=== PATIENT | female | born 1950 | race Caucasian/White ===

== ENCOUNTER → 2016-12-21 | Outpatient (CLI) | payer BC ==
--- OUTSIDE RECORDS SUMMARY | 2016-12-21 10:10 | XMS REPORT | Continuity of Care Document ---
Author Author Interface Organization Interface Address Unknown Phone Unavailable Problems Problem Status Onset Date Classification Date Reported Comments Source Medications Medication Details Route Status Patient Instructions Ordering Provider Order Date Source Allergies, Adverse Reactions, Alerts Substance Category Reaction Severity Reaction type Status Date Reported Comments Source Immunizations Immunization Date Given Site Status Last Updated Comments Source Results Order Name Results Value Reference Range Date Interpretation Comments Source Vital Signs Vital Sign Value Date Comments Source Encounters Location Location Details Encounter Type Encounter Number Reason For Visit Attending Provider ADM Date DC Date Status Source Procedures Procedure Code Date Perfomer Comments Source
--- NOTE | 2016-12-21 19:10 | Diagnostic Imaging Report ---
Digital mammogram bilateral screening This study was compared to the prior exam of 11/11/15, 11/05/14, and 09/03/13. At this time, there are no current complaints. The current study was also evaluated with a Computer Aided Detection (CAD) system. There are scattered fibroglandular densities in both breasts which could obscure a lesion. In the medial aspect of the left breast approximately 8 CM from the nipple a few microcalcifications have developed in the interval since the prior exam. I would recommend that a compression/magnification view of these calcifications be obtained in both the CC and ML projections so that they can be better characterized. The overall appearance of the breasts is otherwise no different. The nodular density in the upper-outer aspect of the left breast seen previously is again evident and no different. There is no primary or secondary sign of malignancy noted. IMPRESSION: Additional mammographic views of the left breast would be recommended for further evaluation. ACR BI-RADS Category 0: Incomplete. (Needs additional imaging evaluation). Result letter will be mailed to the patient. Note: At least 10% of breast cancer is not imaged by mammography. Dictated by: Dictated on workstation # [id number]
== END ==
LOC: RAD 10:07
PROVIDERS: ATTEND Obstetrics & Gynecology
DX: Z12.31 Encounter for screening mammogram for malignant neoplasm of breast (principal); N63 Unspecified lump in breast
CPT/HCPCS: 77067

== ENCOUNTER → 2017-01-04 | Outpatient (CLI) | payer BC ==
--- NOTE | 2017-01-04 19:47 | Diagnostic Imaging Report ---
EXAMINATION: Unilateral diagnostic left mammogram. INDICATION: Abnormal mammogram. The current study was also evaluated with a Computer Aided Detection (CAD) system. FINDINGS: The recent screening mammogram performed on 12/21/2016 noted a few new microcalcifications in the medial aspect of the left breast, approximately 8 cm from the nipple. Compression/magnification views of these calcifications show that they have a generally benign appearance. Even so, I would recommend that a six-month followup mammogram be obtained for continued evaluation. IMPRESSION: The newly developed calcifications in the left breast are most likely benign. A six-month followup mammogram would be recommended for continued study. ACR BI-RADS Category 3: Probably benign findings. Result letter will be mailed to the patient. Note: At least 10% of breast cancer is not imaged by mammography. Dictated by: Dictated on workstation # [id number]
== END ==
LOC: RAD 07:57
PROVIDERS: ATTEND Obstetrics & Gynecology
DX: R92.8 Other abnormal and inconclusive findings on diagnostic imaging of breast (principal); R92.1 Mammographic calcification found on diagnostic imaging of breast

== ENCOUNTER → 2017-07-19 | Outpatient (CLI) | payer BC ==
--- NOTE | 2017-07-19 14:15 | Diagnostic Imaging Report ---
EXAMINATION: Left breast diagnostic mammogram with tomography. The current study was also evaluated with a Computer Aided Detection (CAD) system. INDICATION: Calcifications in the medial aspect of the left breast. COMPARISON: 12/21/2016. FINDINGS: Loosely clustered calcifications with minimal heterogeneity are seen in the medial aspect of the left breast with no change. IMPRESSION: Unchanged medial left breast calcifications are favored to be benign. Another followup when the patient is due for her bilateral mammogram in November 2017 is recommended. ACR BI-RADS Category 3: Probably benign findings. Result letter will be mailed to the patient. Note: At least 10% of breast cancer is not imaged by mammography. Dictated by: Dictated on workstation # [id number]
== END ==
LOC: RAD 09:05
PROVIDERS: ATTEND Obstetrics & Gynecology
DX: R92.1 Mammographic calcification found on diagnostic imaging of breast (principal)

== ENCOUNTER → 2018-01-02 | Outpatient (CLI) | payer MEDICARE, BC ==
--- NOTE | 2018-01-02 20:08 | Diagnostic Imaging Report ---
INDICATION: Routine screening. Comparison is made with prior study from 07/19/2017, 12/21/2016 and 11/11/2015. The current study was also evaluated with a Computer Aided Detection (CAD) system. Scattered fibroglandular densities are identified bilaterally. Nodular density in the upper slightly outer aspect of the left breast at middle depth is stable. There are benign calcifications bilaterally. The previously seen medial calcifications of the left breast appear stable. Axillae are unremarkable. No malignant-appearing microcalcifications are seen. IMPRESSION: Stable bilateral mammograms. No mammographic features suspicious for malignancy are identified. ACR BI-RADS Category 2: Benign findings. Result letter will be mailed to the patient. Note: At least 10% of breast cancer is not imaged by mammography. Dictated by: Dictated on workstation # [id number]
== END ==
LOC: RAD 10:13
PROVIDERS: ATTEND Obstetrics & Gynecology
DX: Z12.31 Encounter for screening mammogram for malignant neoplasm of breast (principal)
CPT/HCPCS: 77067

== ENCOUNTER → 2019-01-09 | Outpatient (CLI) | payer MEDICARE, BC ==
--- NOTE | 2019-01-09 19:38 | Diagnostic Imaging Report ---
INDICATION: Routine screening. COMPARISON: Comparison is made with prior mammograms from 01/02/2018 and 12/21/2016. TECHNIQUE: 2D and 3D bilateral screening mammography was performed with computer-aided detection (CAD) system. FINDINGS: Scattered fibroglandular densities are identified bilaterally. There are benign calcifications bilaterally. Nodular density in the outer left breast mid depth appears stable. No dominant mass or malignant appearing microcalcifications are seen. The axillae are unremarkable. IMPRESSION: No mammographic features suspicious for malignancy are identified. ACR BI-RADS Category 2: Benign findings. Result letter will be mailed to the patient. Note: At least 10% of breast cancer is not imaged by mammography. Dictated by: Dictated on workstation # [id number]
== END ==
LOC: RAD 10:54
PROVIDERS: ATTEND Obstetrics & Gynecology
DX: Z12.31 Encounter for screening mammogram for malignant neoplasm of breast (principal)
CPT/HCPCS: 77067

== ENCOUNTER → 2019-05-14 | Outpatient (CLI) | payer MEDICARE, BC ==
--- NOTE | 2019-05-14 19:04 | Diagnostic Imaging Report ---
INDICATION: Indentation of the left nipple. COMPARISON: Correlation is made with diagnostic mammogram from earlier the same day. EXAMINATION: Sonographic interrogation of the retroareolar left breast was performed. FINDINGS: There is no retroareolar mass or fluid collection seen. No sonographic abnormality is identified. IMPRESSION: No sonographic abnormality is identified. ACR BI-RADS Category 1: Negative. Result letter will be mailed to the patient. Note: At least 10% of breast cancer is not imaged by mammography. Dictated by: Dictated on workstation # [id number]
--- NOTE | 2019-05-14 19:24 | Diagnostic Imaging Report ---
INDICATION: Left nipple retraction. COMPARISON: Comparison is made with prior mammogram of 01/09/2019 as well as 01/02/2018 and 07/17/2017. Unilateral left 2-D and 3-D diagnostic mammography was performed. The current study was also evaluated with a Computer Aided Detection (CAD) system. 3-D tomosynthesis was also performed and reviewed. FINDINGS: Nodular density in the upper outer left breast remains stable. There are benign calcifications in the left breast. No new mass or malignant-appearing microcalcifications are seen. Left axilla is unremarkable. IMPRESSION: Stable left mammogram with no mammographic features suspicious for malignancy. Even so, sonographic interrogation of retroareolar left breast is recommended and will be performed today. ACR BI-RADS Category 0: Incomplete. (Needs additional imaging evaluation). Result letter will be mailed to the patient. Note: At least 10% of breast cancer is not imaged by mammography. Dictated by: Dictated on workstation # [id number]
== END ==
LOC: RAD 09:16
PROVIDERS: ATTEND Obstetrics & Gynecology
DX: N64.53 Retraction of nipple (principal)
CPT/HCPCS: 76642

== ENCOUNTER 2020-05-17 12:03 | Emergency (ER) | payer MEDICARE, BC ==
[~2020-05-17] VITALS: Ht 167.7 cm; Wt 104.1 kg
--- NOTE | 2020-05-17 12:28 | ED General ---
General Chief Complaint: General Problems/Pain Stated Complaint: ANXIETY; TREMOR Nursing Triage Note: Patient reports she has not been able to sleep well for 5 nights, feeling jittery and anxious. Patient denies any pain. Nursing Sepsis Screen: No Definite Risk History of Present Illness Date Seen by Provider: May 17, 2020 Time Seen by Provider: 12:25 Initial Comments 69-year-old female presents with feeling of jitteriness and shaky for the past several hours. States for the last 4 days she's had difficulty sleeping the night and can only sleep for about 1-2 hours and she wakes up. Denies any chest pain or shortness of air. Denies abdominal pain or nausea. Denies fever, chills, cough or recent illness. Patient does states she had heart attack in 1998 and a couple years after that had a stent and that she has not had any heart problems. At that time her heart attack was discovered after a profound period of weakness. Allergies and Home Medications Allergies Coded Allergies: Sulfa (Sulfonamide Antibiotics) (Verified Allergy, Unknown, 05/17/20) adhesive tape (Verified Allergy, Unknown, 05/17/20) clopidogrel (Verified Allergy, Unknown, 05/17/20) latex (Verified Allergy, Unknown, 05/17/20) niacin (Verified Allergy, Unknown, 05/17/20) paroxetine (Verified Allergy, Unknown, 05/17/20) Uncoded Allergies: penicillin (Allergy, Unknown, 05/17/20) Patient Home Medication List Home Medication List Reviewed: Yes Review of Systems Review of Systems Constitutional: see HPI; No dizziness, No fever; malaise; No weakness EENTM: no symptoms reported Respiratory: No cough, No short of breath Cardiovascular: No chest pain, No palpitations, No syncope Gastrointestinal: No abdominal pain, No constipation, No diarrhea, No loss of appetite, No nausea, No vomiting Musculoskeletal: No back pain, No joint pain, No neck pain Psychiatric/Neurological: Anxiety; Denies Headache, Denies Numbness, Denies Paresthesia, Denies Tingling; Tremors (baseline w PD, but also feeling additional "jitteriness"); Denies Weakness Past Vxpzlpe-Udbiud-Cyfskf Hx Patient Social History Alcohol Use: Denies Use Recreational Drug Use: No 2nd Hand Smoke Exposure: No Recent Foreign Travel: No Contact w/Someone Who Travel: No Recent Infectious Disease Expo: No Recent Hopitalizations: No Physical Abuse: No Sexual Abuse: No Mistreated: No Fear: No Seasonal Allergies Seasonal Allergies: No Past Medical History Surgeries: Yes (tumor on back) Coronary Stent, Tonsillectomy Respiratory: No Cardiac: Yes Coronary Artery Disease, Heart Attack Neurological: Yes Parkinson's Disease Genitourinary: No Gastrointestinal: No Musculoskeletal: No Endocrine: No HEENT: No Cancer: No Psychosocial: No Integumentary: No Physical Exam Vital Signs Vital Signs - First Documented 05/17/20 12:08 Temp 36.1 Pulse 62 Resp 16 B/P (MAP) 153/93 (113) Pulse Ox 100 Capillary Refill : Less Than 3 Seconds Height, Weight, BMI Height: '" Weight: lbs. oz. kg; 37.00 BMI Method: General Appearance: No Apparent Distress, WD/WN HEENT: PERRL/EOMI, Normal ENT Inspection Neck: Non Tender, Supple Respiratory: Chest Non Tender, Lungs Clear, Normal Breath Sounds Cardiovascular: Regular Rate, Rhythm, No Edema, No JVD Gastrointestinal: Non Tender, Soft Neurologic/Psychiatric: Alert, Oriented x3, No Motor/Sensory Deficits, Normal Mood/Affect Progress/Results/Core Measures Suspected Sepsis Recent Fever Within 48 Hours: No Infection Criteria Present: None New/Unexplained Altered Menta: No Sepsis Screen: No Definite Risk SIRS Temperature: Pulse: 62 Respiratory Rate: 16 Laboratory Tests 05/17/20 12:30: White Blood Count 7.2 Blood Pressure 153 /93 Mean: 113 Laboratory Tests 05/17/20 12:30: Creatinine 0.78, Platelet Count 233, Total Bilirubin 0.8 Results/Orders Lab Results Laboratory Tests Test 05/17/20 12:03 05/17/20 12:30 Range/Units Urine Color YELLOW Urine Clarity CLEAR Urine pH 5.5 5-9 Urine Specific [place] 1.015 L 1.016-1.022 Urine Protein NEGATIVE NEGATIVE Urine Glucose (UA) NEGATIVE NEGATIVE Urine Ketones NEGATIVE NEGATIVE Urine Nitrite NEGATIVE NEGATIVE Urine Bilirubin NEGATIVE NEGATIVE Urine Urobilinogen 0.2 < = 1.0 MG/DL Urine Leukocyte Esterase 1+ H NEGATIVE Urine RBC (Auto) NEGATIVE NEGATIVE Urine RBC NONE /HPF Urine WBC 5-10 H /HPF Urine Squamous Epithelial Cells 5-10 /HPF Urine Crystals NONE /LPF Urine Bacteria TRACE /HPF Urine Casts NONE /LPF Urine Mucus NEGATIVE /LPF Urine Culture Indicated YES White Blood Count 7.2 4.3-11.0 10^3/uL Red Blood Count 4.69 4.35-5.85 10^6/uL Hemoglobin 14.0 11.5-16.0 G/DL Hematocrit 43 35-52 % Mean Corpuscular Volume 91 80-99 FL Mean Corpuscular Hemoglobin 30 25-34 PG Mean Corpuscular Hemoglobin Concent 33 32-36 G/DL Red Cell Distribution Width 12.6 10.0-14.5 % Platelet Count 233 130-400 10^3/uL Mean Platelet Volume 10.4 7.4-10.4 FL Neutrophils (%) (Auto) 56 42-75 % Lymphocytes (%) (Auto) 25 12-44 % Monocytes (%) (Auto) 8 0-12 % Eosinophils (%) (Auto) 10 0-10 % Basophils (%) (Auto) 1 0-10 % Neutrophils # (Auto) 4.0 1.8-7.8 X 10^3 Lymphocytes # (Auto) 1.8 1.0-4.0 X 10^3 Monocytes # (Auto) 0.6 0.0-1.0 X 10^3 Eosinophils # (Auto) 0.7 H 0.0-0.3 10^3/uL Basophils # (Auto) 0.1 0.0-0.1 10^3/uL Sodium Level 138 135-145 MMOL/L Potassium Level 4.1 3.6-5.0 MMOL/L Chloride Level 102 98-107 MMOL/L Carbon Dioxide Level 24 21-32 MMOL/L Anion Gap 12 5-14 MMOL/L Blood Urea Nitrogen 14 7-18 MG/DL Creatinine 0.78 0.60-1.30 MG/DL Estimat Glomerular Filtration Rate > 60 BUN/Creatinine Ratio 18 Glucose Level 128 H 70-105 MG/DL Calcium Level 9.8 8.5-10.1 MG/DL Corrected Calcium 9.6 8.5-10.1 MG/DL Total Bilirubin 0.8 0.1-1.0 MG/DL Aspartate Amino Transf (AST/SGOT) 23 5-34 U/L Alanine Aminotransferase (ALT/SGPT) 5 0-55 U/L Alkaline Phosphatase 97 40-136 U/L Troponin I < 0.30 <0.30 NG/ML Total Protein 7.6 6.4-8.2 GM/DL Albumin 4.3 3.2-4.5 GM/DL My Orders Orders - XENA TEJADA DO Cbc With Automated Diff (05/17/20 12:24) Comprehensive Metabolic Panel (05/17/20 12:24) Urinalysis (05/17/20 12:24) Troponin I Fs (05/17/20 12:24) Urine Culture (05/17/20 12:03) Thyroid Stimulating Hormone (05/17/20 13:25) Vital Signs/I&O 05/17/20 12:08 Temp 36.1 Pulse 62 Resp 16 B/P (MAP) 153/93 (113) Pulse Ox 100 Capillary Refill : Less Than 3 Seconds Blood Pressure Mean: 113 Progress Note : Progress Note Likely anxiety related sensation of feeling jittery or shaky. Also possibly due to her recent insomnia she states is secondary to feeling uncomfortable at night and having difficulty rolling over in bed due to her Parkinson's as well as frequently needing to use the restroom. Advised taking melatonin nightly and also given prescription for Xanax 0.5 mg to take once daily as needed. Also advised notifying her neurologist of the symptoms and to follow up accordingly. Departure Impression Primary Impression: Insomnia Qualified Codes: G47.00 - Insomnia, unspecified Additional Impression: Parkinson's disease (tremor, stiffness, slow motion, unstable posture) Disposition: 01 HOME, SELF-CARE Condition: Stable Departure-Patient Inst. Decision time for Depature: 13:27 Referrals: [facility] (PCP) Primary Care Physician REMINGTON ADAMS APRN (Family) Primary Care Physician Patient Instructions: Insomnia (DC), Parkinson Disease (DC) Add. Discharge Instructions: U advised to take melatonin 10 mg nightly for the next 2 weeks to see if this helps with your insomnia. Call your neurologist regarding her sensation of feeling shaky and for notifying them of the medication that was given to you today as needed for these episodes. All discharge instructions reviewed with patient and/or family. Voiced understanding. Scripts Alprazolam (Xanax) 0.5 Mg Tablet 0.5 MG PO DAILY PRN for Anxiety, #10 TAB Prov: XENA TEJADA DO 05/17/20 XENA TEJADA DO May 17, 2020 12:28
[2020-05-17 12:38] LABS: CLARITY,URINE CLEAR; COLOR,URINE YELLOW
[2020-05-17 12:39] LABS: BACTERIA,URINE TRACE /HPF; BILIRUBIN,URINE NEGATIVE (NEGATIVE); GLUCOSE, URINE (UA) NEGATIVE (NEGATIVE); KETONES,URINE NEGATIVE (NEGATIVE); LEUKOCYTE ESTERASE ,URINE 1+ (NEGATIVE); NITRITE,URINE NEGATIVE (NEGATIVE); PH,URINE 5.5 (5-9); PROTEIN,URINE NEGATIVE (NEGATIVE)
[2020-05-17 12:41] LABS: BASOPHILS % (AUTO) 1 % (0-10); EOSINOPHILS % (AUTO) 10 % (0-10); HEMATOCRIT 43 % (35-52); LYMPHOCYTES % (AUTO) 25 % (12-44); MEAN CORPUSCULAR HEMOGLOBIN 30 PG (25-34); MEAN CORPUSCULAR HGB CONC 33 G/DL (32-36); MEAN CORPUSCULAR VOLUME 91 FL (80-99); MEAN PLATELET VOLUME 10.4 FL (7.4-10.4); MONOCYTES % (AUTO) 8 % (0-12); NEUTROPHILS % (AUTO) 56 % (42-75); PLATELET COUNT 233 10^3/uL (130-400); RED CELL DISTRIBUTION WIDTH 12.6 % (10.0-14.5); WHITE BLOOD COUNT 7.2 10^3/uL (4.3-11.0)
[2020-05-17 12:42] LABS: BASOPHILS # (AUTO) 0.1 10^3/uL (0.0-0.1); EOSINOPHILS # (AUTO) 0.7 10^3/uL (0.0-0.3); LYMPHOCYTES # (AUTO) 1.8 X 10^3 (1.0-4.0); MONOCYTES # (AUTO) 0.6 X 10^3 (0.0-1.0)
[2020-05-17 13:08] LABS: ALANINE AMINOTRANSFERASE 5 U/L (0-55); ALBUMIN 4.3 GM/DL (3.2-4.5); ALKALINE PHOSPHATASE 97 U/L (40-136); BILIRUBIN,TOTAL 0.8 MG/DL (0.1-1.0); BUN/CREATININE RATIO 18; CALCIUM 9.8 MG/DL (8.5-10.1); CARBON DIOXIDE 24 MMOL/L (21-32); CHLORIDE 102 MMOL/L (98-107); CREATININE SERUM 0.78 MG/DL (0.60-1.30); GFR ESTIMATED > 60; GLUCOSE 128 MG/DL (70-105); POTASSIUM 4.1 MMOL/L (3.6-5.0); SODIUM 138 MMOL/L (135-145); TOTAL PROTEIN 7.6 GM/DL (6.4-8.2)
[2020-05-17] MEDS ORDERED: ALPR0.5T PO (13:29)
[2020-05-17 13:45] VITALS: BP 148/80
--- OUTSIDE RECORDS SUMMARY | 2020-05-17 14:07 | XMS REPORT | Encounter Summary ---
Author Author [facility] Organization [facility] Address Unknown Phone Unavailable Care Team Providers Care Field Checker Name Role Phone Claudia Perez PCP Reason for Visit * Reason Comments Other Encounter Details Care Team Description Date Type Department Chace Branham MD [address] [place] [address] [phone] Other 04/26/2018 Refill [facility] [address] [place], [place] [id number] Social History Date Tobacco Use Types Packs/Day Years Used Never Smoker Smokeless Tobacco: Never Used Drinks/Week oz/Week Comments Alcohol Use No Sex Assigned at Date Recorded Not on file Industry Job Start Date Occupation Not on file Not on file Not on file Travel End Travel History Travel Start No recent travel history available. documented as of this encounter Plan of Treatment Not on filedocumented as of this encounter Visit Diagnoses Not on filedocumented in this encounter
--- OUTSIDE RECORDS SUMMARY | 2020-05-17 14:07 | XMS REPORT | Encounter Summary ---
Author Author [facility] Organization [facility] Address Unknown Phone Unavailable Care Team Providers Care Safety Grooving Machine Operator Name Role Phone Claudia Perez PCP Reason for Referral * Diagnostic Imaging (Routine) Referred By Contact Referred To Contact Status Reason Specialty Diagnoses / Procedures Chace Branham MD [address] [place] [address] Closed Diagnoses Obesity (BMI 30-39.9) P rocedures Electrocardiogram (ECG) Reason for Visit * Reason Comments Annual Exam Coronary Artery Disease Encounter Details Care Team Description Date Type Department Chace Branham MD [address] [place] [address] [phone] Atherosclerosis of [place] coronary arter y of [place] heart without angina pectoris (Primary Dx); Mixed hyperlipidemia; Obesity (BMI 30-39.9); S/P coronary artery stent placement 08/20/2019 Office Visit [facility] [address] [place], [place] [id number] Social History Date Tobacco Use Types Packs/Day Years Used Never Smoker Smokeless Tobacco: Never Used Drinks/Week oz/Week Comments Alcohol Use No Sex Assigned at Date Recorded Not on file Industry Job Start Date Occupation Not on file Not on file Not on file Travel End Travel History Travel Start No recent travel history available. documented as of this encounter Last Filed Vital Signs Reading Time Taken Comments Vital Sign 154/94 08/20/2019 10:37 AM CDT Blood Pressure 55 08/20/2019 10:37 AM CDT Pulse - - Temperature - - Respiratory Rate - - Oxygen Saturation - - Inhaled Oxygen Concentration 107.5 kg (237 lb) 08/20/2019 10:37 AM CDT Weight 170.2 cm (5' 7") 08/20/2019 10:37 AM CDT Height 37.12 08/20/2019 10:37 AM CDT Body Mass Index documented in this encounter Patient Instructions * Patient Instructions* Carmelina Bronson RN - 08/20/2019 10:45 AM CDT Medication Instructions: Continue Current Regimen Follow up with MD Dr. Chace Last 1 year Please call the Nurse Line at [phone] ([facility] Team). with any questions or concerns. For medication refill needs, please first contact your pharmacy. For any [facility] scheduling questions, please lisa dayanara . At [facility], high quality patient care is our top priority. To ensure our cardiovascular standards are continuously met, you may receive a survey via [employer] or text message, and we ask that you please take the time to fill it out. We strive to ensure you are very satisfied with every visit. Thank you in advance for taking the time to fill this out. It was a pleasure to see you again. documented in this encounter Progress Notes * Chace Branham MD - 08/20/2019 10:45 AM CDT [facility] [place] Appointment Date: 08/20/2019 Claudia Perez APRN [address] [facility] [address] RE: Oscar Moreno : 1950 Visit provider: Chace Branham MD Dear Claudia Perez APRN, I had the pleasure of seeing Oscar Moreno in the office today. She is a(n) 68 y .o. female and presents with the following chief complaint(s): Annual Exam and C oronary Artery Disease HPI: She was seen today in followup for her annual review. She is doing well. She h as established coronary artery disease with a small myocardial infarction in the year 1999, treated with PCI of the LAD, with subsequent brachytherapy of that l esion. She has remained completely asymptomatic ever since. She describes no a ngina or heart failure type symptoms. She has Parkinson's disease, followed at the movement disorder clinic. Her most recent LDL is 65 mg/dL on 07/15/2019. Overall, she is pleased with the way she feels. Patient Active Problem List Diagnosis SNOMED CT(R) Mixed hyperlipidemia MIXED HYPERLIPIDEMIA Hypothyroidism HYPOTHYROIDISM Atherosclerosis of [place] coronary artery of [place] heart CORONARY ARTERIOSC LEROSIS IN [place] ARTERY Parkinson's disease (HCC) PARKINSON'S DISEASE Bradycardia BRADYCARDIA History of SD (myocardial infarction) HISTORY OF MYOCARDIAL INFARCTION S/P coronary artery stent placement HISTORY OF PLACEMENT OF STENT FOR YEPEZ RY ARTERY DISEASE Obesity (BMI 30-39.9) BODY MASS INDEX 30+ - OBESITY Past Medical History: Diagnosis Date Anxiety Atherosclerosis of [place] coronary artery of [place] heart Bradycardia 01/19/2016 Depression History of SD (myocardial infarction) 06/28/2000 Hypothyroidism 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 Moreno is a female who presented to [facility] on 06/16/2019 at age 68 for evaluati on of left nipple changes. Ms. Moreno reports left breast itching that began on 05/03/19. She noticed her left nipple was indented on 05/06/19. She had a left di agnostic mammogram and left breast ultrasound on 05/14/19 ([facility]ia [facility] P Mixed hyperlipidemia Obesity (BMI 30-39.9) Parkinson's disease (HCC) 01/19/2016 Pulmonary hypertension ([facility]) Syncope Past Surgical History: Procedure Laterality Date CORONARY ANGIOPLASTY PTCA -LAD with entry into beta cath radiation trial. CORONARY STENT PLACEMENT 06/28/2000 PTCA/Stent -proximal LAD-75-80% redilated and stented. HYSTERECTOMY 2003 TONSILLECTOMY AND ADENOIDECTOMY 1954 TUMOR EXCISION 1986 Tumor on back removed Final Medications: Current Outpatient Medications Medication Sig Dispense Refill aspirin 81 MG chewable tablet Chew 1 tablet (81 mg total) daily. atenolol (TENORMIN) 25 MG tablet Take 1 tablet (25 mg total) by mouth daily. 90 tablet 3 atorvastatin (LIPITOR) 10 MG tablet TAKE 1 TABLET BY MOUTH NIGHTLY 90 tablet 3 cholecalciferol, vitamin D3, (D3-2000) 2,000 unit cap capsule Take 1 capsule by mouth daily. levothyroxine (SYNTHROID, LEVOTHROID) 50 MCG tablet Take 50 mcg by mouth moy ly. loratadine (ALLERGY RELIEF, LORATADINE,) 10 mg tablet take 1 tablet (10MG) by ORAL route every day 0 NITROSTAT 0.4 mg SL tablet DISSOLVE ONE TABLET UNDER THE TONGUE EVERY 5 PARMJIT DUTCH NEEDED FOR CHEST PAIN. DO NOT EXCEED A TOTAL OF 3 DOSES IN 15 MINUTES 25 tablet 2 OM 3/E/LINOL/ALA/OLEIC/GLA/LIP (OMEGA 3-6-9 ORAL) Take 2 capsules by mouth 2 (two) times a day. therapeutic multivitamin (THERAGRAN) tablet Take 1 tablet by mouth daily. carbidopa-levodopa (SINEMET) 25-100 mg per tablet Take 1 tablet by mouth 3 ( three) times a day. No current facility-administered medications for this visit. Allergies Allergen Reactions Adhesive Tape-Silicones Clopidogrel Bisulfate Comment: PLAVIX Niacin Comment: NIASPAN Paroxetine Hcl Comment: PAXIL Penicillin G Potassium Comment: PENICILLIN Sulfamethoxazole Comment: Bactrim Trimethoprim Comment: Bactrim Family History Problem Relation Age of Onset Cancer Father Heart attack Father Stroke Mother No Known Problems Sister No Known Problems Brother Parkinson's disease Brother Cancer Sister Social History: Social History Tobacco Use Smoking status: Never Smoker Smokeless tobacco: Never Used Substance Use Topics Alcohol use: No Drug use: No Review of Systems Constitution: Negative for fever, malaise/fatigue and night sweats. HENT: Negative for nosebleeds. Cardiovascular: Negative for chest pain, claudication, cyanosis, dyspnea on exer tion, irregular heartbeat, leg swelling, near-syncope, orthopnea, palpitations, paroxysmal nocturnal dyspnea and syncope. Respiratory: Positive for snoring. Negative for cough, hemoptysis, shortness of breath, sleep disturbances due to breathing and wheezing. Endocrine: Negative for cold intolerance and polydipsia. Hematologic/Lymphatic: Does not bruise/bleed easily. Skin: Positive for rash. Musculoskeletal: Negative for joint pain and myalgias. Gastrointestinal: Negative for dysphagia, hematochezia, nausea and vomiting. Genitourinary: Negative for hematuria. Neurological: Negative for brief paralysis, disturbances in coordination, excess marcus daytime sleepiness, dizziness, focal weakness, light-headedness, loss of bal ance, numbness and paresthesias. All other systems reviewed and are negative. Vital Signs 08/20/19 1037 BP: (!) 154/94 Pulse: (!) 55 Weight: 107.5 kg (237 lb) Height: 1.702 m (5' 7") BMI: Body mass index is 37.12 kg/m. Physical Exam Constitutional: She is oriented to person, place, and time. She appears well-dev eloped and well-nourished. No distress. HENT: Head: Normocephalic and atraumatic. Eyes: Pupils are equal, round, and reactive to light. EOM are normal. No scleral icterus. Neck: Neck supple. No JVD present. Cardiovascular: Normal rate, regular rhythm, normal heart sounds and intact dist al pulses. Exam reveals no gallop and no friction rub. No murmur heard. Pulmonary/Chest: Effort normal and breath sounds normal. No respiratory distress . She has no wheezes. She has no rales. Abdominal: Soft. Bowel sounds are normal. Musculoskeletal: Normal range of motion. She exhibits no edema. Neurological: She is alert and oriented to person, place, and time. She has norm al reflexes. Coarse tremors in left hand. Skin: Skin is warm and dry. No rash noted. She is not diaphoretic. No erythema. No pallor. Psychiatric: She has a normal mood and affect. Her behavior is normal. Nursing note and vitals reviewed. Cholesterol Date Value 07/15/2019 146 mg/dL 03/07/2018 146 12/20/2016 156 HDL Cholesterol (mg/dL) Date Value 07/15/2019 62 03/07/2018 70 12/20/2016 76 (A) Triglycerides (mg/dL) Date Value 07/15/2019 100 03/07/2018 92 12/20/2016 79 LDL Cholesterol Date/Time Value Ref Range Status 07/15/2019 65 100 mg/dL Final 03/07/2018 58 mg/dL Final 12/20/2016 64 mg/dL Final EKG: Normal Sinus Rhythm, slow R wave progression and at 64 bpm Encounter Diagnoses Name Primary? Atherosclerosis of [place] coronary artery of [place] heart without angina pec toris Yes Mixed hyperlipidemia Obesity (BMI 30-39.9) S/P coronary artery stent placement Impression: 1. Coronary artery disease, clinically stable and asymptomatic. 2. Dyslipidemia, on moderately intense statin therapy. 3. History of brachytherapy to the LAD. 4. Parkinson's disease with occasional mild orthostatic symptoms, but nothing r ecently. 5. No significant carotid stenosis as of March 2017. Plan: From a cardiac standpoint, she is doing really well and I see no reason to recom mend any changes. I plan to see her in followup in 1 year's time. Treatment goals, progress and next steps, as above, were discussed and mutually agreed upon with the patient/family. Thank you for allowing me to participate in Oscar Moreno's care. If I can be o f any further assistance, please do not hesitate to contact me. Sincerely, Chace Branham MD /[facility] documented in this encounter Plan of Treatment Not on filedocumented as of this encounter Procedures Comments Procedure Name Priority Date/Time Associated Diag nosis ECG Routine 08/20/2019 Obesity (BMI 30 -39.9) 10:35 AM CDT documented in this encounter Results * Electrocardiogram (ECG) (08/20/2019 10:35 AM CDT) QRSd 108 [facility] QT 408 [facility] QTC 421 [facility] ECGHR 64 [facility] ECGPR 160 [facility]AC[facility]ER Specimen Narrative Performed At [facility] [place] Test Date: 2019-08-20 Pat Name: OSCAR MORENO Department: [facility] Room: Gender: Female Vrt Mechanic: DANILO : 1950 Requested By: CHACE BRANHAM Order Number: [id number] Reading MD: Sacha Mera Measurements Intervals Bow Rate: 64 P: 44 [place]: 160 QRS: -20 QRSD: 108 T: 37 QT: 408 QTc: 421 Interpretive Statements SINUS RHYTHM CONSIDER ANTERIOR INFARCT Electronically Signed On 08-24-2019 13: 40:23 CDT by Sacha Mera Procedure Note Interface, External Ris In - 08/24/2019 1:40 PM CDT [facility] [place] Test Date: 2019-08-20 Pat Name: OSCAR OMRENO Department: MICHELINEJose Room: Gender: Female Vrt Mechanic: DANILO : 1950 Requested By: CHACE BRANHAM Order Number: [id number] Reading MD: Sacha Mera Measurements Intervals Bow Rate: 64 P: 44 [place]: 160 QRS: -20 QRSD: 108 T: 37 QT: 408 QTc: 421 Interpretive Statements SINUS RHYTHM CONSIDER ANTERIOR INFARCT Electronically Signed On 08-24-2019 13:40:23 CDT by Sacha Mera Performing Organization Address City/State/Zipcode Ph one Number [email or web address] documented in this encounter Visit Diagnoses Diagnosis Atherosclerosis of [place] coronary aspen [place] of [place] heart without angina pectoris Mixed hyperlipidemia Obesity (BMI 30-39.9) S/P coronary artery stent placement Postsurgical percutaneous transluminal coronary angioplasty status documented in this encounter
--- OUTSIDE RECORDS SUMMARY | 2020-05-17 14:07 | XMS REPORT | Encounter Summary ---
Author Author [facility] Organization [facility] Address Unknown Phone Unavailable Care Team Providers Care Reimbursement Spec Name Role Phone PCP Unavailable Reason for Referral * Diagnostic Imaging (Routine) Referred By Contact Referred To Contact Status Reason Specialty Diagnoses / Procedures Jonatan Dick MD [address] [place] [address] [facility] C[facility] Ultrasound [address] [place] [address] Closed Cardiology Diagnoses Carotid bruit P rocedures US Carotid Duplex bilat CV US Carotid Duplex bilat Reason for Visit * Diagnostic Imaging (Routine) Referred By Contact Referred To Contact Status Reason Specialty Diagnoses / Procedures Jonatan Dick MD [address] [place] [address] [facility] Ultrasound [address] [place] [address] Closed Cardiology Diagnoses Carotid bruit P rocedures US Carotid Duplex bilat CV US Carotid Duplex bilat Encounter Details Care Team Description Date Type Department Jonatan Dick MD [address] [place] [address] [phone] Carotid bruit 04/10/2017 [place] [address] Social History Date Tobacco Use Types Packs/Day Years Used Never Smoker Smokeless Tobacco: Never Used Drinks/Week oz/Week Comments Alcohol Use No Sex Assigned at Date Recorded Not on file Industry Job Start Date Occupation Not on file Not on file Not on file Travel End Travel History Travel Start No recent travel history available. documented as of this encounter Medications at Time of Discharge Start Date End Date Medication Sig Dispensed Refills 04/10/2017 aspirin 81 MG chewable Chew 1 tablet 0 tablet (81 mg total) daily. carbidopa-levodopa Take 1 tablet 0 (SINEMET) 25-100 mg per by mouth 3 tablet (three) times a day. cholecalciferol, vitamin Take 1 0 D3, (D3-2000) 2,000 unit capsule by cap capsule mouth daily. levothyroxine (SYNTHROID, Take 50 mcg 0 LEVOTHROID) 50 MCG tablet by mouth daily. 07/14/2010 loratadine (ALLERGY take 1 tablet 0 RELIEF, LORATADINE,) 10 (10MG) by mg tablet ORAL route every day OM Take 2 0 3/E/LINOL/ALA/OLEIC/GLA/L capsules by IP (OMEGA 3-6-9 ORAL) mouth 2 (two) times a day. therapeutic multivitamin Take 1 tablet 0 (THERAGRAN) tablet by mouth daily. 02/04/2018 atenolol (TENORMIN) 25 MG Take 25 mg by 0 tablet mouth daily. 04/10/2017: Patient received a 90 day supply and 3 refills on 02/01/2017. 04/10/2017 04/26/2018 atorvastatin (LIPITOR) 10 Take 1 tablet 90 tablet 3 MG tablet (10 mg total) by mouth nightly. 03/27/2017 04/12/2018 NITROSTAT 0.4 mg SL Dissolve 1 25 tablet 2 tabletIndications: tablet (0.4 Coronary artery disease mg total) involving lummi coronary under the artery without angina tongue every pectoris 5 (five) minutes as needed for chest pain. documented as of this encounter Plan of Treatment Not on filedocumented as of this encounter Procedures Comments Procedure Name Priority Date/Time Associated Diag nosis CAROTID DUPLEX BILAT Routine 04/10/2017 Caroti d bruit 10:36 AM CDT documented in this encounter Results * US Carotid Duplex bilat (04/10/2017 10:36 AM CDT) Specimen Impressions Performed At Moderately tortuous bilateral ICA. LANISUNITHA No significant carotid calcified plaque . No duplex evidence of hemodynamically s ignificant stenosis or luminal narrowing. NOTE: Parts of this report were generated wit [employer] voice recognition software. J Digit Imagin2010;24(4):832-6. Narrative Performed At Patient: CARLITA MORENO Sex#: Minna # [id number] Filiberto#: [id number] Location: [facility] Procedure Requested: [id number] US CAROT ID DUPLEX BILAT Reason for Exam: Carotid bruit Exam Ordered: 04/10/2017 09 50 Exam Date/Time: 04/10/2017 103 6 Begin exam date/time: 04/10/2017 100 0 US CAROTID DUPLEX BILAT Indication: Carotid bruit READING SITE: [facility] Longitudinal and transverse 2D scans of the carotid arteries in the neck were obtained with Duplex/Doppler spe ctral analysis and color flow imaging. The common carotid, external c arotid, internal carotid and vertebral arteries were evaluated. RIGHT The right common carotid artery and car otid bulb demonstrates minimal intimal thickening but no significant c alcified plaque. There is moderately tortuous right ICA. The right common carotid artery has pea k systolic velocities of 89 cm/sec and end diastolic velocities of 18 cm/s. The right ICA shows peak systolic velocities of 110cm/s and end diastolic velocities of 36 cm/s. The ICA/CCA peak systolic ratio on the right is 1.2. The right vertebral artery shows peak anterograde flow with peak velocity of 35 cm/s. Subclavian 126 ECA 95 LEFT The left common carotid artery and [place] tid bulb show no significant shadowing calcified plaque. There is moderate tortuosity of left ICA. The left common carotid artery has peak systolic velocities of 96 cm/s and peak end diastolic velocities of 21 cm/s. The left ICA shows peak systolic velocities of 79cm/sec and end diastolic velocities of 26 cm/s. The ICA/CCA peak systolic ratio on th e left is 0.8. The left vertebral artery shows anterog rade flow with peak velocities of 36 cm/s. Subclavian 110 ECA 65 Color Doppler imaging demonstrates no c olor turbulence. Procedure Note Interface, Rad Results In - 04/10/2017 12:06 PM CDT Patient: CARLITA MORENO Sex#: F # [id number] Filiberto#: [id number] Location: [facility] Procedure Requested: [id number] US CAROTID DUPLEX BILAT Reason for Exam: Carotid bruit Exam Ordered: 04/10/2017 0950 Exam Date/Time: 04/10/2017 1036 Begin exam date/time: 04/10/2017 1000 US CAROTID DUPLEX BILAT Indication: Carotid bruit READING SITE: [facility] Longitudinal and transverse 2D scans of the carotid arteries in the neck were obtained with Duplex/Doppler spectral analysis and color flow imaging. The common carotid, external carotid, internal carotid and vertebral arteries were evaluated. RIGHT The right common carotid artery and carotid bulb demonstrates minimal intimal thickening but no significant calcified plaque. There is moderately tortuous right ICA. The right common carotid artery has peak systolic velocities of 89 cm/sec and end diastolic velocities of 18 cm/s. The right ICA shows peak systolic velocities of 110cm/s and end diastolic velocities of 36 cm/s. The ICA/CCA peak systolic ratio on the right is 1.2. The right vertebral artery shows peak anterograde flow with peak velocity of 35 cm/s. Subclavian 126 ECA 95 LEFT The left common carotid artery and carotid bulb show no significant shadowing calcified plaque. There is moderate tortuosity of left ICA. The left common carotid artery has peak systolic velocities of 96 cm/s and peak end diastolic velocities of 21 cm/s. The left ICA shows peak systolic velocities of 79cm/sec and end diastolic velocities of 26 cm/s. The ICA/CCA peak systolic ratio on the left is 0.8. The left vertebral artery shows anterograde flow with peak velocities of 36 cm/s. Subclavian 110 ECA 65 Color Doppler imaging demonstrates no color turbulence. IMPRESSION Moderately tortuous bilateral ICA. No significant carotid calcified plaque. No duplex evidence of hemodynamically significant stenosis or luminal narrowing. NOTE: Parts of this report were generated with voice recognition software. J Digit Imagin2010;24(4):724-8. Performing Organization Address City/State/Zipcode Ph one Karolyn ANDUJAR documented in this encounter Visit Diagnoses Diagnosis Carotid bruit Other symptoms involving cardiovascular system documented in this encounter
--- OUTSIDE RECORDS SUMMARY | 2020-05-17 14:07 | XMS REPORT | Encounter Summary ---
Author Author [facility] Organization [facility] Address Unknown Phone Unavailable Care Team Providers Care Electronics Recycler Name Role Phone PCP Unavailable Reason for Visit * Reason Comments Pre-visit chart prep Encounter Details Care Team Description Date Type Department Chace Branham MD [address] [facility] [address] [place] [address] [phone] Pre-visit chart prep 05/16/2018 Documentation [facility] [address] [facility] [address] [place] [address] Social History Date Tobacco Use Types Packs/Day [...] Procedure Name Priority Date/Time Associated Diag nosis LAB OUTSIDE RECORD Routine 05/26/2018 EKG OUTSIDE RECORD Routine 09/11/2013 10:25 AM INSTRUCTOR DRAMATIC ARTS documented in this encounter Results * Lab Outside Record (05/26/2018) Specimen Blood Narrative Performed At This result has an attachment that is n ot available. documented in this encounter Visit Diagnoses Not on filedocumented in this encounter
--- OUTSIDE RECORDS SUMMARY | 2020-05-17 14:07 | XMS REPORT | Encounter Summary ---
Author Author [facility] Organization [facility] Address Unknown Phone Unavailable Care Team Providers Care Dental Technician Instructor Name Role Phone Claudia Perez PCP Reason for Visit * Reason Comments Other Encounter Details Care Team Description Date Type Department Chace Branham MD [address] [facility] [address] [place] [address] [phone] Other 02/02/2018 Refill [facility] [address] [facility] [address] [place] [address] Social History Date Tobacco Use Types Packs/Day [...]
--- OUTSIDE RECORDS SUMMARY | 2020-05-17 14:07 | XMS REPORT | Encounter Summary ---
Author Author [facility] Organization [facility] Address Unknown Phone Unavailable Care Team Providers Care Parts Lister Name Role Phone PCP Unavailable Encounter Details Care Team Description Date Type Department Dulce Maria Smith RN 04/09/2017 Abstract [facility] [address] [place] [address] Social History Date Tobacco Use Types Packs/Day [...] filedocumented as of this encounter Visit Diagnoses Diagnosis History of coronary artery stent placem ent History of [place] (myocardial infarction) Old myocardial infarction documented in this encounter
--- OUTSIDE RECORDS SUMMARY | 2020-05-17 14:07 | XMS REPORT | Encounter Summary ---
Author Author [facility] Organization [facility] Address Unknown Phone Unavailable Care Team Providers Care Oil Exploration Engineer Name Role Phone PCP Unavailable Encounter Details Care Team Description Date Type Department Dulce Maria Smith RN 06/25/2018 Abstract [facility] [address] [place] [address] Social History Date Tobacco Use Types Packs/Day [...] Procedure Name Priority Date/Time Associated Diag nosis LIPID PANEL Routine 03/07/2018 documented in this encounter Results * Lipid Panel (03/07/2018) Triglycerides 92 40 - 160 mg/dL HDL Cholesterol 70 35 - 70 mg/dL LDL Cholesterol 58 mg/dL Cholesterol/HDL Ratio LDL INTERPRETATION Non-HDL Cholesterol Cholesterol 146 Specimen Blood documented in this encounter Visit Diagnoses Not on filedocumented in this encounter
--- OUTSIDE RECORDS SUMMARY | 2020-05-17 14:07 | XMS REPORT | Encounter Summary ---
Author Author [facility] Organization [facility] Address Unknown Phone Unavailable Care Team Providers Care Relocation Specialist Name Role Phone Claudia Perez PCP Encounter Details Care Team Description Date Type Department Rosario Su RN 08/17/2019 Abstract [facility] [address] [place] [address] Social History Date Tobacco Use Types Packs/Day [...] as of this encounter Visit Diagnoses Diagnosis S/P coronary artery stent placement Postsurgical percutaneous transluminal coronary angioplasty status Obesity (BMI 30-39.9) documented in this encounter
--- OUTSIDE RECORDS SUMMARY | 2020-05-17 14:07 | XMS REPORT | Encounter Summary ---
Author Author [facility] Organization [facility] Address Unknown Phone Unavailable Care Team Providers Care Parachute Mender Name Role Phone Claudia Perez PCP Reason for Visit * Reason Comments Other Encounter Details Care Team Description Date Type Department Chace Branham MD [address] [facility] [address] [place] [address] [phone] Other 04/16/2018 Refill [facility] [address] [facility] [address] [place] [address] Social History Date Tobacco Use Types Packs/Day [...] as of this encounter Visit Diagnoses Diagnosis Coronary artery disease involving nativ e coronary artery without angina pectoris documented in this encounter
--- OUTSIDE RECORDS SUMMARY | 2020-05-17 14:07 | XMS REPORT | Encounter Summary ---
Author Author [facility] Organization [facility] Address Unknown Phone Unavailable Care Team Providers Care Embalmer Assistant Name Role Phone PCP Unavailable Encounter Details Care Team Description Date Type Department Chace Branham MD [address] [facility] [address] [place] [address] [phone] 04/10/2017 Documentation [facility] [address] [facility] [address] [place] [address] Social History Date Tobacco Use Types Packs/Day [...] Date/Time Associated Diag nosis LIPID PANEL Routine 12/20/2016 documented in this encounter Results * Lipid Panel (12/20/2016) Triglycerides 79 40 - 160 mg/dL HDL Cholesterol 76 (A) 35 - 70 mg/dL LDL Cholesterol 64 mg/dL Non-HDL 80 Cholesterol Cholesterol 156 Specimen Blood documented in this encounter Visit Diagnoses Not on filedocumented in this encounter
--- OUTSIDE RECORDS SUMMARY | 2020-05-17 14:07 | XMS REPORT | Encounter Summary ---
Author Author [facility] Organization [facility] Address Unknown Phone Unavailable Care Team Providers Care Bunch Maker Hand Name Role Phone Claudia Perez PCP Reason for Visit * Reason Comments Other Encounter Details Care Team Description Date Type Department Chace Branham MD [address] [facility] [address] [place] [address] [phone] Other 04/12/2018 Refill [facility] [address] [facility] [address] [place] [address] Social History Date Tobacco Use Types Packs/Day [...]
--- OUTSIDE RECORDS SUMMARY | 2020-05-17 14:07 | XMS REPORT | Encounter Summary ---
Author Author [facility] Organization [facility] Address Unknown Phone Unavailable Care Team Providers Care Beauty School Instructor Name Role Phone PCP Unavailable Reason for Referral * Diagnostic Imaging (Routine) Referred By Contact Referred To Contact Status Reason Specialty Diagnoses / Procedures Chace Branham MD [address] [facility] [address] [place] [address] Closed Diagnoses Atherosclerosis of redding coronary artery of redding heart without angina pectoris P rocedures Electrocardiogram (ECG) Reason for Visit * Reason Comments Annual Exam Coronary Artery Disease Encounter Details Care Team Description Date Type Department Chace Branham MD [address] [facility] [address] [place] [address] [phone] Atherosclerosis of redding coronary arter y of redding heart without angina pectoris (Primary Dx); Mixed hyperlipidemia; History of coronary artery stent placement; Bradycardia; History of OR (myocardial infarction) 06/27/2018 Office Visit [facility] [address] [facility] [address] [place], [place] [id number] Social History Date Tobacco Use Types Packs/Day [...] Signs Reading Time Taken Comments Vital Sign 145/94 06/27/2018 10:36 AM CDT Blood Pressure 50 06/27/2018 10:36 AM CDT reg Pulse - - Temperature - - Respiratory Rate - - Oxygen Saturation - - Inhaled Oxygen Concentration 103 kg (227 lb) 06/27/2018 10:36 AM CDT Weight 170.2 cm (5' 7") 06/27/2018 10:36 AM CDT Height 35.55 06/27/2018 10:36 AM CDT Body Mass Index documented in this encounter Progress Notes * Chace Branham MD - 06/27/2018 11:35 AM CDT [facility] Appointment Date: 06/27/2018 Flaco Scmhitt MD [address] [facility] [address] RE: Oscar Moreno : 1950 Visit provider: Chace Branham MD Dear Flaco Schmitt MD, I had the pleasure of seeing Oscar Moreno in the office today. She is a(n) 67 y .o. female and presents with the following chief complaint(s): Annual Exam and C oronary Artery Disease HPI: I enjoyed my visit with Ms. Moreno in routine cardiology followup. She has est ablished coronary artery disease with a small myocardial infarction in the year 1999 treated with PCI to the LAD. She underwent brachytherapy for that lesion a nd has remained asymptomatic ever since. 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 She describes no angina or heart failure type symptoms. She has Parkinson's di sease and follows with one of the neurologists at . Her LDL is 58 mg/dL and s he is very pleased with the way she is feeling. Patient Active Problem List Diagnosis SNOMED CT(R) Mixed hyperlipidemia MIXED HYPERLIPIDEMIA Hypothyroidism HYPOTHYROIDISM Atherosclerosis of redding coronary artery of redding heart CORONARY ARTERIOSC LEROSIS IN COMANCHE ARTERY Parkinson's disease (HCC) PARKINSON'S DISEASE Bradycardia BRADYCARDIA History of coronary artery stent placement HISTORY OF PLACEMENT OF STENT FOR CORONARY ARTERY DISEASE History of OR (myocardial infarction) HISTORY OF MYOCARDIAL INFARCTION Past Medical History: Diagnosis Date Anxiety Atherosclerosis of redding coronary artery of redding heart Depression History of OR (myocardial infarction) 1999 Hypothyroidism Mixed hyperlipidemia Parkinson disease (HCC) Pulmonary hypertension (HCC) Syncope Past Surgical History: Procedure Laterality Date CORONARY ANGIOPLASTY PTCA -LAD with entry into beta cath radiation trial. CORONARY STENT PLACEMENT 06/28/2000 PTCA/Stent -proximal LAD-75-80% redilated and stented. HYSTERECTOMY 2003 TONSILLECTOMY AND ADENOIDECTOMY 1954 TUMOR EXCISION 1986 Tumor on back removed Final Medications: Current Outpatient Prescriptions Medication Sig Dispense Refill aspirin 81 MG chewable tablet Chew 1 tablet (81 mg total) daily. atenolol (TENORMIN) 25 MG tablet TAKE ONE TABLET BY MOUTH ONCE DAILY 90 tabl et 3 atorvastatin (LIPITOR) 10 MG tablet TAKE 1 TABLET BY MOUTH NIGHTLY 90 tablet 3 carbidopa-levodopa (SINEMET) 25-100 mg per tablet Take 1 tablet by mouth 3 ( three) times a day. cholecalciferol, vitamin D3, (D3-2000) 2,000 unit cap capsule Take 1 capsule by mouth daily. levothyroxine (SYNTHROID, LEVOTHROID) 50 MCG tablet Take 50 mcg by mouth moy ly. loratadine (ALLERGY RELIEF, LORATADINE,) 10 mg tablet take 1 tablet (10MG) by ORAL route every day 0 OM 3/E/LINOL/ALA/OLEIC/GLA/LIP (OMEGA 3-6-9 ORAL) Take 2 capsules by mouth 2 (two) times a day. therapeutic multivitamin (THERAGRAN) tablet Take 1 tablet by mouth daily. NITROSTAT 0.4 mg SL tablet DISSOLVE ONE TABLET UNDER THE TONGUE EVERY 5 PARMJIT DUTCH NEEDED FOR CHEST PAIN. DO NOT EXCEED A TOTAL OF 3 DOSES IN 15 MINUTES 25 tablet 2 No current facility-administered medications for this visit. Allergies Allergen Reactions Adhesive Tape-Silicones Clopidogrel Bisulfate Comment: PLAVIX Niacin Comment: NIASPAN Paroxetine Hcl Comment: PAXIL Penicillin G Potassium Comment: PENICILLIN Sulfamethoxazole Comment: Bactrim Trimethoprim Comment: Bactrim Family History Problem Relation Age of Onset Cancer Father Heart attack Father Stroke Mother No Known Problems Sister No Known Problems Brother Parkinson's disease Brother Cancer Sister Social History Substance Use Topics Smoking status: Never Smoker Smokeless tobacco: Never Used Alcohol use No Review of Systems Constitution: Positive for night sweats. Negative for fever and malaise/fatigue. HENT: Negative for nosebleeds. Cardiovascular: Negative for chest pain, claudication, cyanosis, dyspnea on exer tion, irregular heartbeat, leg swelling, near-syncope, orthopnea, palpitations, paroxysmal nocturnal dyspnea and syncope. Respiratory: Positive for snoring. Negative for cough, hemoptysis, shortness of breath, sleep disturbances due to breathing, sputum production and wheezing. Endocrine: Negative for cold intolerance and polydipsia. Hematologic/Lymphatic: Does not bruise/bleed easily. Skin: Negative for rash. Musculoskeletal: Negative for joint pain and myalgias. Gastrointestinal: Negative for dysphagia, hematochezia, nausea and vomiting. Genitourinary: Negative for hematuria. Neurological: Negative for disturbances in coordination, excessive daytime sleep iness, dizziness, focal weakness, headaches, light-headedness, loss of balance, numbness and paresthesias. All other systems reviewed and are negative. Vital Signs 06/27/18 1036 BP: (!) 145/94 Pulse: (!) 50 Weight: 103 kg (227 lb) Height: 1.702 m (5' 7") BMI: Body mass index is 35.55 kg/m. Physical Exam Constitutional: She is oriented [...] normal. Nursing note and vitals reviewed. Cholesterol (no units) Date Value 03/07/2018 146 12/20/2016 156 11/13/2015 136 HDL Cholesterol (mg/dL) Date Value 03/07/2018 70 12/20/2016 76 (A) 11/13/2015 67 Triglycerides (mg/dL) Date Value 03/07/2018 92 12/20/2016 79 11/13/2015 72 LDL Cholesterol Date/Time Value Ref Range Status 03/07/2018 58 mg/dL Final 12/20/2016 64 mg/dL Final 11/13/2015 55 mg/dL Final EKG: Normal Sinus Rhythm, slow R wave progression and at 50 bpm Encounter Diagnoses Name Primary? Atherosclerosis of redding coronary artery of redding heart without angina pec toris Yes Mixed hyperlipidemia History of coronary artery stent placement Bradycardia History of OR (myocardial infarction) Impression: 1. Stable coronary artery disease status post left anterior descending coronary artery infarction. 2. History of brachytherapy to the left anterior descending coronary artery. 3. Dyslipidemia, on moderately intense statin therapy with LDL of 58 mg/dL. 4. Parkinson's disease with occasional mild orthostatic symptoms. 5. No significant carotid stenosis as of March 2017. Plan: From a cardiovascular standpoint, Ms. Moreno is doing very well and I see no re ason to recommend any changes. I plan to see her in followup in 1 year. Treatment goals, progress and next steps, as above, were discussed and mutually agreed upon with the patient/family. Thank you for allowing me to participate in Oscar Moreno's care. If I can be o f any further assistance, please do not hesitate to contact me. Sincerely, Chace Branham MD /lucita documented in this encounter Plan of Treatment Not on filedocumented as of this encounter Procedures Comments Procedure Name Priority Date/Time Associated Diag nosis ECG Routine 06/27/2018 Atherosclerosis of redding 11:32 AM CDT coronary artery of redding heart without angina pectoris documented in this encounter Results * Electrocardiogram (ECG) (06/27/2018 11:32 AM CDT) QRSd 98 [facility] QT 440 [facility] QTC 402 [facility] ECGHR 50 [facility] ECGPR 168 [facility] Specimen Narrative Performed At [facility] Test Date: 2018-06-27 Pat Name: OSCAR MORENO [facility]: Gender: Female Sliver Cutter: [id number] : 1950 Requested By: CHACE BRANHAM Order Number: [id number] Reading : Jourdan Garcia Measurements Intervals [place] Rate: 50 P: 40 NH: 168 QRS: -6 QRSD: 98 T: 41 QT: 440 QTc: 402 Interpretive Statements SINUS RHYTHM CONSIDER ANTERIOR INFARCT Electronically Signed On 07-01-2018 13:52 :11 CDT by Jourdan Garcia Procedure Note Interface, External Ris In - 07/01/2018 1:52 PM CDT [facility] Test Date: 2018-06-27 Pat Name: OSCAR MORENO Department: [facility] Room: Gender: Female Sliver Cutter: [id number] : 1950 Requested By: CHACE BRANHAM Order Number: [id number] Reading : Jourdan Garcia Measurements Intervals [place] Rate: 50 P: 40 NH: 168 QRS: -6 QRSD: 98 T: 41 QT: 440 QTc: 402 Interpretive Statements SINUS RHYTHM CONSIDER ANTERIOR INFARCT Electronically Signed On 07-01-2018 13:52:11 CDT by Jourdan Garcia Performing Organization Address City/State/Zipcode Ph one Number [facility] documented in this encounter Visit Diagnoses Diagnosis Atherosclerosis of redding coronary aspen ry of redding heart without angina pectoris Mixed hyperlipidemia History of coronary artery stent placem ent Bradycardia Other specified cardiac dysrhythmias History of OR (myocardial infarction) Old myocardial infarction documented in this encounter
--- OUTSIDE RECORDS SUMMARY | 2020-05-17 14:07 | XMS REPORT | Encounter Summary ---
Author Author [facility] Address Unknown Phone Unavailable Care Team Providers Care Data Programmer Name Role Phone PCP Unavailable Reason for Referral * Diagnostic Imaging (Routine) Referred By Contact Referred To Contact Status Reason Specialty Diagnoses / Procedures Chace Branham MD [address] [place] [address] Closed Diagnoses Atherosclerosis of [place] coronary artery of [place] heart without angina pectoris P rocedures Electrocardiogram (ECG) Reason for Visit * Reason Comments Coronary Artery Disease Encounter Details Care Team Description Date Type Department Chace Branham MD [address] [facility] [address] [place] [address] [phone] Atherosclerosis of [place] coronary arter y of [place] heart without angina pectoris (Primary Dx); Mixed hyperlipidemia; History of coronary artery stent placement 04/10/2017 Office Visit [facility] [address] [facility] [address] [place] [address] Social History Date Tobacco Use Types Packs/Day [...] Signs Reading Time Taken Comments Vital Sign 138/76 04/10/2017 1:04 PM CDT Blood Pressure 59 04/10/2017 1:04 PM CDT regular Pulse - - Temperature - - Respiratory Rate - - Oxygen Saturation - - Inhaled Oxygen Concentration 107.3 kg (236 lb 9.6 oz) 04/10/2017 1:04 PM CDT Weight 170.2 cm (5' 7") 04/10/2017 1:04 PM CDT Height 37.06 04/10/2017 1:04 PM CDT Body Mass Index documented in this encounter Patient Instructions * Patient Instructions* Gloria Bolaños, RN - 04/10/2017 1:25 PM CDT 1. Compression stockings can help with your dizziness. 2. 1 year annual physical with Dr. Chace Branham. Putting on Compression Stockings Turn the stocking inside-out, then fit it over your toes and heel. Roll the stocking up your leg. Once stockings are on, make sure the top of the stocking is about two fingers width below the crease of the knee (or the groin if you wear thigh-high stockin gs). Use equipment, such as a stocking charles, or wear rubber gloves to make it easie r to put on compression stockings. Elastic compression stockings are prescribed to treat many vein problems. Wearin g them may be the most important thing you do to manage your symptoms. The stock ings fit tightly aroundyour ankle, gradually reducing in pressure as they go u p your legs. This helps keep blood flowing toyour heart. As a result, swelling is reduced. Your healthcare provider will prescribe stockings at a safe pressure for you. He or she will also tell you how often to wear and remove the stockin gs. Follow these instructions closely.Also, do not buy or wear compression sto ckings without first seeing your healthcare provider. Tips for wear and care To wear stockings safely and to get the most benefit: Wear the length prescribed by your healthcare provider. Pull them to the designated height and no farther. Dont let them bunch at the top. This can restrict blood flow and increase swelling. Wear the stockingsfor the amount of time your healthcare provider recommend s. Replace them when they start to feel loose. This will likely be every 3 to 6 months. Remove them as your healthcare provider directs. When removed, wash your legs . Then check your legs and feet for sores. Call your healthcare provider if you find a sore. Dont put the stockings back on unless your healthcare provider d irects. Wash the stockings as instructed. They may need to be hand-washed. Date Last Reviewed: 02/26/201619994027-5445 [employer] [address] [place] [address], [place] [address] 7. All rights reserved. This information is not intended as a substitute for pro fessional medical care. Always follow your healthcare professional's instruction s. documented in this encounter Progress Notes * Chace Branham MD - 04/10/2017 1:20 PM CDT [facility] Appointment Date: 04/10/2017 Flaco Schmitt MD [address] [place] [id number] RE: Oscar Rodriguez : 1950 Visit provider: Chace Branham MD Dear Flaco Schmitt MD, I had the pleasure of seeing Oscar Rodriguez in the office today. She is a 66 y.o. female and presents with the following chief complaints: Coronary Artery Disease HPI: It was my pleasure to see Ms. Rodriguez for her annual review. She has a history of coronary artery disease with a small myocardial infarction in the year 1999, treated with PCI of the LAD. She underwent brachytherapy for that lesion and grijalva s done very well ever since. She continues to describe no angina or heart failu re symptoms. She has been diagnosed with Parkinson's disease and she is on Sine met. She has seen a neurologist affiliated with [facility]. Her LDL is well controlled. Overall, she is pleased with the way she is feeli ng. She underwent a carotid duplex ultrasound here at [facility]'s earlier toda y. It showed some tortuosity, but no stenosis in any of her internal carotid ar teries. Patient Active Problem List Diagnosis SNOMED CT(R) Mixed hyperlipidemia MIXED HYPERLIPIDEMIA Hypothyroidism HYPOTHYROIDISM Atherosclerosis of [place] coronary artery of [place] heart CORONARY ARTERIOSC LEROSIS IN [place] ARTERY Parkinson's disease (HCC) PARKINSON'S DISEASE Bradycardia BRADYCARDIA History of coronary artery stent placement STENTED CORONARY ARTERY History of [place] (myocardial infarction) HISTORY OF MYOCARDIAL INFARCTION Past Medical History: Diagnosis Date Anxiety Atherosclerosis of [place] coronary artery of [place] heart Depression History of [place] (myocardial infarction) 1999 Hypothyroidism Mixed hyperlipidemia Parkinson [...] daily. atenolol (TENORMIN) 25 MG tablet Take 25 mg by mouth daily. 04/10/2017: Danisha ent received a 90 day supply and 3 refills on 02/01/2017. atorvastatin (LIPITOR) 10 MG tablet Take 1 tablet (10 mg total) by mouth nig htly. 90 tablet 3 carbidopa-levodopa (SINEMET) 25-100 mg [...] day 0 NITROSTAT 0.4 mg SL tablet Dissolve 1 tablet (0.4 mg total) under the tongue every 5 (five) minutes as needed for chest pain. 25 tablet 2 OM 3/E/LINOL/ALA/OLEIC/GLA/LIP (OMEGA 3-6-9 ORAL) Take 2 capsules by mouth 2 (two) times a day. therapeutic multivitamin (THERAGRAN) tablet Take 1 tablet by mouth daily. No current facility-administered medications for this visit. [...] Brother Cancer Sister Social History: Social History Substance Use Topics Smoking status: Never Smoker Smokeless tobacco: Never Used Alcohol use No Exercise level: Regular Activity: Cycles, Walks Duration: 45 Frequency: Five times per week Diet: Regular Caffeine: No Review of Systems Constitution: Positive for night sweats. Negative for fever and malaise/fatigue. HENT: Negative for nosebleeds. Cardiovascular: Positive for palpitations. Negative for chest pain, claudication , cyanosis, dyspnea on exertion, irregular heartbeat, leg swelling, near-syncope , orthopnea, paroxysmal nocturnal dyspnea and syncope. Respiratory: Positive for snoring. Negative for cough, hemoptysis, shortness of breath, sleep disturbances due to breathing and wheezing. Endocrine: Negative for cold intolerance and polydipsia. Hematologic/Lymphatic: Does not bruise/bleed easily. Skin: Negative for rash. Musculoskeletal: Negative for joint pain and myalgias. Gastrointestinal: Negative for dysphagia, hematochezia, nausea and vomiting. Genitourinary: Negative for hematuria. Neurological: Negative for excessive daytime sleepiness, dizziness, light-headed ness, loss of balance, numbness and paresthesias. All other systems reviewed and are negative. Vital Signs 04/10/17 1304 BP: 138/76 Pulse: 59 Weight: 107.3 kg (236 lb 9.6 oz) Height: 1.702 m (5' 7") BMI: Body mass index is 37.06 kg/m. Physical Exam Constitutional: She is oriented to person, place, and time. She appears well-dev eloped and well-nourished. No distress. HENT: Head: Normocephalic and atraumatic. Eyes: EOM are normal. Pupils are equal, round, and reactive to light. No scleral icterus. Neck: Neck supple. No [...] and time. She has norm al reflexes. Skin: Skin is warm and dry. No rash noted. She is not diaphoretic. No erythema. No pallor. Psychiatric: She has a normal mood and affect. Her behavior is normal. Nursing note and vitals reviewed. Cholesterol Date Value 12/20/2016 156 11/13/2015 136 02/05/1999 189 MG/DL HDL Cholesterol Date Value 12/20/2016 76 mg/dL (A) 11/13/2015 67 mg/dL 02/05/1999 53 MG/DL Triglycerides Date Value 12/20/2016 79 mg/dL 11/13/2015 72 mg/dL 02/05/1999 95 MG/DL LDL Cholesterol Date/Time Value Ref Range Status 12/20/2016 64 mg/dL Final 11/13/2015 55 mg/dL Final 02/05/1999 01:20 PM 117 0 - 130 MG/DL Final EKG: Normal Sinus Rhythm at 59 bpm Encounter Diagnoses Name Primary? Atherosclerosis [place] coronary artery of [place] heart without angina pec toris Yes Mixed hyperlipidemia History of coronary artery stent placement Impression: 1. Stable coronary artery disease. She is doing very well with no symptoms. 2. Dyslipidemia, on moderately intensive statin therapy. 3. History of brachytherapy for LAD lesion. 4. Parkinson's disease with occasional orthostatic symptoms, likely a side effe ct of her Sinemet. 5. No significant carotid stenosis as of March 2017. Plan: Her cardiovascular status is presently stable. I am recommending to continue wi th current therapy as it is and will plan to see her in followup in 1 year's joanna e. Treatment goals, progress and next steps, as above, were discussed and mutually agreed upon with the patient/family. Thank you for allowing me to participate in Oscar Rodriguez's care. If I can be o f any further assistance, please do not hesitate to contact me. Sincerely, Chace Branham MD /ks/alondra documented in this encounter Plan of Treatment Not on filedocumented as of this encounter Procedures Comments Procedure Name Priority Date/Time Associated Diag nosis ECG Routine 04/10/2017 Atherosclerosis of [place] 12:58 PM CDT coronary artery of [place] heart without angina pectoris documented in this encounter Results * Electrocardiogram (ECG) (04/10/2017 12:58 PM CDT) Specimen Narrative Performed At [facility] Test Date: 2017-04-10 Pat Name: OSCAR OCCOQUAN Department: [facility] Room: Gender: Female Electronic Organ Technician: RAYO : 1950 Requested By: CHACE BRANHAM Order Number: [id number] Reading MD: Chace Branham Measurements Intervals [place] Rate: 59 P: 44 [place]: 156 QRS: -13 QRSD: 100 T: 43 QT: 408 QTc: 405 Interpretive Statements SINUS RHYTHM Compared to ECG 01/19/2016 10:48:10 Sinus bradycardia no longer present Electronically Signed On 04-11-2017 17:4 7:05 CDT by Chace Branham Procedure Note Interface, External Ris In - 04/11/2017 5:47 PM CDT [facility] Test Date: 2017-04-10 Pat Name: OSCAR OCCOQUAN Department: [facility] Room: Gender: Female Electronic Organ Technician: RAYO : 1950 Requested By: CHACE BRANHAM Order Number: [id number] Reading MD: Chace Branham Measurements Intervals [place] Rate: 59 P: 44 [place]: 156 QRS: -13 QRSD: 100 T: 43 QT: 408 QTc: 405 Interpretive Statements SINUS RHYTHM Compared to ECG 01/19/2016 10:48:10 Sinus bradycardia no longer present Electronically Signed On 04-11-2017 17:47:05 CDT by Chace Branham Performing Organization Address City/State/Zipcode Ph one Number [email or web address] documented in this encounter Visit Diagnoses Diagnosis Atherosclerosis of [place] coronary [place]pen [place] of [place] heart without angina pectoris Mixed hyperlipidemia History of coronary artery stent placem ent documented in this encounter
--- OUTSIDE RECORDS SUMMARY | 2020-05-17 14:07 | XMS REPORT | Clinical Summary ---
Author Author [facility] Organization [facility] Address Unknown Phone Unavailable Care Team Providers Care Nanotechnician Name Role Phone Claudia Perez PCP Allergies Comments Active Allergy Reactions Severity Noted Date Adhesive Tape-Silicones 01/19/2016 Comment: PLAVIX Clopidogrel Bisulfate 01/19/2016 Comment: NIASPAN Niacin 01/19/2016 Comment: PAXIL Paroxetine Hcl 01/19/2016 Comment: PENICILLIN Penicillin G Potassium 01/19/2016 Comment: Bactrim Sulfamethoxazole 01/19/2016 Comment: Bactrim Trimethoprim 01/19/2016 Medications End Date Status Medication Sig Dispensed Refills Start Date Active loratadine (ALLERGY take 1 tablet 0 RELIEF, LORATADINE,) 10 (10MG) by 0 mg tablet ORAL route every day Active carbidopa-levodopa Take 1 tablet 0 (SINEMET) 25-100 mg per by mouth 3 tablet (three) times a day. Active levothyroxine (SYNTHROID, Take 50 mcg 0 LEVOTHROID) 50 MCG tablet by mouth daily. Active OM Take 2 0 3/E/LINOL/ALA/OLEIC/GLA/L capsules by IP (OMEGA 3-6-9 ORAL) mouth 2 (two) times a day. Active therapeutic multivitamin Take 1 tablet 0 (THERAGRAN) tablet by mouth daily. Active cholecalciferol, vitamin Take 1 0 D3, (D3-2000) 2,000 unit capsule by cap capsule mouth daily. Active aspirin 81 MG chewable Chew 1 tablet 0 04/10/ 01 tablet (81 mg total) 7 daily. Active NITROSTAT 0.4 mg SL DISSOLVE ONE 25 tablet 2 04/15 tabletIndications: TABLET UNDER 8 Coronary artery disease THE TONGUE involving [place] coronary EVERY 5 artery without angina MINUTES pectoris NEEDED FOR CHEST PAIN. DO NOT EXCEED A TOTAL OF 3 DOSES IN 15 MINUTES Active atenoloL (TENORMIN) 25 MG Take 1 tablet 90 tablet 1 tablet (25 mg total) 0 by mouth daily. Active atorvastatin (LIPITOR) 10 Take 1 tablet 90 tablet 3 MG tablet by mouth 0 nightly Active Problems Problem Noted Date S/P coronary artery stent placement 04/09/2017 Overview: Brachytherapy Parkinson's disease 01/19/2016 Bradycardia 01/19/2016 History of [place] (myocardial infarction) 10/28/1999 Mixed hyperlipidemia Hypothyroidism Atherosclerosis of [place] coronary aspen ry of [place] heart Obesity (BMI 30-39.9) Resolved Problems Problem Noted Date Resolved Date Inversion of nipple 05/25/2019 08/17/2019 Overview: DIAGNOSIS: Left nipple inversion HISTORY: Ms. Rodriguez is a fe male who [facility]2019 at age 68 fo r evaluation of left nipple changes. Ms. Rodriguez reports left breast itching that began on 05/03/19. She noticed her left nipple was indented on 05/06/19 . She had a left diagnostic mammogram and left breast ultrasound on 05/14/19 ([facility]). Imaging revealed no abnorm alities (BI-RADS 1). Ms. Rodriguez denies any other current breast concern s. She denies any other history of breast issues, surgeries or biopsies. BREAST IMAGING: Mammogram: -- Bilateral screening mammogram 9 ([place], [place]) revealed scattered fibroglandular densities. There were be nign calcifications bilaterally. Nodular density in the left outer breas t mid depth appeared stable. No dominant mass or malignant calcificatio ns. The axillae were unremarkable. -- Left diagnostic mammogram 05/14/19 ([place], [place]) revealed nodular density in the upper outer left breast remained stable. There were benign calcifications in the left breast. No n ew mass or malignant appearing calcifications. Left axilla was unremar kable. Ultrasound: -- Left breast ultrasound 05/14/19 ([place], [place]) revealed no retroareolar mass or fluid collection. No sonographi c abnormality. REPRODUCTIVE HEALTH: Age at first Menarche: 17 Age at First Live : 27 Age at Menopause: 54, no HRT : 4 Para: 3 : 6 months each child PERTINENT PMH: Parkinson, HLD, HTN, hyp othyroidism FAMILY HISTORY: Patient denies a famil y history of breast, ovarian or prostate cancer. PHYSICAL EXAM on PRESENTATION: Right - No palpable breast masses. No skin, nipple, or areolar change. Left - No pa lpable masses. Inversion of the central nipple without skin change or u lceration. REFERRED BY: Zahida Thomas DO History of coronary artery stent placement 04/09/2017 08/17/2019 Encounters Care Team Description Date Type Specialty Chace Branham MD 04/25/2020 Documentation Cardiology Chace Branham MD Other 03/20/2020 Refill Cardiology from Last 3 Months Family History Medical History Relation Name Comments No Known Problems Brother Parkinson's disease Brother Cancer Father Heart attack Father Stroke Mother No Known Problems Sister Cancer Sister Relation Name Status Comments Brother Alive Brother Alive Father Cause of was MD, Cancer at age 57. (Age 57) Mother Cause of was Stroke at age 77. (Age 77) Sister Alive Sister Alive Social History Date Tobacco Use Types Packs/Day Years Used Never Smoker Smokeless Tobacco: Never Used Drinks/Week oz/Week Comments Alcohol Use No Sex Assigned at Date Recorded Not on file Industry Job Start Date Occupation Not on file Not on file Not on file Travel End Travel History Travel Start No recent travel history available. Last Filed Vital Signs Reading Time Taken [...] 08/20/2019 10:37 AM CDT Body Mass Index Plan of Treatment Health Maintenance Due Date Last Done Comments Medicare Annual Wellness 1950 Td # 1950 Colorectal Screening via 2002 Colonoscopy Mammogram Screening 2002 Zoster Vaccine# (1 of 2) 2002 Depression Screening 2017 PHQ-9 # Fall Risk Assessment # 2017 Osteoporosis Screening 2017 Influenza Vaccine (#1) 2020 08/07/2018, 08/07/2018, 09/11/2016, Additional history exists Hepatitis C Screen Completed 09/28/2009 Pneumococcal Vaccine: 65+ Completed 08/28/2018, Years 09/11/2016, 06/30/2009 Procedures Comments Procedure Name Priority Date/Time Associated Diag nosis LIPID PANEL Routine 04/06/2020 from Last 3 Months Results * Lipid Panel (04/06/2020) Triglycerides 119 40 - 160 mg/dL HDL Cholesterol 56 35 - 70 mg/dL LDL Cholesterol 63 mg/dL Cholesterol/HDL 2.5 Ratio LDL INTERPRETATION Non-HDL 84 Cholesterol Cholesterol 140 mg/dL Specimen Blood Narrative Performed At This result has an attachment that is n ot available. from Last 3 Months Insurance Type Payer Benefit Subscriber ID Effective Phone Address Plan / Dates Group Medicare MEDICARE MEDICARE xxxxxxxxxxx 2017- [place] PART A B [facility] xxxxxxxxx 6-P FEDERAL resent 1 Carlita Rodriguez Personal/F Self 1950 [address] [place] (Home) [place] [id number] 1 Carlita Rodriguez Personal/F Self 1950 [address] [place] (Home) [place] [id number] 1 Advance Directives For more information, please contact: [phone] Patient Patient Scheduling Manager Explanation Type Date Recorded Advance Directives 04/10/2017 12:00 AM and Living Will Power of Terminologist Health Care Directive
--- OUTSIDE RECORDS SUMMARY | 2020-05-17 14:07 | XMS REPORT | Encounter Summary ---
Author Author [facility] Organization [facility] Address Unknown Phone Unavailable Care Team Providers Care Third Mate Name Role Phone PCP Unavailable Reason for Visit * Reason Comments Other Encounter Details Care Team Description Date Type Department Chace Branham MD [address] [facility] [address] [place] [address] [phone] Other 01/18/2019 Refill [facility] [address] [facility] [address] [place] [address] Social History Date Tobacco Use Types Packs/Day Years Used Never Smoker Smokeless Tobacco: Never Used Drinks/Week oz/Week Comments Alcohol Use No Sex Assigned at Date Recorded Not on file Industry Job Start Date Occupation Not on file Not on file Not on file Travel End Travel History Travel Start No recent travel history available. documented as of this encounter Miscellaneous Notes * Telephone Encounter - Amy Sarabia MA - 01/20/2019 12:39 PM CDT [facility] with Dr. Wyatt. Atenolol 25 mg # 90 R-3 sent to [facility]. [facility] documented in this encounter Plan of Treatment Not on filedocumented as of this encounter Visit Diagnoses Not on filedocumented in this encounter
--- OUTSIDE RECORDS SUMMARY | 2020-05-17 14:07 | XMS REPORT | Encounter Summary ---
Author Author [facility] Organization [facility] Address Unknown Phone Unavailable Care Team Providers Care Coordinate Measuring Equipment Operator Name Role Phone Claudia Perez PCP Reason for Visit * Reason Comments Other Encounter Details Care Team Description Date Type Department Chace Branham MD [address] [facility] [address] [place] [address] [phone] Other 01/24/2020 Refill [facility] [address] [facility] [address] [place] [address] Social History Date Tobacco Use Types Packs/Day [...] encounter Miscellaneous Notes * Telephone Encounter - Jannet Silva RN - 01/25/2020 10:43 AM CDT Refilled per [facility] protocol documented in this encounter Plan of Treatment Not on filedocumented as of this encounter Visit Diagnoses Not on filedocumented in this encounter
--- OUTSIDE RECORDS SUMMARY | 2020-05-17 14:07 | XMS REPORT | Encounter Summary ---
Author Author [facility] Organization [facility] Address Unknown Phone Unavailable Care Team Providers Care New Client Banking Services Clerk Name Role Phone Claudia Perez PCP Reason for Visit * Reason Comments Other Encounter Details Care Team Description Date Type Department Chace Branham MD [address] [facility] [address] [place] [address] [phone] Other 04/19/2019 Refill [facility] [address] [facility] [address] [place], [place] [id number] Social History Date Tobacco Use Types Packs/Day [...]
--- OUTSIDE RECORDS SUMMARY | 2020-05-17 14:07 | XMS REPORT | Encounter Summary ---
Author Author [facility] Organization [facility] Address Unknown Phone Unavailable Care Team Providers Care Supervisor Photocomposition Name Role Phone PCP Unavailable Reason for Visit * Reason Comments Carotid Duplex Results From 04/10/2017 Ordered by Patient's Neurlogist Encounter Details Care Team Description Date Type Department Gloria Bolaños RN Carotid Duplex Results (From 04/10/2017 Ordered by Patient's Neurlogist) 04/10/2017 Telephone [facility] [address] [place] [address] Social History Date Tobacco Use Types Packs/Day [...] encounter Miscellaneous Notes * Telephone Encounter - Gloria Bolaños RN - 04/10/2017 3:38 PM CDT Patient saw [facility] in office today (04/10/2017). Patient had Carotid Duplex complet ed today that was ordered by her neurologist at [facility]. [facility] would like for the [facility] to have a copy of these results. Patient checked out and did not get resul ts in office. Printed Carotid Duplex results. Placed in the mail today to go out tomorrow (04/11/2017). documented in this encounter Plan of Treatment Not on filedocumented as of this encounter Visit Diagnoses Not on filedocumented in this encounter
--- OUTSIDE RECORDS SUMMARY | 2020-05-17 14:07 | XMS REPORT | Encounter Summary ---
Author Author [facility] Organization [facility] Address Unknown Phone Unavailable Care Team Providers Care Unclaimed Property Manager Name Role Phone Claudia Perez PCP Encounter Details Care Team Description Date Type Department Chace Branham MD [address] [facility] [address] [place], [place] [id number] 06/23/2019 Documentation [facility] [address] [facility] [address] [place] [address] Social History Date Tobacco Use Types Packs/Day [...] Date/Time Associated Diag nosis LIPID PANEL Routine 07/15/2019 documented in this encounter Results * Lipid Panel (07/15/2019) Triglycerides 100 40 - 150 mg/dL HDL Cholesterol 62 50 - 70 mg/dL LDL Cholesterol 65 100 mg/dL Cholesterol/HDL 2.4 5.0 Ratio LDL INTERPRETATION Non-HDL Cholesterol Cholesterol 146 200 mg/dL Specimen Blood Narrative Performed At This result has an attachment that is n ot available. documented in this encounter Visit Diagnoses Not on filedocumented in this encounter
--- OUTSIDE RECORDS SUMMARY | 2020-05-17 14:07 | XMS REPORT | Encounter Summary ---
Author Author [facility] Organization [facility] Address Unknown Phone Unavailable Care Team Providers Care Merchandiser Name Role Phone Claudia Perez PCP Encounter Details Care Team Description Date Type Department Chace Branham MD [address] [facility] [address] [place] [address] [phone] 04/25/2020 Documentation [facility] [address] [facility] [address] [facility] [place] [address] Social History Date Tobacco Use Types Packs/Day [...] Associated Diag nosis LIPID PANEL Routine 04/06/2020 documented in this encounter Results * Lipid Panel (04/06/2020) Triglycerides 119 [...]
--- OUTSIDE RECORDS SUMMARY | 2020-05-17 14:07 | XMS REPORT | Encounter Summary ---
Author Author [facility] Organization [facility] Address Unknown Phone Unavailable Care Team Providers Care Hydrometeorologist Name Role Phone Claudia Perez PCP Reason for Visit * Reason Comments Other Encounter Details Care Team Description Date Type Department Chace Branham MD [address] [facility] [address] [place], [place] [id number] Other 03/20/2020 Refill [facility] [address] [facility] [address] [place], [place] [address] Social History Date Tobacco Use Types Packs/Day [...]
--- OUTSIDE RECORDS SUMMARY | 2020-05-17 14:08 | XMS REPORT | Encounter Summary ---
Author Author [facility] Organization [facility] Address Unknown Phone Unavailable Care Team Providers Care Taping Foreman Name Role Phone PCP Unavailable Reason for Visit * Reason Comments Other Encounter Details Care Team Description Date Type Department Chace Branham MD [address] [facility] [address] [place] [address] [phone] Other 03/24/2017 Refill [facility] [address] [facility] [address] [place] [address] Social History Date Tobacco Use Types Packs/Day [...] Telephone Encounter - Amy Sarabia MA - 03/27/2017 9:30 AM CDT Nitro 0.4 # 25 R-2 sent to [facility] per request. HUGO 04/20/16 with [facility]- has LINDA scheduled with [facility] 04/10/17 documented in this encounter Plan of Treatment Not on filedocumented as of this encounter Visit Diagnoses Diagnosis Coronary artery disease involving nativ e coronary artery without angina pectoris documented in this encounter
--- OUTSIDE RECORDS SUMMARY | 2020-05-17 14:08 | XMS REPORT | Encounter Summary ---
Author Author [facility] Organization [facility] Address Unknown Phone Unavailable Care Team Providers Care Quality Improvement Coordinator Name Role Phone PCP Unavailable Encounter Details Care Team Description Date Type Department Chace Branham MD [address] [address] 08/31/2014 [facility] - Hist [facility]ORIC [facility] C Visit Social History Date Tobacco Use Types Packs/Day Years Used Never Assessed Sex Assigned at Date Recorded Not on file Industry Job Start Date Occupation Not on file Not on file Not on file Travel End Travel History Travel Start No recent travel history available. documented as of this encounter Progress Notes * Chace Branham MD - 08/31/2014 2:29 PM MARKING ROOM SUPERVISOR Release of Information URGENT! APPOINTMENT WITH DR. BRANHAM - 09/02/2014 RE: CARLITA MORENO : 1950 [facility] is requesting protected health informat ion from: DR. DENI GALO Purpose: Continuation of care Please release records to the following [facility] Office: [facility] Office [address] [place] [address] Fax to : Attention : KENZIE - Chart Wireless Store Manager Please send the following: Most recent office visit letter, EKG, labs, including cholesterol, any cardiac t esting and/ or procedures, and most recent medication list. Thank you for your prompt attention to our request. This facsimile contains confidential information which may also be legally privi leged and which is intended only for the use of the individual or entity named a delia. If the reader of a facsimile is not the intended recipient or the employe e or agent responsible for delivering it to the intended recipient, you are here by on notice that you are in possession of confidential and privileged informati on. Any dissemination, distribution or copying of this facsimile is strictly pr ohibited. If you have received this facsimile in error, please immediately noti fy the sender by telephone and return the original facsimile to the sender at th e above address via the U.S. Postal Service. ING ROOM SUPERVISOR documented in this encounter Plan of Treatment Not on filedocumented as of this encounter Visit Diagnoses Not on filedocumented in this encounter
--- OUTSIDE RECORDS SUMMARY | 2020-05-17 14:08 | XMS REPORT | Encounter Summary ---
Author Author [facility] Organization [facility] Address Unknown Phone Unavailable Care Team Providers Care Medical Doctor Name Role Phone PCP Unavailable Encounter Details Care Team Description Date Type Department Chace Branham MD [address] [facility] [address] [place] [address] [phone] 04/05/2017 Documentation [facility] [address] [facility] [address] [place] [address] Social History Date Tobacco Use Types Packs/Day [...] Associated Diag nosis LAB OUTSIDE RECORD Routine 03/28/2017 EKG OUTSIDE RECORD Routine 09/11/2013 10:13 AM CABBAGE SALTER documented in this encounter Results * Lab Outside Record (03/28/2017) Specimen Blood Narrative Performed At This result has an attachment that is n ot available. documented in this encounter Visit Diagnoses Not on filedocumented in this encounter
--- OUTSIDE RECORDS SUMMARY | 2020-05-17 14:08 | XMS REPORT | Encounter Summary ---
Author Author [facility] Organization [facility] Address Unknown Phone Unavailable Care Team Providers Care Educational Therapist Name Role Phone PCP Unavailable Reason for Visit * Reason Comments Other Encounter Details Care Team Description Date Type Department Chace Branham MD [address] [facility] [address] [place] [address] [phone] Other 11/13/2015 Refill [facility] [address] [facility] [address] [place] [address] Social History Date Tobacco Use Types Packs/Day Years Used Never Assessed Sex Assigned at Date Recorded Not on file Industry Job Start Date Occupation Not on file Not on file Not on file Travel End Travel History Travel Start No recent travel history available. documented as of this encounter Miscellaneous Notes * Telephone Encounter - Maryann Sanchez - 11/22/2015 10:00 AM SPOOL HAULER Patient had labs completed on 11/03/15 at [facility] in [facility]. She is going to mail us those results. MICHAEL L HAULER documented in this encounter Plan of Treatment Not on filedocumented as of this encounter Visit Diagnoses Not on filedocumented in this encounter
--- OUTSIDE RECORDS SUMMARY | 2020-05-17 14:08 | XMS REPORT | Encounter Summary ---
Author Author [facility] Organization [facility] Address Unknown Phone Unavailable Care Team Providers Care Store Receiving Specialist Name Role Phone PCP Unavailable Encounter Details Care Team Description [place] [address] [place] [address] [phone] 07/24/2013 [facility] - Hist [facility] HISTORIC [facility] Visit Social History Date Tobacco Use Types Packs/Day Years Used Never Assessed Sex Assigned at Date Recorded Not on file Industry Job Start Date Occupation Not on file Not on file Not on file Travel End Travel History Travel Start No recent travel history available. documented as of this encounter Progress Notes * Jocy Sebastian MD - 07/24/2013 4:17 PM CDT Release of Information -STAT-2nd request, need morris, pt has apt 07/31 RE: CARLITA RODRIGUEZ : 1950 [facility] is requesting protected health informat ion from: Elton Schmitt MD Purpose: Continuation of care Please release records to the following [facility] Office: [place] Office [address] [place] [address] Fax to : Attention : Chart Senior Medical Transcriptionist-Vanna Please send the following: Most recent office [...] above address via the U.S. Postal Service. documented in this encounter Plan of Treatment Not on filedocumented as of this encounter Visit Diagnoses Not on filedocumented in this encounter
--- OUTSIDE RECORDS SUMMARY | 2020-05-17 14:08 | XMS REPORT | Encounter Summary ---
Author Author [facility] Organization [facility] Address Unknown Phone Unavailable Care Team Providers Care Chef De Partie Name Role Phone PCP Unavailable Encounter Details Care Team Description Date Type Department Chace Branham MD [address] [facility] [address] [place] [address] [phone] 01/29/2017 Documentation [facility] [address] [place], [place] [address] [place] [address] Social History Date Tobacco Use Types Packs/Day [...]
--- OUTSIDE RECORDS SUMMARY | 2020-05-17 14:08 | XMS REPORT | Encounter Summary ---
Author Author [facility] Organization [facility] Address Unknown Phone Unavailable Care Team Providers Care Bench Molder Apprentice Name Role Phone PCP Unavailable Encounter Details Care Team Description Date Type Department Chace Branham MD [address] [facility] [address] [place] [address] [phone] 01/10/2016 Documentation [facility] [address] [facility] [address] [place] [address] Social History Date Tobacco Use Types Packs/Day [...]
--- OUTSIDE RECORDS SUMMARY | 2020-05-17 14:08 | XMS REPORT | Encounter Summary ---
Author Author [facility] Organization [facility] Address Unknown Phone Unavailable Care Team Providers Care Animal Rescuer Name Role Phone PCP Unavailable Reason for Referral * Diagnostic Imaging (Routine) Referred By Contact Referred To Contact Status Reason Specialty Diagnoses / Procedures Donald Branham MD [address] [facility] [address] [place] [address] Closed Diagnoses Coronary artery disease involving modoc coronary artery without angina pectoris P rocedures Electrocardiogram (ECG) Reason for Visit * Reason Comments Annual F/U Encounter Details Care Team Description Date Type Department Donald Branham MD [address] [facility] [address] [place], [place] [phone] Coronary artery disease involving modoc coronary artery without angina pectoris (Primary Dx); Dyslipidemia; Bradycardia 01/19/2016 Office Visit [facility] [address] [facility] [address] [place], [place] [address] Social History Date Tobacco Use Types Packs/Day [...] Signs Reading Time Taken Comments Vital Sign 130/74 01/19/2016 10:37 AM CDT LA Blood Pressure 49 01/19/2016 10:37 AM CDT Irregular Pulse - - Temperature - - Respiratory Rate - - Oxygen Saturation - - Inhaled Oxygen Concentration 102.2 kg (225 lb 3.2 oz) 01/19/2016 10:37 AM CDT Weight 170.2 cm (5' 7") 01/19/2016 10:37 AM CDT Height 35.27 01/19/2016 10:37 AM CDT Body Mass Index documented in this encounter Progress Notes * Donald Branham MD - 01/19/2016 10:40 AM CDT [facility] Appointment Date: 01/19/2016 Flaco Schmitt MD [address] [place] [address] RE: Carlita Rodriguez : 1950 Visit provider: Donald Branham MD Dear Flaco Schmitt MD, I had the pleasure of seeing Carlita Rodriguez in the office today. She is a 65 y.o. female and presents with the following chief complaints: Annual F/U HPI: She was seen today in followup for annual review. She has a history of coronary artery disease with a small myocardial infarction in the year 1999 followed by PCI of the LAD. She was part of the experimental protocol with brachytherapy at that time. She has done very well ever since, with no angina or heart failure. She has been diagnosed with Parkinson's disease and is currently on Sinemet. She is seeing a neurologist affiliated with [facility]. Her lipids are followed by you, and they are very well controlled. Her sinus felicita cardia is completely asymptomatic. Patient Active Problem List Diagnosis SNOMED CT(R) Dyslipidemia DYSLIPIDEMIA Hypothyroidism HYPOTHYROIDISM CAD (coronary artery disease) CORONARY ARTERIOSCLEROSIS Parkinson's disease PARKINSON'S DISEASE Bradycardia BRADYCARDIA Past Medical History Diagnosis Date Dyslipidemia Hypothyroidism Pulmonary hypertension Anxiety Depression Syncope CAD (coronary artery disease) Past Surgical History Procedure Laterality Date Hysterectomy 2003 Tumor excision 1986 Tumor on back removed Tonsillectomy adenoidectomy 1954 Final Medications: Current Outpatient Prescriptions Medication Sig Dispense Refill aspirin 81 MG chewable tablet take 1 tablet (81MG) by oral route every day 0 atenolol (TENORMIN) 25 MG tablet TAKE ONE TABLET BY MOUTH ONCE DAILY 90 tabl et 0 calcium carbonate-vit D3-min (CALCIUM 600 + MINERALS) 600 mg calcium- 200 un it Tab Take one tablet by mouth daily 0 0 carbidopa-levodopa (SINEMET) 25-100 mg per tablet Take 1 tablet by mouth 3 ( three) times a day. LIPITOR 10 mg tablet TAKE ONE TABLET BY MOUTH ONCE DAILY 90 tablet 0 loratadine (ALLERGY RELIEF, LORATADINE,) 10 mg tablet take 1 tablet (10MG) by ORAL route every day 0 multivitamin (THERAGRAN) per tablet 0 0 NITROSTAT 0.4 mg SL tablet Dissolve 1 tablet (0.4 mg total) under the tongue every 5 (five) minutes as needed for chest pain. 25 tablet 2 OMEGA 3 350 MG-DHA 235 MG-EPA 90 MG-FISH OIL 597 MG CAPSULE,DELAY REL 0 0 No current facility-administered medications for this visit. Allergies Allergen Reactions Adhesive Tape-Silicones Clopidogrel Bisulfate Comment: PLAVIX Niacin Comment: NIASPAN Paroxetine Hcl Comment: PAXIL Penicillin G Potassium Comment: PENICILLIN Sulfamethoxazole Comment: Bactrim Trimethoprim Comment: Bactrim History reviewed. No pertinent family history. Social History: History Substance Use Topics Smoking status: Never Smoker Smokeless tobacco: Never Used Alcohol Use: No Exercise level: Regular Activity: Walks Duration: 30 Frequency: Daily Diet: Low fat/calorie Caffeine: Yes Caffeine frequency: Occasionally Caffeine amount: 12 ounces Caffeine type: Soda, Chocolate Review of Systems Constitution: Negative for fever, malaise/fatigue and night sweats. HENT: Negative for nosebleeds. Eyes: Negative for blurred vision. Cardiovascular: Negative for chest pain, claudication, cyanosis, dyspnea on exer tion, irregular heartbeat, leg swelling, near-syncope, orthopnea, palpitations a nd syncope. Respiratory: Positive for snoring. Negative for cough, hemoptysis, shortness of breath, sleep disturbances due to breathing, sputum production and wheezing. Endocrine: Negative for cold intolerance and polydipsia. Hematologic/Lymphatic: Does not bruise/bleed easily. Skin: Negative for rash. Musculoskeletal: Negative for arthritis, joint pain, muscle cramps and myalgias. Gastrointestinal: Negative for dysphagia, hematochezia, nausea and vomiting. Genitourinary: Negative for dysuria and hematuria. Neurological: Negative for excessive daytime sleepiness, dizziness, light-headed ness, loss of balance, numbness and paresthesias. All other systems reviewed and are negative. Vital Signs 03/24/16 1037 BP: 130/74 Pulse: 49 Height: 1.702 m (5' 7") Weight: 102.15 kg (225 lb 3.2 oz) BMI: Body mass index is 35.26 kg/(m^2). Physical Exam Constitutional: She is oriented to [...] and time. She has norm al reflexes. Marked resting tremors. Skin: Skin is warm and dry. No rash noted. She is not diaphoretic. No erythema. No pallor. Psychiatric: She has a normal mood and affect. Her behavior is normal. Nursing note and vitals reviewed. CHOLESTEROL Date Value 11/13/2015 136 02/05/1999 189 MG/DL 01/31/1999 178 MG/DL HDL CHOLESTEROL Date Value 11/13/2015 67 mg/dL 02/05/1999 53 MG/DL 01/31/1999 52 MG/DL TRIGLYCERIDES Date Value 11/13/2015 72 mg/dL 02/05/1999 95 MG/DL 01/31/1999 139 MG/DL LDL CHOLESTEROL Date/Time Value Ref Range Status 11/13/2015 55 mg/dL Final 02/05/1999 01:20 PM 117 0 - 130 MG/DL Final 01/31/1999 09:00 AM 98 0 - 130 MG/DL Final EKG: Sinus Bradycardia at 49 bpm Encounter Diagnoses Name Primary? Coronary artery disease involving modoc coronary artery without angina pect eli Yes Dyslipidemia Bradycardia Plan: 1. Stable CV status. 2. Consider discontinuing calcium supplementation, which has lately been associa mendel with increased coronary calcifications. Use vitamin D and 3 servings/day of natural sources. Thank you for allowing me to participate in Carlita Rodriguez's care. If I can be o f any further assistance, please do not hesitate to contact me. Sincerely, Donald Branham MD CRKrystal/sj documented in this encounter Plan of Treatment Not on filedocumented as of this encounter Procedures Comments Procedure Name Priority Date/Time Associated Diag nosis ECG Routine 01/19/2016 Coronary artery disease 10:48 AM CDT involving modoc coronary artery without angina pectoris documented in this encounter Results * Electrocardiogram (ECG) (01/19/2016 10:48 AM CDT) Specimen Narrative Performed At [facility] Test Date: 2016-01-19 Pat Name: CARLITA HARRIS Department: [facility] Room: Gender: Female Manager Resort: [place] : 1950 Requested By: DONALD BRANHAM Order Number: [id number] Reading MD: Donald Branham Measurements Intervals [place] Rate: 49 P: 47 GA: 148 QRS: -12 QRSD: 98 T: 30 QT: 424 QTc: 383 Interpretive Statements SINUS BRADYCARDIA PROBABLE LEFT ATRIAL ABNORMALITY BORDERLINE R WAVE PROGRESSION, ANTERIOR LEADS No previous ECG available for compariso n Electronically Signed On 01-19-2016 13:0 0:12 CDT by Donald Branham Performing Organization Address City/State/Zipcode Ph one Number [facility] documented in this encounter Visit Diagnoses Diagnosis Coronary artery disease involving nativ e coronary artery without angina pectoris Dyslipidemia Other and unspecified hyperlipidemia Bradycardia Other specified cardiac dysrhythmias documented in this encounter
--- OUTSIDE RECORDS SUMMARY | 2020-05-17 14:08 | XMS REPORT | Encounter Summary ---
Author Author [facility] Organization [facility] Address Unknown Phone Unavailable Care Team Providers Care Electrical Journeyman Name Role Phone PCP Unavailable Encounter Details Care Team Description Date Type Department Lasha Partida MD [address] [place] [address] [phone] 07/31/2011 [facility] Hist [facility] Visit Social History Date [...]
--- OUTSIDE RECORDS SUMMARY | 2020-05-17 14:08 | XMS REPORT | Encounter Summary ---
Author Author [facility] Organization [facility] Address Unknown Phone Unavailable Care Team Providers Care Assistant Professor Of Life Sciences Name Role Phone Claudia Perez PCP Reason for Visit * Reason Comments Other Encounter Details Care Team Description Date Type Department Chace Branham MD [address] [facility] [address] [place] [address] [phone] Other 01/27/2017 Refill [facility] [address] [facility] [address] [place], [place] [id number] Social History Date Tobacco Use Types Packs/Day [...]
--- OUTSIDE RECORDS SUMMARY | 2020-05-17 14:08 | XMS REPORT | Encounter Summary ---
Author Author Organization Address Unknown Phone Unavailable Care Team Providers Care Clay Maker Name Role Phone PCP Unavailable Encounter Details Care Team Description Date Type Department Lasha Partida MD [address] [place] [address] [phone] 12/05/2009 [facility] [...]
--- OUTSIDE RECORDS SUMMARY | 2020-05-17 14:08 | XMS REPORT | Encounter Summary ---
Author Author [facility] Organization [facility] Address Unknown Phone Unavailable Care Team Providers Care Industrial Machine Assembler Name Role Phone PCP Unavailable Encounter Details Care Team Description Date Type Department Lasha Partida MD [address] [place] [address] [phone] 08/16/2014 [facility] - [facility] [...]
--- OUTSIDE RECORDS SUMMARY | 2020-05-17 14:08 | XMS REPORT | Encounter Summary ---
Author Author [facility] Organization [facility] Address Unknown Phone Unavailable Care Team Providers Care Director Of Rooms Name Role Phone Claudia Perez PCP Reason for Visit * Reason Comments Other Encounter Details Care Team Description Date Type Department Chace Branham MD [address] [facility] [address] [place], [place] [id number] Other 02/10/2016 Refill [facility] [address] [facility] [address] [place], [place] [id number] Social History Date Tobacco Use Types Packs/Day [...]
--- OUTSIDE RECORDS SUMMARY | 2020-05-17 14:08 | XMS REPORT | Encounter Summary ---
Author Author [facility] Organization [facility] Address Unknown Phone Unavailable Care Team Providers Care Metal Buggy Operator Name Role Phone PCP Unavailable Encounter Details Care Team Description Date Type Department Lasha Partida MD [address] [place] [address] [phone] 07/14/2010 [facility] C [...] Signs Reading Time Taken Comments Vital Sign 140/88 07/14/2010 12:28 PM CDT Blood Pressure 50 07/14/2010 12:28 PM CDT Pulse - - Temperature - - Respiratory Rate - - Oxygen Saturation - - Inhaled Oxygen Concentration 103.3 kg (227 lb 12.8 oz) 07/14/2010 12:28 PM CDT obese Weight 170.2 cm (5' 7") 07/14/2010 12:28 PM CDT Height 35.68 07/14/2010 12:28 PM CDT Body Mass Index documented in this encounter Progress Notes * Lasha Partida MD - 07/14/2010 12:30 PM CDT [place] [facility] [address] [place] [address] July 14, 2010 Elton Schmitt MD [address] [place] [address] RE: CARLITA RODRIGUEZ : 1950 Chart #: [id number] Visit provider: Lasha Partida, PhD, M.D. Visit location: [place] [address] Schmitt: I had the pleasure of seeing CARLITA RODRIGUEZ in the office today. She is 59 years of age and presents with the following chief complaints: coronary artery diseas e, dyslipidemia. HPI: Ms. Rodriguez has a history of myocardial infarction 11 years ago and is status po st angioplasty with radiation therapy to the LAD. She notes that she has been w orking on her diet. She has been making an effort to bring about some weight red uction. She has been back to walking some 30 to 35 minutes the majority of the days of the week, sometimes a bit longer depending on family responsibilities. She has not had chest pain or claudication leg symptoms. She does not have palpi tations or orthopnea. She has recovered from a right lower extremity injury at [facility], which apparently resulted in a five-day hospitalization at the [facility] with abnormal LFTs apparently related to Bactrim. Problem List: CAD PCI PTCA/Stent -proximal LAD-75-80% redilated and stented. CAD Cardiac cath CORS -LAD-80% 07/13/2004 Dyslipidemia 01/21/2007 PVD Carotid Duplex Mild atherosclerotic changes are present in both i nternal carotid arteries. No evidence for a hemodynamically significant stenosis >70%. No previous study. Syncope Past Medical History: Past medical history was reviewed today. Final Medications: Allergy Relief 10 Mg take 1 tablet (10MG) by ORAL route every day Nitrostat 0.4 Mg As needed [place] 3 Fish Oil Calcium 600+minerals 600 Mg-200 Take one tablet by mouth daily Multivitamin Aspirin 325mg Take one tablet by mouth daily Lipitor 10 Mg Atenolol 25mg Take one tablet by mouth daily Allergies: Allergy Comment Trimethoprim Bactrim Sulfamethoxazole Bactrim Niacin Niaspan Penicillin G Potassium Penicillin Paroxetine HCl Paxil Adhesive Tape Clopidogrel Bisulfate Plavix Family History: Mother Diagnosed with CVA Father Cause of was [place], Cancer at age 57. Social History: Social history was reviewed today. ROS: 12-point review of systems is negative with the following exceptions: /AIRCRAFT INSTRUMENT TESTER: Postmenopausal Physical Exam: Vital Signs The patient is 5ft 7in tall, and weighs 227.80lbs. The BMI is 35.70 . Blood pressure taken in the right arm is 142/86 mmHg in the sitting position. The pulse is 50 . The rhythm is regular. Const 150/80 on repeat exam with large cuff in L arm. The patient is an obese f emale. HEENT There are no xanthelasmas noted. There are no oral lesions present. Jugu lar venous pressure is estimated to be less than 8. Pulm Lungs are clear to auscultation. Cardiac Regular rate and rhythm. Normal S1 and S2. No murmur, rub, or gallop pre sent. Vasc No carotid bruits. The right and left carotid upstrokes are normal. There are normal right and left posterior tibial pulses. The right and left dorsalis pedis puls es are normal. EXT There is nonpitting edema noted. M/S The patient's gait is normal. EKG: Result: Normal sinus rhythm, normal EKG. Most Recent Lipids Available for Review: Date Collected: 05/11/2010 Fasting: Fasting Total Cholesterol: 159 HDL: 61 LDL: 83 Triglycerides: 87 Ratio: 2.61 Glucose: 88 ALT 35 HbA1C Impression: 1. Obesity. Following her intervention , she lost 100 pounds by our scale. Her weight is 22 pounds down today, as compared with May of 2009. She is do wn a total of 39 pounds, as compared with our scale in January 2009. 2. Dysrhythmia. a. History of vasovagal syndrome. Previously improved with beta blockade. 3. Family history of early coronary disease. a. Father with an UT at age 55. 4. Coronary artery disease. a. Non-Q wave [place] . b. LAD angioplasty with entry into beta cath radiation trial . Beta cath pr otocol thallium was negative . LVEF 75%. c. Coronary arteriography with 80% LAD lesion noted. Representing resten osis of previously dilated area. d. Angioplasty and stenting of 75-80% proximal LAD restenotic lesion . e. Thallium exam performed in [place] reportedly negative. f. On 06/23/08, adenosine stress nuclear study in [place] with small defect in the apex on both stress and rest images consistent with previous UT. There wa s a defect seen in the anterior wall on rest films but not seen on the stress fi lms. LVEF 66%. Impression is that there is a small infarct involving the apex. 5. Dyslipidemia, monitored in your office. 6. Prominent right carotid noted previously. a. In 01/02, carotid duplex with no evidence of hemodynamically significant dis ease. Disposition: 1. Strongly encouraged her with her effort at continuing to trim her weight. 2. Her blood pressure was somewhat elevated on recheck with large cuff here in t he office. 3. Continue with current medications for the time being, although I would at [facility] consider having her take atenolol on a bid basis because of the relatively sh ort half life. 4. Asked her to review with us at any time for questions or concerns. Rishi, it was nice to see the Wheelers. They certainly continue to speak extremel y highly of you. They appreciate all you do for them. I hope to see you and rev iew down the road. My best to you in the interim. Follow up: Lasha Partida PhD, M.D. 1 Year Thank you for allowing me to participate in CARLITA RODRIGUEZ's care. If I can be o f any further assistance, please do not hesitate to contact me. Sincerely, Lasha Partida PhD, M.D. RENÉ/unique F: 07/24/2010 documented in this encounter Plan of Treatment Not on filedocumented as of this encounter Visit Diagnoses Not on filedocumented in this encounter
--- OUTSIDE RECORDS SUMMARY | 2020-05-17 14:08 | XMS REPORT | Encounter Summary ---
Author Author [facility] Organization [facility] Address Unknown Phone Unavailable Care Team Providers Care Gripper Installer Name Role Phone Claudia Perez PCP Reason for Visit * Reason Comments Other Encounter Details Care Team Description Date Type Department Chace Branham MD [address] [facility] [address] [place], [place] [id number] Other 02/12/2016 Refill [facility] [address] [facility] [address] [place], [place] [id number] Social History Date Tobacco Use Types Packs/Day [...]
--- OUTSIDE RECORDS SUMMARY | 2020-05-17 14:08 | XMS REPORT | Encounter Summary ---
Author Author [facility] Organization [facility] Address Unknown Phone Unavailable Care Team Providers Care Gymnastics Coach Name Role Phone Claudai Perez PCP Reason for Referral * Diagnostic Imaging (Routine) Referred By Contact Referred To Contact Status Reason Specialty Diagnoses / Procedures Jonatan Dick MD [address] [place] [address] [facility] Ul[facility] [id number] [place] [address] Closed Cardiology Diagnoses Carotid bruit P rocedures US Carotid Duplex bilat CV US Carotid Duplex bilat Encounter Details Care Team Description Date Type Department Jonatan Dick MD [address] [place] [address] [phone] Carotid bruit (Primary Dx) 01/29/2017 Transcribe [facility] [employer] al Orders [address] [place] [id number] Social History Date Tobacco Use Types Packs/Day [...] Not on filedocumented as of this encounter Results * US Carotid Duplex bilat (04/10/2017 10:36 AM CDT) Specimen Impressions Performed At Moderately tortuous bilateral ICA. [facility] No significant carotid calcified plaque . No duplex evidence of hemodynamically s ignificant stenosis or luminal narrowing. NOTE: Parts of this report were generated wit [employer] voice recognition software. J Digit Imagin2010;24(1):095-7. Narrative Performed At Patient: CARLITA MORENO Sex#: Minna # 1950 Filiberto#: [id number] [place] [facility] [place] Procedure Requested: [id number] US CAROT ID DUPLEX BILAT Reason for Exam: Carotid bruit Exam Ordered: 04/10/2017 09 50 Exam Date/Time: 04/10/2017 103 6 Begin exam date/time: 04/10/2017 100 0 US CAROTID DUPLEX BILAT Indication: Carotid bruit READING SITE: [facility] Longitudinal and transverse 2D scans of the [...] 12:06 PM CDT Patient: CARLITA MORENO Sex#: Minna # 1950 Filiberto#: [id number] [place]: [facility] [place] Procedure Requested: [id number] US CAROTID DUPLEX BILAT Reason for Exam: Carotid bruit Exam Ordered: 04/10/2017 0950 Exam Date/Time: 04/10/2017 1036 Begin exam date/time: 04/10/2017 1000 US CAROTID DUPLEX BILAT Indication: Carotid bruit READING SITE: [facility] Longitudinal and transverse 2D scans of the [...]
--- OUTSIDE RECORDS SUMMARY | 2020-05-17 14:08 | XMS REPORT | Encounter Summary ---
Author Author [facility] Organization [facility] Address Unknown Phone Unavailable Care Team Providers Care Warehouse Laborer Name Role Phone PCP Unavailable Encounter Details Care Team Description Date Type Department Ning Moulton RN Dyslipidemia (Primary Dx) 11/16/2015 Orders Only [facility] [address] [place], [place] [address] Social History Date Tobacco Use Types Packs/Day [...] Date/Time Associated Diag nosis LIPID PANEL Routine 11/13/2015 Dyslipidemia documented in this encounter Results * Lipid Panel (11/13/2015) Triglycerides 72 40 - 160 mg/dL HDL Cholesterol 67 35 - 70 mg/dL LDL Cholesterol 55 mg/dL Cholesterol/HDL Ratio LDL INTERPRETATION Non-HDL Cholesterol Cholesterol 136 Specimen Blood Narrative Performed At This result has an attachment that is n ot available. documented in this encounter Visit Diagnoses Diagnosis Dyslipidemia Other and unspecified hyperlipidemia documented in this encounter
--- OUTSIDE RECORDS SUMMARY | 2020-05-17 14:08 | XMS REPORT | Encounter Summary ---
Author Author [facility] Organization [facility] Address Unknown Phone Unavailable Care Team Providers Care Certified Addiction Counselor Name Role Phone PCP Unavailable Encounter Details Care Team Description Date Type Department Lasha Partida MD [address] [place] [address] [phone] 08/14/2012 [facility] C [...] Signs Reading Time Taken Comments Vital Sign 138/72 08/14/2012 12:04 PM CDT Blood Pressure 47 08/14/2012 12:04 PM CDT Pulse - - Temperature - - Respiratory Rate - - Oxygen Saturation - - Inhaled Oxygen Concentration 106.6 kg (235 lb) 08/14/2012 12:04 PM CDT obese Weight 170.2 cm (5' 7") 08/14/2012 12:04 PM CDT Height 36.81 08/14/2012 12:04 PM CDT Body Mass Index documented in this encounter Progress Notes * Lasha Partida MD - 08/14/2012 12:00 PM CDT [place] [facility] [address] [place] [address] August 14, 2012 Elton Schmitt MD [address] [place] [address] RE: CARLITA MORENO : 1950 Chart #: [id number] Visit provider: Lasha Partida, PhD, M.D. Visit location: [place] office Dear Dr. Schmitt: I had the pleasure of seeing CARLITA MORENO in the office today. She is 61 years of age and presents with the following chief complaints: coronary artery diseas e, dyslipidemia. HPI: Ms. Moreno returns today for general cardiovascular reconsideration. Ms. Chad garces is now some 13 years status-post myocardial infarction. She is had angioplas ty with radiation therapy to the LAD. Ms. Moreno, who at times has been very vigorously active, has been perhaps a bi t less more recently. She does continue to exercise, walking 30 minutes essenti ally daily. She is working three days a week for 6-7 hours total per week. She has no gastrointestinal issues of concern. Specifically she has not had ref lux symptoms. She has not been presyncopal or orthopneic. She has not had lowe r extremity edema accumulation of concern. Ms. Moreno updates me with the news of two new grandchildren in the past couple of months and her son, Rubén, getting . Ms. Moreno seems generally wel l. Her , of course, is struggling still with back problems and sounds to be headed for fdc after the first of the year. Problem List: CAD PCI PTCA/Stent -proximal LAD-75-80% redilated and stented. CAD Cardiac cath CORS -LAD-80% 07/13/2004 Dyslipidemia 01/21/2007 PVD Carotid Duplex Mild atherosclerotic changes are present in both i nternal carotid arteries. No evidence for a hemodynamically significant stenosi s >70%. No previous study. Syncope Past Medical History: Past medical history was reviewed today. Final Medications: Lipitor 10 Mg take 1 tablet (10MG) by oral route every day Nitrostat 0.4 Mg As needed Atenolol 25 Mg Take one tablet by mouth daily Aspirin 81 Mg take 1 tablet (81MG) by oral route every day Allergy Relief 10 Mg take 1 tablet (10MG) by ORAL route every day [place] 3 Fish Oil Calcium 600+minerals 600 Mg Calcium-200 Unit Take one tablet by mouth daily Multivitamin Allergies/Intolerances: Allergy Comment Trimethoprim Bactrim Sulfamethoxazole Bactrim Niacin Niaspan Penicillin G Potassium Penicillin Paroxetine HCl Paxil Adhesive Tape Clopidogrel Bisulfate Plavix Family History: Father Cause of was [place], Cancer at age 57. Mother Cause of was Stroke at age 77. Social History: Social history was reviewed today. 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 The BMI is 36.80. B lood pressure taken in the left arm is 138/72 mmHg in the sitting position. The pul se is 47. The rhythm is regular. Const The patient is an obese female. HEENT There are no xanthelasmas noted. There are no oral lesions present. Jugular venous pressure is estimated to be less than 8. Pulm Lungs are clear to auscultation. Cardiac Regular rate and rhythm. Normal S1 and S2. No murmur, rub, or gallop pre sent. Vasc The right and left carotid upstrokes are normal. There are normal right an d left posterior tibial pulses. The right and left dorsalis pedis pulses are nor mal. No carotid bruits, EXT No dependent rubor is present. There is nonpitting edema noted. Skin There are no rashes present. M/S The patient's gait is normal. Neuro/Psych The patient is alert and oriented to time, person and place. The pa tient's mood is normal. EKG: Result: No change since last visit. Rhythm: Sinus bradycardia Rate: 47 AV Conduction: Normal QRS [place] and Voltage: Normal and low voltage Intervals: QTc: 427 ms Most Recent Lipids Available for Review: Date Collected: 08/14/2012 Fasting: Fasting Total Cholesterol: 153 HDL: 75 LDL: 58 Triglycerides: 102 Ratio: 2.04 Glucose: 96 ALT 19 Impression: 1. Coronary artery disease. a. Non-Q wave [place] in January 1999. b. LAD angioplasty with Beta-Cath radiation trial in January 1999. Beta-Cath pro tocol thallium was negative in January 1999. LVEF was 75%. c. June 2000 coronary angiography with 80% LAD lesion noted, represented r e-stenosis in dilated area. d. Angioplasty/stenting of 75-80% proximal LAD lesion, June 2000. e. Thallium exam of September 2000, in [place], reportedly negative. f. June 23, 2008 adenosine stress nuclear study in [place] with small defe ct in the apex on both stress and rest images, consistent with previous NC. The re was a defect seen in the anterior wall on resting films but not seen on stres s films. LVEF was 66%. Impression was that there was a small infarct residual involving the apex. 2. Dyslipidemia monitored in your office with what appears to be very good contr ol at present. 3. Prominent right carotid as noted previously. a. December 2007, carotid duplex with no evidence of hemodynamically significant d isease. 4. Typically ongoing, consistent, non-symptom limited activity habit. 5. Obesity. a. Following our intervention in January 1999 she lost 100 pounds by our scale. Today her weight is seven pounds heavier than she was in July 2011. She is d own a total of 30 pounds compared to our office weight of January 2009 however. 6. Dysrhythmia. a. History of vasovagal syncope. Previously improved with beta blockade. 7. Family history of coronary disease. a. Father had an [place] at age 55. Disposition: 1. Continue with current medication. 2. Of course, did encourage her with being careful regarding her weight. 3. No further cardiovascular testing is indicated at present. 4. Will tentatively plan on review in a year but clearly as indicated. Rishi, it looks like you have Carlita in good shape. We will hope to continue with offering some encouragement toward risk reduction. Should you have questions or comments please do not hesitate to contact me. Follow up: Lasha Partida PhD, M.D. 1 Year Sincerely, Lasha Partida PhD, M.D. RMM:curtis a.m. a.m. F: 08/19/2012 documented in this encounter Plan of Treatment Not on filedocumented as of this encounter Visit Diagnoses Not on filedocumented in this encounter
--- OUTSIDE RECORDS SUMMARY | 2020-05-17 14:08 | XMS REPORT | Encounter Summary ---
Author Author [facility] Organization [facility] Address Unknown Phone Unavailable Care Team Providers Care Gas Leak Inspector Helper Name Role Phone PCP Unavailable Encounter Details Care Team Description Date Type Department Lasha Partida MD [address] [place] [id number] [phone] 07/31/2013 [facility] [...] Signs Reading Time Taken Comments Vital Sign 120/80 07/31/2013 1:14 PM CDT Blood Pressure 50 07/31/2013 1:14 PM CDT Pulse - - Temperature - - Respiratory Rate - - Oxygen Saturation - - Inhaled Oxygen Concentration 100.8 kg (222 lb 3.2 oz) 07/31/2013 1:14 PM CDT obese Weight 170.2 cm (5' 7") 07/31/2013 1:14 PM CDT Height 34.8 07/31/2013 1:14 PM CDT Body Mass Index documented in this encounter Progress Notes * Lasha Partida MD - 07/31/2013 1:30 PM CDT [place] [facility] [address] [place] [id number] July 31, 2013 Elton Schmitt MD [address] [place] [address] RE: CARLITA MORENO : 1950 Chart #: [id number] Visit provider: Lasha Partida, PhD, M.D. Visit location: [place] office Dear Dr. Schmitt: I had the pleasure of seeing CARLITA MORENO in the office today. She is 62 years of age and presents with the following chief complaints: coronary artery diseas e, dyslipidemia. HPI: Ms. Moreno is here for general cardiovascular reconsideration. Ms. Moreno, of course, is status post myocardial infarction some 14 years ago. She had had an gioplasty and radiation therapy to the LAD. Ms. Moreno, who has struggled with her weight, finds herself some 13 pounds roslyn n at this point compared with where she was when I saw her a year ago. She is w alking consistently, typically 30 to 45 minutes. She describes her sleep as gen erally restful, typically seven to eight hours. She has no new gastrointestinal issues. She has had colonoscopy that was about ten years ago. Ms. Moreno has not been orthopneic, presyncopal, or had edema of her lower extr emities. She has no new health issues of particular concern presently. She reynolds s describe relatively less stress as they now have three grandkids and their chi ldren all seem to be doing well. Problem List: CAD PCI PTCA/Stent -proximal LAD-75% to 80% re-dilated and stented. CAD Cardiac cath CORS -LAD-80% 07/13/2004 Dyslipidemia 01/21/2007 PVD Carotid Duplex Mild atherosclerotic changes are present in both internal carotid arteries. No evidence for a hemodynamically significant stenos is >70%. No previous study. Syncope Past Medical History: Past medical history was reviewed today. Final Medications: Nitrostat 0.4 Mg As needed Atenolol 25 Mg Take one tablet by mouth daily Lipitor 10 Mg take 1 tablet (10MG) by oral route every day Aspirin 81 Mg take 1 tablet (81MG) by oral route every day Allergy Relief 10 Mg take 1 tablet (10MG) by oral route every day [place] 3 Fish Oil Calcium 600+minerals 600 Mg Calcium-200 Unit Take one tablet by mouth daily Multivitamin Allergies/Intolerances: Allergy Comment Trimethoprim Bactrim Sulfamethoxazole Bactrim Niacin Niaspan Penicillin G Potassium Penicillin Paroxetine HCl Paxil Adhesive Tape Clopidogrel Bisulfate Plavix Family History: Father Cause of was [place] and cancer at age 57. Mother Cause of was stroke at age 77. Social History: Social history was reviewed today. 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 The BMI is 34.80 . Blood pressure taken in the left arm is 120/80 mmHg in the sitting position. The pulse is 50. The rhythm is regular. Const The patient [...] right and left dorsalis pedis pulses are normal. No carotid bruits. EXT No dependent rubor is present. There is nonpitting edema noted. M/S The patient's gait is normal. Skin There are no rashes present. Neuro/Psych The patient is alert and oriented to time, person and place. The pa peggy's mood is normal. EKG: Result: No change since last visit. Rhythm: Sinus bradycardia Rate: 50 AV Conduction: Normal QRS [place] and Voltage: Normal and low voltage Intervals: QT: 100 ms QTc: 420 ms Most Recent Lipids Available for Review: Date Collected: 07/16/2013 Fasting: Fasting Total Cholesterol: 139 HDL: 58 LDL: 70 Triglycerides: 57 Ratio: 2.40 Glucose: 87 ALT 37 QI: Patient has a diagnosis of coronary artery disease and is prescribed beta blocke r therapy. CCS Class: No angina. Patient has a diagnosis of coronary artery disease and is prescribed antiplatele t therapy. CCS Class: No angina. Impression: 1. Coronary artery disease (CAD). a. Non-Q-wave myocardial infarction (ND) in January 1999. b. Left anterior descending (LAD) angioplasty with Beta-Cath radiation trial in January 1999. Beta-Cath protocol. Thallium was negative January 1999. Left ventr icular ejection fraction (LVEF) of 75%. c. June 2000, coronary angiography with 80% left anterior descending (LAD) lesion noted. Represented re-stenosis in dilated area. d. Angioplasty/stenting of 75% to 80% proximal left anterior descending (LAD) l esion in June 2000. e. Thallium exam, September 2000, in [place] was reportedly negative. f. June 23, 2008, adenosine stress nuclear study in [place] with small de fect in the apex on both stress and rest images consistent with previous ND. Th ere was a defect seen in the anterior wall on resting films, not seen on stress films. Left ventricular ejection fraction (LVEF) of 66%. The impression was th at there was a small infarct residual involving the apex. g. Currently without symptoms. 2. Generally modestly vigorous ongoing, imt-lkfrhqv-ydluqjw aerobic activity hab it. 3. Dyslipidemia, which is monitored in your office with what has generally been very good control. 4. Prominent right carotid pulsations as noted previously. a. December 2007, carotid duplex with no evidence of hemodynamically significant d isease. 5. Obesity. a. In January 1999 she had lost 100 pounds by our scale. Today, she is 13 pounds down from her weight of August 14, 2012. She is down a total of 43 pounds as compared with weight in our office in January 2009. 6. Dysrhythmia. a. History of vasovagal syncope. Previously improved with beta blockade. 7. Family history for coronary artery disease. a. Father had an myocardial infarction (ND) at age 55. Disposition: 1. Continue with current medications. 2. No further cardiovascular testing for the time being. 3. Given her consistent activity habit, I would not see it of particularly reaso n short of new symptoms that she have any stress testing in the near term. Rishi Ms. Moreno certainly seems to be doing well. She, as always, along with her speak very highly of your efforts on their behalf. Certainly hope y ou are doing well. Follow up: Lasha Partida PhD, M.Sonia. 1 Year Thank you for allowing me to participate in CARLITA MORENO's care. If I can be o f any further assistance, please do not hesitate to contact me. Sincerely, Lasha Partida PhD, MHelga. YESY/edy F: 08/06/2013 documented in this encounter Plan of Treatment Not on filedocumented as of this encounter Visit Diagnoses Not on filedocumented in this encounter
--- OUTSIDE RECORDS SUMMARY | 2020-05-17 14:08 | XMS REPORT | Encounter Summary ---
Author Author [facility] Organization [facility] Address Unknown Phone Unavailable Care Team Providers Care Binding Dyer Name Role Phone PCP Unavailable Encounter Details Care Team Description Date Type Department Lasha Partida MD [address] [place] [address] [phone] 12/12/2009 [facility] [...]
--- OUTSIDE RECORDS SUMMARY | 2020-05-17 14:08 | XMS REPORT | Encounter Summary ---
Author Author [facility] Organization [facility] Address Unknown Phone Unavailable Care Team Providers Care Tax Staff Accountant Name Role Phone PCP Unavailable Encounter Details Care Team Description Date Type Department Lisa Sanders RN 01/18/2016 Abstract [facility] [address] [facility] [address] [place] [address] Social History Date Tobacco Use Types Packs/Day Years Used Never Assessed Sex Assigned at Date Recorded Not on file Industry Job Start Date Occupation Not on file Not on file Not on file Travel End Travel History Travel Start No recent travel history available. documented as of this encounter Plan of Treatment Not on filedocumented as of this encounter Visit Diagnoses Diagnosis Dyslipidemia Other and unspecified hyperlipidemia documented in this encounter
--- OUTSIDE RECORDS SUMMARY | 2020-05-17 14:08 | XMS REPORT | Encounter Summary ---
Author Author [facility] Organization [facility] Address Unknown Phone Unavailable Care Team Providers Care Technical Account Manager Name Role Phone PCP Unavailable Encounter Details Care Team Description Date Type Department Khalif Pena MD [address] [facility] [address] [place] [address] [phone] 08/04/2013 [facility] [...]
--- OUTSIDE RECORDS SUMMARY | 2020-05-17 14:08 | XMS REPORT | Encounter Summary ---
Author Author [facility] Organization [facility] Address Unknown Phone Unavailable Care Team Providers Care Woodenware Assembler Name Role Phone PCP Unavailable Encounter Details Care Team Description Date Type Department Chace Branham MD [address] [address] [phone] 09/01/2014 [facility] - [facility] Visit Social History Date [...]
--- OUTSIDE RECORDS SUMMARY | 2020-05-17 14:08 | XMS REPORT | Encounter Summary ---
Author Author [facility] Organization [facility] Address Unknown Phone Unavailable Care Team Providers Care Director Of Event Sales Name Role Phone Claudia Perez PCP Reason for Visit * Reason Comments Other Encounter Details Care Team Description Date Type Department Chace Branham MD [address] [facility] [address] [place], [place] [id number] Other 10/28/2016 Refill [facility] [address] [facility] [address] [place], [place] [id number] Social History Date Tobacco Use Types Packs/Day [...]
--- OUTSIDE RECORDS SUMMARY | 2020-05-17 14:08 | XMS REPORT | Encounter Summary ---
Author Author [facility] Organization [facility] Address Unknown Phone Unavailable Care Team Providers Care Film Reproducer Name Role Phone PCP Unavailable Encounter Details Care Team Description Date Type Department Chace Branham MD [address] [address] [phone] 09/02/2014 [facility] [...] Signs Reading Time Taken Comments Vital Sign 142/80 09/02/2014 11:16 AM INTEGRITY MANAGER Blood Pressure 48 09/02/2014 11:16 AM INTEGRITY MANAGER Pulse - - Temperature - - Respiratory Rate - - Oxygen Saturation - - Inhaled Oxygen Concentration 104.1 kg (229 lb 6.4 oz) 09/02/2014 11:16 AM INTEGRITY MANAGER obese Weight 170.2 cm (5' 7") 09/02/2014 11:16 AM INTEGRITY MANAGER Height 35.93 09/02/2014 11:16 AM INTEGRITY MANAGER Body Mass Index documented in this encounter Progress Notes * Chace Branham MD - 09/02/2014 11:30 AM INTEGRITY MANAGER [facility] Office [address] [place] [address] September 02, 2014 Elton Schmitt MD [address] [place] [address] RE: CARLITA MORENO : 1950 Chart #: [id number] Visit provider: Chace Branham M.D. Visit location: [facility] Dear Dr. Schmitt: I had the pleasure of seeing CARLITA MORENO in the office today. She is 63 years of age and presents with the following chief complaints: coronary artery diseas e, dyslipidemia. HPI: It was my pleasure to see Ms. Moreno for her annual cardiovascular review. She is a former patient of my friend and colleague of Dr. Spenser Partida who, as you know, has retired. Ms. Moreno has a history of coronary artery disease with a small myocardial infarction in the year 1999. She was treated with PCI to the LAD and was part of an experimental protocol with brachytherapy. She has done very well ever since. She has not had any hospitalizations with angina or any further events. She is physically active. She tries to walk at least 30 minutes a day, briskly, and has not noted any exertional chest discomfort or undue breathless ness. She is without orthopnea, PND, palpitations, presyncope, syncope or delon ication. From time to time she gets slight edema, but nothing that would get he r attention. Her lipids are very well controlled on her current regimen. Problem List: CAD PCI PTCA/Stent -proximal LAD-75-80% redilated and stented. CAD Cardiac cath CORS -LAD-80% 07/13/2004 Dyslipidemia 01/21/2007 PVD Carotid Duplex Mild atherosclerotic changes are present in both internal carotid arteries. No evidence for a hemodynamically significant stenos is >70%. No previous study. Syncope Past Medical History: Hypothyroidism Depression Pulm HTN Anxiety Past Surgical History: Tonsillectomy/ Adenoids 1954 Tumor on back removed 1986 Hysterectomy 2003 Final Medications: Lipitor 10 Mg TAKE ONE TABLET BY MOUTH EVERY DAY Nitrostat 0.[address] 1 tab sublingual PRN chest pain. Atenolol 25 Mg TAKE ONE TABLET BY MOUTH EVERY DAY Aspirin 81 Mg take 1 tablet (81MG) by oral route every day Allergy Relief 10 Mg take 1 tablet (10MG) by ORAL route every day Calcium 600+minerals 600 Mg Calcium-200 Unit Take one tablet by mouth daily [place] 3 Fish Oil Multivitamin Allergies/Intolerances: Allergy Comment Trimethoprim Bactrim Sulfamethoxazole Bactrim Niacin Niaspan Penicillin G Potassium Penicillin Paroxetine HCl Paxil Adhesive Tape Clopidogrel Bisulfate Plavix Family History: Mother Cause of was Stroke at age 77. Father Cause of was [place], Cancer at age 57. Social History: Marital Status: Children: 3 Occupation: [place] Advance Directives: There are no advance directives. Diet: Low fat/chol Exercise: Regular. 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 The BMI is 35.90. Blood pressure taken in the left arm is 142/80 mmHg in the sitting position. The pulse is 48. The rhythm is regular. Const The patient is an obese female. HEENT The patient's sclerae are clear. There are no xanthelasmas noted. There are no oral lesions present. Jugular venous pressure is estimated to be less than 8. Pulm Lungs are clear to auscultation. Cardiac Regular rate and rhythm. Normal S1 and S2. No murmur, rub, or gallop pre sent. Abd The patient has no abdominal tenderness to palpation. There is no hepatomegaly. There is no splenomegaly. The abdominal aorta is not palpable. There is no abdominal aortic bruit detected by auscultation. Vasc The right and left carotid upstrokes are normal. There are normal right an d left posterior tibial pulses. The right and left dorsalis pedis pulses are normal. No carotid bruits EXT No dependent rubor is present. There is nonpitting edema noted. Skin There are no rashes present. M/S The patient's gait is normal. Neuro/Psych The patient is alert and oriented to time, person and place. The pa tient's mood is normal. EKG: Rhythm: Sinus bradycardia Rate: 48 Intervals: MD: 158 ms QRS: 100 ms QTc: 456 ms Otherwise normal EKG. Most Recent Lipids Available for Review: Date Collected: 08/13/2014 Fasting: Fasting Total Cholesterol: 148 HDL: 66 LDL: 65 Triglycerides: 83 Ratio: 2.24 Glucose: 100 ALT 38 QI: Patient has a diagnosis of coronary artery disease and is prescribed beta blocke r therapy. CCS Class: No angina. Patient has a diagnosis of coronary artery disease and is prescribed antiplatel et therapy. CCS Class: No angina. Impression: 1. Stable coronary artery disease, status post left anterior descending artery s tenting, followed by brachytherapy in 01/1999. She is without anginal symptoms and her most recent functional study, several years back, was nonischemic. 2. Dyslipidemia, which is monitored by you and is under excellent control. 3. Prominent carotid pulsations on the right side with no obstructive disease. 4. Mild obesity. 5. Resting tremors involving the right hand and also the right leg. 6. Family history of premature coronary artery disease. Her father had a myocar dial infarction at age 55. Recommendations: I find her cardiovascular status to be stable at the moment and I do not see the need to recommend any changes. I took the liberty of refilling her atenolol and Lipitor for another year. I plan to see her in one year, but I would be more than happy to see her sooner if need be. Testing ordered: Description Interval EKG Today Follow up: Chace Branham M.D. 1 Year Thank you for allowing me to participate in CARLITA MORENO's care. If I can be o f any further assistance, please do not hesitate to contact me. Sincerely, Chace Branham M.D. CRG/ct F: 09/15/2014 GRITY MANAGER documented in this encounter Plan of Treatment Not on filedocumented as of this encounter Visit Diagnoses Not on filedocumented in this encounter
--- OUTSIDE RECORDS SUMMARY | 2020-05-17 14:08 | XMS REPORT | Encounter Summary ---
Author Author [facility] Organization [facility] Address Unknown Phone Unavailable Care Team Providers Care Bods Developer Name Role Phone PCP Unavailable Encounter Details Care Team Description Date Type Department Lasha Partida MD [address] [place] [id number] [phone] 08/03/2011 [facility] [...] Signs Reading Time Taken Comments Vital Sign 122/84 08/03/2011 10:52 AM CDT Blood Pressure 48 08/03/2011 10:52 AM CDT Pulse - - Temperature - - Respiratory Rate - - Oxygen Saturation - - Inhaled Oxygen Concentration 103.4 kg (228 lb) 08/03/2011 10:52 AM CDT obese Weight 170.2 cm (5' 7") 08/03/2011 10:52 AM CDT Height 35.71 08/03/2011 10:52 AM CDT Body Mass Index documented in this encounter Progress Notes * Lasha Partida MD - 08/03/2011 11:00 AM CDT [facility] Office [address] [place] [address] August 03, 2011 Elton Schmitt MD [address] [place] [address] RE: CARLITA JOSH : 1950 Chart #: [id number] Visit provider: Lasha Partida, PhD, M.D. Visit location: [facility] Dear Dr. Schmitt: I had the pleasure of seeing CARLITA MORENO in the office today. She is 60 years of age and presents with the following chief complaints: coronary artery diseas e, dyslipidemia. HPI: Ms. Moreno returns today for general cardiovascular reconsideration. Ms. Chad garces's myocardial infarction was some 12 years ago now. She is status post angiop lasty with radiation therapy to the LAD. Ms. Moreno describes herself as maintaining her vigorous preventive habit. She walks 30 minutes twice a day essentially seven days a week. She does yard work. Sometimes she describes herself as working fairly hard in the yard, but overall has no difficulty with that. She is working three days a week. In addition, she and her oversee a granddaughter one or two days each week. Ms. Moreno notes that this year has not been great because both daughter and da [id number]-omn had miscarriages. Ms. Moreno notes that her sleep is generally restful. She has not had palpitat ions, orthopnea, presyncope or troublesome lower extremity edema. Problem List: CAD PCI PTCA/Stent -proximal LAD-75-80% redilated and stented. CAD Cardiac cath CORS -LAD-80% 07/13/2004 Dyslipidemia 01/21/2007 PVD Carotid Duplex Mild atherosclerotic changes are present in both i nternal carotid arteries. _No evidence for a hemodynamically significant stenosi s >70%. _No previous study. Syncope Past Medical History: Past medical history was reviewed today. Final Medications: Nitrostat 0.4 Mg As needed Atenolol 25mg Take one tablet by mouth daily Lipitor 10 Mg Aspirin 81 Mg take 1 tablet (81MG) by oral route every day Allergy Relief 10 Mg take 1 tablet (10MG) by ORAL route every day Calcium 600+minerals 600 Mg-200 Take one tablet by mouth daily [place]-3 Fish Oil Multivitamin Allergies/Intolerances: Allergy Comment Trimethoprim Bactrim Sulfamethoxazole Bactrim Niacin [place]iaspan Penicillin G Potassium Penicillin Paroxetine HCl Paxil Adhesive Tape Clopidogrel Bisulfate Plavix Family History: Mother Cause of was Stroke at age 77. Father Cause of was [place], Cancer at age 57. Social History: Social history was reviewed today. 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 The BMI is 35.70. B lood pressure taken in the left arm is 122/84 mmHg in the sitting position. The pulse [...] noted. M/S The patient's gait is normal. Neuro/Psych The patient is alert and oriented to time, person and place. The pa peggy's mood is normal. EKG: Result: No change since last visit. Rhythm: Sinus bradycardia Rate: 48 AV Conduction: Normal QRS [place] and Voltage: normal and normal Intervals: QTc: 393 ms Otherwise normal EKG. Most Recent Lipids Available for Review: Date Collected: 08/03/2011 Fasting: Fasting Total Cholesterol: 161 HDL: 61 LDL: 84 Triglycerides: 82 Ratio: 2.64 Glucose: 93 ALT 25 Impression: 1. Obesity. Following her intervention in 01/1999 she lost some 100 lbs by our scale. Today she is within less than 1 lb of her weight in 06/2010. She is down 37 lbs compared wi th our in office weight in 01/2009. 2. Dysrhythmia. a. History of vasovagal syndrome. Previously improved with beta blockade. 3. Family history of early coronary disease. a. Father had an myocardial infarction at age 55. 4. Coronary artery disease. a. Non-Q wave [place] in 01/1999. b. Left anterior descending angioplasty with entry into beta cath radiation tri al in 01/1999. Beta cath protocol thallium was negative in 01/1999. Left ventricular ejection fractio n was 75%. c. Coronary arteriography in 06/2000 with 80% left anterior descending lesion n oted. Representing restenosis of previously dilated area. d. Angioplasty/stenting of 75-80% proximal left anterior descending restenotic lesion in 06/2000. e. Thallium exam in 09/2000 performed in [place] reportedly negative. f. On 06/23/2008, adenosine stress nuclear study in [place] with small defec t in the apex on both stress and rest images consistent with previous myocardial infarction. There w as a defect seen in the anterior wall on rest films, but not seen on the stress films. Left ventr icular ejection fraction was 66%. Impression is that there is a small infarct involving the apex. 5. Dyslipidemia, monitored in your office. 6. Prominent right carotid noted previously. a. In 12/2007, carotid duplex with no evidence of hemodynamically significant d isease. 7. Relatively vigorous, ongoing, consistent aerobic activity which is not sympto m limited. Plan: I congratulated her on her consistency of working on risk. Certainly she overal dayanara is doing far more than the average [place] and has done relatively well. It would be my impression that she does not need further testing at this point. I have renewed her medications and asked her to review with us in perhaps a year o r as indicated. Rishi, you know the Wheelers well. She does seem to overall be doing well. She certainly enjoys her granddaughter. Follow up: Lasha Partida PhD, M.D. 1 Year Thank you for allowing me to participate in CARLITA MORENO's care. If I can be o f any further assistance, please do not hesitate to contact me. Sincerely, Lasha Partida PhD, M.D. YESY/lynn F: 08/09/2011 documented in this encounter Plan of Treatment Not on filedocumented as of this encounter Visit Diagnoses Not on filedocumented in this encounter
--- OUTSIDE RECORDS SUMMARY | 2020-05-17 14:08 | XMS REPORT | Encounter Summary ---
Author Author [facility] Organization [facility] Address Unknown Phone Unavailable Care Team Providers Care Marketing Information Manager Name Role Phone PCP Unavailable Reason for Visit * Reason Comments Lab results Encounter Details Care Team Description Date Type Department Yara Stinson RN Lab results 12/01/2015 Telephone [facility] [address] [place] [address] Social History Date Tobacco Use Types Packs/Day Years Used Never Assessed Sex Assigned at Date Recorded Not on file Industry Job Start Date Occupation Not on file Not on file Not on file Travel End Travel History Travel Start No recent travel history available. documented as of this encounter Miscellaneous Notes * Telephone Encounter - Yara Stinson RN - 12/01/2015 12:25 PM TECHNICAL PROJECT LEAD Normal results letter sent to pt and PCP. NICAL PROJECT LEAD * Telephone Encounter - Yara Stinson RN - 12/01/2015 12:25 PM TECHNICAL PROJECT LEAD ----- Message from Chace Branham MD sent at 11/25/2015 10:14 AM TECHNICAL PROJECT LEAD ----- Acceptable lipid values. Continue current therapy as is. Recheck labs in 1 yea r. NICAL PROJECT LEAD documented in this encounter Plan of Treatment Not on filedocumented as of this encounter Visit Diagnoses Not on filedocumented in this encounter
--- OUTSIDE RECORDS SUMMARY | 2020-05-17 14:09 | XMS REPORT | Encounter Summary ---
Author Author [facility] Organization [facility] Address Unknown Phone Unavailable Care Team Providers Care Word Processing Operator Name Role Phone PCP Unavailable Encounter Details Care Team Description Date Type Department Lasha Partida MD [address] [place] [address] [phone] 01/07/2006 [facility] Visit Social History Date [...]
--- OUTSIDE RECORDS SUMMARY | 2020-05-17 14:09 | XMS REPORT | Encounter Summary ---
Author Author [facility] Organization [facility] Address Unknown Phone Unavailable Care Team Providers Care Credit And Collections Analyst Name Role Phone PCP Unavailable Encounter Details Care Team Description Date Type Department Lasha Partida MD [address] [place] [address] [phone] 07/12/2008 [facility] - [facility] Visit Social History Date [...]
--- OUTSIDE RECORDS SUMMARY | 2020-05-17 14:09 | XMS REPORT | Encounter Summary ---
Author Author [facility] Organization [facility] Address Unknown Phone Unavailable Care Team Providers Care Automation Tech Name Role Phone PCP Unavailable Encounter Details Care Team Description [place] [address] [facility] [address] [place] [address] [phone] 08/27/2007 Hist-Appointmen [facility] C L t Social History Date Tobacco Use Types Packs/Day [...]
--- OUTSIDE RECORDS SUMMARY | 2020-05-17 14:09 | XMS REPORT | Encounter Summary ---
Author Author [facility] Organization [facility] Address Unknown Phone Unavailable Care Team Providers Care Gas Worker Name Role Phone PCP Unavailable Encounter Details Care Team Description Date Type Department Scott Garza MD [address] [facility] [address] [place] [address] [phone] [facility] Social History Date Tobacco Use Types Packs/Day Years Used Never Assessed Sex Assigned at Date Recorded Not on file Industry Job Start Date Occupation Not on file Not on file Not on file Travel End Travel History Travel Start No recent travel history available. documented as of this encounter H&P Notes * Jonatan Garza MD - 12/26/2013 10:01 PM TRANSFER ENGINEER Report [id number] [place], [place] Name: CARLITA MORENO MRN/Unit #: [id number] Attending Physician: GALI FELIX MD Date of : 1950 HISTORY OF PRESENT ILLNESS: This patient was transferred from [facility] in [place] today. She was recently admitted to [facility] in [place] on 07/01 and discharged 07/02/00. Her presentation at that time was episodes of a warmed flushed sensation across her body. She had an abnormal troponin measured at [place]. Subsequent enzyme analysis at [facility] was negative. She did have an adenosine thallium study which showed a mild area of ischemia in the distal LAD distribution with normal LV function and no high risk features. The following day she had recurrence of symptoms and presented to the emergency room at [place] and was discharged after her enzymes were negative. She later saw her primary care physician and was concerned about her symptoms and she was subsequently admitted for further evaluation. She did have recurrent episodes of what she describes as a flushing sensation across her body, across her chest, down her arms and into her legs. Her initial evaluation with cardiac enzymes were negative. This morning, at approximately 4:30, she was having blood drawn when she became aware of substernal chest tightness lasting for 2-3 minutes. This resolved spontaneously. She did have an ECG performed at that time and it showed ST segment depression in leads II, III, AVF, V3 through V6. Because of these findings, she was transferred back here to [facility] in [place]. The patient is currently pain-free and her ECG no longer shows ST segment depression but had T-wave abnormalities in standard lead I and AVL. PAST MEDICAL HISTORY: 1. Coronary artery disease. Status post non-Q wave myocardial infarction in February of 1999. At that time, she underwent coronary angioplasty and was entered into the BETACATH study. She had a stress thallium study in May of 1999 which was normal with normal left ventricular function. Otherwise, refer to history of present illness. 2. History of morbid obesity although has lost over 100 pounds in the last year. PAST SURGICAL HISTORY: Removal of lipoma from the right thoracic region posteriorly. CURRENT MEDICATIONS: Aspirin 325 mg q.d., multi-vitamins, IV heparin. ALLERGIES: HISTORY OF ALLERGY TO PENICILLIN AND NIACIN. REVIEW OF SYSTEMS: Not performed but unchanged from previous admission of 07/01/00. FAMILY/SOCIAL HISTORY: The patient is and lives with her and family. There is a family history of premature coronary artery disease. The patient does not use tobacco products or ethanol. PHYSICAL EXAMINATION: The patient is not acutely distressed although slightly tearful. No anemia, cyanosis or jaundice. There is no dependent edema or digital clubbing. Temperature 97.9. CV: pulse is 70 per minute and regular. Normal volume and character. JVP not elevated. Blood pressure 101/37 mmHg. PMI not displaced. Heart sounds S1 plus S2. No added sounds or murmurs. All pulses are easily palpable. No radial or femoral delay. RESPIRATORY: chest is clear to auscultation. ABDOMEN: soft, nontender. No masses. No hepatosplenomegaly. Abdominal aorta is palpable. It does not appear to be pathologically enlarged. NEURO: oriented x 3. There is no focal or lateralizing neurologic signs. ECG shows sinus rhythm with T wave abnormalities in I and AVL. Laboratory is pending at this time. ASSESSMENT/PLAN: 1. Coronary artery disease. In view of the patient's symptoms and associated ECG abnormalities, I think it is highly likely that she has developed significant restenosis in the LAD distribution despite a mildly abnormal recent thallium study. I think at this time, we need to proceed with coronary angiography and percutaneous coronary intervention if indicated. I have discussed this with the patient and the family, including the benefits and risks, and they agree with proceeding. We will continue aspirin and heparin and I have added a beta dolly to her regimen. Electronically Authenticated By: Scott Garza M.D. 07/29/2000 13:55:36 ALenora Garza M.D. cc: Dr. [place], [place] Name: CARLITA MORENO Room-Bed/Loc/Type: -/ /EL Admit Date: 07/05/2000 HISTORY AND PHYSICAL 1 OF 2 SFER ENGINEER documented in this encounter Miscellaneous Notes * Operative Note - Provider, MD Moreno - 12/26/2013 10:01 PM TRANSFER ENGINEER Report [id number] [place], [place] Name: CARLITA MORENO MRN/Unit #: [id number] Attending Physician: Lars GARZA MD Date of : 1950 CV LAB NUMBER: [id number] DATE OF PROCEDURE: 07/05/2000 PROCEDURES PERFORMED: 1. Left heart catheterization. 2. Left ventricular angiogram. 3. Selective coronary arteriograms. 4. Coronary angioplasty with stenting of the proximal left anterior descending coronary artery. DESCRIPTION: The patient was premedicated. The right groin was prepared and draped in the usual fashion. After 2% Xylocaine anesthesia and after 5 mg of Valium intravenously, a #8 Sinhala sheath was introduced percutaneously into the right femoral artery. A #8 Sinhala diagnostic right coronary catheter was advanced into the ascending aorta over a Safe-T-J guide wire and selective right coronary arteriograms were performed. The right coronary artery was widely patent. Selective left coronary arteriograms were performed with a diagnostic left coronary catheter and did show an 80% proximal left anterior descending coronary artery restenosis in the previously dilated region. Two-hundred micrograms of intracoronary nitroglycerin were administered and a repeat arteriogram did not show any improvement in the lesion indicating no significant spasm. A #8 Sinhala pigtail catheter was utilized for a left ventricular angiogram injecting 45 cc of Visipaque at 15 cc/sec at 750 psi. Following the procedure, 5000 units of additional heparin were administered and Aggrastat was begun. The proximal left anterior descending coronary artery was dilated with a 2.75 mm [employer] balloon over a Hi-Torque floppy exchange guide wire. The proximal left anterior descending coronary artery lesion was soft and was dilated three times up to 14 atmospheres of pressure for a maximum of 35 seconds of inflation time. The lesion was then stented with a 3 x 9 mm [id number] stent with two inflations up to 12 atmospheres of pressure for 30 seconds of maximum inflation time. A repeat arteriogram showed no residual narrowing in the dilated and stented region. The sheath was sutured in place. A pressure dressing was applied to the right groin. The patient left the catheterization laboratory in stable condition without complications. HEMODYNAMICS: SITE PRESSURE Ascending Aorta 105/70 Mean 85 LV 100 LVED 8 LVEDP 6 LV to Ascending Aorta No Gradient Estimated Ejection Fraction 45-50% LEFT VENTRICULOGRAM: Normal size with a mildly hypocontractile anterior wall (-2). The ejection fraction was estimated at 45-50%. CORONARY ARTERIES: RIGHT CORONARY ARTERY: Normal. LEFT MAIN CORONARY ARTERY: Normal. LEFT CIRCUMFLEX CORONARY ARTERY: Normal. LEFT ANTERIOR DESCENDING CORONARY ARTERY: The proximal left anterior descending coronary artery had an 80% restenosis at the previously dilated region. This was successfully dilated and stented with a 3 x 9 mm [id number] stent with no residual narrowing. Electronically Authenticated By: Antonio Hayes M.D. 07/11/2000 15:44:56 Antonio Hayes M.D. Dictated By: cc: Name: CARLITA MORENO Room-Bed/Loc/Type: -//IL Admit Date: 07/05/2000 CARDIOVASCULAR LAB 1 OF 2 SFER ENGINEER documented in this encounter Plan of Treatment Not on filedocumented as of this encounter Procedures Comments Procedure Name Priority Date/Time Associated Diag nosis POTASSIUM Routine 07/07/2000 5:33 AM CDT CK MB/INACTIVE Routine 07/06/2000 7:00 AM CDT PLATELET Routine 07/06/2000 7:00 AM CDT HEMOGLOBIN AND HEMATOCRIT Routine 07/06/2000 7:00 AM CDT ELECTROLYTES Routine 07/06/2000 7:00 AM CDT CREATININE Routine 07/06/2000 7:00 AM CDT ACIP 12 Routine 07/05/2000 11:45 PM CDT ACIP 6 Routine 07/05/2000 5:50 PM CDT PLATELET Routine 07/05/2000 5:50 PM CDT HEMOGLOBIN AND HEMATOCRIT Routine 07/05/2000 5:50 PM CDT ACTIVATED CLOTTING TIME Routine 07/05/2000 5:50 PM CDT XR CHEST SINGLE VIEW Routine 07/05/2000 FRONTAL 12:41 PM CDT COAGULATION SCREEN Routine 07/05/2000 12:22 PM CDT ACIP 0 Routine 07/05/2000 12:22 PM CDT COMPLETE BLOOD COUNT Routine 07/05/2000 12:22 PM CDT BASIC METABOLIC PANEL Routine 07/05/2000 12:22 PM CDT documented in this encounter Results * Potassium (07/07/2000 5:33 AM CDT) Potassium 3.7 3.6 - 5.0 MEQ/L SUNQUEST Specimen Blood Performing Organization Address [facility] one Number [facility]RL [id number] [address] SUNQUEST * Electrolytes (07/06/2000 7:00 AM CDT) Sodium 141 134 - 144 MEQ/L SUNQUEST Potassium 3.7 3.6 - 5.0 MEQ/L SUNQUEST Chloride 107 98 - 107 MEQ/L SUNQUEST Carbon Dioxide 26 23 - 32 MEQ/L SUNQUEST Anion Gap 8 3 - 15 SUNQUEST Specimen Blood Performing Organization [facility] one Number [facility] [address] [address] SUNQUEST * Platelet (07/06/2000 7:00 AM CDT) Only the most recent of 2 results within the time period is included. Platelet Count 209 140 - 400 TH/UL SUNQUEST Specimen Blood Performing Organization Address [facility] one Number [facility] [address] [address] SUNQUEST * Hemoglobin and Hematocrit (07/06/2000 7:00 AM CDT) Only the most recent of 2 results within the time period is included. Hemoglobin 11.5 (L) 12.0 - 15.0 G/DL SUNQUEST Hematocrit 33 (L) 36 - 45 % SUNQUEST Specimen Blood Performing Organization Address [facility] one Number [facility] [address] [address] SUNQUEST * Creatinine (07/06/2000 7:00 AM CDT) Creatinine 0.8 0.5 - 1.5 MG/DL SUNQUEST Specimen Blood Performing Organization [facility] one Number [facility] [address] [place] [address] SUNQUEST * CK MB/INACTIVE (07/06/2000 7:00 AM CDT) Creatine Kinase <20 30 - 225 IU/L SUNQUEST CK MB <0.8 0.0 - 6.0 NG/ML SUNQUEST Specimen Blood Performing Organization Address [facility] one Number [facility] [address] [place] [address] SUNQUEST * ACIP 12 (07/05/2000 11:45 PM CDT) Creatine Kinase <20 30 - 225 IU/L SUNQUEST CK MB <0.8 0.0 - 6.0 NG/ML SUNQUEST Troponin <0.1 0.0 - 1.9 NG/ML SUNQUEST Specimen Blood Performing Organization Address [facility] one Number [facility] [address] [address] SUNQUEST * ACIP 6 (07/05/2000 5:50 PM CDT) Creatine Kinase <20 30 - 225 IU/L SUNQUEST CK MB <0.8 0.0 - 6.0 NG/ML SUNQUEST Troponin <0.1 0.0 - 1.9 NG/ML SUNQUEST Specimen Blood Performing Organization Address [facility] one Number [facility] [address] [place] [address] SUNQUEST * Activated Clotting Time (07/05/2000 5:50 PM CDT) Activated 149 (H) 99 - 130 SEC SUNQUEST Clotting Time Specimen Blood Performing Organization Address [facility] one Number RL [address] [address] SUNQUEST * XR Chest single view frontal (07/05/2000 12:41 PM CDT) Specimen Narrative Performed At Report PRATIMA [id number] [place], [place] Name: CARLITA MORENO Date of B irth: [birth year] Age: 49Y Room-Bed/Loca tion: -/ Check-In #: [id number] Attending Physician: GALI FELIX MD Admitting Diagnosis: Procedure: DX CHEST SINGLE VIEW; 1010 5 Reason for Exam: 786.50;CHEST PAIN NO S Requested By: GALI FELIX Valerie m Ordered: 07/05/2000 12:15 Filiberto #/Jacket #: [id number] Procedure: CHEST Date/Time: 07/05/2000 1245 HOUR S Reason for Exam: Chest pain. A single AP upright view of the chest s hows the heart to be normal in size. The lungs appear clear and well expande d. Bony structure is unremarkable. IMPRESSION: No active disease is noted in the chest . Electronically Authenticated By: Jay Stewart M.D. 07/05/2000 1 5:43:37 Jay Stewart M.D. Dictated By: T: 000 15:26:31 cc: Name: SRIKANTH MORENONA Amara Room-Bed/ Loc/Type: -/ /EL Admit Date: 07/05/2000 MEDICAL IMAGING CONSULTATION 1 OF 1 Procedure Note Interface, Rad Conversion - 12/28/2013 3:27 PM TRANSFER ENGINEER Report RAD/[id number] [place], [place] Name: CARLITA MORENO Date of : [birth year] Age: 49Y Room-Bed/Location: -/ Check-In #: [id number] Attending Physician: GALI FELIX MD Admitting Diagnosis: Procedure: DX CHEST SINGLE VIEW; 77829 Reason for Exam: 786.50;CHEST PAIN NOS Requested By: GALI FELIX Exam Ordered: 07/05/2000 12:15 Filiberto #/Jacket #: [id number] Procedure: CHEST Date/Time: 07/05/2000 1245 HOURS Reason for Exam: Chest pain. A single AP upright view of the chest shows the heart to be normal in size. The lungs appear clear and well expanded. Bony structure is unremarkable. IMPRESSION: No active disease is noted in the chest. Electronically Authenticated By: Jay Stewart M.D. 07/05/2000 15:43:37 Jay Stewart M.D. Dictated By: cc: Name: CARLITA MORENO Room-Bed/Loc/Type: -/ /EL Admit Date: 07/05/2000 MEDICAL IMAGING CONSULTATION 1 OF 1 1 Performing Organization Address [facility] one Number PRATIMA * Complete Blood Count (07/05/2000 12:22 PM CDT) WBC 4.3 4.0 - 11.0 TH/UL SUNQUEST RBC 4.31 4.00 - 5.00 MIL/UL SUNQUEST Hemoglobin 12.9 12.0 - 15.0 G/DL SUNQUEST Hematocrit 39 36 - 45 % SUNQUEST MCV 90 80 - 99 FL SUNQUEST MCH 30 27 - 34 PG SUNQUEST MCHC 33 32 - 36 % SUNQUEST RDW 12.8 <14.5 % SUNQUEST Platelet Count 236 140 - 400 TH/UL SUNQUEST Specimen Blood Performing Organization Address [facility] one Number RL [address] [place] [address] SUNQUEST * Basic Metabolic Panel (07/05/2000 12:22 PM CDT) Sodium 142 134 - 144 MEQ/L SUNQUEST Potassium 4.1 3.6 - 5.0 MEQ/L SUNQUEST Chloride 107 98 - 107 MEQ/L SUNQUEST Carbon Dioxide 27 23 - 32 MEQ/L SUNQUEST Anion Gap 8 3 - 15 SUNQUEST Creatinine 0.9 0.5 - 1.5 MG/DL SUNQUEST Blood Urea 8 5 - 20 MG/DL SUNQUEST Nitrogen Glucose 98 65 - 110 MG/DL SUNQUEST Calcium 9.7 8.8 - 10.5 MG/DL SUNQUEST Specimen Blood Performing Organization Address [facility] one Number RL [address] [address] SUNQUEST * ACIP 0 (07/05/2000 12:22 PM CDT) Creatine Kinase <20 30 - 225 IU/L SUNQUEST CK MB <0.8 0.0 - 6.0 NG/ML SUNQUEST Troponin <0.1 0.0 - 1.9 NG/ML SUNQUEST Specimen Blood Performing Organization Address [facility] one Number SLRL [address] [place], [place] [address] SUNQUEST * Coagulation Screen (07/05/2000 12:22 PM CDT) APTT >200 (A) 21 - 33 SEC SUNQUEST Protime 12.2 10.3 - 13.0 SEC SUNQUEST INR 1.1 SUNQUEST Platelet Count 236 140 - 400 TH/UL SUNQUEST Fibrinogen 322 146 - 390 MG/DL SUNQUEST Assay Specimen Blood Performing Organization Address [facility] one Number [facility]RL [address] [place], [place] [address] SUNQUEST documented in this encounter Visit Diagnoses Not on filedocumented in this encounter
--- OUTSIDE RECORDS SUMMARY | 2020-05-17 14:09 | XMS REPORT | Encounter Summary ---
Author Author [facility] Organization [facility] Address Unknown Phone Unavailable Care Team Providers Care Architecture Analyst Name Role Phone PCP Unavailable Encounter Details Care Team Description Date Type Department Lasha Partida MD [address] [place] [address] [phone] 07/08/2008 [facility] - [facility] Visit Social History Date [...]
--- OUTSIDE RECORDS SUMMARY | 2020-05-17 14:09 | XMS REPORT | Encounter Summary ---
Author Author [facility] Organization [facility] Address Unknown Phone Unavailable Care Team Providers Care Assembly Line Upholsterer Name Role Phone PCP Unavailable Encounter Details Care Team Description Date Type Department Susan Leggett MD [address] [place] [address] [phone] Unspecified Hepatitis 09/28/2009 [facility] Encounter [address] 10/02/2009 [place] [address] Social History Date Tobacco Use Types Packs/Day Years Used Never Assessed Sex Assigned at Date Recorded Not on file Industry Job Start Date Occupation Not on file Not on file Not on file Travel End Travel History Travel Start No recent travel history available. documented as of this encounter Discharge Summaries * Susan Michaud DO - 12/26/2013 6:51 AM FILLING ROOM OPERATOR REPORT Name: OSCAR MORENO MRN/Unit #: [id number] Attending Physician: SUSAN LEGGETT Date of : 1950 DATE OF ADMISSION: 09/28/2009 DATE OF DISCHARGE: 10/02/2009 PRIMARY CARE PHYSICIAN: Susan Aaron MD, [place], [place] CONSULTS: Jorge Lim MD with Gastroenterology. PROCEDURES: MRCP that showed no evidence of ductal dilatation or obstruction. DISCHARGE DIAGNOSES: 1. Transaminitis/acute likely drug-induced hepatitis. 2. Coronary artery disease. 3. History of recent right lower extremity cellulitis. 4. Hyperlipidemia. BRIEF HOSPITAL COURSE: This is a 58-year-old lady, previously doing and then she started having diaphoresis, anorexia, fatigue and dark urine. She denied any nausea or vomiting, diarrhea or pruritus. Because of patient's symptoms, she did have labs done that showed elevated liver function tests and subsequent HIDA scan. This showed no evidence of active disease. Because of patient's persistent symptoms, she was transferred to [facility] for further evaluation. Her liver function tests remained elevated. She was seen by gastroenterology with Dr. Jorge Lim. An MRCP was completed that showed no gallbladder wall thickening or gallstones. There was no ductal dilatation or obstruction. There was no evidence of pancreatitis lesions. Abdominal ultrasound was also completed that showed no evidence of stones or duct dilatation. She had an acute hepatitis panel done that showed no evidence of acute viral hepatitis. The patient remained without nausea or vomiting. Her appetite slowly improved. She had no further abdominal pain. Her labs did normalize on 10/02/2009. They did remain elevated but have seemed to slow their climb. AST at the time of discharge was 343 and ALT was 422. Total bilirubin was 3.8 with an alkaline phosphatase of 452. Currently, she feels well and nearly back to baseline and states she is ready for discharge. DISPOSITION: To home. DISCHARGE INSTRUCTIONS: 1. DIET: As tolerated. 2. ACTIVITY: As tolerated. 3. She is to follow-up with Dr. Jorge Lim in 1 to 2 weeks in [place]. 4. She is to follow-up with her primary care physician, Dr. Aaron, in less than 1 week. 5. She is to have liver function tests done next week, as well as the following week prior to each one of her primary care physician visits, as well as Dr. Lim. DISCHARGE MEDICATIONS: 1. Atenolol 25 mg daily. 2. Aspirin 325 mg daily. STOP MEDICATIONS: Lipitor and Bactrim. LABORATORY: Currently outstanding labs that are not available at this time, include: Smooth muscle antibody and mitochondrial antibody S/CO ratio to rule out active hepatitis C, as well as repeat draws that are due the following 2 weeks. Susan Michaud, Dictated By: cc: Susan Aaron MD, NAPOLEON Elliott MD Authenticated and Edited by Susan Michaud MD On 10/02/09 3:20:10 PM ING ROOM OPERATOR documented in this encounter Medications at Time of Discharge Start Date End Date Medication Sig Dispensed Refills 12/25/2005 06/01/2015 aspirin 325 MG EC tablet Take one 0 0 tablet by mouth daily 12/25/2005 06/01/2015 atenolol (TENORMIN) 25 MG Take one 0 0 tablet tablet by mouth daily 12/25/2005 06/01/2015 atorvastatin (LIPITOR) 10 0 0 MG tablet 12/25/2005 06/01/2015 b complex vitamins Take one 0 0 (B-COMPLEX) tablet tablet by mouth daily 12/25/2005 04/10/2017 calcium carbonate-vit Take one 0 0 D3-min (CALCIUM 600 + tablet by MINERALS) 600 mg calcium- mouth daily 200 unit Tab 05/30/2009 06/01/2015 cholecalciferol, vitamin take 1 by 0 D3, (VITAMIN D3) 2,000 Oral route unit Tab every day 01/20/2007 06/01/2015 cyanocobalamin, vitamin Take one 0 0 B-12, 1,000 mcg Subl tablet by mouth daily 01/25/2008 06/01/2015 flaxseed oil 1,000 mg cap Take one 0 0 capsule tablet by mouth twice a day 12/25/2005 06/01/2015 folic acid (FOLVITE) 400 0 0 MCG tablet 12/25/2005 06/01/2015 ibuprofen (ADVIL,MOTRIN) Take one 0 0 400 MG tablet capsule by mouth three times per day 12/25/2005 06/01/2015 mometasone (NASONEX) 50 as directed 0 0 mcg/actuation nasal spray 12/25/2005 04/10/2017 multivitamin (THERAGRAN) 0 0 per tablet 01/20/2007 06/01/2015 nitroglycerin (NITROSTAT) As needed 0 0 0.4 MG SL tablet 12/25/2005 04/10/2017 OMEGA 3 350 MG-DHA 235 0 0 MG-EPA 90 MG-FISH OIL 597 MG CAPSULE,DELAY REL documented as of this encounter H&P Notes * Susan Leggett MD - 12/26/2013 6:53 AM FILLING ROOM OPERATOR REPORT Name: OSCAR MORENO MRN/Unit #: [id number] Attending Physician: SUSAN LEGGETT Date of : 1950 DATE OF ADMISSION: 09/28/2009 PRIMARY CARE PHYSICIAN: Dr. Susan Galo in [place], [place]. CHIEF COMPLAINT: Hepatitis. HISTORY OF PRESENT ILLNESS: Ms. Moreno is a 58-year-old lady who, for the last week, has been experiencing diaphoresis, anorexia, fatigue and has noted dark urine. She has also had a little sinus congestion and dry cough. She denies any nausea, vomiting, diarrhea, myalgias or itching. She has not taken any Tylenol and reports having had a hepatitis B vaccination a number of years ago. Her anorexia is severe enough that she has eaten almost nothing in the last three to four days. I personally spoke with the patient's primary care physician, Dr. Galo. Because of her persistent symptoms, she was hospitalized in [place] yesterday and imaging studies, which included a HIDA scan, reportedly showed lack of biliary uptake suggestive of liver failure along with some elevated liver function studies. He thought it best to transfer her here for further evaluation. REVIEW OF SYSTEMS: A 10-point review of systems is entirely negative except as above. PAST MEDICAL HISTORY: 1. Coronary artery disease status post PCI, perhaps 15 years ago. 2. Right lower extremity cellulitis for which she completed a 20-day course of Bactrim on 09/23/2009. 3. Hyperlipidemia. PAST SURGICAL HISTORY: 1. Hysterectomy for dysfunctional uterine bleeding. 2. Lipoma removal on the right back. 3. Tonsillectomy and adenoidectomy as a child. ALLERGIES: PENICILLIN, CLOPIDOGREL AND NIACIN CAUSE RASH. SHE HAD MULTIPLE SIDE EFFECTS FROM PAXIL. MEDICATIONS: 1. Atenolol 25 mg daily. 2. Atorvastatin 10 mg daily which she has been on for several years. 3. Aspirin 325 mg daily. 4. [place]-3 fatty acids 1200 mg two tablets b.i.d. 5. Caltrate with D 600 mg two tablets daily. 6. Flax seed and a multivitamin daily. She has not taken any of her medications in the last three days. SOCIAL HISTORY: Ms. Moreno has been for 34 years. She has three children and one granddaughter born yesterday in the hospital where she was staying at [place]. 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 She has no history of tobacco, ethanol or recreational drug use. FAMILY HISTORY: Mother at 77 from a stroke. Father at 57 from oat cell lung cancer. He also had coronary artery disease. One sister is living and endometrial cancer survivor. VITAL SIGNS: Temperature 98.2, pulse 69, respirations 18, blood pressure 148/76. PHYSICAL EXAMINATION: GENERAL: Ms. Moreno is in no acute distress. HEENT: Head is normocephalic and atraumatic. Pupils are equally round and reactive to light. Sclerae are mildly icteric. Oropharynx is without erythema. NECK: Supple without lymphadenopathy. She has mild thyromegaly. Jugular venous pressure is normal. LUNGS: Clear to auscultation with good air movement bilaterally. She has a scar on the right side of her back from prior lipoma removal. She may still have some residual lipoma there. CARDIOVASCULAR: Heart is regular in rate and rhythm without murmur, gallop or rub. ABDOMEN: Bowel sounds are normoactive. Abdomen is soft with right upper quadrant tenderness to palpation. She has an equivocal Padron's sign. There is no hepatosplenomegaly. EXTREMITIES: Without cyanosis, clubbing or edema. She has an erythematous nodule, anterior right lower leg. She says it looks much better than it has since she got cellulitis about a month ago. NEUROLOGIC: Motor is 5/5 in all four distal extremities. SKIN: She has mild jaundice. LABORATORY DATA: I reviewed records from [place] and lab studies from there in the last 48 hours reveal sodium 136, potassium 3.5, chloride 102, bicarbonate 24, BUN 8, creatinine 0.8, glucose 77. WBC 6.6, hemoglobin 13.9, platelets 252,000. Albumin 2.9, alkaline phosphatase 564, AST 203, ALT 268, total bilirubin 4.2. On the previous day, 09/27/2009, alkaline phosphatase 606, AST 171, ALT 285, total bilirubin 4.1. HIDA scan shows no gallbladder uptake and, per the report from [place], no biliary uptake whatsoever. I personally reviewed the films and thought that there may been some hepatic uptake. Ultrasound showed no evidence of cholelithiasis. Common bile duct was approximately 4 mm (normal). Liver is mildly echogenic. There was no clear gallbladder wall thickening. IMPRESSION: 1. Hepatitis - She has elevated liver function tests with increase in hepatocellular and cholestatic markers. The differential is extensive, but includes obstruction versus infectious etiology, such as viral hepatitis versus drug-induced (Bactrim would be the most likely along with the atorvastatin) versus autoimmune versus other. 2. Stable coronary artery disease. 3. Elevated blood pressure - I reviewed her vital signs from her hospital stay in [place] and blood pressures have been within the normal range. This may represent mild beta dolly withdrawal since she has been off her medications for the last three days. PLAN: 1. Admit as inpatient. 2. Consult GI service for evaluation of her elevated liver function studies. 3. I am less concerned with fulminant hepatic failure, but the lack of gallbladder uptake does suggest the possibility of cholecystitis which could be acalculous in nature. I think the most cost effective approach is to repeat ultrasound and if that is negative, we could proceed with MRCP or CAT scan, depending on GI's preference. She could ultimately require a liver biopsy. 4. NPO until after ultrasound then clear liquid diet. 5. Nausea and vomiting protocol and electrolyte replacement protocol. 6. Check PT/INR, comprehensive metabolic profile, CBC, lipase, coagulation studies. 7. Hold home medications except for atenolol. Susan Leggett MD Dictated By: cc: Donis Galo MD Authenticated and Edited by Susan Leggett MD On 09/29/09 8:20:04 AM ING ROOM OPERATOR documented in this encounter Consult Notes * Jorge Lim MD - 12/26/2013 6:48 AM FILLING ROOM OPERATOR REPORT Name: OSCAR MORENO MRN/Unit #: [id number] Attending Physician: SUSAN LEGGETT Consulting Physician: Jorge Lim MD Date of : 1950 DATE OF CONSULTATION: 09/29/2009 REQUESTING PHYSICIAN: Susan Leggett MD REASON FOR CONSULTATION: Increased LFTs. HISTORY OF PRESENT ILLNESS: Ms. Moreno is a 58-year-old female who was transferred to [facility] yesterday evening for further work up of liver failure. The patient was seen at [place] on 09/27/2009 for a 1-week history of diaphoresis, anorexia, fatigue, and dark urine. She had not had any nausea, vomiting, diarrhea, myalgias, or itching. The patient also has had no appetite and has consumed little in the past 3-4 days. The patient does not take any Tylenol and reports being vaccinated for hepatitis B years ago. HIDA scan was obtained from [place], showing lack of biliary uptake. Today, the patient denies having any nausea, abdominal pain. She says she has been feeling tired, weak, and had a slight headache. She has not had an appetite. REVIEW OF SYSTEMS: Positive for lack of appetite, fatigue, weakness, headache, dark urine, constipation-last bowel movement was on Saturday that was hard in nature. She denies hematochezia, melena. A complete 10-point review of systems was reviewed and is otherwise negative. PAST MEDICAL HISTORY: 1. Coronary artery disease status post PCI 15 years ago. 2. Hyperlipidemia. 3. Right lower extremity cellulitis. Completed a 20-day course of Bactrim on 09/23/2009. PAST SURGICAL HISTORY: 1. Hysterectomy secondary to uterine bleeding. 2. Lipoma removal from her right back. 3. Tonsillectomy. 4. Appendectomy. FAMILY HISTORY: Mother of a stroke at the age of 77. Father at the age of 57 from lung cancer. He also had coronary artery disease. She has a sister who is an survivor of endometrial cancer. SOCIAL HISTORY: Denies tobacco, alcohol, or drug use. 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 ALLERGIES: PENICILLIN, PLAVIX, NIACIN, PAXIL WITH MULTIPLE SIDE-EFFECTS. MEDICATIONS: 1. Atenolol 25 mg daily. 2. Lipitor 10 mg q. bedtime. 3. Aspirin 325 mg daily. 4. [place]-3 fish oil 1200 mg b.i.d. 5. Caltrate with vitamin D 600 mg 2 tablets daily. 6. Flaxseed oil and multivitamin daily. DATA: Ultrasound of the abdomen shows no gallstones or bile duct dilation. LABORATORY: Sodium 137, potassium 3.8, chloride 104, CO2 is 23, BUN 9, creatinine 0.6, glucose 79, calcium 8.6, albumin 2.8, AST 229, ALT 248, alkaline phosphatase 454, lipase 29, INR 1.0, PT 13.3, total bilirubin 5.2. White blood cell count 6.2, hemoglobin 12.3, platelets 249,000. Hepatitis B surface antigen and B core antibody are negative. Hepatitis A IgM is negative. Hepatitis C antibody is negative. PHYSICAL EXAM: VITAL SIGNS: Temperature 97.0, heart rate 55, respirations 18, blood pressure 123/76, O2 saturation 96% on room air. GENERAL: In no acute distress. Alert and oriented x3. HEENT: Slight scleral icterus. CARDIOVASCULAR: Regular rate and rhythm. No murmurs. Two plus pulses at carotid, radial, and dorsalis pedis bilaterally. LUNGS: Clear to auscultation bilaterally. GI: Soft, nondistended, nontender, decreased bowel sounds, obese, unable to palpate liver or spleen. No masses appreciated. EXTREMITIES: No clubbing, cyanosis, or edema. SKIN: Slight icteric. NEUROLOGICAL: Cranial nerves 2-12 are grossly intact. Five out of five motor strength in all extremities. ASSESSMENT AND PLAN: Transaminitis. Differential diagnoses include infectious hepatitis versus autoimmune hepatitis verus cholelithiasis versus nonalcoholic fatty liver disease, versus hepatitis secondary to Bactrim versus hepatitis secondary to Lipitor. HIDA scan shows lack of biliary uptake. Hepatitis panel is negative. Ultrasound of the abdomen shows no evidence of gallstones or ductal dilation. The liver was unremarkable. This is most likely secondary to Bactrim, as it can cause transaminitis, hyperbilirubinemia, hepatitis, and hepatic necrosis. The patient has had a 20-day course of Bactrim that she finished on 09/23/2009 and her symptoms started on 09/21/2009. Will continue to hold Lipitor. Will check an antinuclear antibody (SHARON), smooth muscle antibody and antimitochondrial antibody to rule out autoimmune hepatitis. We will continue to monitor transaminases and bilirubin. Jorge Lim MD Dictated By: Charlotte Lebron MD cc: ING ROOM OPERATOR documented in this encounter Plan of Treatment Not on filedocumented as of this encounter Procedures Comments Procedure Name Priority Date/Time Associated Diag nosis PROTHROMBIN TIME/INR Routine 10/02/2009 3:55 AM FILLING ROOM OPERATOR HEPATIC FUNCTION PANEL Routine 10/02/2009 3:55 AM FILLING ROOM OPERATOR PROTHROMBIN TIME/INR Routine 10/01/2009 8:56 AM FILLING ROOM OPERATOR HEPATIC FUNCTION PANEL Routine 10/01/2009 3:00 AM FILLING ROOM OPERATOR MRI MRCP ABDOMEN W WO Routine 09/30/2009 CONTRAST 11:07 AM FILLING ROOM OPERATOR HEPATIC FUNCTION PANEL Routine 09/30/2009 4:27 AM FILLING ROOM OPERATOR SMOOTH MUSCLE ANTIBODY Routine 09/29/2009 1:13 PM FILLING ROOM OPERATOR MITOCHONDRIAL ANTIBODY Routine 09/29/2009 1:13 PM FILLING ROOM OPERATOR MAGNESIUM Routine 09/29/2009 1:13 PM FILLING ROOM OPERATOR US ABDOMEN LIMITED Routine 09/29/2009 5:36 AM FILLING ROOM OPERATOR PROTHROMBIN TIME/INR Routine 09/28/2009 10:20 PM FILLING ROOM OPERATOR LIPASE Routine 09/28/2009 10:20 PM FILLING ROOM OPERATOR COMPREHENSIVE METABOLIC Routine 09/28/2009 PANEL 10:20 PM FILLING ROOM OPERATOR COMPLETE BLOOD COUNT Routine 09/28/2009 10:20 PM FILLING ROOM OPERATOR SHARON QUALITATIVE Routine 09/28/2009 10:20 PM FILLING ROOM OPERATOR ACUTE HEPATITIS PANEL Routine 09/28/2009 10:20 PM FILLING ROOM OPERATOR documented in this encounter Results * Prothrombin Time/INR (10/02/2009 3:55 AM FILLING ROOM OPERATOR) Only the most recent of 3 results within the time period is included. Protime 12.4 11.9 - 14.3 SEC SUNQUEST INR 1.0 SUNQUEST Specimen Performing Organization Address [facility] one Number SLRL [address] [phone] SUNQUEST * Hepatic Function Panel (10/02/2009 3:55 AM FILLING ROOM OPERATOR) Only the most recent of 3 results within the time period is included. Albumin 2.7 (L) 3.5 - 5.0 G/DL SUNQUEST Bilirubin 2.0 (H) 0.1 - 0.5 MG/DL SUNQUEST Direct Bilirubin Total 3.8 (H) 0.3 - 1.4 MG/DL SUNQUEST Alkaline 452 (H) 42 - 128 IU/L SUNQUEST Phosphatase Alanine 422 (H) 14 - 63 IU/L SUNQUEST Aminotransferas e Aspartate 343 (H) 15 - 41 IU/L SUNQUEST Aminotransferas e Protein Total 5.9 (L) 6.0 - 8.0 G/DL SUNQUEST Serum Specimen Performing Organization Address [facility] one Number [facility]RL [address] [phone] SUNQUEST * MRI MRCP Abdomen w wo contrast (09/30/2009 11:07 AM FILLING ROOM OPERATOR) Specimen Narrative Performed At [facility] Patient: OSCAR MORENO Phone #: [facility] Rec#: [id number] Sex: F : 1950 Filiberto#: [id number] Location: [place] [address] Check-in#: [id number] Procedure Requested: [id number] MRI MRCP ABD W AND WO CONTR Reason For Exam: PAIN RUQ Exam Ordered: 09/29/2009 111 6 Exam Date/Time: 09/30/2009 1152 Check-in Date/Time: 09/30/2009 1141 AttendinROSY CORTEZ RequestinSUSAN CORTEZ Referrin Elton GALO Primary Care: [id number] Elton GALO These images and this report have been reviewed and edited by the Staff Radiologist. MRI MRCP W AND WO CONTR Indication: PAIN RUQ Exam Date: Sep 30, 2009 11:52:00 AM Multiplanar multisequence MRI imaging o f the abdomen was performed following administration of 20 cc of ga dolinium contrast. MRCP protocol was also utilized. The lung bases appear clear. The spleen demonstrates no focal lesions. There are no adrenal masses. The kidneys demonstrate no masses or hy dronephrosis. No retroperitoneal masses or lymphadenopathy identified. The gallbladder demonstrates no filling defects or gallstones or gallbladder wall thickening. There is m inimal pericholecystic fluid identified. The liver demonstrates no focal hepatic lesions or intrahepatic bile duct dilatation. The extrahepatic commo n bile duct is normal in caliber with no filling defects. The pancreas demonstrates no pancreatic lesions. Pancreatic duct appears normal in caliber. Postcontrast images demonstrates satisf actory liver and pancreas and kidneys with no obvious abnormalities. Impression: Minimal pericholecystic fluid. Otherwis e, no gallbladder wall thickening or gallstones or Intraaortic hepatic bi le duct dilatation detected. No hepatic or pancreatic lesions. No other abnormalities. Signed (Authenticated, Released) Date-T massiel: 09/30/2009 1220 Internet Researcher- PHYLLIS GARCIA M.D., Staff Radiologist Dictated By- PHYLLIS GARCIA M.D., Alannah castellanos Radiologist Staff Physician- PHYLLIS GARCIA M.D., Staff Radiologist Authenticated By- PHYLLIS GARCIA M.D., Staff Radiologist Procedure Note Interface, Rad Conversion - 12/27/2013 3:26 AM FILLING ROOM OPERATOR REPORT Patient: OSCAR MORENO Phone #: Med Rec#: [id number] Sex: F : 1950 Filiberto#: [id number] Location: [facility] [address] Check-in#: [id number] Procedure Requested: [id number] MRI MRCP ABD W AND WO CONTR Reason For Exam: PAIN RUQ Exam Ordered: 09/29/2009 1116 Exam Date/Time: 09/30/2009 1152 Check-in Date/Time: 09/30/2009 1141 Attendin SUSAN LEGGETT Requestin SUSAN LEGGETT Referrin Elton GALO Primary Care: [id number] Elton GALO These images and this report have been reviewed and edited by the Staff Radiologist. MRI MRCP W AND WO CONTR Indication: PAIN RUQ Exam Date: Sep 30, 2009 11:52:00 AM Multiplanar multisequence MRI imaging of the abdomen was performed following administration of 20 cc of gadolinium contrast. MRCP protocol was also utilized. The lung bases appear clear. The spleen demonstrates no focal lesions. There are no adrenal masses. The kidneys demonstrate no masses or hydronephrosis. No retroperitoneal masses or lymphadenopathy identified. The gallbladder demonstrates no filling defects or gallstones or gallbladder wall thickening. There is minimal pericholecystic fluid identified. The liver demonstrates no focal hepatic lesions or intrahepatic bile duct dilatation. The extrahepatic common bile duct is normal in caliber with no filling defects. The pancreas demonstrates no pancreatic lesions. Pancreatic duct appears normal in caliber. Postcontrast images demonstrates satisfactory liver and pancreas and kidneys with no obvious abnormalities. Impression: Minimal pericholecystic fluid. Otherwise, no gallbladder wall thickening or gallstones or Intraaortic hepatic bile duct dilatation detected. No hepatic or pancreatic lesions. No other abnormalities. Signed (Authenticated, Released) Date-Time: 09/30/2009 1220 Internet Researcher- PHYLLIS GARCIA M.D., Staff Radiologist Dictated BySimran GARCIA M.D., Staff Radiologist Staff Physician- PHYLLIS GARCIA M.D., Staff Radiologist Authenticated By- PHYLLIS GARCIA M.D., Staff Radiologist Performing Organization Address City/State/Zipcode Ph one Number [place] * Magnesium (09/29/2009 1:13 PM FILLING ROOM OPERATOR) Magnesium 1.6 1.4 - 2.0 MEQ/L SUNQUEST Specimen Performing Organization Address [facility] Ph one Number [facility]ALEBRL [address] [phone] SUNQUEST * Mitochondrial Antibody (09/29/2009 1:13 PM FILLING ROOM OPERATOR) Mitochondrial 02Comment: Negative: 0-50 UNITS SUN QUEST Antibody UNITS Specimen Performing Organization Address [facility] one Number [facility]RL [address] [place] [phone] SUNQUEST * Smooth Muscle Antibody (09/29/2009 1:13 PM FILLING ROOM OPERATOR) Smooth Muscle 6 UNITS SUNQUEST Antibody Comment: Negative: <16 Units Weak positive: 16-30 Units Moderate to strong positive: >30 Units Specimen Performing Organization Address [facility] one Number [facility] [address] [place] [phone] SUNQUEST * US Abdomen limited (09/29/2009 5:36 AM FILLING ROOM OPERATOR) Specimen Narrative Performed At [facility] Patient: OSCAR MORENO Phone #: [facility] Rec#: [id number] Sex: F : 1950 Filiberto#: [id number] Location: [place] [address] Check-in#: [id number] Procedure Requested: US ABDOMEN L IMITED Reason For Exam: PAIN, RUQ Exam Ordered: 09/28/2009 215 5 Exam Date/Time: 09/29/2009 0556 Check-in Date/Time: 09/29/2009 0431 Attendin ROSY LEGGETT Requestin SUSAN LEGGETT Referrin Elton GALO Primary Care: [id number] Elton GALO These images and this report have been reviewed and edited by the Staff Radiologist. US ABDOMEN LIMITED Indication: PAIN, RUQ Exam Date: Sep 29, 2009 5:56:00 AM Sonographic examination of the right up per quadrant of the abdomen was performed in a limited fashion, as requ ested. The majority of the liver is visualized and appears unremarkable with no hepatic lesions or bile duct dilatation . The common bile duct measures 4 mm in diameter. The gallbladder appears contracted. No gallbladder tenderness or shadowing gallstones dete cted.. The pancreas appears unremarkable.. The right kidney measure s 11.0 cm in length and demonstrates no hydronephrosis. Impression: Negative limited abdominal ultrasound. No gallstones or bile duct dilatation i s detected. Signed (Authenticated, Released) Date-T massiel: 09/29/2009 0718 Internet Researcher- PHYLLIS GARCIA M.D., Staff Radiologist Dictated By- PHYLLIS GARCIA M.D., Alannah castellanos Radiologist Staff Physician- PHYLLIS GARCIA M.D., Staff Radiologist Authenticated By- PHYLLIS GARCIA M.D., Staff Radiologist Procedure Note Interface, Rad Conversion - 12/27/2013 3:29 AM FILLING ROOM OPERATOR REPORT Patient: OSCAR MORENO Phone #: [facility] Rec#: [id number] Sex: F : 1950 Filiberto#: [id number] Location: 4 [id number] Check-in#: [id number] Procedure Requested: US ABDOMEN LIMITED Reason For Exam: PAIN, RUQ Exam Ordered: 09/28/2009 2155 Exam Date/Time: 09/29/2009 0556 Check-in Date/Time: 09/29/2009 0431 Attendin SUSAN LEGGETT Requestin SUSAN LEGGETT Referrin Elton GALO Primary Care: [id number] Elton GALO These images and this report have been reviewed and edited by the Staff Radiologist. US ABDOMEN LIMITED Indication: PAIN, RUQ Exam Date: Sep 29, 2009 5:56:00 AM Sonographic examination of the right upper quadrant of the abdomen was performed in a limited fashion, as requested. The majority of the liver is visualized and appears unremarkable with no hepatic lesions or bile duct dilatation. The common bile duct measures 4 mm in diameter. The gallbladder appears contracted. No gallbladder tenderness or shadowing gallstones detected.. The pancreas appears unremarkable.. The right kidney measures 11.0 cm in length and demonstrates no hydronephrosis. Impression: Negative limited abdominal ultrasound. No gallstones or bile duct dilatation is detected. Signed (Authenticated, Released) Date-Time: 09/29/2009717 Internet Researcher- PHYLLIS GARCIA M.D., Staff Radiologist Dictated By- PHYLLIS GARCIA M.D., Staff Radiologist Staff Physician- PHYLLIS GARCIA M.D., Staff Radiologist Authenticated By- PHYLLIS GARCIA M.D., Staff Radiologist Performing Organization Address City/[facility] Ph one Number MCKESSON * Complete Blood Count (09/28/2009 10:20 PM FILLING ROOM OPERATOR) WBC 6.2 4.0 - 11.0 TH/UL SUNQUEST RBC 4.15 4.00 - 5.00 MIL/UL SUNQUEST Hemoglobin 12.3 12.0 - 15.0 G/DL SUNQUEST Hematocrit 35 (L) 36 - 45 % SUNQUEST MCV 85 80 - 99 FL SUNQUEST MCH 30 27 - 34 PG SUNQUEST MCHC 35 32 - 36 % SUNQUEST RDW 13.3 <14.5 % SUNQUEST Platelet Count 249 140 - 400 TH/UL SUNQUEST MPV 9.5 9.4 - 12.3 FL SUNQUEST Specimen Performing Organization Address [facility] Ph one Number [facility] [address] [place], [place] [address] SUNQUEST * Comprehensive Metabolic Panel (09/28/2009 10:20 PM FILLING ROOM OPERATOR) Albumin 2.8 (L) 3.5 - 5.0 G/DL SUNQUEST Aspartate 229 (H) 15 - 41 IU/L SUNQUEST Aminotransferas e Bilirubin Total 5.2 (H) 0.3 - 1.4 MG/DL SUNQUEST Protein Total 6.3 6.0 - 8.0 G/DL SUNQUEST Serum Calcium 8.6 (L) 8.8 - 10.5 MG/DL SUNQUEST Creatinine 0.6 0.4 - 1.1 MG/DL SUNQUEST Glucose 79 65 - 100 MG/DL SUNQUEST Alkaline 454 (H) 42 - 128 IU/L SUNQUEST Phosphatase Sodium 137 134 - 144 MEQ/L SUNQUEST Potassium 3.8 3.5 - 5.1 MEQ/L SUNQUEST Chloride 104 101 - 111 MEQ/L SUNQUEST Carbon Dioxide 23 23 - 32 MEQ/L SUNQUEST Blood Urea 9 8 - 26 MG/DL SUNQUEST Nitrogen Anion Gap 10 3 - 15 SUNQUEST Alanine 248 (H) 14 - 63 IU/L SUNQUEST Aminotransferas e Specimen Performing Organization Address [facility] Ph one Number [facility] [address] [place], [place] [address] SUNQUEST * Lipase (09/28/2009 10:20 PM FILLING ROOM OPERATOR) Lipase 29 18 - 51 U/L SUNQUEST Specimen Performing Organization Address [facility] Ph one Number [facility] [address] [place], [place] [address] SUNQUEST * SHARON Qualitative (09/28/2009 10:20 PM FILLING ROOM OPERATOR) SHARON Qualitative NEGATIVE NEGATIVE SUNQUEST Specimen Performing Organization Address [facility] Ph one Number [facility] [address] [place], [place] [address] SUNQUEST * Acute Hepatitis Panel (09/28/2009 10:20 PM FILLING ROOM OPERATOR) Hepatitis B NONREACT NONREACT SUNQUEST Surface Ag Hepatitis B NONREACT NONREACT SUNQUEST Core Ab IgM Hepatitis A Ab NONREACTComment: "Method is NONREACT SAM NQUEST IgM Mesfin Centaur." Hepatitis C Ab NONREACT NONREACT SUNQUEST Specimen Performing Organization Address [facility] Ph one Number [address] [address] [place] [address] SUNQUEST documented in this encounter Visit Diagnoses Diagnosis Hepatitis, unspecified documented in this encounter
--- OUTSIDE RECORDS SUMMARY | 2020-05-17 14:09 | XMS REPORT | Encounter Summary ---
Author Author [facility] Organization [facility] Address Unknown Phone Unavailable Care Team Providers Care Fisher Scallop Name Role Phone PCP Unavailable Encounter Details Care Team Description Date Type Department [facility] Provider, MD Moreno 06/23/2008 [facility] Result Social History Date Tobacco Use Types Packs/Day [...] Procedure Name Priority Date/Time Associated Diag nosis CV MPI SPECT HISTORICAL Routine 06/23/2008 documented in this encounter Results * CV MPI SPECT historical (06/23/2008) Specimen Narrative Performed At Procedure Category: NUC NEXTGEN Procedure: Adenosine myocardial perfusi on Procedure Summary: There is a small def ect seen in the apex on both stress and rest films. There is a defect seen in the anterior wall on the rest films not seen on the stress films.There is amelia l wall motion seen. Ejection fraction is calculated at 66%. Impression: Small area of apparent in farct involving the apex. Procedure Note Interface, Rad Conversion - 05/18/2015 7:45 AM CDT Procedure Category: NUC Procedure: Adenosine myocardial perfusion Procedure Summary: There is a small defect seen in the apex on both stress and rest films. There is a defect seen in the anterior wall on the rest films not seen on the stress films.There is normal wall motion seen. Ejection fraction is calculated at 66%. Impression: Small area of apparent infarct involving the apex. Performing Organization Address City/State/Zipcode Ph one Number NEXTGEN documented in this encounter Visit Diagnoses Not on filedocumented in this encounter
--- OUTSIDE RECORDS SUMMARY | 2020-05-17 14:09 | XMS REPORT | Encounter Summary ---
Author Author [facility] Organization [facility] Address Unknown Phone Unavailable Care Team Providers Care Kick Plate Installer Name Role Phone PCP Unavailable Encounter Details Care Team Description Date Type Department Lasha Partida MD [address] [place] [address] [phone] 07/13/2004 [facility] [...]
--- OUTSIDE RECORDS SUMMARY | 2020-05-17 14:09 | XMS REPORT | Encounter Summary ---
Author Author [facility] Organization [facility] Address Unknown Phone Unavailable Care Team Providers Care Talent Scout Name Role Phone PCP Unavailable Encounter Details Care Team Description Date Type Department Lasha Partida MD [address] [place] [address] [phone] 01/14/2006 [facility] [...]
--- OUTSIDE RECORDS SUMMARY | 2020-05-17 14:09 | XMS REPORT | Encounter Summary ---
Author Author [facility] Organization [facility] Address Unknown Phone Unavailable Care Team Providers Care Cardroom Worker Name Role Phone PCP Unavailable Encounter Details Care Team Description Date [place] [id number] [facility] [address] [place] [address] [phone] 06/15/2008 [facility] [...]
--- OUTSIDE RECORDS SUMMARY | 2020-05-17 14:09 | XMS REPORT | Encounter Summary ---
Author Author [facility] Organization [facility] Address Unknown Phone Unavailable Care Team Providers Care Transit Mix Operator Name Role Phone PCP Unavailable Encounter Details Care Team Description Date Type Department Lasha Partida MD [address] [place] [address] [phone] 02/02/2008 [facility] [...] Signs Reading Time Taken Comments Vital Sign 130/86 02/02/2008 10:24 AM CDT Blood Pressure 55 02/02/2008 10:24 AM CDT Pulse - - Temperature - - Respiratory Rate - - Oxygen Saturation - - Inhaled Oxygen Concentration 115.2 kg (254 lb) 02/02/2008 10:24 AM CDT obese Weight 170.2 cm (5' 7") 02/02/2008 10:24 AM CDT Height 39.78 02/02/2008 10:24 AM CDT Body Mass Index documented in this encounter Progress Notes * Lasha Partida MD - 02/02/2008 9:55 AM CDT [facility] [address] [place] [address] Phone: [phone] Fax: [phone] February 02, 2008 SUSAN GALO MD [address] [place] [address] RE: CARLITA JOSH : 1950 Chart #: [id number] Dear Dr. GALO: I had the pleasure of seeing CARLITA RODRIGUEZ in the office today. She is 57 years of age and presents with the following chief complaints: Dyslipidemia, coronary artery disease. HPI: Ms. Rodriguez returns today, Susan, as you know, for follow-up regarding coronary artery disease. Ms. Rodriguez is status post percutaneous intervention. She does have dyslipidemia but most of all struggles with obesity as you are well aware. She again gives me the sense that she struggles quite a bit with stress, althoug h I am not certain exactly of all the sources for her stress. It does appear as though she is basically happy with issues in her family. She does have some str ess associated with work. She does, as I am sure with you, express concerns reg arding her 's occupational status. Ms. Rodriguez continues to walk fairly consistently, typically 30-45 minutes at le ast five times a week. Unfortunately, her weight has been fairly stable over past year. 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 She has not had recurrence of chest pain. She has not had significant palpitatio ns, orthopnea, or lower extremity edema. She does not particularly experience d yspnea. Problem List: CAD PCI PTCA/Stent -proximal LAD-75-80% redilated and stented. CAD Cardiac cath CORS -LAD-80% 07/13/2004 Dyslipidemia 01/21/2007 PVD Carotid Duplex Mild atherosclerotic changes are present in both i nternal carotid arteries. No evidence for a hemodynamcially significant stenosi s >70%. No previous study. Syncope Past Medical History: Past medical history was reviewed today. Current Medications: Flaxseed Oil 1000mg Take one tablet by mouth twice a day Nitrostat 0.4mg As needed Calcium 600+minerals 600mg-200 Take one tablet by mouth daily [place]-3 Fish Oil Lipitor 10mg Folic Acid 0.4mg Atenolol 25mg Take one tablet by mouth daily Aspirin 325mg Take one tablet by mouth daily Multivitamin Allergies: Allergy Comment Niacin Niaspan Penicillin G Potassium Penicillin Paroxetine HCl Paxil Adhesive Tape Clopidogrel Bisulfate Plavix Family History: Mother Diagnosed with CVA. Father Cause of was [place], Cancer at age 57. Social History: Social history was reviewed today. ROS: 12-point review of systems is negative with the following exceptions: /PROSTHETIC AIDE: Postmenopausal Physical Exam: Const The patient is an obese female. Vital Signs The patient is 5ft 7in tall, and weighs 254lbs. The BMI is 39.80. B lood pressure taken in the left arm is 126/90 mmHg in the sitting position. The pulse is 55. The rhythm is regular. Const At times tearful in this exam as previously. HEENT There is no corneal arcus. There are no xanthelasmas noted. There are no oral lesions present. Jugular venous pressure is estimated to be less than 8. Ther e is no thyromegaly. Pulm Lungs are clear to auscultation. Cardiac Regular rate and rhythm. Normal S1 and S2. No murmur, rub, or gallop pre sent. Abd The patient has no abdominal tenderness to palpation. There is no hepatomeg tamra. There is no splenomegaly. The abdominal aorta is not palpable. There is no abdominal aortic bruit detected by auscultation. Bowel sounds are present. EXT There is nonpitting edema noted. Vasc The right and left carotid upstrokes are normal. There are normal right an d left femoral pulses. There are normal right and left posterior tibial pulses. The right and left dorsalis pedis pulses are normal. No carotid or femoral bruits. The R carotid pulsations are quite prominent as seen previously. There is a right carotid bruit present. EKG: Rhythm: Sinus bradycardia Rate: 55 AV Conduction: Normal QRS [place] and Voltage: Normal Intervals: QTc: 402 ms Comments: No change compared with 12/31 exam. Most Recent Lipids Available for Review: Date Collected Fasting Chol HDL LDL Trig Ratio Glucose 02/02/2008 Yes 171.00 56.00 88.00 135.00 3.05 101 Impression: 1. Stable, fairly substantial walking program without symptoms. 2. History of hospitalization, eventually diagnosed with gastritis by EGD (esophagogastroduodenoscopy). 3. Obesity. Following her intervention, 01/1999, she lost about 100 pounds by o ur scale. She is now back up 95 since 12/2001. 4. Dysrhythmia. a. History of vasovagal syndrome, previously improved with beta blockade. 5. Family history for early coronary artery disease. a. Father had a myocardial infarction at age 55. 6. Coronary artery disease. a. Non-Q wave myocardial infarction, 01/1999. b. Left anterior descending angioplasty with entry into BETA-CATH radiation tri al, 01/1999. c. BETA-CATH protocol thallium was negative for ischemia in 06/1999. Left vent ricular ejection fraction was 75%. d. Coronary arteriography with 80 percent left anterior descending lesion noted , representing restenosis of previously dilated area, otherwise normal in 06/2000. e. Angioplasty and stenting of a 75-80 percent proximal left anterior descendin g restenotic lesion in 06/2000. f. Thallium exam in 09/2000 performed in [place] [facility]. Reportedly negative. g. Continues to be asymptomatic. 7. Dyslipidemia, followed in your office. a. Lipid profile on 01/21/2007 showed a total cholesterol of 159, HDL of 64, LD L of 77, triglycerides of 90, total cholesterol/HDL ratio 2.48:1, ALT of 30. b. With relatively stable lipid values based on today's exam. Mildly lower HDL , mildly higher LDL and triglycerides. Continues with healthy total cholesterol/HDL ratio. 8. Prominent right carotid. a. On 12/2007: carotid duplex exam with no evidence of hemodynamically signific ant disease. There is a soft right carotid bruit noted on today's exam; not note d previously. Disposition: 1. We reviewed several issues regarding weight, weight control, and risk. She p lans to upgrade her activity and get at least an hour a day of activity as she did when she lost so much weight. 2. I do not believe that further evaluation or intervention is in order from a c ardiovascular standpoint. 3. We did review her meals and they certainly sound to be relatively healthy at this point. I suspect that she is not doing much activity beyond her aerobic activity in that her sle ep is relatively poor, which encourages relatively elevated weight. I get no history consistent with sleep apnea or other sleep problem presently. Rishi, Ms. Rodriguez, as last year, I believe, could likely benefit from some modif ication to her habits. I suspect she probably get more calories than she thinks , but that she is relatively active and has stable weight if elevated weight. F ollowing review of this note or subsequently should you have concerns, comments or questions, please do let me know. My email address is [email or web address]. My di rect line here in the office is [phone]. I hope to see you. Follow up: Lasha Partida PhD, MHelga. 1 Year Thank you for allowing me to participate in CARLITA RODRIGUEZ's care. If I can be o f any further assistance, please do not hesitate to contact me. Sincerely, Lasha Partida PhD, MHelga. RMM/yosef p.m. p.m. F: 02/06/2008 documented in this encounter Plan of Treatment Not on filedocumented as of this encounter Visit Diagnoses Not on filedocumented in this encounter
--- OUTSIDE RECORDS SUMMARY | 2020-05-17 14:09 | XMS REPORT | Encounter Summary ---
Author Author [facility] Organization [facility] Address Unknown Phone Unavailable Care Team Providers Care Cross Country Truck Driver Name Role Phone PCP Unavailable Encounter Details Care Team Description Date Type Department Trav Evangelista MD No Forwarding Address [facility]2008 [facility] Visit Social History Date [...]
--- OUTSIDE RECORDS SUMMARY | 2020-05-17 14:09 | XMS REPORT | Encounter Summary ---
Author Author [facility] Organization [facility] Address Unknown Phone Unavailable Care Team Providers Care Blocker Polishing Name Role Phone PCP Unavailable Encounter Details Care Team Description Date Type Department Lasha Partida MD [address] [place] [address] [phone] 06/24/2009 [facility] [...] Signs Reading Time Taken Comments Vital Sign 110/80 06/24/2009 11:15 AM CDT Blood Pressure 49 06/24/2009 11:15 AM CDT Pulse - - Temperature - - Respiratory Rate - - Oxygen Saturation - - Inhaled Oxygen Concentration 112.9 kg (249 lb) 06/24/2009 11:15 AM CDT obese Weight 170.2 cm (5' 7") 06/24/2009 11:15 AM CDT Height 39 06/24/2009 11:15 AM CDT Body Mass Index documented in this encounter Progress Notes * Lasha Partida MD - 06/24/2009 10:30 AM CDT [facility] [address] [place] [address] June 24, 2009 Elton Schmitt MD [address] [place] [address] RE: CARLITA MORENO : 1950 Chart #: [id number] Visit provider: Lasha Partida, PhD, M.D. Visit location: [place] [address] Schmitt: I had the pleasure of seeing CARLITA MORENO in the office today. She is 58 years of age and presents with the following chief complaints: coronary artery diseas e, dyslipidemia. HPI: Ms. Moreno returns for general cardiovascular follow up. She is status post my ocardial infarction in 1998. She is now ten years out therefore. She is also s tatus post angioplasty with radiation therapy to the LAD. Ms. Moreno describes herself as generally doing well. She is walking 30-45 min utes five days a week. She has not had any chest pain associated with activity. She does have occasional pyrosis after eating. She does note that she has infre quently had some diaphoretic episodes. As you recall, she is quite some time sta tus post MAXINE/BSO. Ms. Moreno has not been orthopneic or presyncopal. She has not had significant lower extremity edema. Problem List: CAD PCI PTCA/Stent -proximal LAD-75-80% redilated and stented. CAD Cardiac cath CORS -LAD-80% 07/13/2004 Dyslipidemia 01/21/2007 PVD Carotid Duplex Mild atherosclerotic changes are present in both i nternal carotid arteries. No evidence for a hemodynamically significant stenosis >70%. No previous study. Syncope Past Medical History: Past medical history was reviewed today. Final Medications: Vitamin D 2000 Unit take 1 by Oral route every day Flaxseed Oil 1000mg Take one tablet by mouth twice a day Nitrostat 0.4mg As needed Folic Acid 0.4mg Atenolol 25mg Take one tablet by mouth daily [place] 3 Fish Oil Lipitor 10mg Aspirin 325mg Take one tablet by mouth daily Multivitamin Calcium 600+minerals 600mg-200 Take one tablet by mouth daily Allergies: Allergy Comment Niacin Niaspan Penicillin G Potassium Penicillin Paroxetine HCl Paxil Adhesive Tape Clopidogrel Bisulfate Plavix Family History: Mother Diagnosed with CVA Father Cause of was [place], Cancer at age 57. Social History: Social history was reviewed today. ROS: 12-point review of systems is negative Physical Exam: Vital Signs The patient is 5ft 7in tall, and weighs 249lbs. The BMI is 39.00. B lood pressure taken in the left arm is 110/80 mmHg in the sitting position. The pulse is 49. The rhythm is regular. Const The patient is an obese female. Pulm Lungs are clear to auscultation. HEENT There is no corneal arcus. There are no xanthelasmas noted. There are no oral lesions present. Jugular venous pressure is estimated to be less than 8. Ther e is no thyromegaly. Cardiac Regular rate and rhythm. Normal S1 and S2. No murmur, rub, or gallop pre sent. Abd The patient has no abdominal tenderness to palpation. There is no hepatomeg tamra. There is no splenomegaly. The abdominal aorta is not palpable. There is no abdominal aortic bruit detected by auscultation. Bowel sounds are present. Vasc The right and left carotid upstrokes are normal. There are normal right an d left femoral pulses. There are normal right and left posterior tibial pulses. The right and left dorsalis pedis pulses are normal. No carotid or femoral bruits. The R ca rotid pulsations are quite prominent as seen previously. EXT There is nonpitting edema noted. M/S The patient's gait is normal. EKG: Rhythm: Sinus bradycardia Rate: 49 AV Conduction: Normal QRS [place] and Voltage: low voltage Intervals: QTc: 394 ms Comments: Stable EKG. Most Recent Lipids Available for Review: Date Collected: 06/24/2009 Fasting: Fasting Total Cholesterol: 156 HDL: 43 LDL: 84 Triglycerides: 146 Ratio: 3.63 Glucose: 80 Impression: 1. Obesity. Following her intervention , she lost 100 pounds by our scale. She was here in January and her weight is down 17 pounds by our scale from January. 2. Dysrhythmia. a. History of vasovagal syndrome. Previously improved with beta blockade. 3. Family history of early coronary disease. a. Father with LA at age 55. 4. Coronary artery disease. a. Non-Q wave LA . b. LAD angioplasty with entry into beta cath radiation trial . Beta cath protocol thallium was negative . LVEF 75%. c. Coronary arteriography with 80% LAD lesion noted. Representing resten osis of previously dilated area. d. Angioplasty with stenting of 75-80% proximal LAD restenotic lesion . e. Thallium exam performed in [facility] reportedly negative. f. On 06/23/08, adenosine nuclear study in [place] [facility] small defect in the apex on both stress and rest films consistent with previous LA. There was a defect seen in the an terior wall on rest films but not seen on stress films. LVEF 66%. Impression is that there is a small infarct involving the apex. 5. Dyslipidemia, followed in your office. 6. Prominent right carotid noted previously. a. In 01/02, carotid duplex with no evidence of hemodynamically significant dis ease. Disposition: 1. Encouraged her with her effort at aerobic activity and weight reduction. 2. Continue with current medications. 3. No further testing in order at this point. 4. Tentatively plan on review in one year but as indicated. Rishi Ms. Moreno at this juncture appears to be better than at some times in e past. We will hope to continue along with you to encourage her efforts at weig ht reduction and aerobic activity, as well as general stress reduction. Follow up: Lasha Partida PhD, M.D. 1 Year Thank you for allowing me to participate in CARLITA MORENO's care. If I can be o f any further assistance, please do not hesitate to contact me. Sincerely, Lasha Partida PhD, M.D. RM/unique F: 06/29/2009 documented in this encounter Plan of Treatment Not on filedocumented as of this encounter Visit Diagnoses Not on filedocumented in this encounter
--- OUTSIDE RECORDS SUMMARY | 2020-05-17 14:09 | XMS REPORT | Encounter Summary ---
Author Author [facility] Organization [facility] Address Unknown Phone Unavailable Care Team Providers Care Manager Studio Name Role Phone PCP Unavailable Encounter Details Care Team Description Date Type Department Lasha Partida MD [address] [place] [address] [phone] [facility] [address] [place] [address] Social History Date Tobacco Use Types Packs/Day [...] Procedure Name Priority Date/Time Associated Diag nosis LIPOPROTEIN (A) Routine 11/14/2000 1:30 PM HOSPITAL INSURANCE CLERK HS CRP Routine 11/14/2000 1:30 PM HOSPITAL INSURANCE CLERK HOMOCYSTEINE Routine 11/14/2000 1:30 PM HOSPITAL INSURANCE CLERK FIBRINOGEN ASSAY Routine 11/14/2000 1:30 PM HOSPITAL INSURANCE CLERK documented in this encounter Results * Homocysteine (11/14/2000 1:30 PM HOSPITAL INSURANCE CLERK) Homocysteine 5.7 f UMOL/L [facility] Specimen Blood Narrative Performed At Report [facility] Comments and Normal Ranges for Com ponent HOMOCYS(UMOL/L) REFERENCE RANGE- <12 Optimal 12-15 Borderline 16-30 Moderate Elevation >30 Significant Elevation Performing Organization Address City/State[facility] Ph one Number [facility] [address] [place], [place] [address] [facility] * Lipoprotein (a) (11/14/2000 1:30 PM HOSPITAL INSURANCE CLERK) Lipoprotein(A) 32.1 f MG/DL [facility] Specimen Blood Narrative Performed At Report [facility] Comments and Normal Ranges for Com ponent LP A(MG/DL) Reference Range- 6.0-34.0 mg/dl -Eritrean 22.0-74.0 mg/dl Performing Organization Address City/[facility] Ph one Number [facility]RL [address] [place], [place] [address] [facility] * hs CRP (11/14/2000 1:30 PM HOSPITAL INSURANCE CLERK) HS CRP 0.06 f MG/L [facility] Specimen Blood Narrative Performed At Report [facility] Comments and Normal Ranges for Com ponent HS CRP(MG/DL) hs CRP RANGE RISK ESTIMATE <0.06 Low 0.06 - 0.09 Mild 0.10 - 0.16 Moderate 0.17 - 0.32 High >0.32 Highest Performing Organization Address [facility] one Number [facility]RL [address] [place], [place] [address] [facility] * Fibrinogen Assay (11/14/2000 1:30 PM HOSPITAL INSURANCE CLERK) Fibrinogen 326 146 - 390 MG/DL [facility] Assay Specimen Blood Performing Organization Address [facility] one Number [facility]RL [address] [place], [place] [address] [facility] documented in this encounter Visit Diagnoses Not on filedocumented in this encounter
--- OUTSIDE RECORDS SUMMARY | 2020-05-17 14:09 | XMS REPORT | Encounter Summary ---
Author Author [facility] Organization [facility] Address Unknown Phone Unavailable Care Team Providers Care Cnc Mill Set Up Operator Name Role Phone PCP Unavailable Encounter Details Care Team Description [place] [address] [facility] [address] [place] [address] [phone] [facility] [address] [place] [address] Social History Date Tobacco Use Types Packs/Day [...] mg calcium- mouth daily 200 unit Tab 01/20/2007 06/01/2015 cyanocobalamin, vitamin Take one 0 0 B-12, 1,000 mcg Subl tablet by mouth daily 12/25/2005 06/01/2015 folic acid (FOLVITE) 400 0 [...] CAPSULE,DELAY REL documented as of this encounter Plan of Treatment Not on filedocumented as of this encounter Procedures Comments Procedure Name Priority Date/Time Associated Diag nosis THYROID STIMULATING Routine 08/27/2007 HORMONE 5:39 PM CDT THYROID PEROXIDASE Routine 08/27/2007 ANTIBODY 5:39 PM CDT T4 FREE Routine 08/27/2007 5:39 PM CDT documented in this encounter Results * T4 Free (08/27/2007 5:39 PM CDT) T4 Free 0.8 0.6 - 1.6 NG/DL [facility] Specimen Performing Organization Address [facility] one Number SLRL [address] [place] [address] [facility] * Thyroid Stimulating Hormone (08/27/2007 5:39 PM CDT) Thyroid 2.26 0.45 - 4.50 UIU/ML [facility] Stimulating Hormone Specimen Performing Organization Address [facility] Ph one Number [facility] [address] [place], [place] [address] [facility] * Thyroid Peroxidase Antibody (08/27/2007 5:39 PM CDT) Thyroid 31 0 - 35 IU/ML [facility] Peroxidase Antibody THYROID NEGATIVE [facility] PEROXIDASE INTERP Specimen Performing Organization Address [facility] one Number [facility] [address] [place] [address] [facility] documented in this encounter Visit Diagnoses Not on filedocumented in this encounter
--- OUTSIDE RECORDS SUMMARY | 2020-05-17 14:09 | XMS REPORT | Encounter Summary ---
Author Author [facility] Organization [facility] Address Unknown Phone Unavailable Care Team Providers Care Timers Inspector Name Role Phone PCP Unavailable Encounter Details Care Team Description Date Type Department [facility] Provider, MD Moreno 06/23/2008 [facility] C Result Social History Date [...] Procedure Name Priority Date/Time Associated Diag nosis ECHO HISTORICAL Routine 06/23/2008 documented in this encounter Results * Echo historical (06/23/2008) Specimen Narrative Performed At Procedure Category: Echo [facility] Procedure: 2D echo Procedure Summary: Impression: normal left ventricular contraction. Aortic valve sclerosis. Mild mitral,tricuspid and aortic regurgitation. Mild left ventricular hypertrophy. Minimally dila mendel left atrium. minimally dilated right ventricular. Procedure Note Interface, Rad Conversion - 05/17/2015 10:41 AM CDT Procedure Category: Echo Procedure: 2D echo Procedure Summary: Impression: normal left ventricular contraction. Aortic valve sclerosis. Mild mitral,tricuspid and aortic regurgitation. Mild left ventricular hypertrophy. Minimally dilated left atrium. minimally dilated right ventricular. Performing Organization Address City/State/Zipcode Ph one Number [facility] documented in this encounter Visit Diagnoses Not on filedocumented in this encounter
--- OUTSIDE RECORDS SUMMARY | 2020-05-17 14:09 | XMS REPORT | Encounter Summary ---
Author Author [facility] Organization [facility] Address Unknown Phone Unavailable Care Team Providers Care Wheel Presser Name Role Phone PCP Unavailable Encounter Details Care Team Description Date Type Department Lasha Partida MD [address] [place] [address] [phone] 01/14/2006 [facility] [...] Signs Reading Time Taken Comments Vital Sign 124/72 01/14/2006 10:26 AM ARCADE GAMES MECHANIC Blood Pressure 50 01/14/2006 10:26 AM ARCADE GAMES MECHANIC Pulse - - Temperature - - Respiratory Rate - - Oxygen Saturation - - Inhaled Oxygen Concentration 110.2 kg (243 lb) 01/14/2006 10:26 AM ARCADE GAMES MECHANIC Weight 170.2 cm (5' 7") 01/14/2006 10:26 AM ARCADE GAMES MECHANIC Height 38.06 01/14/2006 10:26 AM ARCADE GAMES MECHANIC Body Mass Index documented in this encounter Progress Notes * Lasha Partida MD - 01/14/2006 10:06 AM ARCADE GAMES MECHANIC [facility] [address] [place] [address] [phone] January 14, 2006 SUSAN GALO MD [address] [place] [address] RE: CARLITA MORENO : 1950 Chart #: [id number] Dear Dr. GALO: I had the pleasure of seeing CARLITA MORENO in the office today. She is 55 years of age and presents with the following chief complaints: Coronary artery diseas e, dyslipidemia. HPI: Rishi, Ms. Moreno returns today for general cardiovascular follow up. Ms. Chad garces, who is well known to you of course, is now nearly 7 years status post non-Q wave myocardial infarction. Ms. Moreno unfortunately has had a stressful time on several fronts and has regained substantial weight. Ms. Moreno finds hersel f unfortunately eating late, walking less although she used to walk very large a rodney. She continues to walk and has not had any difficulty with it. Ms. Moreno has not had exertional chest or leg symptoms at any time, nor has sh alecia had significant dyspnea, presyncope, orthopnea, or lower extremity edema. She has not had palpitations. Ms. Moreno describes her feet as troubling her, and on further discussion it is clear that she is struggling with plantar fasciitis, probably exacerbated by her weight gain but apparently troubled by her work situation. In addition, she is troubled with the stresses related to her greater family matters and some estate settlements. Ms. Moreno is walking 45 minutes to an hour 5 days per week. Problem List: CAD PCI PTCA/Stent -proximal LAD-75-80% redilated and stented. CAD Cardiac cath CORS -LAD-80% 07/13/2004 Dyslipidemia Syncope Past Medical History: Depression Pulm HTN Anxiety Past Surgical History: Tonsillectomy Tumor on back removed Current Medications: Calcium 600-minerals Take one tablet by mouth daily Aspirin 325mg Take one tablet by mouth daily Multivitamin Folic Acid 0.4mg Atenolol 25mg Take one tablet by mouth daily [place] 3 Fish Oil Lipitor 10mg B Complex Take one tablet by mouth daily Nasonex 50mcg as directed Ibuprofen 400mg Take one capsule by mouth three times per day Allergies: Penicillin G Potassium Paroxetine HCl Adhesive Tape Clopidogrel Bisulfate Family History: Mother Diagnosed with CVA Father Cause of was RI at age 57. Social History: Ms. 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 The patient exercises on a r egular basis. The patient has never smoked. Patient does not drink alcohol. Th ere is no history of drug abuse. A review of the patient's dietary patterns ind icates that they adhere to a low fat, low cholesterol, low salt diet. ROS: ROS is positive for: /DATA PROCESSING SUPERVISOR: Postmenopausal Physical Exam: Vital Signs The patient is 5ft 7in tall, and weighs 243lbs. The BMI is 38.10. B lood pressure taken in the right arm is 125/72 mmHg in the sitting position. The pulse is 50 . The rhythm is regular. Const At times tearful in this exam. HEENT There is no corneal arcus. There [...] detected by auscultation. Bowel sounds are present. Const The patient is an obese female. Vasc The right and left carotid upstrokes are normal. There are normal right an d left femoral pulses. There are normal right and left posterior tibial pulses. The right and left dorsalis pedis pulses are normal. No carotid or femoral bruits EXT There is nonpitting edema noted. EKG: Rhythm: Sinus bradycardia Rate: 49 AV Conduction: Normal QRS [place] and Voltage: normal Labs: Date Collected Fasting Chol HDL LDL Trig Ratio Glucose 01/14/2006 no 191 52 102 188 3.67 93 Impression: 1. Relatively recent onset of plantar fasciitis, probably exacerbated by having to stand a great deal at work, and complicated by weight gain. 2. Relatively significant aerobic activity program, although less than at times in the past. 3. History of hospitalization, eventually diagnosed with gastritis by EGD. 4. Obesity. She lost 100 pounds after her myocardial infarction in 01/1999. He r weight is back up 84 pounds by our scale from 12/2001. 5. Dysrhythmia. a. History of vasovagal syndrome, improved with beta dolly. 6. Family history for early coronary disease. a. Father had an RI at age 55. 7. CAD. a. 01/1999: Non-Q wave myocardial infarction. b. LAD angioplasty in 01/1999 with entry into Beta-Cath radiation trial. c. 06/1999: Beta-Cath protocol thallium exam was negative for ischemia. LVEF 75%. d. 06/2000: Coronary arteriography 80% LAD lesion noted, representing restenos is of previously dilated area. Otherwise normal. e. 06/2000: Angioplasty and stenting of 75-80% proximal LAD restenotic lesion. f. Thallium exam 09/2000 performed in [place]: Reportedly negative. g. Continues to be asymptomatic. 8. Dyslipidemia, followed in your office. a. Current laboratory values with LDL substantially above goal. 9. Plantar fasciitis. Plan: 1. We reviewed that her LDL was not at goal. She did not want to increase her m edication. Rather, she wanted to redouble her effort at weight, diet, and activity, and repeat a l ipid profile with you as deemed appropriate. 2. Encouraged her with director long term care effort at stress reduction. 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 3. Tentatively plan on follow up exam in perhaps a year, or as indicated. Follow up: Lasha Partida M.D., PhD 1 Year Rishi, it does not appear that Ms. Moreno would benefit from stress testing at [facility]. Certainly she could use some stress reduction. Thank you for allowing me to participate in CARLITA MORENO's care. If I can be o f any further assistance, or should you have concerns, comments, or questions fo llowing review of this discussion, please do not hesitate to contact me. Sincerely, Lasha Partida M.D., PhD YESY/jc F: 01/16/2006 1:46pm DE GAMES MECHANIC documented in this encounter Plan of Treatment Not on filedocumented as of this encounter Visit Diagnoses Not on filedocumented in this encounter
--- OUTSIDE RECORDS SUMMARY | 2020-05-17 14:09 | XMS REPORT | Encounter Summary ---
Author Author [facility] Organization [facility] Address Unknown Phone Unavailable Care Team Providers Care Sales And Distribution Clerk Name Role Phone PCP Unavailable Encounter Details Care Team Description Date Type Department [facility] Provider, MD Moreno 01/21/2007 [facility] C Result Social History [...] Name Priority Date/Time Associated Diag nosis CV US CAROTID DUPLEX Routine 01/21/2007 HISTORICAL documented in this encounter Results * CV US Carotid Duplex historical (01/21/2007) Specimen Narrative Performed At Procedure Category: ECHO NEXTGEN Procedure: Carotid Duplex Procedure Summary: Mild atherosclerotic changes are present in both internal carotid arteries. No evidence for a hemodynamcially signi ficant stenosis >70%. No previois study. Procedure Note Interface, Rad Conversion - 05/18/2015 12:03 PM CDT Procedure Category: ECHO Procedure: Carotid Duplex Procedure Summary: Mild atherosclerotic changes are present in both internal carotid arteries. No evidence for a hemodynamcially significant stenosis >70%. No previois study. Performing Organization Address City/State/Zipcode Ph one Number NEXTGEN documented in this encounter Visit Diagnoses Not on filedocumented in this encounter
--- OUTSIDE RECORDS SUMMARY | 2020-05-17 14:09 | XMS REPORT | Encounter Summary ---
Author Author [facility] Organization [facility] Address Unknown Phone Unavailable Care Team Providers Care Nailing Machine Feeder Name Role Phone PCP Unavailable Encounter Details Care Team Description Date Type Department Trav Evangelista MD No Forwarding Address 01/23/2007 [facility] C Visit Social History Date Tobacco Use Types Packs/Day Years Used Never Assessed Sex Assigned at Date Recorded Not on file Industry Job Start Date Occupation Not on file Not on file Not on file Travel End Travel History Travel Start No recent travel history available. documented as of this encounter Progress Notes * Trav Evangelista MD - 01/23/2007 11:34 AM CDT [facility] Office [address] [place] [address] [phone] 01/23/2007 SUSAN GALO MD [address] [place] [address] Re: CARLITA MORENO : 1950 Chart#: [id number] Dear Dr. GALO: This is a followup note regarding CARLITA MORENO. She has completed her cardiac testing and I am writing to share the results with you. She had the following tests: Carotid duplex: Mild atherosclerotic changes are present in both internal carot id arteries. No evidence for a hemodynamcially significant stenosis >70%. No previois study. Follow up is requested in 1 year as planned. These test results along with my re commendations have been communicated to CARLITA MORENO. I hope this information is useful to you. If you should have any questions or concerns, please do not h esitate to contact me. Sincerely, Lasha Partida M.D., PhD documented in this encounter Plan of Treatment Not on filedocumented as of this encounter Visit Diagnoses Not on filedocumented in this encounter
--- OUTSIDE RECORDS SUMMARY | 2020-05-17 14:09 | XMS REPORT | Encounter Summary ---
Author Author [facility] Organization [facility] Address Unknown Phone Unavailable Care Team Providers Care Reliability Manager Name Role Phone PCP Unavailable Encounter Details Care Team Description Date Type Department Lasha Partida MD [address] [place] [address] [phone] 01/21/2007 [facility] [...] Signs Reading Time Taken Comments Vital Sign 128/80 01/21/2007 11:34 AM CDT Blood Pressure 55 01/21/2007 11:34 AM CDT Pulse - - Temperature - - Respiratory Rate - - Oxygen Saturation - - Inhaled Oxygen Concentration 114.3 kg (252 lb) 01/21/2007 11:34 AM CDT Weight 170.2 cm (5' 7") 01/21/2007 11:34 AM CDT Height 39.47 01/21/2007 11:34 AM CDT Body Mass Index documented in this encounter Progress Notes * Lasha Partida MD - 01/21/2007 11:23 AM CDT [facility] Office [address] [place] [address] [phone] January 21, 2007 SUSAN GALO MD [address] [place] [address] RE: CARLITA MORENO : 1950 Chart #: [id number] Dear Dr. GALO: I had the pleasure of seeing CARLITA MORENO in the office today for an annual perfecto luation. She is 56 years of age and presents with the following chief complaints : Follow-up on chronic disease. HPI: Rishi, Ms. Moreno returns today for general cardiovascular reconsideration. Ms. Moreno is eight years status post non-Q wave ND this month. Ms. Moreno has n ot had exertional chest symptoms. She is walking about one hour per day. She h as had no limiting symptomatology including dyspnea, chest pain or claudication leg symptoms. Ms. Moreno describes herself as doing much better than the last time she was he re about one year ago. Her stress levels are substantially lower. She does not e, however, that the right neck has been found to have a prominence of the right carotid artery and, therefore, she is here in part to have that considered. Ms. Moreno has not had cerebral ischemic symptomatology. She has not had delon ication symptoms of her right upper extremity. Ms. Moreno, as is her typical habit, as been trying very hard with her diet. S he does, however, consume a substantial amount of juice Ms. Moreno notes that her children are doing well. A daughter plans to move to [place] to follow her nursing career. Her son, Rubén, is in [employer] with the volodymyr department. Problem List: CAD PCI PTCA/Stent -proximal LAD-75-80% redilated and stented. Cardiac cath CORS -LAD-80% 07/13/2004 Dyslipidemia 01/21/2007 PVD Carotid Duplex Mild atherosclerotic changes are present in both internal carotid arteries. No evidence for a hemodynamically significant stenosis >70%. No previous study. Syncope Past Medical History: Past medical history was reviewed today. Current Medications: Nitrostat 0.4mg As needed Vitamin B-12 1000mcg Take one tablet by mouth daily [place] 3 Fish Oil Lipitor 10mg B Complex Take one tablet by mouth daily Nasonex 50mcg As directed Ibuprofen 400mg Take one capsule by mouth three times per day Folic Acid 0.4mg Atenolol 25mg Take one tablet by mouth daily Calcium 600-minerals Take one tablet by mouth daily Aspirin 325mg Take one tablet by mouth daily Multivitamin Allergies: Allergy Comment Penicillin G Potassium Penicillin Paroxetine HCL Paxil Adhesive Tape Clopidogrel Bisulfate Plavix Family History: Mother Diagnosed with CVA. Father Cause of was ND at age 57. Social History: Social history was reviewed today. ROS: 12-point review of systems negative with the following exceptions: /CONGRESSIONAL REPRESENTATIVE: Postmenopausal Physical Exam: Vital Signs The patient is 5ft 7in tall, and weighs 252lbs. The BMI is 39.50. B lood pressure taken in the left arm is 120/80 mmHg in the sitting position. The pulse is 55. The rhythm is regular. Const The patient is an obese female. At times tearful in this exam. HEENT [...] by auscultation. Bowel sounds are present. Vasc No carotid or femoral bruits. The R carotid pulsations are quite prominent . The right and left carotid upstrokes are normal. There are normal right and left f emoral pulses. There are normal right and left posterior tibial pulses. The right an d left dorsalis pedis pulses are normal. EXT There is nonpitting edema noted. EKG: Rhythm: Sinus bradycardia Rate: 55 AV Conduction: Normal QRS [place] and Voltage: Normal Intervals: QT: 439 ms Labs: Date Collected Fasting Chol HDL LDL Trig Ratio Glucose 01/21/2007 yes 159 64 77 90 2.48 108 Impression: 1. Stable, fairly substantial walking program of approximately one hour per day. 2. History of hospitalization, eventually diagnosed with gastritis by EGD. 3. Obesity. She lost 100 pounds after her myocardial infarction in . She is now back up 93 pounds by our scales since 12/27. 4. Dysrhythmia. a. History of vasovagal syndrome, improved previously with beta blockade. 5. Family history for early coronary disease. a. Father had an ND at age 55. 6. Coronary artery disease. a. Non-Q wave myocardial infarction in . b. LAD angioplasty with entry into the BETA-CATH radiation Trial in . c. BETA-CATH protocol thallium was negative for ischemia in . LVEF was 75 %. d. Coronary arteriography with 80% LAD lesion noted, representing restenosis of previously dilated area, otherwise normal in . e. Angioplasty and stenting of a 75 to 80% proximal LAD restenotic lesion in . f. Thallium exam in performed in [facility]. Reportedly negative. g. Continues to be asymptomatic. 7. Dyslipidemia, followed in your office. a. Lipid profile on 01/21/07 showed a total cholesterol of 159, HDL 64, LDL 77, triglycerides 90, TC/HDL ratio 2.48:1, ALT 30, clearly showing improvement as compared with her last exam available to me. Disposition: 1. Carotid ultrasound in the office today showing evidence for essentially no at herosclerotic change. A copy of the final report will be forwarded to you. 2. I did have a handful of suggestions to hopefully, assist her with her ongoing effort at weight control. I attempted to steer her away from as much carbohydrates and to suggest that aydin alston really reynolds not need to be eating between meals. 3. I asked her to review with us at any time and in one year. Rishi, Ms. Moreno clearly could benefit by some modification to habits, for the most part eating, I suspect. Should you have concerns, comments or questions fo llowing review of this note please do contact me. Follow up: Lasha Partida M.D., Ph.D. 1 Year Thank you for allowing me to participate in CARLITA MORENO's care. If I can be o f any further assistance, please do not hesitate to contact me. Sincerely, Lasha Partida M.D., PhD YESY/freddy , 8:31 a.m. , 10:39 a.m. F: 01/23/2007, 10:40 a.m. documented in this encounter Plan of Treatment Not on filedocumented as of this encounter Visit Diagnoses Not on filedocumented in this encounter
--- OUTSIDE RECORDS SUMMARY | 2020-05-17 14:09 | XMS REPORT | Encounter Summary ---
Author Author [facility] Organization [facility] Address Unknown Phone Unavailable Care Team Providers Care Table Games Floor Supervisor Name Role Phone PCP Unavailable Encounter Details Care Team Description Date Type Department Kris Zepeda MD [address] [facility] [address] [place] [address] [phone] 06/04/2008 [facility] Visit Social History Date [...]
--- OUTSIDE RECORDS SUMMARY | 2020-05-17 14:10 | XMS REPORT | Encounter Summary ---
Author Author [facility] Organization [facility] Address Unknown Phone Unavailable Care Team Providers Care Market Risk Specialist Name Role Phone PCP Unavailable Encounter Details Care Team Description Date Type Department [facility] Provider, MD Moreno 01/26/1999 [facility] C Result Social History [...] Procedure Name Priority Date/Time Associated Diag nosis CATHETERIZATION Routine 01/26/1999 HISTORICAL documented in this encounter Results * Catheterization historical (01/26/1999) Specimen Narrative Performed At Procedure Category: Invasive NEXTGEN Procedure: PCI Procedure Summary: PTCA -LAD with entry into beta cath radiation trial. Procedure Note Interface, Rad Conversion - 05/18/2015 7:22 PM CDT Procedure Category: Invasive Procedure: PCI Procedure Summary: PTCA -LAD with entry into beta cath radiation trial. Performing Organization Address City/State/Zipcode Ph one Number NEXTGEN documented in this encounter Visit Diagnoses Not on filedocumented in this encounter
--- OUTSIDE RECORDS SUMMARY | 2020-05-17 14:10 | XMS REPORT | Encounter Summary ---
Author Author [facility] Organization [facility] Address Unknown Phone Unavailable Care Team Providers Care Ware Carrier Name Role Phone PCP Unavailable Encounter Details Care Team Description Date Type Department [facility] Provider, MD Moreno 06/28/2000 [facility] C Result Social History [...] Priority Date/Time Associated Diag nosis CATHETERIZATION Routine 06/28/2000 HISTORICAL documented in this encounter Results * Catheterization historical (06/28/2000) Specimen Narrative Performed At Procedure Category: Invasive NEXTGEN Procedure: PCI Procedure Summary: PTCA/Stent -proximal LAD-75-80% redilated and stented. Procedure Note Interface, Rad Conversion - 05/18/2015 7:22 PM CDT Procedure Category: Invasive Procedure: PCI Procedure Summary: PTCA/Stent -proximal LAD-75-80% redilated and stented. Performing Organization Address City/State/Zipcode Ph one Number NEXTGEN documented in this encounter Visit Diagnoses Not on filedocumented in this encounter
--- OUTSIDE RECORDS SUMMARY | 2020-05-17 14:10 | XMS REPORT ---
Author Organization Unknown Address [address] [place] [address] Phone [phone] Care Team Providers Care Meter Repair Shop Supervisor Name Role Phone R Zachariah Schmitt MD 3 [phone] Reason for Visit Parkinson's disease Assessment and Plan The following list includes any diagnoses that were discussed at your visit. 1. Parkinson's disease parkinson's disease: care instructions 2. On examination - carotid bruit US, duplex, carotid artery - Tortuous Right CCA with Bruit base of neck. Patient hand carried order Discussion Note 40 minutes face to face with >50% counse lling and direction of care. Focus on PD and Bruit Plan of Care Reminders Provider Appointments Xlong 07/18/2017 10:00AM Jonatan marinelli MD Lab None recorded. Referral None recorded. Procedures None recorded. Surgeries None recorded. Imaging US, Duplex, Carotid Artery 01/10/2017 Current Medications Your medical record indicates you are on the following medicine. If this list is not consistentwith the medications you are currently taking, or if you are taki ng additional sufu-uar-xsmogwh medicines, pleaseinform your provider. Name Prescribed Date Start Date TAKE 1 PO DAILY atenolol 25 mg tablet take 1 tab daily carbidopa 25 mg-levodopa 100 mg tablet Take 1 tablet 3 times a day by oral route. Fish Oil TAKE 1,200 MG , 4 DAILY levothyroxine 50 mcg tablet take 1 tab daily Lipitor 10 mg tablet take 1 tab daily loratadine 10 mg tablet Take 1 tablet as needed by oral route. multivitamin Nitrostat 0.4 mg sublingual tablet prn Vitamin D3 2,000 unit tablet Take 1 tablet every day by oral route. Medications Administered None recorded. Vitals Height Weight BMI Blood Pressure 5 ft 6 in 234.2 lbs 37.8 128/68 Blood Pressure Cuff Size Body Surface Area large adult 2.22 Lab Results None recorded. Allergies Please review your allergy list for accuracy. Contact your provider if this list needs to be updated. Name Reaction Severity Onset Clopidogrel Bisulfate 12/02/2015 Niacin 12/02/2015 Paroxetine Hcl 12/02/2015 Penicillin 12/02/2015 Sulfa (Sulfonamide Antibiotics) 12/02/2015 Sulfamethoxazole 12/02/2015 Trimethoprim 12/02/2015 Problems Name Status Onset Date Source Parkinson's Disease Active Problem Active Procedures Date Name Performed by 10/28/2003 Hysterectomy Information not avai lable 01/10/2017 US, Duplex, Carotid Artery Information n ot available Vaccine List Here is a copy of your most up-to-date vaccination list. None recorded. Smoking Status Smoking Status Never Smoker Past Encounters 01/10/2017 Parkinson's Disease; On Examination - Carotid Bruit Jonatan Dick MD: [address], [address], [place] [address], Ph. [phone]
--- OUTSIDE RECORDS SUMMARY | 2020-05-17 14:10 | XMS REPORT ---
Author Organization Unknown Address [address] [place] [address] Phone [phone] Care Team Providers Care Head Greenskeeper Name Role Phone R Zachariah Schmitt MD 3 [phone] Reason for Visit Parkinson's disease Assessment and Plan The following list includes any diagnoses that were discussed at your visit. 1. Parkinson's disease medical record request - PLEASE SEND M OST RECENT LAB RESULTS carbidopa 25 mg-levodopa 100 mg tablet Discussion Note I spent 40 minutes of oljk-mm-vmez time, greater than 50% counseling and direction of care. Patient educational handouts: No information available. Plan of Care Reminders Provider Appointments Xlong 45 01/10/2017 10:00AM Jonatan marinelli MD Lab None recorded. Referral None recorded. Procedures None recorded. Surgeries None recorded. Imaging None recorded. Current Medications Your medical record indicates you are on the following medicine. If this list is not consistentwith the medications you are currently taking, or if you are taki ng additional vwvm-jjb-igihgvm medicines, pleaseinform your provider. Name Prescribed Date Start Date TAKE 1 PO DAILY atenolol 25 mg tablet take 1 tab daily carbidopa 25 mg-levodopa 100 mg tablet Take 1 tablet 3 times a day by oral route. 09/13/2016 Fish Oil TAKE 1,200 MG , 4 [...] BMI Blood Pressure 5 ft 6 in 231.4 lbs 37.3 132/86 Blood Pressure Cuff Size Body Surface Area large adult 2.21 Lab Results None recorded. Allergies Please review [...] by 10/28/2003 Hysterectomy Information not avai lable Vaccine List Here is a copy of your most up-to-date vaccination list. None recorded. Smoking Status Smoking Status Never Smoker Past Encounters 09/13/2016 Parkinson's Disease Jonatan Dick MD: [address] [place] [address], [address], [place] [address], Ph. [phone]
--- OUTSIDE RECORDS SUMMARY | 2020-05-17 14:10 | XMS REPORT ---
Author Organization Unknown Address [address] [place] [address] Phone [phone] Care Team Providers Care Delivery Motorcycle Driver Name Role Phone R Zachariah Schmitt MD 3 [phone] Reason for Visit Parkinson's disease Assessment and Plan The following list includes any diagnoses that were discussed at your visit. 1. Parkinson's disease Azilect 0.5 mg tablet Discussion Note 50 minutes of opaf-ka-zkiv greater than 50% in counseling and direction of care. Patient educational handouts: No information available. Plan of Care Reminders Provider Appointments Xlong 45 09/13/2016 10:00AM Jonatan marinelli MD Lab None recorded. Referral None recorded. Procedures None recorded. Surgeries None recorded. Imaging None recorded. Current Medications Your medical record indicates you are on the following medicine. If this list is not consistentwith the medications you are currently taking, or if you are taki ng additional xzpk-wlr-opoprvx medicines, pleaseinform your provider. Name Prescribed Date Start Date atenolol 25 mg tablet take 1 tab daily Azilect 0.5 mg tablet Take 1 tablet every day by oral route. 06/14/2016 carbidopa 25 mg-levodopa 100 mg tablet take 1 tab TID 7am, 11am,3pm Fish Oil levothyroxine 50 mcg tablet take 1 tab daily Lipitor 10 mg tablet take 1 tab daily loratadine 10 mg tablet Take 1 tablet as needed by oral route. multivitamin Nitrostat 0.4 mg sublingual tablet prn Vitamin D3 Medications Administered None recorded. Vitals Height Weight BMI Blood Pressure 5 ft 6 in 229.8 lbs 37.1 130/74 Blood Pressure Cuff Size Body Surface Area large adult 2.2 Lab Results None recorded. Allergies Please review [...] Status Smoking Status Never Smoker Past Encounters 06/14/2016 Parkinson's Disease Jonatan Dick MD: [address] [place] [address], [address], [place] [address], Ph. [phone]
--- OUTSIDE RECORDS SUMMARY | 2020-05-17 14:10 | XMS REPORT ---
Author Organization Unknown Address [address] [place] [address] Phone [phone] Care Team Providers Care Marketing Technologist Name Role Phone R Zachariah Schmitt MD 3 [phone] Reason for Visit Parkinson's disease Assessment and Plan The following list includes any diagnoses that were discussed at your visit. 1. Parkinson's disease Azilect 0.5 mg tablet Discussion Note 50 minutes of mlnj-sq-gtaq greater than 50% in counseling and direction [...] or if you are taki ng additional ayfn-odi-fjwcwcv medicines, pleaseinform your provider. Name Prescribed Date [...] Encounters 06/14/2016 Parkinson's Disease Jonatan Dick MD: [address] [place] [address], [address], [place] [address], Ph. [phone]
--- OUTSIDE RECORDS SUMMARY | 2020-05-17 14:10 | XMS REPORT ---
Author Organization Unknown Address [address] [place] [address] Phone [phone] Care Team Providers Care Bookbinding Machine Operator Name Role Phone R Zachariah Schmitt MD 3 [phone] Reason for Visit Parkinson's disease Assessment and Plan The following list includes any diagnoses that were discussed at your visit. 1. Parkinson's disease medical record request - PLEASE SEND M OST RECENT LAB RESULTS carbidopa 25 mg-levodopa 100 mg tablet Discussion Note I spent 40 minutes of xkdx-nr-mcuz time, greater than 50% counseling and direction [...] or if you are taki ng additional faft-lna-zpcycmh medicines, pleaseinform your provider. Name Prescribed Date [...] Encounters 09/13/2016 Parkinson's Disease Jonatan Dick MD: [address] [place] [address], [address], [place] [address], Ph. [phone]
--- OUTSIDE RECORDS SUMMARY | 2020-05-17 14:10 | XMS REPORT | Encounter Summary ---
Author Author [facility] Organization [facility] Address Unknown Phone Unavailable Care Team Providers Care Operator Coating Furnace Name Role Phone PCP Unavailable Encounter Details Care Team Description Date Type Department [facility] Provider, MD Moreno 06/28/2000 [facility] C Result Social [...] Performed At Procedure Category: Invasive NEXTGEN Procedure: Cardiac cath Procedure Summary: CORS -LAD-80% Procedure Note Interface, Rad Conversion - 05/18/2015 7:22 PM CDT Procedure Category: Invasive Procedure: Cardiac cath Procedure Summary: CORS -LAD-80% Performing Organization Address City/State/Zipcode Ph one Number NEXTGEN documented in this encounter Visit Diagnoses Not on filedocumented in this encounter
--- OUTSIDE RECORDS SUMMARY | 2020-05-17 14:10 | XMS REPORT | Encounter Summary ---
Author Author [facility] Organization [facility] Address Unknown Phone Unavailable Care Team Providers Care Data Warehousing Architect Name Role Phone PCP Unavailable Encounter Details Care Team Description Date Type Department Scott Garza MD [address] [facility] [address] [place] [address] [phone] [facility] Social History Date Tobacco Use Types Packs/Day Years Used Never Assessed Sex Assigned at Date Recorded Not on file Industry Job Start Date Occupation Not on file Not on file Not on file Travel End Travel History Travel Start No recent travel history available. documented as of this encounter H&P Notes * Jonatan Garza MD - 12/26/2013 10:02 PM SOCIAL MEDIA DESIGNER Report [id number] [place], [place] Name: CARLITA MORENO MRN/Unit #: [id number] Attending Physician: JUNIOR RICHARDSON MD Date of : 1950 This 49 year old woman was transferred from the emergency department of [facility] in [place], [place] today. She presented there after a mild episode of orthostatic light-headedness. Thereafter she had sensations of a warmed, flushed sensation over her body lasting for several minutes. Her family members were concerned that this was a manifestation of her known coronary artery disease, and she therefore went to the emergency department for further evaluation. Labs were checked at that time, and although CK and CKMB were normal, her troponin was reported as being abnormal at 2.91 ng/ml. She was therefore transferred for further evaluation and management. The patient denies any chest discomfort or any other symptoms that could be easily construed as being anginal in origin. She denies any exertional chest discomfort or dyspnea. She walks four miles a day on a regular basis without any limitation. Her functional status is excellent. She denies any palpitation. She does give a history of orthostatic symptoms and has had one admission in January of last year with this symptom. Evaluation at that time was negative. PAST MEDICAL HISTORY: 1) Coronary artery disease, status post known Q-wave anterior wall myocardial infarction in February of 1999. At that time, underwent angioplasty and was entered into the BETA CATH study. Since that time, she has not had repeat coronary angiography, but did have a stress thallium study in May of 1999 which was normal and revealed normal left ventricular function. Her coronary angiogram performed at time of her myocardial infarction showed disease localized to the LAD only. 2) Morbid obesity. The patient does have a history of 100 lb voluntary weight loss as management of her obesity. PAST SURGICAL HISTORY: History of removal of lipoma from her right thoracic region posteriorly. CURRENT MEDICATIONS: Aspirin 325 mg q day; various multivitamins. ALLERGIES: HISTORY OF ALLERGY TO PENICILLIN AND NIACIN. REVIEW OF SYSTEMS: Constitutional - Negative. CV - refer to HPI. Otherwise negative. RESPIRATORY- negative. GI - negative. - negative. MUSCULOSKELETAL - Negative. NEUROLOGIC - negative. NEUROLOGIC - negative. FAMILY HISTORY: SOCIAL HISTORY: The patient is . Lives with her and family. There is a family history of premature coronary artery disease. She does not use tobacco products or ethanol. PHYSICAL EXAM: She appeared well in no acute distress. There is no anemia, cyanosis or jaundice. There was no dependent edema or digital clubbing. Temperature was 97.7 degrees F. Respirations 16/min. 02 saturation 100% on room air. CARDIOVASCULAR - pulse was 63/min and regular. Normal volume and character. JVP was not elevated. Blood pressure as 129/67 mmHg. PMI was nondisplaced and normal character. Heart sounds - S1, S2. There were no either signs of murmurs. All central pulses were easily palpable without radiofemoral delay. Pedal pulses were also easily palpable. RESPIRATORY SYSTEM - chest was clear to percussion and auscultation. ABDOMEN soft, nontender. There were no masses. There was no hepatosplenomegaly. NEUROLOGIC - alert and oriented X3. There were no focal or lateralizing signs. INTEGUMENT - negative. A 12-lead ECG shows sinus rhythm without diagnostic abnormality. LABORATORY: Sodium 137 mm/liter, potassium 3.7 mm/liter, chloride 108 mm/liters, C02 28 mm/liter. Creatinine 0.9 mg/deciliter. BUN 15 mg/deciliter. TSH normal at 3.4 IU/liter. CBC - hemoglobin was 13.3 grams/deciliter, white count 5.6. Platelets 246,000. Urinalysis - positive for leukocyte esterase. CK - 37 IU/liter, CKMB 1.4 ng/ml. Troponin 2.91 ng/ml. ASSESSMENT: PLAN: 1. Coronary artery disease: This patient presents with nonspecific symptoms but was subsequently found to have an elevated troponin level. I suspect that this will pipe turner to be a laboratory error, and do not think that she has an acute coronary syndrome. If ACIPS are normal here, we will perform an exercise thallium study in the a.m. In the interim, we will continue her on aspirin and have started her on a low dose of Lopressor and subcutaneous Lovenox. 2. Probable urinary tract infection. The patient is being started Bactrim for this. Electronically Authenticated By: Scott Garza M.D. 07/02/2000 16:05:27 Scott Garza M.D. Dictated By: cc: Dr. [place], [place] Name: CARLITA MORENO Room-Bed/Loc/Type: -/ /EL Admit Date: 07/01/2000 HISTORY AND PHYSICAL 1 OF 2 [place] MEDIA DESIGNER documented in this encounter Plan of Treatment Not on filedocumented as of this encounter Procedures Comments Procedure Name Priority Date/Time Associated Diag nosis ACIP 12 Routine 07/02/2000 3:00 AM CDT ACIP 6 Routine 07/01/2000 10:00 PM CDT COAGULATION SCREEN Routine 07/01/2000 1:00 PM CDT DIFFERENTIAL Routine 07/01/2000 1:00 PM CDT ACIP 0 Routine 07/01/2000 1:00 PM CDT THYROID STIMULATING Routine 07/01/2000 HORMONE 1:00 PM CDT LUTEINIZING HORMONE Routine 07/01/2000 1:00 PM CDT HEMOGLOBIN A1C Routine 07/01/2000 1:00 PM CDT FSH Routine 07/01/2000 1:00 PM CDT COMPREHENSIVE METABOLIC Routine 07/01/2000 PANEL 1:00 PM CDT CBC AND DIFF (MANUAL DIFF Routine 07/01/2000 IF NECESSARY) 1:00 PM CDT documented in this encounter Results * ACIP 12 (07/02/2000 3:00 AM CDT) Creatine Kinase <20 30 - 225 IU/L [facility] CK MB 0.8 0.0 - 6.0 NG/ML [facility] Troponin <0.1 0.0 - 1.9 NG/ML [facility] Specimen Blood Performing Organization Address [facility] one Number [id number] [address] [facility] * ACIP 6 (07/01/2000 10:00 PM CDT) Creatine Kinase 25 (L) 30 - 225 IU/L [facility] CK MB 0.9 0.0 - 6.0 NG/ML [facility] Troponin <0.1 0.0 - 1.9 NG/ML [facility] Specimen Blood Performing Organization Address [facility] Ph one Number [facility]RL [id number] [address] [facility] * DIFFERENTIAL (07/01/2000 1:00 PM CDT) % Neutrophils 62 45 - 78 % [facility] %Lymphocytes 24 15 - 47 % [facility] %Monocytes 2 0 - 12 % [facility] %Eosinophils 2 0 - 7 % [facility] # Granulocytes 4.1 1.7 - 6.8 TH/UL [facility] # Lymphocytes 1.4 1.0 - 3.3 TH/UL [facility] # Monocytes 0.1 (L) 0.2 - 0.9 TH/UL [facility] # Eosinophils 0.1 0.0 - 0.4 TH/UL [facility] % Bands 10 0 - 14 % [facility] RBC Morphology NORMAL [facility] Specimen Blood Performing Organization Address [facility] one Number RL [id number] [address] [facility] * CBC and Diff (manual diff if necessary) (07/01/2000 1:00 PM CDT) WBC 5.7 4.0 - 11.0 TH/UL [facility] RBC 4.55 4.00 - 5.00 MIL/UL [facility] Hemoglobin 13.5 12.0 - 15.0 G/DL [facility] Hematocrit 40 36 - 45 % [facility] MCV 89 80 - 99 FL [facility] MCH 30 27 - 34 PG [facility] MCHC 34 32 - 36 % [facility] RDW 12.5 <14.5 % [facility] Platelet Count 248 140 - 400 TH/UL [facility] Specimen Blood Performing Organization Address [facility] one Number RL [id number] [address] [facility] * Comprehensive Metabolic Panel (07/01/2000 1:00 PM CDT) Albumin 4.1 3.6 - 4.6 G/DL [facility] Aspartate 25 20 - 50 IU/L [facility] Aminotransferas e Bilirubin Total 0.6 0.0 - 1.1 MG/DL [facility] Protein Total 7.8 6.5 - 8.2 G/DL [facility] Serum Calcium 9.6 8.8 - 10.5 MG/DL [facility] Creatinine 0.8 0.5 - 1.5 MG/DL [facility] Glucose 94 65 - 110 MG/DL [facility] Alkaline 73 40 - 125 IU/L [facility] Phosphatase Sodium 144 134 - 144 MEQ/L [facility] Potassium 3.6 3.6 - 5.0 MEQ/L [facility] Chloride 107 98 - 107 MEQ/L [facility] Carbon Dioxide 29 23 - 32 MEQ/L [facility] Blood Urea 11 5 - 20 MG/DL [facility] Nitrogen Anion Gap 8 3 - 15 [facility] Alanine 21 20 - 60 IU/L [facility] Aminotransferas e Specimen Blood Performing Organization Address [facility] one Number [id number] [place], [place] [address] [facility] * ACIP 0 (07/01/2000 1:00 PM CDT) Creatine Kinase 32 30 - 225 IU/L [facility] CK MB 1.6 0.0 - 6.0 NG/ML [facility] Troponin <0.1 0.0 - 1.9 NG/ML [facility] Specimen Blood Performing Organization Address [facility] one Number [facility] [id number] [place], [place] [address] [facility] * Coagulation Screen (07/01/2000 1:00 PM CDT) APTT >200 (A) 21 - 33 SEC [facility] Protime 12.2 10.3 - 13.0 SEC [facility] INR 1.1 [facility] Platelet Count 248 140 - 400 TH/UL [facility] Fibrinogen 344 146 - 390 MG/DL [facility] Assay Specimen Blood Performing Organization Address [facility] one Number [id number] [address] [facility] * Hemoglobin A1C (07/01/2000 1:00 PM CDT) HEMOGLOBIN A1C 5.1 f % [facility] Specimen Blood Narrative Performed At Report [facility] Comments and Normal Ranges for Com ponent HGB A1C(%) NONDIABETIC- 4.4-6.0% VERY GOOD CONTROL- <7.0% SUBOPTIMAL CONTROL- 7.1-8.0% POOR CONTROL- >8.0% Performing Organization Address [facility] one Number [id number] [address] [facility] * FSH (07/01/2000 1:00 PM CDT) FSH 4 IU/L [facility] Specimen Blood Narrative Performed At Report [facility] FOLLICULAR/ 1 - 8 OVULATION/ 4 - 25 LUTEAL/ 1 - 5 POSTMENOPAUSAL/ 40 - 100 Performing Organization Address [facility] one Number [id number] [address] [facility] * Luteinizing Hormone (07/01/2000 1:00 PM CDT) LH 1.55 IU/L [facility] Specimen Blood Narrative Performed At Report [facility] NORMALLY MENSTRUATING FEMALES/ FOLLICULAR PHASE 2.57 - 26.53 MIDCYCLE PEAK 18.06 - 90.23 LUTEAL PHASE 0.67 - 23.75 POSTMENOPAUSAL 1.09 - 92.45 Performing Organization Address [facility] one Number [id number] [address] [facility] * Thyroid Stimulating Hormone (07/01/2000 1:00 PM CDT) Thyroid 1.80 0.50 - 5.00 UIU/ML [facility] Stimulating Hormone Specimen Blood Performing Organization Address [facility] Ph one Number [id number] [address] [facility] documented in this encounter Visit Diagnoses Not on filedocumented in this encounter
--- OUTSIDE RECORDS SUMMARY | 2020-05-17 14:10 | XMS REPORT | Encounter Summary ---
Author Author [facility] Organization [facility] Address Unknown Phone Unavailable Care Team Providers Care Human Projectile Name Role Phone PCP Unavailable Encounter Details Care Team Description Date Type Department Antonio Hayes MD [address] [facility] [address] [address] [phone] Parth Burt DO [address] [facility] [address] [place] [address] [phone] 01/30/1999 [facility] - Encounter 02/02/1999 Social History Date Tobacco Use Types Packs/Day [...] Procedure Name Priority Date/Time Associated Diag nosis CK MB/INACTIVE Routine 02/02/1999 4:00 AM CDT CK MB/INACTIVE Routine 02/01/1999 8:30 PM CDT CK MB/INACTIVE Routine 02/01/1999 12:50 PM CDT CK MB/INACTIVE Routine 02/01/1999 4:25 AM CDT ELECTROLYTES Routine 02/01/1999 4:25 AM CDT CREATININE Routine 02/01/1999 4:25 AM CDT COMPLETE BLOOD COUNT Routine 02/01/1999 4:25 AM CDT BLOOD UREA NITROGEN Routine 02/01/1999 4:25 AM CDT CK MB/INACTIVE Routine 01/31/1999 8:25 PM CDT PLATELET Routine 01/31/1999 4:55 PM CDT HEMOGLOBIN Routine 01/31/1999 4:55 PM CDT HEMATOCRIT Routine 01/31/1999 4:55 PM CDT ACTIVATED CLOTTING TIME Routine 01/31/1999 4:45 PM CDT CK MB/INACTIVE Routine 01/31/1999 11:00 AM CDT CK MB/INACTIVE Routine 01/31/1999 9:00 AM CDT APTT Routine 01/31/1999 9:00 AM CDT LIPID PANEL Routine 01/31/1999 9:00 AM CDT ACIP 12 Routine 01/31/1999 2:55 AM CDT APTT Routine 01/31/1999 2:55 AM CDT PLATELET Routine 01/31/1999 2:55 AM CDT CREATININE Routine 01/31/1999 2:55 AM CDT DIFFERENTIAL Routine 01/30/1999 12:30 PM CDT ACIP 0 Routine 01/30/1999 12:30 PM CDT APTT Routine 01/30/1999 12:30 PM CDT PROTHROMBIN TIME/INR Routine 01/30/1999 12:30 PM CDT COMPREHENSIVE METABOLIC Routine 01/30/1999 PANEL 12:30 PM CDT CBC AND DIFF (MANUAL DIFF Routine 01/30/1999 IF NECESSARY) 12:30 PM CDT documented in this encounter Results * CK MB/INACTIVE (02/02/1999 4:00 AM CDT) Only the most recent of 7 results within the time period is included. Creatine Kinase 63 30 - 225 IU/L SUNQUEST CK MB 3.6 0.0 - 6.0 NG/ML SUNQUEST Specimen Blood Performing Organization Address [facility] one Number SLRL [address] [phone] 11 SUNQUEST * Blood Urea Nitrogen (02/01/1999 4:25 AM CDT) Blood Urea 6 5 - 20 MG/DL SUNQUEST Nitrogen Specimen Blood Performing Organization Address [facility] one Number SLRL [address] [phone] 11 SUNQUEST * Electrolytes (02/01/1999 4:25 AM CDT) Sodium 139 134 - 144 MEQ/L SUNQUEST Potassium 4.1 3.6 - 5.0 MEQ/L SUNQUEST Chloride 103 98 - 107 MEQ/L SUNQUEST Carbon Dioxide 26 23 - 32 MEQ/L SUNQUEST Anion Gap 10 3 - 15 SUNQUEST Specimen Blood Performing Organization Address [facility] one Number SLRL [address] [address] SUNQUEST * Creatinine (02/01/1999 4:25 AM CDT) Only the most recent of 2 results within the time period is included. Creatinine 0.9 0.5 - 1.5 MG/DL SUNQUEST Specimen Blood Performing Organization Address [facility] one Number SLRL [address] [address] 11 SUNQUEST * Complete Blood Count (02/01/1999 4:25 AM CDT) WBC 7.3 4.0 - 11.0 TH/UL SUNQUEST RBC 3.97 (L) 4.00 - 5.00 MIL/UL SUNQUEST Hemoglobin 10.2 (L) 12.0 - 15.0 G/DL SUNQUEST Hematocrit 31 (L) 36 - 45 % SUNQUEST MCV 78 (L) 80 - 99 FL SUNQUEST MCH 26 (L) 27 - 34 PG SUNQUEST MCHC 33 32 - 36 % SUNQUEST RDW 15.4 (H) <14.5 % SUNQUEST Platelet Count 267 140 - 400 TH/UL SUNQUEST Specimen Blood Performing Organization Address [facility] one Number [id number] [address] [address] SUNQUEST * Platelet (01/31/1999 4:55 PM CDT) Only the most recent of 2 results within the time period is included. Platelet Count 279 140 - 400 TH/UL SUNQUEST Specimen Blood Performing Organization Address [facility] one Number [id number] [address] [phone] SUNQUEST * Hemoglobin (01/31/1999 4:55 PM CDT) Hemoglobin 9.8 (L) 12.0 - 15.0 G/DL SUNQUEST Specimen Blood Performing Organization [facility] one Number KALEBRL [address] [address] SUNQUEST * Hematocrit (01/31/1999 4:55 PM CDT) Hematocrit 30 (L) 36 - 45 % SUNQUEST Specimen Blood Performing Organization [facility] one Number KALEBRL [address] [address] SUNQUEST * Activated Clotting Time (01/31/1999 4:45 PM CDT) Activated 146 (H) 99 - 130 SEC SUNQUEST Clotting Time Specimen Blood Performing Organization [facility] one Number KALEBRL [address] [address] SUNQUEST * APTT (01/31/1999 9:00 AM CDT) Only the most recent of 3 results within the time period is included. APTT 97 (H) 22 - 34 SEC SUNQUEST Specimen Blood Performing Organization [facility] one Number SLRL [address] [address] SUNQUEST * Lipid Panel (01/31/1999 9:00 AM CDT) Cholesterol 178 <200 MG/DL SUNQUEST Triglycerides 139 <200 MG/DL SUNQUEST HDL Cholesterol 52 >35 MG/DL SUNQUEST LDL Cholesterol 98 0 - 130 MG/DL SUNQUEST Cholesterol/HDL 3.4 <4.5 SUNQUEST Ratio Specimen Blood Performing Organization Address [facility] one Number RL [address] [address] SUNQUEST * ACIP 12 (01/31/1999 2:55 AM CDT) Creatine Kinase 34 30 - 225 IU/L SUNQUEST CK MB 2.3 0.0 - 6.0 NG/ML SUNQUEST Troponin 12.3 (H) 0.0 - 1.9 NG/ML SUNQUEST Specimen Blood Performing Organization Address [facility] one Number RL [address] [address] SUNQUEST * Comprehensive Metabolic Panel (01/30/1999 12:30 PM CDT) Albumin 3.9 3.6 - 4.6 G/DL SUNQUEST Aspartate 33 20 - 50 IU/L SUNQUEST Aminotransferas e Bilirubin Total 0.7 0.2 - 1.2 MG/DL SUNQUEST Protein Total 8.1 6.5 - 8.2 G/DL SUNQUEST Serum Calcium 10.1 8.8 - 10.5 MG/DL SUNQUEST Creatinine 0.7 0.5 - 1.5 MG/DL SUNQUEST Glucose 102 65 - 110 MG/DL SUNQUEST Alkaline 130 (H) 40 - 125 IU/L SUNQUEST Phosphatase Sodium 142 134 - 144 MEQ/L SUNQUEST Potassium 4.1 3.6 - 5.0 MEQ/L SUNQUEST Chloride 102 98 - 107 MEQ/L SUNQUEST Carbon Dioxide 28 23 - 32 MEQ/L SUNQUEST Blood Urea 11 5 - 20 MG/DL SUNQUEST Nitrogen Specimen Blood Performing Organization Address [facility] one Number RL [address] [phone] SUNQUEST * CBC and Diff (manual diff if necessary) (01/30/1999 12:30 PM CDT) WBC 8.7 4.0 - 11.0 TH/UL SUNQUEST RBC 4.61 4.00 - 5.00 MIL/UL SUNQUEST Hemoglobin 12.0 12.0 - 15.0 G/DL SUNQUEST Hematocrit 36 36 - 45 % SUNQUEST MCV 77 (L) 80 - 99 FL SUNQUEST MCH 26 (L) 27 - 34 PG SUNQUEST MCHC 34 32 - 36 % SUNQUEST RDW 14.4 <14.5 % SUNQUEST Platelet Count 321 140 - 400 TH/UL SUNQUEST Specimen Blood Performing Organization Address [facility] one Number SLRL [address] [phone] SUNQUEST * DIFFERENTIAL (01/30/1999 12:30 PM CDT) % Neutrophils 73 45 - 78 % SUNQUEST %Lymphocytes 16 15 - 47 % SUNQUEST %Monocytes 5 0 - 12 % SUNQUEST %Eosinophils 4 0 - 7 % SUNQUEST %Basophils 1 0 - 2 % SUNQUEST # Granulocytes 6.4 1.7 - 6.8 TH/UL SUNQUEST # Lymphocytes 1.4 1.0 - 3.3 TH/UL SUNQUEST # Monocytes 0.4 0.2 - 0.9 TH/UL SUNQUEST # Eosinophils 0.3 0.0 - 0.4 TH/UL SUNQUEST # Basophils 0.1 0.0 - 0.2 TH/UL SUNQUEST Specimen Blood Performing Organization Address [facility] one Number RL [address] [phone] SUNQUEST * ACIP 0 (01/30/1999 12:30 PM CDT) Creatine Kinase 26 (L) 30 - 225 IU/L SUNQUEST CK MB 1.3 0.0 - 6.0 NG/ML SUNQUEST Troponin 10.9 (H) 0.0 - 1.9 NG/ML SUNQUEST Specimen Blood Performing Organization Address [facility] one Number SLRL [address] [phone] SUNQUEST * Prothrombin Time/INR (01/30/1999 12:30 PM CDT) Protime 12.4 10.0 - 13.3 SEC SUNQUEST INR 1.0 SUNQUEST Specimen Blood Performing Organization [facility] one Number SLRL [address] [phone] SUNQUEST documented in this encounter Visit Diagnoses Not on filedocumented in this encounter
--- OUTSIDE RECORDS SUMMARY | 2020-05-17 14:10 | XMS REPORT ---
Author Organization Unknown Address [address] [place] [address] Phone [phone] Care Team Providers Care Litigation Docket Manager Name Role Phone R Zachariah Schmitt MD 3 [phone] Reason for Visit Parkinson's disease Assessment and Plan The following list includes any diagnoses that were discussed at your visit. 1. Parkinson's disease Azilect 0.5 mg tablet Discussion Note 50 minutes of yatc-wu-ezjn greater than 50% in counseling and direction [...] or if you are taki ng additional nmiy-dwl-avzdhfz medicines, pleaseinform your provider. Name Prescribed Date [...] Encounters 06/14/2016 Parkinson's Disease Jonatan Dick MD: [address] [place] [address], [address], [place] [address], Ph. [phone]
--- OUTSIDE RECORDS SUMMARY | 2020-05-17 14:10 | XMS REPORT | Encounter Summary ---
Author Author Organization Address Unknown Phone Unavailable Care Team Providers Care Family Welfare Social Work Professor Name Role Phone PCP Unavailable Encounter Details Care Team Description Date Type Department Fam Thomas MD [address] [facility] [address] [place] [address] [phone] [facility] Social History Date Tobacco Use Types Packs/Day [...] Date/Time Associated Diag nosis ACIP 12 Routine 02/06/1999 4:10 AM CDT BASIC METABOLIC PANEL Routine 02/06/1999 4:10 AM CDT ACIP 6 Routine 02/05/1999 10:15 PM CDT ACIP 0 Routine 02/05/1999 4:25 PM CDT COMPREHENSIVE METABOLIC Routine 02/05/1999 PANEL 4:25 PM CDT COAGULATION SCREEN Routine 02/05/1999 1:20 PM CDT DIFFERENTIAL Routine 02/05/1999 1:20 PM CDT ACIP 0 Routine 02/05/1999 1:20 PM CDT LIPID PANEL Routine 02/05/1999 1:20 PM CDT CBC AND DIFF (MANUAL DIFF Routine 02/05/1999 IF NECESSARY) 1:20 PM CDT documented in this encounter Results * Basic Metabolic Panel (02/06/1999 4:10 AM CDT) Sodium 140 134 - 144 MEQ/L SUNQUEST Potassium 3.8 3.6 - 5.0 MEQ/L SUNQUEST Chloride 105 98 - 107 MEQ/L SUNQUEST Carbon Dioxide 28 23 - 32 MEQ/L SUNQUEST Anion Gap 7 3 - 15 SUNQUEST Creatinine 0.9 0.5 - 1.5 MG/DL SUNQUEST Blood Urea 9 5 - 20 MG/DL SUNQUEST Nitrogen Glucose 85 65 - 110 MG/DL SUNQUEST Specimen Blood Performing Organization Address [facility] one Number SLRL [address] [phone] SUNQUEST * ACIP 12 (02/06/1999 4:10 AM CDT) Creatine Kinase 47 30 - 225 IU/L SUNQUEST CK MB 1.2 0.0 - 6.0 NG/ML SUNQUEST Troponin 4.3 (H) 0.0 - 1.9 NG/ML SUNQUEST Specimen Blood Performing Organization Address [facility] one Number SLRL [address] [phone] SUNQUEST * ACIP 6 (02/05/1999 10:15 PM CDT) Creatine Kinase 72 30 - 225 IU/L SUNQUEST CK MB 2.1 0.0 - 6.0 NG/ML SUNQUEST Troponin 3.5 (H) 0.0 - 1.9 NG/ML SUNQUEST Specimen Blood Performing Organization Address [facility] one Number SLRL [address] [phone] SUNQUEST * Comprehensive Metabolic Panel (02/05/1999 4:25 PM CDT) Albumin 3.5 (L) 3.6 - 4.6 G/DL SUNQUEST Aspartate 34 20 - 50 IU/L SUNQUEST Aminotransferas e Bilirubin Total 0.7 0.2 - 1.2 MG/DL SUNQUEST Protein Total 7.7 6.5 - 8.2 G/DL SUNQUEST Serum Calcium 9.7 8.8 - 10.5 MG/DL SUNQUEST Creatinine 0.8 0.5 - 1.5 MG/DL SUNQUEST Glucose 98 65 - 110 MG/DL SUNQUEST Alkaline 113 40 - 125 IU/L SUNQUEST Phosphatase Sodium 142 134 - 144 MEQ/L SUNQUEST Potassium 4.4 3.6 - 5.0 MEQ/L SUNQUEST Chloride 106 98 - 107 MEQ/L SUNQUEST Carbon Dioxide 27 23 - 32 MEQ/L SUNQUEST Blood Urea 10 5 - 20 MG/DL SUNQUEST Nitrogen Specimen Blood Performing Organization Address [facility] one Number RL [address] [address] SUNQUEST * ACIP 0 (02/05/1999 4:25 PM CDT) Only the most recent of 2 results within the time period is included. Creatine Kinase 75 30 - 225 IU/L SUNQUEST CK MB 2.4 0.0 - 6.0 NG/ML SUNQUEST Troponin 5.1 (H) 0.0 - 1.9 NG/ML SUNQUEST Specimen Blood Performing Organization Address [facility] one Number RL [address] [phone] SUNQUEST * CBC and Diff (manual diff if necessary) (02/05/1999 1:20 PM CDT) WBC 8.0 4.0 - 11.0 TH/UL SUNQUEST RBC 4.16 4.00 - 5.00 MIL/UL SUNQUEST Hemoglobin 11.0 (L) 12.0 - 15.0 G/DL SUNQUEST Hematocrit 33 (L) 36 - 45 % SUNQUEST MCV 79 (L) 80 - 99 FL SUNQUEST MCH 26 (L) 27 - 34 PG SUNQUEST MCHC 34 32 - 36 % SUNQUEST RDW 15.0 (H) <14.5 % SUNQUEST Platelet Count 312 140 - 400 TH/UL SUNQUEST Specimen Blood Performing Organization Address [facility] one Number SLRL [address] [phone] SUNQUEST * Lipid Panel (02/05/1999 1:20 PM CDT) Cholesterol 189 <200 MG/DL SUNQUEST Triglycerides 95 <200 MG/DL SUNQUEST HDL Cholesterol 53 >35 MG/DL SUNQUEST LDL Cholesterol 117 0 - 130 MG/DL SUNQUEST Cholesterol/HDL 3.6 <4.5 SUNQUEST Ratio Specimen Blood Performing Organization Address [facility] one Number SLRL [address] [phone] SUNQUEST * Coagulation Screen (02/05/1999 1:20 PM CDT) APTT 34 22 - 34 SEC SUNQUEST Protime 12.9 10.0 - 13.3 SEC SUNQUEST INR 1.1 SUNQUEST Platelet Count 312 140 - 400 TH/UL SUNQUEST Fibrinogen 550 (H) 146 - 390 MG/DL SUNQUEST Assay Specimen Blood Performing Organization Address [facility] one Number SLRL [address] [address] SUNQUEST * DIFFERENTIAL (02/05/1999 1:20 PM CDT) % Neutrophils 73 45 - 78 % SUNQUEST %Lymphocytes 7 (L) 15 - 47 % SUNQUEST %Monocytes 6 0 - 12 % SUNQUEST # Granulocytes 7.0 (H) 1.7 - 6.8 TH/UL SUNQUEST # Lymphocytes 0.6 (L) 1.0 - 3.3 TH/UL SUNQUEST # Monocytes 0.5 0.2 - 0.9 TH/UL SUNQUEST % Bands 14 0 - 14 % SUNQUEST Specimen Blood Performing Organization Address [facility] one Number SLRL [address] [address] SUNQUEST documented in this encounter Visit Diagnoses Not on filedocumented in this encounter
--- OUTSIDE RECORDS SUMMARY | 2020-05-17 14:10 | XMS REPORT | Encounter Summary ---
Author Author [facility] Organization [facility] Address Unknown Phone Unavailable Care Team Providers Care Loan Inspector Name Role Phone PCP Unavailable Encounter Details Care Team Description Date Type Department Physician, Default 02/05/1999 [facility] Encounter Social History Date Tobacco Use Types Packs/Day [...]
--- OUTSIDE RECORDS SUMMARY | 2020-05-17 14:10 | XMS REPORT | Encounter Summary ---
Author Author [facility] Organization [facility] Address Unknown Phone Unavailable Care Team Providers Care Automatic Thread Winder Name Role Phone PCP Unavailable Encounter Details Care Team Description Date Type Department Fam Thomas MD [address] [facility] [address] [place], [place] [id number] [facility] [address] [place] [address] Social History Date Tobacco Use Types Packs/Day [...] Date/Time Associated Diag nosis LIPOPROTEIN (A) Routine 02/01/2000 11:25 AM CDT documented in this encounter Results * Lipoprotein (a) (02/01/2000 11:25 AM CDT) Lipoprotein(A) 5.7 f <10.0 MG/DL SUNQUEST Specimen Blood Narrative Performed At Report [facility] Comments and Normal Ranges for Com ponent LP A(MG/DL) This test or one or more of its compone nts was developed and its performance characteristics determined by [facility]. It has not been cleared or approved by the US Food and Drug Administration. The FDA has determined that such cleara nce or approval is not necessary. Performing Organization Address City/State/Zipcode Ph one Number SLRL [address] [place], [place] [address] SUNMARIA ELENA documented in this encounter Visit Diagnoses Not on filedocumented in this encounter
--- OUTSIDE RECORDS SUMMARY | 2020-05-17 14:10 | XMS REPORT ---
Author Organization Unknown Address [address] [place] [address] Phone [phone] Care Team Providers Care Golf Club Maker Name Role Phone R Zachariah Schmitt MD 3 [phone] Reason for Visit Parkinson's disease Assessment and Plan The following list includes any diagnoses that were discussed at your visit. 1. Parkinson's disease medical record request - PLEASE SEND M OST RECENT LAB RESULTS carbidopa 25 mg-levodopa 100 mg tablet Discussion Note 40 minutes of rway-ti-gqqk time. Greater than 50% counseling and direction of care. [...] or if you are taki ng additional bzzb-lyi-cimuciq medicines, pleaseinform your provider. Name Prescribed Date Start Date TAKE 1 PO DAILY atenolol 25 mg tablet carbidopa 25 mg-levodopa 100 mg tablet Take 1 tablet 3 times a day by oral route. 09/13/2016 Fish Oil TAKE 1,200 MG , 4 DAILY levothyroxine 50 mcg tablet Lipitor 10 mg tablet loratadine 10 mg tablet Take 1 tablet [...] Encounters 09/13/2016 Parkinson's Disease Jonatan Dick MD: [address] [place] [address], [address], [place] [address], Ph. [phone]
--- OUTSIDE RECORDS SUMMARY | 2020-05-17 14:11 | XMS REPORT ---
Author Organization Unknown Address [address] [place] [address] Phone [phone] Care Team Providers Care International Marketing Intern Name Role Phone Elton Schmitt MD 3 [phone] Reason for Visit Parkinson's disease Assessment and Plan The following list includes any diagnoses that were discussed at your visit. 1. Parkinson's disease parkinson's disease: care instructions Discussion Note 40 minutes of nqsg-wu-ozry. Greater than 50% counseling and direction of care. Plan of Care Reminders Provider Appointments None recorded. Lab None recorded. Referral None recorded. Procedures None recorded. Surgeries None recorded. Imaging None recorded. Current Medications Your medical record indicates you are on the following medicine. If this list is not consistentwith the medications you are currently taking, or if you are taki ng additional qjsi-qdr-lacatqw medicines, pleaseinform your provider. Name Prescribed Date [...] route. Medications Administered None recorded. Vitals Height Blood Pressure Blood Pressure Cuff Size 5 ft 6 in 126/78 mm[Hg] large adult Lab Results None recorded. Allergies Please review your allergy list for accuracy. Contact your provider if this list needs to be updated. Code Code System Name Reaction Severity Onset Clopidogrel Bisulfate 02/2016 7393 RxNorm Niacin 12/02/2015 Paroxetine Hcl 12/02/2015 79137 RxNorm Penicillin 12/02/2015 Sulfa (Sulfonamide Antibiotics) 12/02/2015 80629 RxNorm Sulfamethoxazole 12/02/19 16 29504 RxNorm Trimethoprim 12/02/2015 Problems Name Status Onset Date Source Parkinson's Disease Active Problem Active Procedures Date Name Performed by 10/28/2003 Total Hysterectomy Information not avai lable 10/28/2003 Hysterectomy Information not avai lable Vaccine List Here is a copy of your most up-to-date vaccination list. None recorded. Smoking Status Smoking Status Never Smoker Past Encounters 07/25/2017 Parkinson's Disease Jonatan Dick MD: [address] [place] [address], [address], [place] [address], Ph. [phone]
--- OUTSIDE RECORDS SUMMARY | 2020-05-17 14:11 | XMS REPORT | Continuity of Care Document ---
Author Author [facility] Address Unknown Phone Unavailable Support Name Relationship Address Phone Sachin MORENO PRS [address] [place] [address] [phone] Allergies, Adverse Reactions, Alerts Substance Reaction Severity Status sulfamethoxazole Unknown Active trimethoprim Unknown Active Sulfa (Sulfonamide Antibiotics) Unknown Active niacin Unknown Active CLOPIDOGREL BISULFATE Unknown Active PENICILLIN Unknown Active PAROXETINE HCL Unknown Active TAPE, OCCLUSIVE ADHESIVE Unknown Active Medications Medication Instructions Dosage Effective Dates (start - stop) Sta tus Comments carbidopa 25 mg-levodopa 100 mg tablet take 1/2 Tablet by by mouth TID at 4 hour intervals. After 1 week take 1 tablet TID at 4 hour intervals - Active atenolol 25 mg tablet take 1 tablet by oral route every day 25 MG - Active Lipitor 10 mg tablet take 1 tablet by oral route every day 10 MG - Active Nitrostat 0.[address] 1 tablet by s ublingual route at the 1st sign of attack; may repeat every 5 min until relief; if pain persists after 3 tablets in 15 min, prompt medical attention is recommended - Active Aspir-81 81 mg tablet,delayed release take 1 tablet by oral route every day 81 MG - Active Calcium 600 + D(3) 600 mg (1,500 mg)-400 unit tablet - Active FISH OIL (unknown strength) - Active multivitamin tablet take 1 tablet by oral route every day w ith food Not Available - Active loratadine 10 mg tablet take 1 tablet by oral route every day 10 MG - Active Problems Condition Effective Dates (start - stop) Clinical Status Unknown Procedures Procedure Date Musc test done w/n test comp NRV CNDJ TST 5-6 STUDIES Results Test Name Date and Time Measure Units Reference Range Abnormal F lag Comments Unknown Advance Directives Directive Yes / No Effective Date File Name Unknown Encounters Encounter Description Practice Location Reason(s) For Visit Diagnose s Date Provider Care Team Members [facility] Krystal vasquez, [address] [place], [place], [address] [place] [address] [facility] Parkinson' s disease Kapil Cheung. [address], [facility], . tel:[phone] Referring Provider: Zachariah Schmitt MD, [address] [place] [address], [facility]. tel:[phone] [facility] Michael vasquez, [address] [place], [address], [facility] Nov Kapil Cheung. [address], [facility], . tel:[phone] Referring Provider: Zachariah Schmitt MD, [address] [place] [address], [facility]. tel:[phone] Family History Family Member Diagnosis Age At Onset Mother Depression Son Mother Father Father Maternal grandfather Maternal grandfather Diabetes mellitus Mother Son migraines Paternal grandmother Paternal grandmother tremor Mother Stroke (Cause Of ) 77 Paternal grandmother Parkinson's disease Father Cancer, lung (Cause Of ) 57 Immunizations Vaccine Date Status Comments Unknown Payers Payer name Insurance type Covered democrat ID Authorization(s ) BCBS Preferred Care [place] [facility] [id number] Social History Type Description Quantity Date Captured Unknown Vital Signs Date / Time: Height Weight BMI Pulse Rate Blood Pressure Temperatu re Respiratory Rate Body Surface Area Head Circumference BMI percentile Unknown Chief Complaint And Reason For Visit Unknown Chief Complaint And Reason For Visit Reason For Referral Reason For Referral Unknown Plan Of Care Date Type Action Status Referral Ordered: Brain imaging (3D) ordered Appointment OSCAR MORENO BOOKED Date Type Problem Goal Intervention Status Start D ate Unknown. History Of Present Illness Encounter Date Complaint History Of Present I llness This patient has no known history of pre sent illness Functional Status Encounter Date Functional Assessment Cognitive Assessme nt Unknown Medications Administered Medication Instructions Dosage Effective Dates (start - stop) Sta tus Comments Drug Treatment Unknown Instructions Date Instruction Additional Informati on Unknown
--- OUTSIDE RECORDS SUMMARY | 2020-05-17 14:11 | XMS REPORT ---
Author Organization Unknown Address [address] [place] [address] Phone [phone] Care Team Providers Care Process Trainer Name Role Phone R Zachariah Schmitt MD 3 [phone] Reason for Visit Parkinson's disease Assessment and Plan The following list includes any diagnoses that were discussed at your visit. 1. Parkinson's disease parkinson's disease: care instructions 2. On examination - carotid bruit US, duplex, carotid artery - Tortuous Right CCA with Bruit base of neck. Patient hand carried order Discussion Note I spent 40 minutes ijke-re-amsx time wit h greater than 50% in counselling and direction of care. Focus on Parkinson disease and bruit. Plan of Care Reminders Provider Appointments Xlong 45 07/18/2017 10:00AM Jonatan marinelli MD Lab None recorded. Referral None recorded. Procedures None recorded. Surgeries None recorded. Imaging US, Duplex, Carotid Artery 01/10/2017 [facility] ([facility]) Current Medications Your medical record indicates you are on the following medicine. If this list is not consistentwith the medications you are currently taking, or if you are taki ng additional mzju-wmr-gxnmlmx medicines, pleaseinform your provider. Name Prescribed Date [...] avai lable 01/10/2017 US, Duplex, Carotid Artery [facility] (Bi- Directional Rad) [address] [place] [address] (Work Place) Vaccine List Here is a copy of your most up-to-date vaccination list. None recorded. Smoking Status Smoking Status Never Smoker Past Encounters 01/10/2017 Parkinson's Disease; On Examination - Carotid Bruit Jonatan Dick MD: [address], [address], [place] [address], Ph. [phone]
--- OUTSIDE RECORDS SUMMARY | 2020-05-17 14:11 | XMS REPORT | Continuity of Care Document ---
Author Author OSCAR Dick [facility] Address [address] [place] [address] Phone Unavailable Care Team Providers Care Loan Auditor Name Role Phone Kapil HUMPHREYS, Jonatan PP Unavailable Keshia HUMPHREYS, Zachariah CANAS Unavailable Payers Payer name Insurance type Covered alliance party ID Authorization(s ) BCBS Preferred Care [place] Or Federal E [facility] [id number] Problems Condition Effective Dates (start - stop) Clinical Status Parkinson's disease Family History Family Member Diagnosis Age At Onset Mother Depression Son Mother Father Father Maternal grandfather Maternal grandfather Diabetes mellitus Mother Son migraines Paternal grandmother Paternal grandmother tremor Mother Stroke (Cause Of ) 77 Paternal grandmother Parkinson's disease Father Cancer, lung (Cause Of ) 57 Social History Type Description Quantity Date Captured Unknown Allergies, Adverse Reactions, Alerts Substance Reaction Severity Status sulfamethoxazole Unknown Active trimethoprim Unknown Active Sulfa (Sulfonamide Antibiotics) Unknown Active niacin Unknown Active CLOPIDOGREL BISULFATE Unknown Active PENICILLIN Unknown Active PAROXETINE HCL Unknown Active TAPE, OCCLUSIVE ADHESIVE Unknown Active Medications Medication Instructions Dosage Effective Dates (start - stop) Sta tus Comments carbidopa 25 mg-levodopa 100 mg tablet Take 1 tablet b y mouth TID at 4 hour intervals - Active [...] route every day 10 MG - Active Immunizations Vaccine Date Status Comments Unknown Results Test Name Date and Time Measure Units Reference Range Abnormal F lag Comments Unknown Vital Signs Date / Time: Height Weight BMI Pulse Rate Blood Pressure Temperatu re Respiratory Rate Body Surface Area Head Circumference BMI percentile Unknown Procedures Procedure Date Unknown Encounters Encounter Description Practice Location Reason(s) For Visit Diagnose s Date Provider [facility] Krystal vasquez, [id number] [place] [address], [address] [place] [address] [facility] Dec Kapil Cheung. [address] [place] [address], [facility][note 3], . tel:[phone] [facility] Michael vasquez, [address] [place] [address], [address] [place] [address] [facility] Parkinson' s disease Kapil Cheung. [address] [place] [address], [facility][note 3], . tel:[phone] Advance Directives Directive Yes / No Effective Date File Name Unknown
--- OUTSIDE RECORDS SUMMARY | 2020-05-17 14:11 | XMS REPORT ---
Author Organization Unknown Address [address] [place] [address] Phone [phone] Care Team Providers Care Power Wood Sawyer Name Role Phone Elton Schmitt MD 3 [phone] Reason for Visit Parkinson's disease Assessment and Plan The following list includes any diagnoses that were discussed at your visit. 1. Parkinson's disease parkinson's disease: care instructions Discussion Note I spent 40 minutes of iyjn-am-ipux time, greater than 50% in counseling and direction of care. Plan of Care Reminders Provider Appointments None recorded. Lab None recorded. Referral None recorded. Procedures None recorded. Surgeries None recorded. Imaging None recorded. Current Medications Your medical record indicates you are on the following medicine. If this list is not consistentwith the medications you are currently taking, or if you are taki ng additional trmj-zls-zinhcdw medicines, pleaseinform your provider. Name Prescribed Date [...] 7393 RxNorm Niacin 12/02/2015 Paroxetine Hcl 12/02/2015 51664 RxNorm Penicillin 12/02/2015 Sulfa (Sulfonamide Antibiotics) 12/02/2015 90463 RxNorm Sulfamethoxazole 12/02/19 16 05206 RxNorm Trimethoprim 12/02/2015 Problems Name Status Onset Date Source Parkinson's Disease Active Problem Active Procedures Date Name Performed by 10/28/2003 Total Hysterectomy Information not avai lable 10/28/2003 Hysterectomy Information not avai lable Vaccine List Here is a copy of your most up-to-date vaccination list. None recorded. Smoking Status Smoking Status Never Smoker Past Encounters 07/25/2017 Parkinson's Disease Jonatan Dick MD: [address] [place] [address], [address], [place] [address], Ph. [phone]
--- OUTSIDE RECORDS SUMMARY | 2020-05-17 14:11 | XMS REPORT | Continuity of Care Document ---
Author Author OSCAR Dick [facility] Address [address] [place] [address] Phone Unavailable Care Team Providers Care Milling Machine Tender Name Role Phone Kapil HUMPHREYS, Jonatan PP Unavailable Keshia HUMPHREYS, Zachariah CANAS Unavailable Payers Payer name Insurance type Covered constitution party ID Authorization(s ) BCBS Preferred Care [place] Or Federal E [facility] [id number] Problems Condition Effective Dates (start - [...] Social History Type Description Quantity Date Captured Alcohol Use Details No Caffeine Use Details No Tobacco Use Status Unknown Smoking Status Unknown Allergies, Adverse Reactions, Alerts Substance Reaction [...] Reason(s) For Visit Diagnose s Date Provider [facility] Krystal vasquez, [address] [place] [address], [address] [place] [address] [facility] Kapil Cheung. [address] [place] [address], [facility], . tel:[phone] [facility] Michael vasquez, [address] [place] [address], [address] [place] [address] [facility] Dec aKpil Cheung. [address] [place] [address], [facility], . tel:[phone] [facility] Michael vasquez, [address] [place] [address], [address] [place] [address] [facility] Parkinson' s disease Kapil Cheung. [address] [place] [address], [facility], [place]. tel:[phone] Advance Directives Directive Yes / No Effective Date File Name Unknown
--- OUTSIDE RECORDS SUMMARY | 2020-05-17 14:11 | XMS REPORT | Continuity of Care Document ---
Author Author OSCAR Dick [facility] Address [address] [place] [address] Phone Unavailable Care Team Providers Care Heel Breaster Name Role Phone Kapil HUMPHREYS, Jonatan PP Unavailable Keshia HUMPHREYS, Zachariah CANAS Unavailable Payers Payer name Insurance type Covered libertarian ID Authorization(s ) BCBS Preferred Care [place] Or Federal E [facility] [id number] 57 Problems Condition Effective Dates (start - [...] Reason(s) For Visit Diagnose s Date Provider [facility] Krystal vasquez, [address] [place] [address], [address] [place] [address] [facility] Mar Kapil Cheung. [address] [place] [address], [facility], . tel:[phone] [facility] Michael vasquez, [address] [place] [address], [address] [place] [address] [facility] Dec Kapil Cheung. [address] [place] [address], [facility], . tel:[phone] [facility] Michael vasquez, [address] [place] [address], [address] [place] [address] [facility] Parkinson' s disease Kapil Cheung. [address] [place] [address], [facility], . tel:[phone] Advance Directives Directive Yes / No Effective Date File Name Unknown
--- OUTSIDE RECORDS SUMMARY | 2020-05-17 14:11 | XMS REPORT | Continuity of Care Document ---
Author Author OSCAR Dick [facility] Address [address] [place] [address] Phone Unavailable Care Team Providers Care Director Sales Training Name Role Phone Kapil HUMPHREYS, Jonatan PP Unavailable Keshia HUMPHREYS, Zachariah CANAS Unavailable Payers Payer name Insurance type Covered libertarian ID Authorization(s ) BCBS Preferred Care [place] Or Federal E [facility] [id number] Problems Condition Effective Dates (start - [...] Reason(s) For Visit Diagnose s Date Provider [facility] Michael vasquez, [address] [place] [address], [address] [place] [address] [facility] February Kapil Cheung. [address] [place] [address], [facility], . tel:[phone] [facility] Michael vasquez, [address] [place] [address], [address] [place] [address] [facility] Dec Kapil Cheung. [address] [place] [address], [facility], . tel:[phone] [facility] Krystal vasquez, [address] [place] [address], [address] [place] [address] [facility] Parkinson' s disease Kapil Cheung. [address] [place] [address], [facility], [place]. tel:[phone] Advance Directives Directive Yes / No Effective Date File Name Unknown
--- OUTSIDE RECORDS SUMMARY | 2020-05-17 14:11 | XMS REPORT | Continuity of Care Document ---
Author Author OSCAR Dick [facility] Address [address] [place] [address] Phone Unavailable Care Team Providers Care Oil Well Services Superintendent Name Role Phone Kapil HUMPHREYS, Jonatan PP Unavailable Keshia HUMPHREYS, Zachariah CANAS Unavailable Payers Payer name Insurance type Covered libertarian ID Authorization(s ) BCBS Preferred Care [place] Or Federal E [facility] [id number] Problems Condition Effective Dates (start - [...] Reason(s) For Visit Diagnose s Date Provider [facility] Krystal vasquez, [address] [place] [address], [address] [place] [address] [facility] Jan Kapil Cheung. [address] [place] [address], [facility], . tel:[phone] [facility] Michael vasquez, [address] [place] [address], [address] [place] [address] [facility] Dec Kapil Cheung. [address] [place] [address], [facility], . tel:[phone] [facility] Michael vasquez, [address] [place] [address], [address] [place] [address] [facility] Parkinson' s disease Kapil Cheung. [address] [place] [address], [facility], . tel:[phone] Advance Directives Directive Yes / No Effective Date File Name Unknown
--- OUTSIDE RECORDS SUMMARY | 2020-05-17 14:11 | XMS REPORT | Continuity of Care Document ---
Author Author OSCAR Dick [facility] Address [address] [place] [address] Phone Unavailable Care Team Providers Care Trash Collector Truck Driver Name Role Phone Kapil HUMPHREYS, Jonatan PP Unavailable Keshia HUMPHREYS, Zachariah CANAS Unavailable Payers Payer name Insurance type Covered democrat ID Authorization(s ) BCBS Preferred Care [place] Or Federal E [facility] [id number] Problems Condition Effective Dates (start - [...] Reason(s) For Visit Diagnose s Date Provider [facility] Krystal vasquez, [address] [place] [address], [address] [place] [address] [facility] Mar Kapil Cheung. [address] [place] [address], [facility], . tel:[phone] [facility] Michael vasquez, [address] [place] [address], [address] [place] [address] [facility] Dec Kapil Cheung. [address] [place] [address], [facility], . tel:[phone] [facility] Michael vasquez, [address] [place] [address], [address] [place] [address] [facility] Parkinson' s disease Kapil Cheung. [address] [place] [address], [facility], . tel:[phone] Advance Directives Directive Yes / No Effective Date File Name Unknown
--- OUTSIDE RECORDS SUMMARY | 2020-05-17 14:11 | XMS REPORT | Continuity of Care Document ---
Author Author OSCAR Dick [facility] Address [address] [place] [address] Phone Unavailable Care Team Providers Care Puddler Helper Name Role Phone Kapil HUMPHREYS, Jonatan PP Unavailable Keshia HUMPHREYS, Zachariah CANAS Unavailable Payers Payer name Insurance type Covered libertarian ID Authorization(s ) BCBS Preferred Care [place] Or Federal E [facility] [id number] Problems Condition Effective Dates (start - [...] Reason(s) For Visit Diagnose s Date Provider [facility] Michael vasquez, [address] [place] [address], [address] [place] [address] [facility] February Kapil Cheung. [address] [place] [address], [facility], . tel:[phone] [facility]quez, [address] [place] [address], [address] [place] [address] [facility] Dec Kapil Cheung. [address] [place] [address], [facility], . tel:[phone] [facility] Krystal vasquez, [address] [place] [address], [address] [place] [address] [facility] Parkinson' s disease Kapil Cheung. [address] [place] [address], [facility], [place]. tel:[phone] Advance Directives Directive Yes / No Effective Date File Name Unknown
--- OUTSIDE RECORDS SUMMARY | 2020-05-17 14:11 | XMS REPORT ---
Author Organization Unknown Address [address] [place] [address] Phone [phone] Care Team Providers Care Complaint Coordinator Name Role Phone Elton Schmitt MD 3 [phone] Reason for Visit Parkinson's disease Assessment and Plan The following list includes any diagnoses that were discussed at your visit. 1. Parkinson's disease parkinson's disease: care instructions 2. On examination - carotid bruit Discussion Note 40 minutes face to face [...] or if you are taki ng additional zhmj-vmo-xnbdtyc medicines, pleaseinform your provider. Name Prescribed Date [...] - Carotid Bruit Jonatan Dick MD: [address], [address], [place] [address], Ph. [phone]
--- OUTSIDE RECORDS SUMMARY | 2020-05-17 14:11 | XMS REPORT | Continuity of Care Document ---
Author Author OSCAR Dick [facility] Address [address] [place] [address] Phone Unavailable Care Team Providers Care Caddy/Caddie Supervisor Name Role Phone Kapil HUMPHREYS, Jonatan PP Unavailable Keshia HUMPHREYS, Zachariah CANAS Unavailable Payers Payer name Insurance type Covered democrat ID Authorization(s ) BCBS Preferred Care [place] Or Federal E [facility] [id number] Problems Condition Effective Dates (start - [...] Reason(s) For Visit Diagnose s Date Provider [facility] Krystal vasquez, [address] [place] [address], [address] [place] [address] [facility] Mar Kapil Cheung. [address] [place] [address], [facility], . tel:[phone] [facility] Michael vasquez, [address] [place] [address], [address] [place] [address] [facility] Dec Kapil Cheung. [address] [place] [address], [facility], . tel:[phone] [facility] Michael vasquez, [address] [place] [address], [address] [place] [address] [facility] Parkinson' s disease Kapil Cheung. [address] [place] [address], [facility], . tel:[phone] Advance Directives Directive Yes / No Effective Date File Name Unknown
--- OUTSIDE RECORDS SUMMARY | 2020-05-17 14:11 | XMS REPORT ---
Author Organization Unknown Address [address] [place] [address] Phone [phone] Care Team Providers Care General Office Associate Name Role Phone R Zachariah Schmitt MD 3 [phone] Reason for Visit Parkinson's disease Assessment and Plan The following list includes any diagnoses that were discussed at your visit. 1. Parkinson's disease parkinson's disease: care instructions 2. On examination - carotid bruit US, duplex, carotid artery - Tortuous Right CCA with Bruit base of neck. Patient hand carried order Discussion Note I spent 40 minutes wfkd-jw-moam time wit h greater than 50% in [...] or if you are taki ng additional iwhm-dbd-cswadfb medicines, pleaseinform your provider. Name Prescribed Date [...] avai lable 01/10/2017 US, Duplex, Carotid Artery [facility] (Bi- Directional Rad) [address] [place] [address] (Work Place) Vaccine List Here is a copy of your most up-to-date vaccination list. None recorded. Smoking Status Smoking Status Never Smoker Past Encounters 01/10/2017 Parkinson's Disease; On Examination - Carotid Bruit Jonatan Dick MD: [address], [place] [address], Ph. [phone]
--- OUTSIDE RECORDS SUMMARY | 2020-05-17 14:12 | XMS REPORT | Encounter Summary ---
Author Author [facility] Organization [facility] Address Unknown Phone Unavailable Care Team Providers Care Foam Molder Name Role Phone Jonatan Dick MD Unavailable Claudia Perez NP PCP Zahida Thomas DO Unavailable Reason for Visit * Reason Comments Medication Refill Encounter Details Care Team Description Date Type Department Little Tilley MD [address] [place] [address] 12/21/2019 Refill [facility] [place] [address] [place] [address] Social History Date Tobacco Use Types Packs/Day Years Used Passive Smoke Exposure - Never Smoker Smokeless Tobacco: Never Used Drinks/Week oz/Week Comments Alcohol Use No Sex Assigned at Date Recorded Female Industry Job Start Date Occupation Not on file Not on file Not on file Travel End Travel History Travel Start No recent travel history available. documented as of this encounter Functional Status Date of Assessment Functional Status Response 12/10/2019 Does the patient have a hearing impairment: No 12/10/2019 Does the patient have a visual impairment: Yes 12/10/2019 Does the patient have impaired ambulation: No 12/10/2019 Does the patient have an activity of daily living No (ADL) impairment: 12/10/2019 Does the patient have an instrumental activity of No daily living (IADL) impairment: Date of Assessment Cognitive Status Response 12/10/2019 Does the patient have a cognitive impairment: No documented as of this encounter Miscellaneous Notes * Telephone Encounter - Richard Collins - 12/22/2019 9:08 AM [facility] OR [facility] Rx consistent with plan of care 11-10-19. RTC 05-10-20. OR [employer] documented in this encounter Plan of Treatment Not on filedocumented as of this encounter Visit Diagnoses Not on filedocumented in this encounter
--- OUTSIDE RECORDS SUMMARY | 2020-05-17 14:12 | XMS REPORT | Continuity of Care Document ---
Author Author [facility], DO NNA Organization [facility] Address Unknown Phone Unavailable Care Team Providers Care Wire Communications Engineer Name Role Phone [facility] Unavailable Unavailable Problems Problem Status Onset Date Classification Date Reported Comments Source Parkinson's disease 07/25/2017 Diagnosis 07/29/2017 formerly [facility] On examination - carotid bruit 01/10/2017 Diagnosis 01/17/2017 [facility] Parkinson's disease Problem 07/29/2017 [facility] Problem Problem 07/29/2017 [facility] Parkinson's disease Diagnosis 06/03/2016 [facility] Medications Medication Details Route Status Patient Instructions Ordering Provider Order Date Source carbidopa 25 mg-levodopa 100 mg tablet Take 1 tablet by mouth TID at 4 hour intervals ORAL Active 01/20/2016 [facility] carbidopa 25 mg-levodopa 100 mg tablet take 1/2 Tablet by by mouth TID at 4 hour intervals. After 1 week take 1 tablet TID at 4 hour intervals ORAL Active 12/30/2015 [facility] Aspir-81
TAKE 1 PO DAILY Aspir-81 TAKE 1 PO DAILY Active [facility] atenolol 25 mg tablet
take 1 tab daily atenolol 25 mg tablet take 1 tab daily Active [facility] carbidopa 25 mg-levodopa 100 mg tablet<b r/> Take 1 tablet 3 times a day by oral route. carbidopa 25 mg-levodopa 100 mg tablet T wilder 1 tablet 3 times a day by oral route. Active [facility] Fish Oil
TAKE 1,200 MG , 4 DAILY Fish Oil TAKE 1,200 MG , 4 DAILY Active [facility] levothyroxine 50 mcg tablet
take 1 tab daily levothyroxine 50 mcg tablet take 1 tab daily Active [facility] Lipitor 10 mg tablet
take 1 tab daily Lipitor 10 mg tablet take 1 tab daily Active [facility] loratadine 10 mg tablet
Take 1 tabl et as needed by oral route. loratadine 10 mg tablet Take 1 tablet as needed by oral route. [facility] Nitrostat 0.4 mg sublingual tablet
prn Nitrostat 0.4 mg sublingual tablet prn Active [facility] Vitamin D3 2,000 unit tablet
Take 1 tablet every day by oral route. Vitamin D3 2,000 unit tablet Take 1 tabl et every day by oral route. Active [facility] Aspir-81 Aspir-81 Active [facility] Azilect 0.5 mg tablet
Take 1 tablet every day by oral route. Azilect 0.5 mg tablet Take 1 tablet ever y day by oral route. [facility] carbidopa 25 mg-levodopa 100 mg tablet<b r/> take 1 tab TID 7am, 11am,3pm carbidopa 25 mg-levodopa 100 mg tablet t wilder 1 tab TID 7am, 11am,3pm Active formerly [facility] Fish Oil Fish Oil Active [facility] Vitamin D3 Vitamin D3 Active [facility] atenolol 25 mg tablet atenolol 25 mg tablet Active [facility] levothyroxine 50 mcg tablet le vothyroxine 50 mcg tablet Active [facility] Lipitor 10 mg tablet Lipitor 1 0 mg tablet [facility] atorvastatin 10 MG Oral Tablet take 1 tablet by oral route every day ORAL Active [facility] Nitroglycerin 0.[address] 1 tablet by sublingual route at the 1st sign of attack; may repeat every 5 min until relief; if pain persists after 3 tablets in 15 min, prompt medical attention is recommended SUBLINGUAL Active [facility] Aspir-81 81 mg tablet,delayed release take 1 tablet by oral route every day ORAL Active [facility] Krystal roup Calcium 600 + D(3) 600 mg (1,500 mg)-400 unit tablet ORAL Active [facility] FISH OIL (unknown strength) ORAL Active [facility] multivitamin tablet take 1 tab let by oral route every day with food ORAL Active [facility] loratadine 10 mg tablet take 1 tablet by oral route every day ORAL Active [facility] Allergies, Adverse Reactions, Alerts Substance Category Reaction Severity Reaction type Status Date Reported Comments Source sulfamethoxazole drug allergy Active 04/10/[address] [facility] trimethoprim drug allergy Active 04/10/[address] [facility] [facility] Sulfa (Sulfonamide Antibiotics) propensity to adverse reactions to drug Active 03/[address] [facility] [facility] Krystal roumane niacin drug allergy Active 04/10/[address] [facility] [facility] CLOPIDOGREL BISULFATE drug all ergy Active 04/10/[address] [facility] [facility] PENICILLIN drug allergy Active 04/10/2016 [facility] PAROXETINE HCL drug allergy Active 04/10/[address] [facility] [facility] TAPE, OCCLUSIVE ADHESIVE drug allergy Active 04/10/2016 [facility] Clopidogrel Bisulfate Allergy to substance 12/02/2015 [facility] Niacin Allergy to substance 12/02/2015 [facility] Paroxetine Hcl Allergy to substance 12/02/2015 [facility] Penicillin Allergy to substance 12/02/2015 [facility] Sulfa (Sulfonamide Antibiotics) Allergy t o substance 12/02/2015 [facility] Sulfamethoxazole Allergy to substance 12/02/2015 [facility] Trimethoprim Allergy to substance 12/02/2015 [facility] TAPE, OCCLUSIVE ADHESIVE drug allergy Active 12/02/[address] [facility] Immunizations Immunization Date Given Site Status Last Updated Comments Source Unknown completed [facility] Results Order Name Results Value Reference Range Date Interpretation Comments Source formerly [facility] Unknown UNK [facility] Unknown UNK [facility] Pathology Reports No Data Provided for This Section Diagnostic Reports No Data Provided for This Section Consultation Notes Results Value Date Source Progress Note Encounter DateCo mplaintHistory Of Present Illness This patient has no known history of present illness 12/30/[address] [facility] [facility] Discharge Summaries No Data Provided for This Section History and Physicals No Data Provided for This Section Vital Signs Vital Sign Value Date Comments Source BP Diastolic 78 mm[Hg] 07/25/2017 [facility] Height 66 [in_i] 07/25/2017 [facility] BP Systolic 126 mm[Hg] 07/25/2017 [facility] BP Diastolic 68 mm[Hg] 01/10/2017 [facility] Height 66 [in_i] 01/10/2017 [facility] BMI (Body Mass Index) 37.8 kg/ m2 [facility] BP Systolic 128 mm[Hg] 01/10/2017 [facility] Weight Measured 234.2 [lb_av] 01/10/2017 [facility] BP Diastolic 86 mm[Hg] 09/13/2016 [facility] Height 66 [in_i] 09/13/2016 [facility] BMI (Body Mass Index) 37.3 kg/ m2 09/13/2016 [facility] BP Systolic 132 mm[Hg] 09/13/2016 [facility] Weight Measured 231.4 [lb_av] 09/13/2016 [facility] BP Diastolic 74 mm[Hg] 06/14/2016 [facility] Height 66 [in_i] 06/14/2016 [facility] BMI (Body Mass Index) 37.1 kg/ m2 06/14/2016 [facility] BP Systolic 130 mm[Hg] 06/14/2016 [facility] Weight Measured 229.8 [lb_av] 06/14/2016 [facility] Encounters Location Location Details Encounter Type Encounter Number Reason For Visit Attending Provider ADM Date DC Date Status Source [facility] Jonatan Dick MD: [address], [facility] [address] [address], Ph. [phone] [id number] Jonatan Dick 07/25/2017 [facility] - [facility] Jonatan Dick MD: [address] [address], Ph. [phone] [id number] Jonatan Dick 07/25/2017 [facility] Jonatan Dick MD: [address], [address] [address], Ph. [phone] [id number] Jonatan Dick 01/10/2017 [facility] Jonatan Dick MD: [address], [place] [address], Ph. [phone] [id number] Jonatan Dick 01/10/2017 [facility] Jonatan Dick MD: [address], [place] [id number], Ph. [phone] [id number] Jonatan Dick 01/10/2017 [facility] Jonatan Dick MD: [address], [place] [address], Ph. [phone] [id number] Jonatan Dick 01/10/2017 [facility] Jonatan Dick MD: [address], [place] [address], Ph. [phone] [id number] Jonatan Dick 09/13/2016 [facility] Jonatan Dick MD: [address], [place] [address], Ph. [phone] [id number] Jonatan Dick 09/13/2016 [facility] Jonatan Dick MD: [address], [place] [address], Ph. [phone] [id number] Jonatan Dick 09/13/2016 [facility] Jonatan Dick MD: [address], [place] [address], Ph. [phone] [id number] Jonatan Dick 06/14/2016 [facility] Jonatan Dick MD: [address], [place] [address], Ph. [phone] [id number] Jonatan Dick 06/14/2016 [facility] Jonatan Dick MD: [address], [place] [address], Ph. [phone] [id number] Jonatan Dick 06/14/[address] [facility] [id number] Jonatan Dick 04/10/2016 04/10/2016 [facility] [id number] Jonatan Dick 04/03/2016 04/03/2016 [facility] [id number] Jonatan Dick 04/02/2016 04/02/2016 [facility] [id number] Jonatan Dick 03/23/2016 03/23/2016 [facility] [id number] Jonatan Dick 03/08/2016 03/08/2016 [facility] [id number] Jonatan Dick 02/07/2016 02/07/2016 [facility] [id number] Jonatan Dick 01/23/2016 01/23/2016 [facility] [id number] Jonatan Dick 01/20/2016 01/20/2016 [facility] [id number] Jonatan Dick 12/30/2015 12/30/2015 [facility] [id number] Jonatan Dick 12/30/2015 12/30/2015 [facility] [id number] Jonatan Dick 12/02/2015 12/02/2015 [facility] Procedures Procedure Code Date Perfomer Comments Source US, duplex, carotid artery 01/10/2017 formerly [facility] Musc test done w/n test comp 12/02/2015 [facility] NRV CNDJ TST 5-6 STUDIES 12/02/2015 [facility] Hysterectomy [facility]28[facility]2003 [facility] Total Hysterectomy 10/28/2003 formerly [facility] Unknown [facility] Plan of Care Plan of Care Date Source Reminders Provider Appointments None recorded. Lab None recorded. Referral None recorded. Procedures None recorded. Surgeries None recorded. Imaging None recorded. 07/25/2017 [facility] Reminders Provider Appointments Xlong 45 07/18/2017 10:00AM Jonatan Dick MD Lab None recorded. Referral None recorded. Procedures None recorded. Surgeries None recorded. Imaging US, Duplex, Carotid Artery 01/10/2017 [facility] (Bi-Directional Rad) 01/10/2017 [facility] Reminders Provider Appointments Xlong 45 01/10/2017 10:00AM Jonatan Dick MD Lab None recorded. Referral None recorded. Procedures None recorded. Surgeries None recorded. Imaging None recorded. 09/13/2016 formerly [facility] Reminders Provider Appointments Xlong 45 09/13/2016 10:00AM Jonatan Dick MD Lab None recorded. Referral None recorded. Procedures None recorded. Surgeries None recorded. Imaging None recorded. 06/14/2016 [facility] DateTypeActionStatus Referral Ordered: Brain imaging (3D) ordered Appointment OSCAR MORENO BOOKED DateTypeProblemGoalInterventionStatusStart Date Unknown. 12/30/2015 [facility] Social History Social History Date Source Smoking Status Never Smoker 06/14/2016 [facility] Smoking Status Never Smoker 06/14/2016 [facility] Smoking Status Never Smoker 06/14/2016 [facility] Smoking Status Never Smoker 06/14/2016 [facility] Smoking Status Never Smoker 06/14/2016 [facility] Smoking Status Never Smoker 06/14/2016 [facility] Smoking Status Never Smoker 06/14/2016 [facility] Smoking Status Never Smoker 06/14/2016 [facility] Smoking Status Never Smoker 06/14/2016 [facility] Smoking Status Never Smoker 06/14/2016 [facility] Smoking Status Never Smoker 06/14/2016 [facility] Smoking Status Never Smoker 06/14/2016 [facility] TypeDescriptionQuantityDate Captured Alcohol Use Details No Caffeine Use Details No Tobacco Use Status Unknown Smoking Status Unknown 04/10/2016 [facility] TypeDescriptionQuantityDate Captured Alcohol Use Details No Caffeine Use Details No Tobacco Use Status Unknown Smoking Status Unknown 04/03/2016 [facility] TypeDescriptionQuantityDate Captured Alcohol Use Details No Caffeine Use Details No Tobacco Use Status Unknown Smoking Status Unknown 04/02/2016 [facility] TypeDescriptionQuantityDate Captured Unknown 03/23/2016 [facility] TypeDescriptionQuantityDate Captured Unknown 03/08/[address] [facility] TypeDescriptionQuantityDate Captured Alcohol Use Details No Caffeine Use Details No Tobacco Use Status Unknown Smoking Status Unknown 02/07/[address] [facility] [facility] TypeDescriptionQuantityDate Captured Alcohol Use Details No Caffeine Use Details No Tobacco Use Status Unknown Smoking Status Unknown 01/23/[address] [facility] [facility] TypeDescriptionQuantityDate Captured Unknown 01/20/2016 [facility] TypeDescriptionQuantityDate Captured Unknown 12/30/[address] [facility] Assessment and Plan No Data Provided for This Section Family History Value Date S ource Family MemberDiagnosisAge At Onset Mother Depression Son Mother Father Father Maternal grandfather Maternal grandfather Diabetes mellitus Mother Son migraines Paternal grandmother Paternal grandmother tremor Mother Stroke (Cause Of ) 77 Paternal grandmother Parkinson's disease Father Cancer, lung (Cause Of ) 57 04/10/2016 [facility] Family MemberDiagnosisAge At Onset Mother Depression Son Mother Father Father Maternal grandfather Maternal grandfather Diabetes mellitus Mother Son migraines Paternal grandmother Paternal grandmother tremor Mother Stroke (Cause Of ) 77 Paternal grandmother Parkinson's disease Father Cancer, lung (Cause Of ) 57 04/03/2016 [facility] Family MemberDiagnosisAge At Onset Mother Depression Son Mother Father Father Maternal grandfather Maternal grandfather Diabetes mellitus Mother Son migraines Paternal grandmother Paternal grandmother tremor Mother Stroke (Cause Of ) 77 Paternal grandmother Parkinson's disease Father Cancer, lung (Cause Of ) 57 04/02/2016 [facility] Family MemberDiagnosisAge At Onset Mother Depression Son Mother Father Father Maternal grandfather Maternal grandfather Diabetes mellitus Mother Son migraines Paternal grandmother Paternal grandmother tremor Mother Stroke (Cause Of ) 77 Paternal grandmother Parkinson's disease Father Cancer, lung (Cause Of ) 57 03/23/2016 [facility] Family MemberDiagnosisAge At Onset Mother Depression Son Mother Father Father Maternal grandfather Maternal grandfather Diabetes mellitus Mother Son migraines Paternal grandmother Paternal grandmother tremor Mother Stroke (Cause Of ) 77 Paternal grandmother Parkinson's disease Father Cancer, lung (Cause Of ) 57 03/08/2016 [facility] Family MemberDiagnosisAge At Onset Mother Depression Son Mother Father Father Maternal grandfather Maternal grandfather Diabetes mellitus Mother Son migraines Paternal grandmother Paternal grandmother tremor Mother Stroke (Cause Of ) 77 Paternal grandmother Parkinson's disease Father Cancer, lung (Cause Of ) 57 02/07/2016 [facility] Family MemberDiagnosisAge At Onset Mother Depression Son Mother Father Father Maternal grandfather Maternal grandfather Diabetes mellitus Mother Son migraines Paternal grandmother Paternal grandmother tremor Mother Stroke (Cause Of ) 77 Paternal grandmother Parkinson's disease Father Cancer, lung (Cause Of ) 57 01/23/2016 [facility] Family MemberDiagnosisAge At Onset Mother Depression Son Mother Father Father Maternal grandfather Maternal grandfather Diabetes mellitus Mother Son migraines Paternal grandmother Paternal grandmother tremor Mother Stroke (Cause Of ) 77 Paternal grandmother Parkinson's disease Father Cancer, lung (Cause Of ) 57 01/20/2016 [facility] Family MemberDiagnosisAge At Onset Mother Depression Son Mother Father Father Maternal grandfather Maternal grandfather Diabetes mellitus Mother Son migraines Paternal grandmother Paternal grandmother tremor Mother Stroke (Cause Of ) 77 Paternal grandmother Parkinson's disease Father Cancer, lung (Cause Of ) 57 12/30/2015 [facility] Advance Directives Order Name Results Value Date Source Advance Directives Advance Dir ectives DirectiveYes / NoEffective DateFile Name Unknown 04/10/2016 [facility] Advance Directives Advance Dir ectives DirectiveYes / NoEffective DateFile Name Unknown 04/03/2016 [facility] Advance Directives Advance Dir ectives DirectiveYes / NoEffective DateFile Name Unknown 04/02/2016 [facility] Advance Directives Advance Dir ectives DirectiveYes / NoEffective DateFile Name Unknown 03/23/2016 [facility] Advance Directives Advance Dir ectives DirectiveYes / NoEffective DateFile Name Unknown 03/08/2016 [facility] Advance Directives Advance Dir ectives DirectiveYes / NoEffective DateFile Name Unknown 02/07/2016 [facility] Advance Directives Advance Dir ectives DirectiveYes / NoEffective DateFile Name Unknown 01/23/2016 [facility] Advance Directives Advance Dir ectives DirectiveYes / NoEffective DateFile Name Unknown 01/20/2016 [facility] Functional Status No Data Provided for This Section
--- OUTSIDE RECORDS SUMMARY | 2020-05-17 14:12 | XMS REPORT | Clinical Summary ---
Author Author [facility] Address Unknown Phone Unavailable Care Team Providers Care Stores Assistant Name Role Phone Jonatan Dick MD Unavailable Claudia Perez NP PCP Zahida Thomas DO Unavailable Source Comments Some departments are not documenting in the electronic medical record. If you d o not see the information that you expected, contact Release of Information in [facility] [employer] Information Management department at [phone] for further assistan ce in locating additional records.[facility] Allergies Comments Active Allergy Reactions Severity Noted Date Adhesive Tape (Rosins) RASH Medium 018 Pt. Took medication and ended up with liver damage Sulfamethoxazole-Trimetho SEE COMMENTS Low 06/2018 prim Niacin FLUSHING Low 11/05/2017 (SKIN) Pt. Reports having all the listed side effects from medication. Paroxetine Hcl SEE COMMENTS Low 11/05/2017 Penicillins RASH Medium 11/05/2017 Clopidogrel UNKNOWN Low 11/05/2017 Medications End Date Status Medication Sig Dispensed Refills Start Date Active atenolol (TENORMIN) 25 mg 0 tablet 8 Active atorvastatin (LIPITOR) 10 Take 10 mg by 0 03/28 mg tablet mouth. 7 Active levothyroxine (SYNTHROID) Take 50 mcg 0 50 mcg tablet by mouth daily 30 minutes before breakfast. Active nitroglycerin (NITROSTAT) Place 0.4 mg 0 02/27 0.4 mg tablet under tongue. 7 Active Ejzmz-3-ZOK-EPA-Fish Oil Take 2 0 (FISH OIL) 1,000 mg (120 capsules by mg-180 mg) cap mouth. Active Therapeutic Multivitamin Take 1 tablet 0 tab by mouth. Active loratadine (CLARITIN) 10 take 1 tablet 0 07/14 / mg tablet (10MG) by 0 ORAL route every day Active Cholecalciferol (Vitamin Take 1 0 D3) 2,000 unit cap capsule by mouth daily. Active aspirin EC 81 mg tablet Take 81 mg by 0 mouth daily. Take with food. Active carbidopa/levodopa 1.5-1.5-1 270 tablet 0 02 (SINEMET) 25/100 mg 0 tablet 05/10/2020 Discontinued (Reorder) carbidopa/levodopa TAKE 1 TABLET 270 tablet 0 03/21 (SINEMET) 25/100 mg BY MOUTH 0 tablet THREE TIMES DAILY ONE HOUR PRIOR TO MEALS AT 7AM, 11AM, AND 3PM Active Problems Problem Noted Date Inversion of nipple 05/25/2019 Overview: DIAGNOSIS: Left nipple inversion HISTORY: Ms. [...] and left breast ultrasound on 05/14/19 ([facility] Imaging revealed no abnorm alities (BI-RADS 1). Ms. Rodriguez denies any other current breast concern s. She denies any other history of breast issues, surgeries or biopsies. BREAST IMAGING: Mammogram: -- Bilateral screening mammogram 9 ([place], [place]) revealed scattered fibroglandular densities. There were be nign calcifications bilaterally. Nodular density in the left outer breas t mid depth appeared stable. No dominant mass or malignant calcificatio ns. The axillae were unremarkable. -- Left diagnostic mammogram 05/14/19 ([place], [place]) revealed nodular density in the upper outer left breast remained stable. There were benign calcifications in the left breast. No n ew mass or malignant appearing calcifications. Left axilla was unremar kable. Ultrasound: -- Left breast ultrasound 05/14/19 ([facility], [place]) revealed no retroareolar mass or fluid collection. No sonographi c abnormality. MRI: -- Breast MRI 06/18/19 ([facility]) revealed RIG HT BREAST: There was no suspicious mass or nonmass enhancement. There was no axillary or internal mammary lymphadenopathy. LEFT BREAST: The nippl e areolar complex was unremarkable. There was a small oval, circumscribed m ass in the upper outer left breast, middle depth measuring 1 cm with nonenh ancing internal septations and persistent kinetics. This was stable fr om multiple prior mammograms dating back to October 2014 and was compatible with a fibroadenoma. There was no suspicious mass or nonmass enhancement. There was no axillary or internal mammary lymphadenopathy. Ancillary find ings: None. REPRODUCTIVE HEALTH: Age at first Menarche: 17 [...] u lceration. REFERRED BY: Zahida Thomas DO Parkinson disease 11/04/2018 Encounters Care Team Description Date Type Specialty Little Tilley MD 05/17/2020 Telephone Neurology Little Tilley MD Medication Question 05/12/2020 Telephone Neurology Little Tilley MD Parkinson disease (HCC) (Primary Dx) 05/10/2020 Office Visit Neurology Telehealth Little Tilley MD 03/20/2020 Refill Neurology from Last 3 Months Immunizations Name Administration Dates Next Due Flu Vaccine =>3 YO 08/07/2018, 09/11/2016, , 08/13/2014 (Historical) H1N1 Vaccine 10/28/2008 HEPATITIS B vaccine, 10/28/1987 unspecified (Historical) Pneumococcal Conjugate 07/28/2018 vaccine, unspecified formulation Pneumococcal 09/11/2016 Vaccine(13-[facility]/immunocompromised adult) Tdap Vaccine 05/30/2013 Family History Medical History Relation Name Comments Cancer-Lung Father Heart Disease Father Diabetes Maternal Grandfather Stroke Mother Cancer Sister cervical Thyroid Disease Sister Migraines Son Relation Name Status Comments Father Maternal Grandfather Mother Sister Son Social History Date Tobacco Use Types Packs/Day Years Used Passive Smoke Exposure - Never Smoker Smokeless Tobacco: Never Used Drinks/Week oz/Week Comments Alcohol Use No Sex Assigned at Date Recorded Female 05/09/2020 5:00 PM CDT Industry Job Start Date Occupation Not on file Not on file Not on file Travel End Travel History Travel Start No recent travel history available. 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 Temperature 16 12/10/2019 9:57 AM DIESEL ENGINE TESTER Respiratory Rate 100% 12/10/2019 9:57 AM DIESEL ENGINE TESTER Oxygen Saturation - - Inhaled Oxygen Concentration 103.9 kg (229 lb) 05/10/2020 11:00 AM CDT Weight 166.4 cm (5' 5.51") 05/10/2020 11:00 AM CDT Height 37.51 05/10/2020 11:00 AM CDT Body Mass Index Plan of Treatment Health Maintenance Due Date Last Done Comments MEDICARE ANNUAL WELLNESS 1950 VISIT HEPATITIS C SCREENING 1970 PHYSICAL (COMPREHENSIVE) 1970 EXAM COLORECTAL CANCER 2002 SCREENING SHINGLES RECOMBINANT 2002 VACCINE (1 of 2) OSTEOPOROSIS 2017 SCREENING/MONITORING PNEUMONIA (PPSV23) 2017 09/11/2016 VACCINE (2 of 2 - PPSV23) INFLUENZA VACCINE 07/28/2020 08/07/2018, 09/11/2016, 08/18/2015, Additional history exists BREAST CANCER SCREENING 12/10/2020 12/10/2019 DTAP/TDAP VACCINES (2 - 05/30/2023 05/30/2013 Td) Results Not on filefrom Last 3 Months Insurance Type Payer Benefit Subscriber ID Effective Phone Address Plan / Dates Group Medicare MEDICARE MEDICARE xxxxxxxxxxx 2017- PART A AND Present B PPO BCBS DEONTE BCBS DEONTE xxxxxxxxx [id number] FED EMP resent PROGRAM [id number] Advance Directives 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
--- OUTSIDE RECORDS SUMMARY | 2020-05-17 14:12 | XMS REPORT | Encounter Summary ---
Author Author [facility] Organization [facility] Address Unknown Phone Unavailable Care Team Providers Care Transit Bus Operator Name Role Phone Jonatan Dick MD Unavailable Claudia Perez NP PCP Zahida Thomas DO Unavailable Reason for Visit * Reason Comments Medication Refill Encounter Details Care Team Description Date Type Department Little Tilley MD [address] [place] [address] 03/20/2020 Refill [facility] [address] [place] [address] Social History Date Tobacco Use [...] encounter Miscellaneous Notes * Telephone Encounter - Rosario Ames BSN - 03/21/2020 10:43 PM CDT C/L refilled 1 tablet TID consistent with POC. HUGO 11/10 RTC 05/10/20 documented in this encounter Plan of Treatment Not on filedocumented as of this encounter Visit Diagnoses Not on filedocumented in this encounter
--- OUTSIDE RECORDS SUMMARY | 2020-05-17 14:12 | XMS REPORT | Encounter Summary ---
Author Author [facility] Organization [facility] Address Unknown Phone Unavailable Care Team Providers Care Restrictive Preparation Operator Name Role Phone Jonatan Dick MD Unavailable Claudia Perez NP PCP Zahida Thomas DO Unavailable Encounter Details Care Team Description Date [place] [address] [place] [address] [phone] 12/10/2019 Hospital Imaging Encounter [address] [place] [address] Social History Date Tobacco Use Types Packs/Day [...] impairment: No documented as of this encounter Medications at Time of Discharge Start Date End Date Medication Sig Dispensed Refills aspirin EC 81 mg tablet Take 81 mg by 0 mouth daily. Take with food. 10/28/2017 atenolol (TENORMIN) 25 mg 0 tablet 04/10/2017 atorvastatin (LIPITOR) 10 Take 10 mg by 0 mg tablet mouth. Cholecalciferol (Vitamin Take 1 0 D3) 2,000 unit cap capsule by mouth daily. levothyroxine (SYNTHROID) Take 50 mcg 0 50 mcg tablet by mouth daily 30 minutes before breakfast. 07/14/2010 loratadine (CLARITIN) 10 take 1 tablet 0 mg tablet (10MG) by ORAL route every day 03/27/2017 nitroglycerin (NITROSTAT) Place 0.4 mg 0 0.4 mg tablet under tongue. Hiomg-0-QLH-EPA-Fish Oil Take 2 0 (FISH OIL) 1,000 mg (120 capsules by mg-180 mg) cap mouth. Therapeutic Multivitamin Take 1 tablet 0 tab by mouth. 12/09/2018 12/22/2019 carbidopa/levodopa TAKE ONE 270 tablet 3 (SINEMET) 25/100 mg TABLET BY tablet MOUTH THREE TIMES DAILY *TAKE ONE HOUR PRIOR TO MEALS, AT 7AM, 11AM, AND 3PM* documented as of this encounter Plan of Treatment Not on filedocumented as of this encounter Procedures Comments Procedure Name Priority Date/Time Associated Diag nosis MAMMO DIAGNOSTIC OJ/FABRIZIO Routine 12/10/2019 Inve rsion of nipple 9:10 AM PARTNER MARKETING INTERN documented in this encounter Results * MAMMO DIAGNOSTIC OJ/FABRIZIO (12/10/2019 9:10 AM PARTNER MARKETING INTERN) Specimen Impressions Performed At ASSESSMENT: BIRAD 1-Negative (Overall) [facility] RESULT S DIAG MAMMO BL/T: Both breasts are BIRAD 1-negative. Left breast US TARGET LEFT: Left breast is BIRAD 1-negative. RECOMMENDATION: Routine screening mammogram in 1 year. Narrative Performed At Last mammogram was performed 7 months ago. [facility] SULYAHIR Reason for exam: follow-up at short int erval from prior study left breast nipple indentation, f/u calin ging, due for bilateral breast imaging [id number] MAMMO DIAGNOSTIC OJ/FABRIZIO: 2019 - 2D/3D Procedure 3D Routine views. 2D Routine views. Prior study comparison: June 16, 2019 , left breast [id number] US BREAST TARGET LT performed at [facility]. May 14, 2019, diagnostic 3D/ tomosynthesis. January 09, 2019, bilateral mammogram. The breasts are almost entirely fatty. History: Left nipple indentation, follow-up. Previous workup was unremarkable. 2-D, and 3-D, tomosynthesis images were obtained. No suspicious masses or calcification i n the area of concern or elsewhere in either breast. [id number] US BREAST TARGET LT: LEFT BREAS T - DECEMBER 10, 2019 - Standard views. Technologist: Joanne Gil, Beater Head Targeted left breast ultrasound was per formed of the nipple and surrounding areas. No abnormality is se en. Finalized by Jayesh Jeong M.D. on 11/28 9:31 AM. Dictated by Jayesh Jeong M.D. on 12/10/2019 9:2 9 AM. Electronically signed and approved by: Jayesh Jeong M.D. [id number] Procedure Note Interface, Radiant Results - 12/10/2019 9:33 AM PARTNER MARKETING INTERN Last mammogram was performed 7 months ago. Reason for exam: follow-up at short interval from prior study left breast nipple indentation, f/u imaging, due for bilateral breast imaging [id number] MAMMO DIAGNOSTIC OJ/FABRIZIO: DECEMBER 10, 2019 - 2D/3D Procedure 3D Routine views. 2D Routine views. Prior study comparison: June 16, 2019, left breast [id number] US BREAST TARGET LT performed at [facility]. May 14, 2019, diagnostic 3D/tomosynthesis. January 09, 2019, bilateral mammogram. The breasts are almost entirely fatty. History: Left nipple indentation, follow-up. Previous workup was unremarkable. 2-D, and 3-D, tomosynthesis images were obtained. No suspicious masses or calcification in the area of concern or elsewhere in either breast. [id number] US BREAST TARGET LT: LEFT BREAST - DECEMBER 10, 2019 - Standard views. Technologist: Joanne Gil, Beater Head Targeted left breast ultrasound was performed of the nipple and surrounding areas. No abnormality is seen. Finalized by Jayesh Jeong M.D. on 12/10/2019 9:31 AM. Dictated by Jayesh Jeong M.D. on 12/10/2019 9:29 AM. Electronically signed and approved by: Jayesh Jeong M.D. [id number] IMPRESSION ASSESSMENT: BIRAD 1-Negative (Overall) DIAG MAMMO BL/T: Both breasts are BIRAD 1-negative. Left breast US TARGET LEFT: Left breast is BIRAD 1-negative. RECOMMENDATION: Routine screening mammogram in 1 year. Performing Organization Address City/State/Zipcode Ph one Number [facility] RESULTS documented in this encounter Visit Diagnoses Diagnosis Inversion of nipple Other sign and symptom in breast documented in this encounter
--- OUTSIDE RECORDS SUMMARY | 2020-05-17 14:12 | XMS REPORT | Encounter Summary ---
Author Author [facility] Organization [facility] Address Unknown Phone Unavailable Care Team Providers Care Cnc Cutting Operator Name Role Phone Jonatan Dick MD Unavailable Claudia Perez NP PCP Zahida Thomas DO Unavailable Reason for Visit * Reason Comments Medication Question Encounter Details Care Team Description Date Type Department Little Tilley MD [address] [place] [address] Medication Question 05/12/2020 Telephone [facility] [address] [place] [address] Social History Date Tobacco Use [...] Telephone Encounter - Rosario Ames BSN - 05/12/2020 11:44 AM CDT Pharmacy called to clarify time of dosage of C/L informed her at 7, 11, 3 documented in this encounter Plan of Treatment Not on filedocumented as of this encounter Visit Diagnoses Not on filedocumented in this encounter
--- OUTSIDE RECORDS SUMMARY | 2020-05-17 14:12 | XMS REPORT | Encounter Summary ---
Author Author [facility] Organization [facility] Address Unknown Phone Unavailable Care Team Providers Care Supervisor Livestock Yard Name Role Phone Jonatan Dick MD Unavailable Claudia Perez NP PCP Zahida Thomas DO Unavailable Encounter Details Care Team Description [place] [address] [place] [address] [phone] 12/10/2019 [facility] [address] [place] [address] Social History Date Tobacco Use Types Packs/Day [...] mg 0 0.4 mg tablet under tongue. Fwlph-2-LTM-EPA-Fish Oil Take 2 0 (FISH OIL) 1,000 [...] Procedure Name Priority Date/Time Associated Diag nosis US BREAST TARGET LT Routine 12/10/2019 Inversion of nipple 9:26 AM FLASK MAKER documented in this encounter Results * US BREAST TARGET LT (12/10/2019 9:26 AM FLASK MAKER) Specimen Impressions Performed At ASSESSMENT: BIRAD 1-Negative (Overall) [facility] RESULT S DIAG MAMMO BL/T: Both breasts are BIRAD 1-negative. Left breast US TARGET LEFT: Left breast is BIRAD 1-negative. RECOMMENDATION: Routine screening mammogram in 1 year. Narrative Performed At Last mammogram was performed 7 months ago. [facility] RE SULTS Reason for exam: follow-up at short int erval from prior study left breast nipple indentation, f/u calin ging, due for bilateral breast imaging [id number] MAMMO DIAGNOSTIC OJ/FABRIZIO: [facility] 2019 - 2D/3D Procedure 3D Routine views. 2D Routine views. Prior study comparison: June 16, 2019 , left breast [id number] US BREAST TARGET LT performed at [facility]. May 14, 2019, diagnostic 3D/ tomosynthesis. January 09, 2019, bilateral mammogram. The breasts are almost entirely fatty. History: Left nipple indentation, follow-up. Previous workup was unremarkable. 2-D, and 3-D, tomosynthesis images were obtained. No suspicious masses or calcification i n the area of concern or elsewhere in either breast. [id number] US BREAST TARGET LT: LEFT BREAS T - DECEMBER 10, 2019 - Standard views. Technologist: Joanne Gil, Flight Teacher Targeted left breast ultrasound was per formed of the nipple and surrounding areas. No abnormality is se en. Finalized by Jayesh Jeong M.D. on 11/28 9:31 AM. Dictated by Jayesh Jeong M.D. on 12/10/2019 9:2 9 AM. Electronically signed and approved by: Jayesh Jeong M.D. [id number] Procedure Note Interface, Radiant Results - 12/10/2019 9:33 AM FLASK MAKER Last mammogram was performed 7 months ago. Reason for exam: follow-up at short interval from prior study left breast nipple indentation, f/u imaging, due for bilateral breast imaging [id number] MAMMO DIAGNOSTIC OJ/FABRIZIO: DECEMBER 10, 2019 - 2D/3D Procedure 3D Routine views. 2D Routine views. Prior study comparison: June 16, 2019, left breast [id number] US BREAST TARGET LT performed at [facility]. May 14, 2019, diagnostic 3D/tomosynthesis. January 09, 2019, bilateral mammogram. The breasts are almost entirely fatty. History: Left nipple indentation, follow-up. Previous workup was unremarkable. 2-D, and 3-D, tomosynthesis images were obtained. No suspicious masses or calcification in the area of concern or elsewhere in either breast. [id number] US BREAST TARGET LT: LEFT BREAST - DECEMBER 10, 2019 - Standard views. Technologist: Joanne Gil, Flight Teacher Targeted left breast ultrasound was performed of the nipple and surrounding areas. No abnormality is seen. Finalized by Jayesh Jeong M.D. on 12/10/2019 9:31 AM. Dictated by Jayesh Jeong M.D. on 12/10/2019 9:29 AM. Electronically signed and approved by: Jayesh Jeong M.D. [id number] IMPRESSION ASSESSMENT: BIRAD 1-Negative (Overall) DIAG MAMMO [...]
--- OUTSIDE RECORDS SUMMARY | 2020-05-17 14:12 | XMS REPORT | Encounter Summary ---
Author Author [facility] Organization [facility] Address Unknown Phone Unavailable Care Team Providers Care Harness Worker Name Role Phone Jonatan Dick MD Unavailable Claudia Perez NP PCP Zahida Thomas DO Unavailable Reason for Visit * Reason Comments Heme/Onc Care Encounter Details Care Team Description Date Type Department Vicky Yuen, SIMONE [address] [place] [address] Inversion of nipple 12/10/2019 Office Visit [facility] [address] [place] [address] Social History Date Tobacco Use Types Packs/Day [...] Signs Reading Time Taken Comments Vital Sign 157/76 12/10/2019 9:57 AM EXTRACTION MACHINE OPERATOR Blood Pressure 61 12/10/2019 9:57 AM EXTRACTION MACHINE OPERATOR Pulse 36.5 C (97.7 F) 12/10/2019 9:57 AM EXTRACTION MACHINE OPERATOR Temperature 16 12/10/2019 9:57 AM EXTRACTION MACHINE OPERATOR Respiratory Rate 100% 12/10/2019 9:57 AM EXTRACTION MACHINE OPERATOR Oxygen Saturation - - Inhaled Oxygen Concentration 108 kg (238 lb 3.2 oz) 12/10/2019 9:57 AM EXTRACTION MACHINE OPERATOR Weight 166.4 cm (5' 5.5") 12/10/2019 9:57 AM EXTRACTION MACHINE OPERATOR Height 39.04 12/10/2019 9:57 AM EXTRACTION MACHINE OPERATOR Body Mass Index documented in this encounter Functional Status Date of Assessment [...] impairment: No documented as of this encounter Progress Notes * Vicky Yuen PA-C - 12/10/2019 10:30 AM EXTRACTION MACHINE OPERATOR Name: Carlita Rodriguez : 1950 AGE: 69 y. o. DATE OF SERVICE: 12/10/2019 DIAGNOSIS: Left nipple inversion History of Present Illness Ms. Rodriguez returns to the clinic for follow up of left nipple inversion. HISTORY: Ms. Rodrgiuez is a female who [facility] at age 68 for evaluation of left nipple changes. Ms. Bonilla er reports left breast itching that began on 05/03/19. She noticed her left nippl e was indented on 05/06/19. She had a left diagnostic mammogram and left breast u ltrasound on 05/14/19 ([facility]). Imaging revealed no abn ormalities (BI-RADS 1). Ms. Rodriguez denies any other current breast concerns. Sh e denies any other history of breast issues, surgeries or biopsies. BREAST IMAGING: Mammogram: -- Bilateral screening mammogram 01/09/19 ([place], [place]) revealed scattered fibr oglandular densities. There were benign calcifications bilaterally. Nodular dens ity in the left outer breast mid depth appeared stable. No dominant mass or estephania gnant calcifications. The axillae were unremarkable. -- Left diagnostic mammogram 05/14/19 ([place], [place]) revealed nodular density in the upper outer left breast remained stable. There were benign calcifications in the left breast. No new mass or malignant appearing calcifications. Left axilla was unremarkable. Ultrasound: -- Left breast ultrasound 05/14/19 ([place], [place]) revealed no retroareolar mass or fluid collection. No sonographic abnormality. MRI: -- Breast MRI 06/18/19 () revealed RIGHT BREAST: There was no suspicious mass o r nonmass enhancement. There was no axillary or internal mammary lymphadenopathy . LEFT BREAST: The nipple areolar complex was unremarkable. There was a small ov al, circumscribed mass in the upper outer left breast, middle depth measuring 1 cm with nonenhancing internal septations and persistent kinetics. This was stabl e from multiple prior mammograms dating back to October 2014 and was compatible with a fibroadenoma. There was no suspicious mass or nonmass enhancement. There was no axillary or internal mammary lymphadenopathy. Ancillary findings: None. REPRODUCTIVE HEALTH: Age at first Menarche: 17 Age at First Live : 27 Age at Menopause: 54, no HRT : 4 Para: 3 : 6 months each child PERTINENT PMH: Parkinson, HLD, HTN, hypothyroidism FAMILY HISTORY: Patient denies a family history of breast, ovarian or prostate cancer. PHYSICAL EXAM on PRESENTATION: Right - No palpable breast masses. No skin, nipp le, or areolar change. Left - No palpable masses. Inversion of the central nippl e without skin change or ulceration. REFERRED BY: Zahida Thomas DO Review of Systems Constitutional: Negative for fever, chills, appetite change and fatigue. HENT: Negative for hearing loss, congestion, rhinorrhea. tinnitus. Eyes: Negative for pain, discharge and itching. Respiratory: Negative for cough, chest tightness and shortness of breath. Cardiovascular: Negative for chest pain and palpitations. Gastrointestinal: Negative for abdominal distention, pain, nausea, vomiting, and diarrhea. Genitourinary: Negative for frequency, vaginal bleeding, difficulty urinating an d pelvic pain. Musculoskeletal: Negative for myalgias, back pain, joint swelling and arthralgia s. Skin: Negative for rash. Neurological: Negative for dizziness, weakness, light-headedness and headaches. tremors due to parkinson Hematological: Does not bruise/bleed easily. Psychiatric/Behavioral: Negative for disturbed wake/sleep cycle. The patient is not nervous/anxious. Allergies Allergen Reactions Adhesive Tape (Rosins) RASH Penicillins RASH Bactrim [Sulfamethoxazole-Trimethoprim] SEE COMMENTS Pt. Took medication and ended up with liver damage Niaspan [Niacin] FLUSHING (SKIN) Paxil [Paroxetine Hcl] SEE COMMENTS Pt. Reports having all the listed side effects from medication. Plavix [Clopidogrel] UNKNOWN Medical History: Diagnosis Date Abnormal involuntary movement Heart abnormality HLD (hyperlipidemia) HTN (hypertension) Hypothyroid Inverted nipple IA (mitral incompetence) 1998 Parkinson disease (HCC) Surgical History: Procedure Laterality Date TONSIL AND ADENOIDECTOMY 1955 TUMOR REMOVAL 1986 Fatty tumor removed from back CARDIAC SURGERY 1999 Stent placement HX HYSTERECTOMY 2003 UPPER GASTROINTESTINAL ENDOSCOPY 2012 COLONOSCOPY HX CHOLECYSTECTOMY SKIN LESION REMOVAL nose MAXINE AND BSO Family History Problem Relation Age of Onset Stroke Mother Cancer-Lung Father Heart Disease Father Thyroid Disease Sister Cancer Sister cervical Migraines Son Diabetes Maternal Grandfather Social History Socioeconomic History Marital status: Spouse name: Not on file Number of children: Not on file Years of education: Not on file Highest education level: Not on file Occupational History Not on file Tobacco Use Smoking status: Passive Smoke Exposure - Never Smoker Smokeless tobacco: Never Used Substance and Sexual Activity Alcohol use: No Drug use: No Sexual activity: Not on file Other Topics Concern Not on file Social History Narrative Not on file Objective: aspirin EC 81 mg tablet Take 81 mg by mouth daily. Take with food. atenolol (TENORMIN) 25 mg tablet atorvastatin (LIPITOR) 10 mg tablet Take 10 mg by mouth. carbidopa/levodopa (SINEMET) 25/100 mg tablet TAKE ONE TABLET BY MOUTH THREE TIMES DAILY *TAKE ONE HOUR PRIOR TO MEALS, AT 7AM, 11AM, AND 3PM* Cholecalciferol (Vitamin D3) 2,000 unit cap Take 1 capsule by mouth daily. levothyroxine (SYNTHROID) 50 mcg tablet Take 50 mcg by mouth daily 30 minute s before breakfast. loratadine (CLARITIN) 10 mg tablet take 1 tablet (10MG) by ORAL route ever y day nitroglycerin (NITROSTAT) 0.[address] 0.4 mg under tongue. Mhyjk-7-WQK-EPA-Fish Oil (FISH OIL) 1,000 mg (120 mg-180 mg) cap Take 2 caps ules by mouth. Therapeutic Multivitamin tab Take 1 tablet by mouth. Vitals: 12/10/19 0957 BP: 157/76 BP Source: Arm, Left Upper Patient Position: Sitting Pulse: 61 Resp: 16 Temp: 36.5 C (97.7 F) TempSrc: Oral SpO2: 100% Weight: 108 kg (238 lb 3.2 oz) Height: 166.4 cm (65.5") PainSc: Zero Body mass index is 39.04 kg/m. Pain Score: Zero Fatigue Scale: 0-None Pain Addressed: N/A Patient Evaluated for a Clinical Trial: No treatment clinical trial available fo r this patient. Eastern Cooperative Oncology Group performance status is Not applicable. . Physical Exam Vitals signs reviewed. RIGHT BREAST EXAM: Breast: No palpable masses Skin Erythema: No Attachment of Overlying Skin: No Peau d' orange: No Chest Wall Attachment: No Nipple Inversion: No Nipple Discharge: No LEFT BREAST EXAM: Breast: No palpable masses Skin Erythema: No Attachment of Overlying Skin: No Peau d' orange: No Chest Wall Attachment: No Nipple Inversion: Yes unchanged inversion of the central portion of the nipple Nipple Discharge: No RIGHT ELISHA BASIN EXAM: Axillary: negative Infraclavicular: negative Supraclavicular: negative LEFT ELISHA BASIN EXAM: Axillary: negative Infraclavicular: negative Supraclavicular: negative Constitutional: No acute distress. HEENT: Head: Normocephalic and atraumatic. Eyes: No discharge. No scleral icterus. Pulmonary/Chest: No respiratory distress. Neurological: Alert and oriented to person, place and time. No cranial nerve def icit. Skin: Warm and dry. No rash noted. No erythema. No pallor. Psychiatric: Normal mood and affect. Behavior is normal. Judgement and thought c ontent normal. tremor due to parkinson Assessment and Plan: Left nipple inversion Ms. Rodriguez reports she is doing well. She denies any changes in her medical or family history. She has no new breast complaints. The previous left nipple inver binu is unchanged. She had a breast MRI in May 2020 which showed no abnormali ties, except a left breast mass that was stable since 2014 and was consistent wi th a fibroadenoma. She had a follow up bilateral diagnostic mammogram and left u ltrasound today. There were no abnormalities. Ms. Rodriguez may continue routine s creening mammogram through her PCP. If she notices any worsening of the nipple i nversion, nipple discharge or any palpable masses she should contact the office. She was given ample time to ask questions all of which were answered to her sat isfaction. She was encouraged to call with any interval questions or concerns. 1. RTC PRN 2. Due for bilateral screening mammogram in 1 year Vicky Yuen PA-C ACTION MACHINE OPERATOR documented in this encounter Plan of Treatment Not on filedocumented as of this encounter Visit Diagnoses Diagnosis Inversion of nipple Other sign and symptom in breast documented in this encounter
--- OUTSIDE RECORDS SUMMARY | 2020-05-17 14:12 | XMS REPORT | Encounter Summary ---
Author Author [facility] Organization [facility] Address Unknown Phone Unavailable Care Team Providers Care Social Human Services Assistants Name Role Phone Jonatan Dick MD Unavailable Claudia Perez NP PCP Zahida Thomas DO Unavailable Reason for Visit * Reason Comments Parkinson's Disease Encounter Details Care Team Description Date Type Department Little Tilley MD [address] [place] [address] Parkinson disease (HCC) (Primary Dx) 05/10/2020 Office Visit [facility] [address] [place] [address] Social History Date Tobacco Use [...] Pressure 54 05/10/2020 11:00 AM CDT Pulse - - Temperature - - Respiratory Rate - - Oxygen Saturation - - Inhaled Oxygen Concentration 103.9 kg (229 lb) 05/10/2020 11:00 AM CDT Weight 166.4 cm (5' 5.51") 05/10/2020 11:00 AM CDT Height 37.51 05/10/2020 11:00 AM CDT Body Mass Index documented in [...] impairment: No documented as of this encounter Patient Instructions * Patient Instructions* Little Tilley MD - 05/10/2020 11:00 AM CDT - Increase sinemet 25/100 1.5-1.5- 1 tab three times per day - monitor tremor whether it is more noticeable towards end of dose of medication or any time of the day - Continue exercise regularly. - notify us for any concerns - Follow up in 6 months documented in this encounter Progress Notes * Little Tilley MD - 05/10/2020 11:00 AM CDT Obtained patient's, or patient proxy's, verbal consent to treat them and their a greement to [facility] financial policy and NPP via this telehealth visit during the [facility] Tele-health visit via zoom: Ms Carlita Rodriguez is 69 y.o. right handed female wi th parkinson disease who presents today for follow up. Accompanied by: Interval history: Since last visit she is about the same. She notice tremor more now but overall n ot major change. She denies gait changes, cognitive changes. She exercise regul gayle. She denies constipation. She denies falls. History 10/2017: She was diagnosed with PD in [address] Jonatan Dick, symptom o nset with tremor in right hand and right foot. She was started on CL and noticed improvement in gait. Her tremor improved little bit. She is on CL 1 tab TID. She continues to have tremor in right hand but its not bothersome to her. Tremor occurs mostly at rest. Her gait is steady ,denies falls. She denies tremor in l eft leg or jaw. She sometimes has issues with falling asleep. She denies diplop ia, vertigo, dysphagia. She is independent with ADL. She exercise regularly. Review of motor symptoms: Tremor: denies Stiffness/rigidity: denies Slowness: denies Freezing of gait: denies Difficulty with gait: denies Falls: denies Speech Changes: denies Swallowing difficulty: rarely Handwriting changes: denies Abnormal postures: denies Review of nonmotor symptoms: Cognition: denies Hallucinations: denies Depression/Anxiety: denies REM behavior disorder: denies Sensory changes (ie, smell or taste): denies Cramps/pain: denies Constipation: denies Urinary retention, frequency, or incontinence: denies Dizziness upon standing: occasional dizziness in the past which has resolved Excessive saliva/drooling: denies Medications: Reviewed in patients electronic medical record Current Outpatient Medications Medication Sig Dispense Refill aspirin EC 81 mg tablet Take 81 mg by mouth daily. Take with food. atenolol (TENORMIN) 25 mg tablet atorvastatin (LIPITOR) 10 mg tablet Take 10 mg by mouth. carbidopa/levodopa (SINEMET) 25/100 mg tablet TAKE 1 TABLET BY MOUTH THREE T IMES DAILY ONE HOUR PRIOR TO MEALS AT 7AM, 11AM, AND 3PM 270 tablet 0 Cholecalciferol (Vitamin D3) 2,000 unit cap Take 1 capsule by mouth daily. levothyroxine (SYNTHROID) 50 mcg tablet Take 50 mcg by mouth daily 30 minute s before breakfast. loratadine (CLARITIN) 10 mg tablet take 1 tablet (10MG) by ORAL route ever y day nitroglycerin (NITROSTAT) 0.[address] 0.4 mg under tongue. Fsfoi-1-OQH-EPA-Fish Oil (FISH OIL) 1,000 mg (120 mg-180 mg) cap Take 2 caps ules by mouth. Therapeutic Multivitamin tab Take 1 tablet by mouth. No current facility-administered medications for this visit. Past Medical History: Medical History: Diagnosis Date Abnormal involuntary movement Heart abnormality HLD (hyperlipidemia) HTN (hypertension) Hypothyroid Inverted nipple NE (mitral incompetence) 1998 Parkinson disease (HCC) Surgical History: Procedure Laterality Date TONSIL AND ADENOIDECTOMY 1955 TUMOR REMOVAL 1986 Fatty tumor removed from back CARDIAC SURGERY 1999 Stent placement HX HYSTERECTOMY 2003 UPPER GASTROINTESTINAL ENDOSCOPY 2012 COLONOSCOPY HX CHOLECYSTECTOMY SKIN LESION REMOVAL nose MAXINE AND BSO Social History: No smoking, no alcohol, no drugs She is working currently. Family History: GM - parkinson disease Brother - Parkinson disease Allergies: Allergies Allergen Reactions Adhesive Tape (Rosins) RASH Penicillins RASH Bactrim [Sulfamethoxazole-Trimethoprim] SEE COMMENTS Pt. Took medication and ended up with liver damage Niaspan [Niacin] FLUSHING (SKIN) Paxil [Paroxetine Hcl] SEE COMMENTS Pt. Reports having all the listed side effects from medication. Plavix [Clopidogrel] UNKNOWN Review of systems: Neurological: Positive for tremors (Right Hand). Psychiatric/Behavioral: Positive for sleep disturbance. All other systems reviewed and are negative. Exam: VITAL SIGNS: Vitals: 05/10/20 1100 BP: 130/69 Pulse: 54 GENERAL: well developed, NAD NEUROLOGICAL EXAM: MS: Alert and oriented x 3, fluent speech, good speech volume, comprehension int act CN: EOMI, face symmetric, uvula/palate elevates symmetrically, tongue midline, shoulder shrug symmetric MOTOR: No pronator drift Tremor: There is mild rest tremor intermittently Dyskinesia: none COORDINATION: Intact to FTN in UE bilaterally without ataxia GAIT: Able to stand up without difficulty, normal posture, slightly reduced righ t arm swing compared to left, fair turns, pull test - normal MRI brain in 2016 reviewed: Unremarkable MRI of the head for age. NM DAVONTE SPECT scan reviewed: Normal uptake in the right caudate head. Mildly dec reased uptake in the left caudate head. Absent uptake in the right putamen. Absent uptake in the left putamen. Assessment/Plan: Parkinson disease - Overall doing well. Tremor is more noticeable, discussed th at it could be from medication wearing off vs she may need a higher dose to supp ress tremor. Sometimes anxiety can worsens tremor. Recommend to increase dose o f sinemet to see if that helps. Previously discuss to add azilect but she did n ot want to add it. - Increase sinemet 25/100 1.5-1.5- 1 tab three times per day - monitor tremor whether it is more noticeable towards end of dose of medication or any time of the day - Continue exercise regularly. - notify us for any concerns - Follow up in 6 months Little Tilley MD [facility] documented in this encounter Plan of Treatment Not on filedocumented as of this encounter Visit Diagnoses Diagnosis Parkinson disease (HCC) Paralysis agitans documented in this encounter
--- OUTSIDE RECORDS SUMMARY | 2020-05-17 14:13 | XMS REPORT ---
Author Author Carlita ADAMS Organization [facility] Address [address] [place] [address] Care Team Providers Care Technical Instructor Course Developer Name Role Phone REMINGTON ADAMS Unavailable PROBLEMS Type Condition ICD9-CM Code IKK57-DO Code Onset Dates Condition S tatus SNOMED Code Problem Parkinsons G20 Active 31711395 Problem Morbid (severe) obesity due to excess calories E66 .01 Active 377247499 Problem History of HI (myocardial infarction) I25.2 Active 076063844 Problem Hypercholesteremia E78.00 Active 1 7885527 Problem Hypothyroidism, unspecified type E03.9 Active 56148208 ALLERGIES No Information ENCOUNTERS Encounter Location Date Diagnosis [place] [address] [id number] Dec, [place] [address] [place] [id number] Nov, Hypothyroidism, unspecified type E03.9 [place] [address] [address] [place] [address] Sep, Hypothyroidism, unspecified type E03.9 ; Parkinsons G20 ; Hypercholesteremia E78.00 and History of HI (myocardial infarction) I25.2 [place] [address] [address] [place] [address] Sep, Hypercholesteremia E78.00 ; Hypothyroidism, unspecified type E03.9 and Parkinsons G20 [place] [address] [place] [address] Jun, Hypercholesteremia E78.00 ; Hypothyroidism, unspecified type E03.9 ; Parkinsons G20 and History of HI (myocardial infarction) I25.2 [place] [address] [address] [place] [address] Jun, Hypothyroidism, unspecified type E03.9 and Hypercholesteremia E78.00 [place] [address] [address] [place] [address] Mar, History of HI (myocardial in farction) I25.2 ; Parkinsons G20 ; Hypercholesteremia E78.00 and Hypothyroidism, unspecified type E03.9 [place] [address] [place] [address] Dec, [place] [address] [place] [address] Dec, Hypothyroidism, unspecified type E03.9 ; Parkinsons G20 and History of HI (myocardial infarction) I25.2 [place] [address] [address] [place] [address] Dec, Hypercholesteremia E78.00 ; Hypothyroidism, unspecified type E03.9 ; Parkinsons G20 and Bradycardia R00.1 [place] [address] [address] [place] [address] Dec, IMMUNIZATIONS No Known Immunizations SOCIAL HISTORY Never Assessed REASON FOR VISIT Routine nurse call PLAN OF CARE VITAL SIGNS MEDICATIONS Unknown Medications RESULTS No Results PROCEDURES No Known procedures INSTRUCTIONS MEDICATIONS ADMINISTERED No Known Medications MEDICAL (GENERAL) HISTORY Type Description Date Medical History Hypercholesteremia Medical History Hypothyroidism, unspecified Medical History Parkinson disease Medical History Nonrheumatic tricuspid (valve) stenosis Medical History History of HI (myocardial infarction) Surgical History hysterectomy Surgical History Hx upper endoscopy Surgical History Hx tonsillectomy Surgical History Hx coronary stent placement Hospitalization History see surgical
--- OUTSIDE RECORDS SUMMARY | 2020-05-17 14:13 | XMS REPORT | Continuity of Care Document ---
Author Organization Unknown Address Unknown Phone Unavailable Allergies There is no data. Medications There is no data. Problems Date Dx Coded Attending Type Code Diagnosis Diagnosed By 11/10/2014 BRANDEN ANAND DO Ot 793.8 9 11/10/2014 BRANDEN ANAND DO Ot V67.9 11/26/2014 BRANDEN ANAND DO Ot 793.8 9 11/26/2014 BRANDEN ANAND DO Ot V67.9 11/24/2015 BRANDEN ANAND DO Ot Z12.3 1 12/21/2016 Ot V76.12 OTH SCREEN MAMMO- MALIGN NEOPLASM OF BHARATH 12/21/2016 Ot 793.89 OTH (ABN) FINDINGS ON RADIOLOGICAL EXAMI 12/21/2016 Ot V76.12 OTH SCREEN MAMMO- MALIGN NEOPLASM OF BHARATH 12/21/2016 Ot 610.0 LILLY TARY CYST OF BREAST 12/21/2016 Ot 793.80 UNS PEC ABNORMAL MAMMOGRAM 12/21/2016 BRANDEN ANAND DO Ot 793.8 0 UNSPEC ABNORMAL MAMMOGRAM 12/21/2016 BRANDEN ANAND DO Ot V67.9 FOLLOW-UP EXAM NOS 12/21/2016 BRANDEN ANAND DO Ot 793.8 9 OTH (ABN) FINDINGS ON RADIOLOGICAL EXAMI 12/21/2016 BARNDEN ANAND DO Ot V67.9 FOLLOW-UP EXAM NOS 12/21/2016 BRANDEN ANAND DO Ot Z12.3 1 ENCNTR SCREEN MAMMOGRAM FOR MALIGNANT NE 12/24/2016 Ot V76.12 OTH SCREEN MAMMO- MALIGN NEOPLASM OF BHARATH 12/24/2016 Ot 793.89 OTH (ABN) FINDINGS ON RADIOLOGICAL EXAMI 12/24/2016 Ot V76.12 OTH SCREEN MAMMO- MALIGN NEOPLASM OF BHARATH 12/24/2016 Ot 610.0 LILLY TARY CYST OF BREAST 12/24/2016 Ot 793.80 UNS PEC ABNORMAL MAMMOGRAM 12/24/2016 BRANDEN ANAND DO Pipe Ot 793.8 0 UNSPEC ABNORMAL MAMMOGRAM 12/24/2016 CHENG MEDEL BRANDEN C Ot V67.9 FOLLOW-UP EXAM NOS 12/24/2016 CHENG MEDEL BRANDEN Pipe Ot 793.8 9 OTH (ABN) FINDINGS ON RADIOLOGICAL EXAMI 12/24/2016 CHENG MEDEL BRANDEN Pipe Ot V67.9 FOLLOW-UP EXAM NOS 12/24/2016 CHENG MEDEL BRANDEN C Ot Z12.3 1 ENCNTR SCREEN MAMMOGRAM FOR MALIGNANT NE 12/26/2016 CHENG MEDEL BRANDEN C Ot N63 UNSPECIFIED LUMP IN BREAST 12/26/2016 CHENG MEDELBRANDEN Ot Z12.3 1 ENCNTR SCREEN MAMMOGRAM FOR MALIGNANT NE 01/07/2017 ANAND BRANDEN Ot R92.1 MAMMOGRAPHIC CALCIFCN FOUND ON DIAGNOSTI 01/07/2017 ANANDBRANDEN Mcclendon DO Ot R92.8 OTH ABN AND INCONCLUSIVE FINDINGS ON DX 01/09/2017 ANANDBRANDEN Mcclendon DO Ot N63 UNSPECIFIED LUMP IN BREAST 01/09/2017 ANAND BRANDEN Ot Z12.3 1 ENCNTR SCREEN MAMMOGRAM FOR MALIGNANT NE 01/16/2017 ANAND BRANDEN Ot R92.1 MAMMOGRAPHIC CALCIFCN FOUND ON DIAGNOSTI 01/16/2017 CHENG MEDEL BRANDEN C Ot R92.8 OTH ABN AND INCONCLUSIVE FINDINGS ON DX 07/30/2017 CHENG MEDELBRANDEN Ot R92.1 MAMMOGRAPHIC CALCIFCN FOUND ON DIAGNOSTI 01/02/2018 BRANDEN ANAND DO Ot Z12.3 1 ENCNTR SCREEN MAMMOGRAM FOR MALIGNANT NE 01/02/2018 SUSIE ANAND DOA C Ot Z12.3 1 ENCNTR SCREEN MAMMOGRAM FOR MALIGNANT NE 01/03/2018 BRANDEN ANAND DO Ot Z12.3 1 ENCNTR SCREEN MAMMOGRAM FOR MALIGNANT NE 01/31/2018 BRANDEN ANAND DO Ot Z12.3 1 ENCNTR SCREEN MAMMOGRAM FOR MALIGNANT NE 01/09/2019 BRANDEN ANAND DO Ot 793.8 0 UNSPEC ABNORMAL MAMMOGRAM 01/09/2019 BRANDEN ANAND DO Ot V67.9 FOLLOW-UP EXAM NOS 01/09/2019 BRANDEN ANAND DO Ot 793.8 9 OTH (ABN) FINDINGS ON RADIOLOGICAL EXAMI 01/09/2019 BRANDEN ANAND DO Ot V67.9 FOLLOW-UP EXAM NOS 01/09/2019 BRANDEN ANAND DO Ot Z12.3 1 ENCNTR SCREEN MAMMOGRAM FOR MALIGNANT NE 01/09/2019 BRANDEN ANAND DO C Ot N63 UNSPECIFIED LUMP IN BREAST 01/09/2019 BRANDEN ANAND DO C Ot Z12.3 1 ENCNTR SCREEN MAMMOGRAM FOR MALIGNANT NE 01/09/2019 SUSIE ANAND DOA C Ot R92.1 MAMMOGRAPHIC CALCIFCN FOUND ON DIAGNOSTI 01/09/2019 SUSIE ANAND DOA C Ot R92.8 OTH ABN AND INCONCLUSIVE FINDINGS ON DX 01/09/2019 BRANDEN ANAND DO C Ot R92.1 MAMMOGRAPHIC CALCIFCN FOUND ON DIAGNOSTI 01/09/2019 SUSIE ANAND DOA C Ot Z12.3 1 ENCNTR SCREEN MAMMOGRAM FOR MALIGNANT NE 01/09/2019 BRANDEN ANAND DO C Ot Z12.3 1 ENCNTR SCREEN MAMMOGRAM FOR MALIGNANT NE 01/11/2019 SUSIE ANAND DOA C Ot Z12.3 1 ENCNTR SCREEN MAMMOGRAM FOR MALIGNANT NE 02/02/2019 SUSIE ANAND DOA C Ot Z12.3 1 ENCNTR SCREEN MAMMOGRAM FOR MALIGNANT NE 05/11/2019 BRANDEN ANAND DO Ot 793.8 9 OTH (ABN) FINDINGS ON RADIOLOGICAL EXAMI 05/11/2019 BRANDEN ANAND DO Ot V67.9 FOLLOW-UP EXAM NOS 05/11/2019 BRANDEN ANAND DO C Ot Z12.3 1 ENCNTR SCREEN MAMMOGRAM FOR MALIGNANT NE 05/11/2019 BRANDEN ANAND DO C Ot N63 UNSPECIFIED LUMP IN BREAST 05/11/2019 SUSIE ANAND DOA C Ot Z12.3 1 ENCNTR SCREEN MAMMOGRAM FOR MALIGNANT NE 05/11/2019 SUSIE ANAND DOA C Ot R92.1 MAMMOGRAPHIC CALCIFCN FOUND ON DIAGNOSTI 05/11/2019 CHENG MEDEL BRANDEN C Ot R92.8 OTH ABN AND INCONCLUSIVE FINDINGS ON DX 05/11/2019 SUSIE ANAND DOA C Ot R92.1 MAMMOGRAPHIC CALCIFCN FOUND ON DIAGNOSTI 05/11/2019 BRANDEN ANAND DO C Ot Z12.3 1 ENCNTR SCREEN MAMMOGRAM FOR MALIGNANT NE 05/11/2019 SUSIE ANAND DOA C Ot Z12.3 1 ENCNTR SCREEN MAMMOGRAM FOR MALIGNANT NE 05/11/2019 BRANDEN ANAND DO C Ot N64.5 3 RETRACTION OF NIPPLE 05/14/2019 BRANDEN ANAND DO C Ot 793.8 9 OTH (ABN) FINDINGS ON RADIOLOGICAL EXAMI 05/14/2019 BRANDEN ANAND DO C Ot V67.9 FOLLOW-UP EXAM NOS 05/14/2019 BRANDEN ANADN DO C Ot Z12.3 1 ENCNTR SCREEN MAMMOGRAM FOR MALIGNANT NE 05/14/2019 BRANDEN ANAND DO C Ot N63 UNSPECIFIED LUMP IN BREAST 05/14/2019 BRANDEN ANAND DO C Ot Z12.3 1 ENCNTR SCREEN MAMMOGRAM FOR MALIGNANT NE 05/14/2019 BRANDEN ANAND DO C Ot R92.1 MAMMOGRAPHIC CALCIFCN FOUND ON DIAGNOSTI 05/14/2019 BRANDEN ANAND DO C Ot R92.8 OTH ABN AND INCONCLUSIVE FINDINGS ON DX 05/14/2019 SUSIE ANAND DOA C Ot R92.1 MAMMOGRAPHIC CALCIFCN FOUND ON DIAGNOSTI 05/14/2019 BRANDEN ANAND DO C Ot Z12.3 1 ENCNTR SCREEN MAMMOGRAM FOR MALIGNANT NE 05/14/2019 SUSIE ANAND DOA C Ot Z12.3 1 ENCNTR SCREEN MAMMOGRAM FOR MALIGNANT NE 05/14/2019 BRANDEN ANAND DO C Ot N64.5 3 RETRACTION OF NIPPLE 05/21/2019 CHENG MEDEL BRANDEN C Ot N64.5 3 RETRACTION OF NIPPLE 06/08/2019 CHENG MEDEL BRANDEN C Ot N64.5 3 RETRACTION OF NIPPLE Procedures There is no data. Results Test Result Range LIPID PANEL - 01/15/19 09:33 CHOLESTEROL, TOTAL 143 mg/dL <200 HDL CHOLESTEROL 63 mg/dL >50 TRIGLYCERIDES 99 mg/dL <150 LDL-CHOLESTEROL 62 mg/dL (calc) NRG CHOL/HDLC RATIO 2.3 (calc) <5.0 NON HDL CHOLESTEROL 80 mg/dL (calc) <130 CMP - 01/15/19 09:33 GLUCOSE 92 mg/dL 65-99 UREA NITROGEN (BUN) 16 mg/dL 7-25 CREATININE 0.75 mg/dL 0.50-0.99 eGFR NON-AFR. RUSSIAN 83 mL/min/1.73m2 > OR = 60 eGFR 96 mL/min/1.73m2 > OR = 60 BUN/CREATININE RATIO NOT APPLICABLE (calc) 6-22 SODIUM 141 mmol/L 135-146 POTASSIUM 4.1 mmol/L 3.5-5.3 CHLORIDE 104 mmol/L 98-110 CARBON DIOXIDE 31 mmol/L 20-32 CALCIUM 9.4 mg/dL 8.6-10.4 PROTEIN, TOTAL 6.8 g/dL 6.1-8.1 ALBUMIN 4.2 g/dL 3.6-5.1 GLOBULIN 2.6 g/dL (calc) 1.9-3.7 ALBUMIN/GLOBULIN RATIO 1.6 (calc) 1.0-2. 5 BILIRUBIN, TOTAL 0.6 mg/dL 0.2-1.2 ALKALINE PHOSPHATASE 80 U/L 33-130 AST 23 U/L 10-35 ALT 8 U/L 6- TSH - 01/15/19 09:33 TSH 2.23 mIU/L 0.40-4.50 CMP - 04/16/19 11:18 GLUCOSE 91 mg/dL 65-99 UREA NITROGEN (BUN) 17 mg/dL 7-25 CREATININE 0.83 mg/dL 0.50-0.99 eGFR NON-AFR. RUSSIAN 73 mL/min/1.73m2 > OR = 60 eGFR 85 mL/min/1.73m2 > OR = 60 BUN/CREATININE RATIO NOT APPLICABLE (calc) 6- SODIUM 140 mmol/L 135-146 POTASSIUM 4.4 mmol/L 3.5-5.3 CHLORIDE 104 mmol/L 98-110 CARBON DIOXIDE 29 mmol/L 20-32 CALCIUM 9.6 mg/dL 8.6-10.4 PROTEIN, TOTAL 7.3 g/dL 6.1-8.1 ALBUMIN 4.2 g/dL 3.6-5.1 GLOBULIN 3.1 g/dL (calc) 1.9-3.7 ALBUMIN/GLOBULIN RATIO 1.4 (calc) 1.0-2. 5 BILIRUBIN, TOTAL 0.9 mg/dL 0.2-1.2 ALKALINE PHOSPHATASE 78 U/L 33-130 AST 22 U/L 10-35 ALT 9 U/L 6-29 CBC w/MANUAL DIFF - 04/16/19 11:18 WHITE BLOOD CELL COUNT 6.9 Thousand/uL 3 .8-10.8 RED BLOOD CELL COUNT 4.77 Million/uL 3.8 0-5.10 HEMOGLOBIN 14.1 g/dL 11.7-15.5 HEMATOCRIT 43.2 % 35.0-45.0 MCV 90.6 fL 80.0-100.0 MCH 29.6 pg 27.0-33.0 MCHC 32.6 g/dL 32.0-36.0 RDW 12.5 % 11.0-15.0 PLATELET COUNT 286 Thousand/uL 140-400 MPV 10.1 fL 7.5-12.5 ABSOLUTE NEUTROPHILS 3416 cells/uL 1500- 7800 ABSOLUTE MONOCYTES 421 cells/uL 200-950 ABSOLUTE EOSINOPHILS 421 cells/uL 15-500 ABSOLUTE BASOPHILS 207 cells/uL 0-200 NEUTROPHILS 49.5 % NRG LYMPHOCYTES 35.3 % NRG MONOCYTES 6.1 % NRG EOSINOPHILS 6.1 % NRG BASOPHILS 3.0 % NRG ABSOLUTE LYMPHOCYTES 2436 cells/uL 850-3 900 PLATELET ESTIMATION ADEQUATE ADEQUATE LIPID PANEL - 07/15/19 10:08 CHOLESTEROL, TOTAL 146 mg/dL <200 HDL CHOLESTEROL 62 mg/dL >50 TRIGLYCERIDES 100 mg/dL <150 LDL-CHOLESTEROL 65 mg/dL (calc) NRG CHOL/HDLC RATIO 2.4 (calc) <5.0 NON HDL CHOLESTEROL 84 mg/dL (calc) <130 CMP - 07/15/19 10:08 GLUCOSE 91 mg/dL 65-99 UREA NITROGEN (BUN) 14 mg/dL 7-25 CREATININE 0.77 mg/dL 0.50-0.99 eGFR NON-AFR. RUSSIAN 80 mL/min/1.73m2 > OR = 60 eGFR 93 mL/min/1.73m2 > OR = 60 BUN/CREATININE RATIO NOT APPLICABLE (calc) 6-22 SODIUM 140 mmol/L 135-146 POTASSIUM 4.1 mmol/L 3.5-5.3 CHLORIDE 107 mmol/L 98-110 CARBON DIOXIDE 27 mmol/L 20-32 CALCIUM 9.3 mg/dL 8.6-10.4 PROTEIN, TOTAL 6.9 g/dL 6.1-8.1 ALBUMIN 4.0 g/dL 3.6-5.1 GLOBULIN 2.9 g/dL (calc) 1.9-3.7 ALBUMIN/GLOBULIN RATIO 1.4 (calc) 1.0-2. 5 BILIRUBIN, TOTAL 0.9 mg/dL 0.2-1.2 ALKALINE PHOSPHATASE 92 U/L 33-130 AST 20 U/L 10-35 ALT 7 U/L 6-29 CBC w/MANUAL DIFF - 07/15/19 10:08 WHITE BLOOD CELL COUNT 5.3 Thousand/uL 3 .8-10.8 RED BLOOD CELL COUNT 4.70 Million/uL 3.8 0-5.10 HEMOGLOBIN 13.8 g/dL 11.7-15.5 HEMATOCRIT 43.1 % 35.0-45.0 MCV 91.7 fL 80.0-100.0 MCH 29.4 pg 27.0-33.0 MCHC 32.0 g/dL 32.0-36.0 RDW 12.5 % 11.0-15.0 PLATELET COUNT 260 Thousand/uL 140-400 MPV 10.3 fL 7.5-12.5 ABSOLUTE NEUTROPHILS 2120 cells/uL 1500- 7800 ABSOLUTE MONOCYTES 424 cells/uL 200-950 ABSOLUTE EOSINOPHILS 477 cells/uL 15-500 ABSOLUTE BASOPHILS 53 cells/uL 0-200 NEUTROPHILS 40 % NRG LYMPHOCYTES 40 % NRG MONOCYTES 8 % NRG EOSINOPHILS 9 % NRG BASOPHILS 1 % NRG ABSOLUTE BAND NEUTROPHILS 106 cells/uL 0 -750 ABSOLUTE LYMPHOCYTES 2120 cells/uL 850-3 900 BAND NEUTROPHILS 2 % NRG PLATELET ESTIMATION ADEQUATE ADEQUATE CBC MORPHOLOGY NORMAL TSH - 07/15/19 10:08 TSH 1.42 mIU/L 0.40-4.50 TSH - 10/14/19 08:15 TSH 2.40 mIU/L 0.40-4.50 TSH - 04/06/20 09:33 TSH 1.25 mIU/L 0.40-4.50 Encounters ACCT No. Visit Date/Time Discharge Status Pt. Type Provider Facility Loc./Unit Complaint [id number] 05/06/2020 10:00:00 05/06/2020 23:59: 59 CLS Outpatient [facility] [id number] 04/06/2020 09:15:00 Document Registration [id number] 10/14/2019 07:45:00 Document Registration [id number] 07/15/2019 10:00:00 Document Registration [id number] 04/16/2019 10:20:00 Document Registration [id number] 01/15/2019 08:20:00 Document Registration [id number] 05/14/2019 09:16:00 019 23:59:59 CLS Outpatient BRANDEN ANAND DO Via [facility] RAD RETRACTED NIPPLE [id number] 01/09/2019 10:54:00 019 23:59:59 CLS Outpatient BRANDEN ANAND DO [facility] RAD SCREENING [id number] 01/02/2018 10:13:00 018 23:59:59 CLS Outpatient BRANDEN ANAND DO [facility] RAD Z12.31 [id number] 07/19/2017 09:05:00 017 23:59:59 CLS Outpatient BRANDEN ANAND DO [facility] RAD BREAST CALCIFICATIONS [id number] 01/04/2017 07:57:00 017 23:59:59 CLS Outpatient BRANDEN ANAND DO [facility] RAD ABNORMAL MAMMO [id number] 12/21/2016 10:07:00 017 23:59:59 CLS Outpatient BRANDEN ANAND DO [facility] RAD SCREENING [id number] 11/11/2015 11:22:00 016 23:59:59 CLS Outpatient BRANDEN ANAND DO [facility] RAD SCREENING [id number] 11/05/2014 09:10:00 015 23:59:59 CLS Outpatient BRANDEN ANAND DO [facility] RAD FOLLOW UP [id number] 09/03/2013 12:02:00 013 23:59:59 CLS Outpatient BRANDEN ANAND DO [facility] RAD SIX MONTH FOLLOW-UP,[facility] [id number] 01/01/2013 11:53:00 Document Registration [id number] 08/25/2012 12:23:00 Document Registration [id number] 08/15/2012 13:28:00 Document Registration [id number] 08/17/2011 11:15:00 Document Registration
--- OUTSIDE RECORDS SUMMARY | 2020-05-17 14:13 | XMS REPORT ---
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 Name Role Phone BRANDEN ANAND DO Unavailable Unavailable BRYAN, REMINGTON S Unavailable Unavailable SUSIE ANAND DOA C Unavailable Unavailable BRYAN REMINGTON Unavailable Unavailable Unavailable XENA TEJADA DO Unavailable Unavailable Unavailable Unavailable Unavailable Unavailable Unavailable Unavailable Unavailable Unavailable Unavailable Unavailable Unavailable Unavailable Unavailable Unavailable Allergies The data below is from unstructured sources No Information Encounters Encounter Date Encounter Type Encounter Diagnosis Care Provider Facility Start: Emergency department XENA TEJADA [facility] 05-17-2020 patient visit DO [facility] Start: Patient encounter REMINGTON S BRYAN [facility] 05-06-2020 procedure [facility] Start: Patient encounter REMINGTON S BRYAN [facility] 04-06-2020 procedure [facility] Start: Telephone encounter Hypothyroidism, REMINGTON BRYAN C [facility] ANNMARIE YUAN 12-22-2019 unspecified MAIN [facility] Hypothyroidism, REMINGTON BRYAN [facility] ANNMARIE Y[facility]AN 10-16-2019 MAIN unspecified MAIN Start: Consultation for Pure [facility] ODILIA Y[facility]AN 10-14-2019 laboratory medicine hypercholesterolemia, [place] unspecified Start: Patient encounter NA [facility] 10-14-2019 procedure [facility] ([id number]) [facility] KWABENA Pure [facility] 07-17-2019 MAIN hypercholesterolemia, MAIN unspecified Start: Patient encounter NA [facility] 07-17-2019 procedure [facility] ([id number]) Start: Consultation for Hypothyroidism, REMINGTON BRYAN [facility] ANNMARIE YUAN 07-15-2019 laboratory medicine unspecified MAIN Start: Patient encounter NA [facility] 07-15-2019 procedure [facility] ([id number]) Start: Patient encounter BRANDEN FONSECAW DO [facility] 05-14-2019 procedure [facility] ([id number]) Start: Patient encounter BRANDEN ANAND DO [facility] 05-14-2019 procedure [facility] ([id number]) Start: [facility] encounter NA [facility]2019 [facility] ([id number]) Start: [facility] ANNMARIE YUAN Old myocardial REMINGTON BRYAN [facility] ANNMARIE YUAN 04-16-2019 MAIN infarction MAIN Start: Patient encounter [facility] 04-16-2019 procedure [facility] ([id number]) Start: Telephone encounter REMINGTON ADAMS [facility] FO RT KWABENA 01-23-2019 MAIN Start: Patient encounter [facility]CHELSEA ADAMS [facility] 01-15-2019 procedure [facility] ([id number]) Start: [facility] ANNMARIE YUAN Hypothyroidism, REMINGTONCHELSEA YBARRAE [facility] ANNMARIE YUAN 01-15-2019 MAIN unspecified MAIN Start: [facility] encounter NA [facility] 01-15-2019 procedure [facility] ([id number]) Start: Telephone encounter Pure REMINGTONCHELSEA ADAMS [facility] ANNMARIE YUAN 01-14-2019 hypercholesterolemia, MAIN unspecified Start: Patient encounter BRANDEN FONSECAW DO [facility] ([id number]) 01-09-2019 procedure Start: Telephone encounter REMINGTON ADAMS [facility] FO RT KWABENA 12-30-2018 MAIN Start: Patient encounter 01-02-2018 procedure Start: Patient encounter BRANDEN ANAND DO [facility] ([id number]) 07-19-2017 procedure Start: Patient encounter BRANDEN ANAND DO [facility] ([id number]) 01-04-2017 procedure Start: Patient encounter BRANDEN ANAND DO [facility] ([id number]) 12-21-2016 procedure Start: Patient encounter BRANDEN ANAND DO [facility] ([id number]) 11-11-2015 procedure Start: Patient encounter BRANDEN ANAND DO [facility] ([id number]) 11-05-2014 procedure Start: Patient encounter BRANDEN ANAND DO [facility] ([id number]) 09-03-2013 procedure Start: Patient encounter BRANDEN ANAND DO [facility] ([id number]) 01-01-2013 procedure Start: Patient encounter BRANDEN ANAND DO [facility] ([id number]) 08-25-2012 procedure Start: Patient encounter BRANDEN ANAND DO [facility] ([id number]) 08-15-2012 procedure Start: Patient encounter BRANDEN ANAND DO Not [facility] ([id number]) 08-17-[address] NA [facility]. procedure Historical Data Code (51470) Medical Equipment No Information Goals No Information Immunizations Immunizatio Immunization Notes Care Provider Facility n Date 09-15-2019 influenza, high dose NA NA [facility] seasonal, [facility] - preservative-free [facility] ([id number]) 08-28-2018 pneumococcal NA NA [facility] polysaccharide [facility] - vaccine, [facility] [place] ([id number]) 08-07-[address] [facility]. vaccine, unspecified Historical Data Code formulation (94422) 07-28-2018 pneumococcal NA [facility]. Conjugate, unspecified Historical Data Code formulation (81836) 09-11-2016 influenza virus [facility]. vaccine, unspecified CANCER CENTER IC Exam formulation (26037) 09-11-2016 pneumococcal conjugate NA [facility] vaccine, 13 valent [facility] (46135) 08-18-[address] [facility]. vaccine, unspecified CANCER CENTER IC Exam formulation (04306) 08-13-[address] [facility]. vaccine, unspecified CANCER CENTER IC Exam formulation (31554) 05-30-2013 tetanus toxoid, NA Critical access hospital reduced diphtheria [facility] - toxoid, and acellular [facility] pertussis vaccine, (21098) adsorbed 06-30-2009 pneumococcal NA [facility] polysaccharide [facility] - vaccine, 23 [facility] [place] (84121) 10-28-2008 novel NA [facility] s. [id number], Historical Data Code injectable (87064) 10-28-1987 hepatitis B vaccine, NA NA [facility]. unspecified Historical Data Code formulation (61901) Interventions No Information Medications The data below is from unstructured sources Unknown Medications No Known Medications Payers No Information Plan of Treatment Date Care Activity Detail Author Start: [facility] 01-15-2020 Problems Active Problems Problem Problem Date Last Documented Episodic/Chr Provider Classificati Recorded Date onic on Coronary History of myocardial infarction ; Chronic REMINGTON BRYAN atherosclero Translations: [Old myocardial Other Phone: sis and infarction] [phone] other heart 0 disease (5 sources) Disorders of Hypercholesterolemia ; Chronic AMAND A BRYAN lipid Translations: [Pure Other Phone: metabolism hypercholesterolemia, unspecified] [phone] (7 sources) 0 Other Morbid obesity ; Translations: Chronic REMINGTON BRYAN nutritional; [Morbid (severe) obesity due to Oth er Phone: endocrine; excess calories] [phone] and 0 metabolic disorders (1 source) Parkinson`s Parkinson's disease ; Translations: Chronic REMINGTON BRYAN disease [Parkinson's disease] Other Phone: (7 sources) Thyroid Hypothyroidism ; Translations: Chronic REMINGTON BRYAN disorders [Hypothyroidism, unspecified] Other Phone: (9 sources) Past or Other Problems Problem Problem Date Last Documented Episodic/Chr Provider Classificati Recorded Date onic on Cardiac Bradycardia, unspecified ; Episodic A DIANNA BRYAN dysrhythmias Translations: [ - Bradycardia Other Phone: (1 source) R00.1] [phone] Nonmalignant Mammographic calcification found on Episodic BRANDEN ANAND breast diagnostic imaging of breast ; DO conditions Translations: [Unspecified lump in (20 sources) breast] Other Unspecified follow-up examination Episodic BRANDEN ANAND aftercare DO (8 sources) Other Encounter for screening mammogram Episodic BRANDEN ANAND screening for malignant neoplasm of breast ; DO for Translations: [Other (abnor mal) suspected findings on radiological conditions examination of breast] (not mental disorders or infectious disease) (21 sources) Procedures The data below is from unstructured sources No Known procedures Results Test Name Value Interpreta Reference Facilit Date tion Range y Time laboratory on 2020-05-17 Albumin [Mass/Vol] 4.3 g/dL Negative 3.2-4.5 PENDING - 1-2 g/dL [facility] 0[facility] N [facility] 08:30-0 ([id number]) 400 ALP [Catalytic 97 U/L Negative 40-136 U/L PENDING activity/Vol] [facility] 08:30-0 ([id number]) 400 ALT [Catalytic 5 U/L Negative 0-55 U/L PENDING activity/Vol] [facility] 020 N [facility] 08:30-0 ([id number]) 400 Anion gap 12 mmol/L Negative 5-14 PENDING [Moles/Vol] mmol/L [facility] 020 N [facility] 08:30-0 ([id number]) 400 AST [Catalytic 23 U/L Negative 5-34 U/L PENDING activity/Vol] [facility] 020 N [facility] 08:30-0 ([id number]) 400 Bacteria LM Ql TRACE Invalid PENDING (Urine sed) Interpreta [facility] 020 tion Code [facility] 08:03-0 ([id number]) 400 Basophils (Bld) 0.1 10*3/uL Negative 0.0-0.1 PENDING 05-17 [#/Vol] 10*3/uL [facility] 020 [facility] 08:30-0 ([id number]) 400 Basophils/100 WBC 1 % Negative 0-10 % PENDING 05-17 (Bld) [facility] 020 [facility] 08:30-0 (03981) 400 Bilirubin [Mass/Vol] 0.8 mg/dL Negative 0.1-1.0 PENDING mg/dL [facility] 020 [facility] 08:30-0 ([id number]) 400 Bilirubin Ql (U) Negative Invalid NEGATIVE PENDING Interpreta [facility] 020 tion Code N [facility] 08:03-0 ([id number]) 400 Calcium [Mass/Vol] 9.8 mg/dL Negative 8.5-10.1 PENDING - 1-2 mg/dL [facility] 020 [facility] 08:30-0 ([id number]) 400 Calcium [Mass/Vol] 9.6 mg/dL Negative 8.5-10.1 PENDING -2 1-2 mg/dL [facility] 020 [facility] 08:30-0 ([id number]) 400 Casts LM Ql (Urine NONE Invalid PENDING sed) Interpreta [facility] 020 tion Code N [facility] 08:03-0 ([id number]) 400 Chloride [Moles/Vol] 102 mmol/L Negative 98-107 PENDING 0 -- mmol/L [facility] 020 N [facility] 08:30-0 ([id number]) 400 Clarity (U) CLEAR Invalid PENDING Interpreta [facility] 020 tion Code N [facility] 08:03-0 (34775) 400 CO2 [Moles/Vol] 24 mmol/L Negative 21-32 PENDING mmol/L [facility] 020 N [facility] 08:30-0 ([id number]) 400 Color (U) YELLOW Invalid PENDING Interpreta [facility] 020 tion Code N [facility] 08:03-0 (52856) 400 Creatinine 0.78 mg/dL Negative 0.60-1.30 PENDING [Mass/Vol] mg/dL [facility] 020 N [facility] 08:30-0 ([id number]) 400 Creatinine and > Invalid PENDING Glomerular Interpreta [facility] 020 filtration tion Code N [facility] 08:30-0 rate.predicted panel (12489) 400 - Serum, Plasma or Blood Crystals LM Ql NONE Invalid PENDING (Urine sed) Interpreta [facility] 020 tion Code N [facility] 08:03-0 (94928) 400 Eosinophils (Bld) 0.7 10*3/uL High 0.0-0.3 PENDING [#/Vol] 10*3/uL [facility] 020 N [facility] 08:30-0 (45430) 400 Eosinophils/100 WBC 10 % Negative 0-10 % PENDING (Bld) [facility] 020 N [facility] 08:30-0 ([id number]) 400 Epithelial 5-10 Invalid PENDING cells.squamous LM Ql Interpreta [facility] 020 (Urine sed) tion Code N [facility] 08:03-0 (51329) 400 Erythrocyte 12.6 % Negative 10.0-14.5 PENDING distribution width % [facility] 020 (RBC) [Ratio] N [facility] 08:30-0 ([id number]) 400 Glucose [Mass/Vol] 128 mg/dL High 70-105 PENDING 04-28 1-2 mg/dL [facility] 020 N [facility] 08:30-0 (36052) 400 Glucose Auto test Negative Invalid NEGATIVE PENDING 05-17 strip Ql (U) Interpreta [facility] 020 tion Code N [facility] 08:03-0 (04476) 400 Hematocrit (Bld) 43 % Negative 35-52 % PENDING [Volume fraction] [facility] 020 [facility] 08:30-0 ([id number]) 400 Hemoglobin (Bld) 14.0 g/dL Negative 11.5-16.0 PENDING [Mass/Vol] g/dL [facility] 020 [facility] 08:30-0 (76306) 400 Ketones Auto test Negative Invalid NEGATIVE PENDING 05-17 strip Ql (U) Interpreta LOC[facility]IO Louann tion Code [facility] 08:03-0 (83087) 400 Leukocyte esterase 1+ Abnormal NEGATIVE PENDING 04-28 [facility] (U[facility] 08:03-0 (83275) 400 Lymphocytes (Bld) 1.8 10*3/uL Negative 1.0-4.0 PENDING [#/Vol] 10*3 [facility] [address] [place] [address] 08:30-0 (90812) 400 Lymphocytes/100 WBC 25 % Negative 12-44 % PENDING (Bld) [facility] Lou[facility] 08:30-0 ([id number]) 400 MCH (RBC) [Entitic 30 pg Negative 25-34 pg PENDING 04-28 1-2 mass] [facility] [address] [place] [address] 08:30-0 ([id number]) 400 MCHC (RBC) 33 g/dL Negative 32-36 g/dL PENDING [Mass/Vol] [facility] [address] [place] [address] 08:30-0 ([id number]) 400 MCV (RBC) [Entitic 91 Negative 80-99 PENDING 04-28 1-2 vol] [foz_us] [facility] 08:30-0 ([id number]) 400 Monocytes (Bld) 0.6 10*3/uL Negative 0.0-1.0 PENDING 05-17 [#/Vol] 10*[address] [address] [place] [address] 08:30-0 (47016) 400 Monocytes/100 WBC 8 % Negative 0-12 % PENDING 05-17 (Bld) [facility] 020 N [facility] 08:30-0 (78976) 400 Mucus Ql (Urine sed) Negative Invalid PENDING 05-17 Interpreta [facility] 020 tion Code N [facility] 08:03-0 ([id number]) 400 Neutrophils (Bld) 4.0 10*3/uL Negative 1.8-7.8 PENDING [#/Vol] 10*3 [facility] 020 N [facility] 08:30-0 ([id number]) 400 Neutrophils/100 WBC 56 % Negative 42-75 % PENDING (Bld) [facility] 020 N [facility] 08:30-0 ([id number]) 400 Nitrite Ql (U) Negative Invalid NEGATIVE PENDING Interpreta [facility] 020 tion Code [facility] 08:03-0 (29022) 400 pH (U) 5.5 [pH] Invalid 5-9 PENDING Interpreta [facility] 020 tion Code N [facility] 08:03-0 (12621) 400 Platelet mean volume 10.4 Negative 7.4-10.4 PENDING (Bld) [Entitic vol] [foz_us] [facility] 020 N [facility] 08:30-0 (58414) 400 Platelets (Bld) 233 10*3/uL Negative 130-400 PENDING 05-17 [#/Vol] 10*3/uL LOC[facility]IO 020 [facility] 08:30-0 (31076) 400 Potassium 4.1 mmol/L Negative 3.6-5.0 PENDING [Moles/Vol] mmol/L LOC[facility] 020 [facility] 08:30-0 (99141) 400 Protein [Mass/Vol] 7.6 g/dL Negative 6.4-8.2 PENDING 04-28 1-2 g/dL LOC[facility]IO 020 [facility] 08:30-0 (32860) 400 Protein Ql (U) Negative Invalid NEGATIVE PENDING Interpreta LOC[facility] 020 tion Code [facility] 08:03-0 (53544) 400 RBC (Bld) [#/Vol] 4.69 10*6/uL Negative 4.35-5.85 PENDING 10*6/uL [facility] 020 [facility] 08:30-0 (73910) 400 RBC LM.HPF (Urine NONE Invalid PENDING sed) [#/Area] Interpreta [facility] 020 tion Code [facility] 08:03-0 (13942) 400 RBC Ql (U) Negative Invalid NEGATIVE PENDING Interpreta [facility] 020 tion Code [facility] 08:03-0 (07812) 400 Sodium [Moles/Vol] 138 mmol/L Negative 135-145 PENDING mmol/L LOC[facility]IO 020 [facility] 08:30-0 (15184) 400 Specific gravity (U) 1.015 Low 1.016-1.02 PENDING 0 [Rel density] 2 [facility] 020 [facility] 08:03-0 (01231) 400 Troponin I.cardiac ng/mL Negative <0.30 PENDING 04-28 1-2 [Mass/Vol] [facility] 020 N [facility] 08:30-0 (32521) 400 Urea nitrogen 14 mg/dL Negative 7-18 mg/dL PENDING [Mass/Vol] LOC[facility]IO 020 [facility] 08:30-0 (97113) 400 Urea 18 mg/mg Invalid PENDING nitrogen/Creatinine Interpreta [facility] 020 [Mass ratio] tion Code N [facility] 08:30-0 ([id number]) 400 Urinalysis complete YES Invalid PENDING W Reflex Culture Interpreta [facility] 020 panel - Urine tion Code N [facility] 08:03-0 ([id number]) 400 Urobilinogen (U) 0.2 mg/dL Invalid < = 1.0 PENDING [Mass/Vol] Interpreta mg/dL [facility] 020 tion Code [facility] 08:03-0 (19985) 400 WBC (Bld) [#/Vol] 7.2 10*3/uL Negative 4.3-11.0 PENDING 10*3/uL LOC[facility] 020 [facility] 08:30-0 (16501) 400 WBC LM.HPF (Urine Abnormal PENDING sed) [#/Area] [facility] 020 N [facility] 08:03-0 ([id number]) 400 laboratory on 2020-04-06 Albumin [Mass/Vol] 4.1 g/dL Normal 3.6-5.1 Communi g/dL [facility] (84918) Albumin/Globulin 1.5 {ratio} Normal 1.0-2.5 Communi [Mass ratio] (calc) [facility] (00630) ALP [Catalytic 83 U/L Normal 37-153 U/L Communi activity/Vol] [facility] (67997) ALT [Catalytic 10 U/L Normal 6-29 U/L Communi activity/Vol] [facility] (65312) AST [Catalytic 22 U/L Normal 10-35 U/L Communi activity/Vol] [facility] (64311) Bilirubin [Mass/Vol] 1.0 mg/dL Normal 0.2-1.2 Commu ni mg/dL [facility] (42247) Calcium [Mass/Vol] 9.5 mg/dL Normal 8.6-10.4 Communi mg/dL [facility] (27836) Chloride [Moles/Vol] 106 mmol/L Normal 98-110 Commu ni mmol/L [facility] (08648) Cholesterol 140 mg/dL Normal <200 mg/dL Communi [Mass/Vol] [facility] (01002) Cholesterol in HDL 56 mg/dL Normal > OR = 50 Communi [Mass/Vol] mg/dL [facility] (02206) Cholesterol in LDL 63 mg/dL Normal mg/dL Communi [Mass/Vol] (calc) [facility] (56585) Cholesterol non HDL 84 mg/dL Normal <130 mg/dL Commun i [Mass/Vol] (calc) [facility] (96187) Cholesterol.total/Ch 2.5 {ratio} Normal <5.0 Commu ni olesterol in HDL (calc) ty [Mass ratio] [facility] (34532) CO2 [Moles/Vol] 27 mmol/L Normal 20-32 Communi mmol/L ty [facility] (09293) Creatinine 0.83 mg/dL Normal 0.50-0.99 Communi [Mass/Vol] mg/dL ty [facility] () GFR/1.73 sq 85 mL/min/{1.73_m2} Normal > OR = 60 Commun i M.predicted among mL/min/1.7 ty blacks MDRD 3m2 Health (S/P/Bld) [Vol Center rate/Area] [facility] (11639) GFR/1.73 sq 73 mL/min/{1.73_m2} Normal > OR = 60 Commun i M.predicted MDRD mL/min/1.7 ty (S/P/Bld) [Vol 2 Health rate/Area] [facility] () Globulin (S) 2.7 g/dL Normal 1.9-3.7 Communi [Mass/Vol] g/dL ty (calc) [facility] (07203) Glucose [Mass/Vol] 97 mg/dL Normal 65-99 Communi mg/dL ty [facility] (83655) Potassium 4.2 mmol/L Normal 3.5-5.3 Communi [Moles/Vol] mmol/L ty [facility] () Protein [Mass/Vol] 6.8 g/dL Normal 6.1-8.1 Communi g/dL ty [facility] (42479) Sodium [Moles/Vol] 142 mmol/L Normal 135-146 Communi mmol/L ty [facility] (90161) Triglyceride 119 mg/dL Normal <150 mg/dL Communi [Mass/Vol] ty [facility] (60252) TSH Qn 1.25 m[IU]/L Normal 0.40-4.50 Communi mIU/L ty [facility] (26779) Urea nitrogen 13 mg/dL Normal 7-25 mg/dL Communi [Mass/Vol] ty [facility] (23205) Urea NOT APPLICABLE Invalid 6-22 Communi nitrogen/Creatinine Interpreta (calc) ty [Mass ratio] tion Code [facility] (31713) laboratory on 2019-10-14 Albumin [Mass/Vol] 3.9 g/dL Normal 3.6-5.1 Communi g/dL ty [facility] (22855) Albumin/Globulin 1.5 {ratio} Normal 1.0-2.5 Communi [Mass ratio] (calc) ty [facility] (50089) ALP [Catalytic 90 U/L Normal 33-130 U/L Communi activity/Vol] [facility] (91293) ALT [Catalytic 9 U/L Normal 6-29 U/L Communi activity/Vol] [facility] (20985) AST [Catalytic 24 U/L Normal 10-35 U/L Communi activity/Vol] [facility] (30086) Bilirubin [Mass/Vol] 0.9 mg/dL Normal 0.2-1.2 Commu ni mg/dL [facility] (69731) Calcium [Mass/Vol] 9.3 mg/dL Normal 8.6-10.4 Communi mg/dL [facility] (66371) Chloride [Moles/Vol] 105 mmol/L Normal 98-110 Commu ni mmol/L [facility] (66046) Cholesterol 140 mg/dL Normal <200 mg/dL Communi [Mass/Vol] ty [facility] (08279) Cholesterol in HDL 55 mg/dL Normal >50 mg/dL Communi [Mass/Vol] [facility] (10779) Cholesterol in LDL 65 mg/dL Normal mg/dL Communi [Mass/Vol] (calc) [facility] (40174) Cholesterol non HDL 85 mg/dL Normal <130 mg/dL Commun i [Mass/Vol] (calc) [facility] (36196) Cholesterol.total/Ch 2.5 {ratio} Normal <5.0 Commu ni olesterol in HDL (calc) ty [Mass ratio] [facility] (38452) CO2 [Moles/Vol] 28 mmol/L Normal 20-32 Communi mmol/L ty [facility] (33632) Creatinine 0.86 mg/dL Normal 0.50-0.99 Communi [Mass/Vol] mg/dL ty [facility] (84758) GFR/1.73 sq 82 mL/min/{1.73_m2} Normal > OR = 60 Commun i M.predicted among mL/min/1.7 ty blacks MDRD 3m2 Health (S/P/Bld) [Vol Center rate/Area] [facility] (17070) GFR/1.73 sq 70 mL/min/{1.73_m2} Normal > OR = 60 Commun i M.predicted MDRD mL/min/1.7 ty (S/P/Bld) [Vol 3m2 Health rate/Area] [facility] () Globulin (S) 2.6 g/dL Normal 1.9-3.7 Communi [Mass/Vol] g/dL ty (calc) [facility] (90526) Glucose [Mass/Vol] 91 mg/dL Normal 65-99 Communi mg/dL ty [facility] (94860) Potassium 4.0 mmol/L Normal 3.5-5.3 Communi [Moles/Vol] mmol/L ty [facility] (35112) Protein [Mass/Vol] 6.5 g/dL Normal 6.1-8.1 Communi g/dL ty [facility] (58600) Sodium [Moles/Vol] 141 mmol/L Normal 135-146 Communi mmol/L ty [facility] (37297) Triglyceride 122 mg/dL Normal <150 mg/dL Communi [Mass/Vol] ty [facility] (83889) TSH Qn 2.40 m[IU]/L Normal 0.40-4.50 Communi mIU/L ty [facility] (96834) Urea nitrogen 14 mg/dL Normal 7-25 mg/dL Communi [Mass/Vol] ty [facility] (35170) Urea NOT APPLICABLE Invalid 6-22 Communi nitrogen/Creatinine Interpreta (calc) ty [Mass ratio] tion Code [facility] (94197) laboratory on 2019-07-15 Albumin [Mass/Vol] 4.0 g/dL Normal 3.6-5.1 Communi g/dL ty [facility] (10049) Albumin/Globulin 1.4 {ratio} Normal 1.0-2.5 Communi [Mass ratio] (calc) ty [facility] (42720) ALP [Catalytic 92 U/L Normal 33-130 U/L Communi activity/Vol] ty [facility] (49379) ALT [Catalytic 7 U/L Normal 6-29 U/L Communi activity/Vol] ty [facility] (18233) AST [Catalytic 20 U/L Normal 10-35 U/L Communi activity/Vol] ty [facility] (77674) Band form 0.106 10*3/uL Normal 0-750 Communi neutrophils (Bld) cells/uL ty [#/Vol] [facility] (99226) Band form 2 % Normal % Communi neutrophils/100 WBC ty (Bld) [facility] (51203) Basophils (Bld) 0.053 10*3/uL Normal 0-200 Communi [#/Vol] cells/uL ty [facility] (47142) Basophils/100 WBC 1 % Normal % Communi (Bld) ty [facility] (10157) Bilirubin [Mass/Vol] 0.9 mg/dL Normal 0.2-1.2 Commu ni mg/dL ty [facility] (18900) Calcium [Mass/Vol] 9.3 mg/dL Normal 8.6-10.4 Communi mg/dL ty [facility] (48174) Chloride [Moles/Vol] 107 mmol/L Normal 98-110 Commu ni mmol/L ty [facility] (62777) Cholesterol 146 mg/dL Normal <200 mg/dL Communi [Mass/Vol] ty [facility] (00190) Cholesterol in HDL 62 mg/dL Normal >50 mg/dL Communi [Mass/Vol] ty [facility] (58157) Cholesterol in LDL 65 mg/dL Normal mg/dL Communi [Mass/Vol] (calc) ty [facility] (47810) Cholesterol non HDL 84 mg/dL Normal <130 mg/dL Commun i [Mass/Vol] (calc) ty [facility] (66220) Cholesterol.total/Ch 2.4 {ratio} Normal <5.0 Commu ni olesterol in HDL (calc) ty [Mass ratio] [facility] (54717) CO2 [Moles/Vol] 27 mmol/L Normal 20-32 Communi mmol/L ty [facility] (68312) Creatinine 0.77 mg/dL Normal 0.50-0.99 Communi [Mass/Vol] mg/dL ty [facility] (62566) Eosinophils (Bld) 0.477 10*3/uL Normal 15-500 Commun i [#/Vol] cells/uL ty [facility] (20600) Eosinophils/100 WBC 9 % Normal % Commun i (Bld) ty [facility] (27202) Erythrocyte 12.5 % Normal 11.0-15.0 Communi distribution width % ty (RBC) [Ratio] [facility] (88285) GFR/1.73 sq 93 mL/min/{1.73_m2} Normal > OR = 60 Commun i M.predicted among mL/min/1.7 ty blacks MDRD 3m2 Health (S/P/Bld) [Vol Center rate/Area] [facility] (31026) GFR/1.73 sq 80 mL/min/{1.73_m2} Normal > OR = 60 Commun i M.predicted MDRD mL/min/1.7 ty (S/P/Bld) [Vol 3m2 Health rate/Area] [facility] (84650) Globulin (S) 2.9 g/dL Normal 1.9-3.7 Communi [Mass/Vol] g/dL ty (calc) [facility] (50945) Glucose [Mass/Vol] 91 mg/dL Normal 65-99 Communi mg/dL [facility] (69045) Hematocrit (Bld) 43.1 % Normal 35.0-45.0 Communi [Volume fraction] % [facility] (91867) Hemoglobin (Bld) 13.8 g/dL Normal 11.7-15.5 Communi [Mass/Vol] g/dL [facility] (89795) Lymphocytes (Bld) 2.12 10*3/uL Normal 850-3900 Communi [#/Vol] cells/uL [facility] (35546) Lymphocytes/100 WBC 40 % Normal % Commun i (Bld) [facility] (93786) MCH (RBC) [Entitic 29.4 pg Normal 27.0-33.0 Communi mass] pg [facility] (71096) MCHC (RBC) 32.0 g/dL Normal 32.0-36.0 Communi [Mass/Vol] g/dL [facility] (50821) MCV (RBC) [Entitic 91.7 fL Normal 80.0-100.0 Communi vol] fL [facility] (55416) Monocytes (Bld) 0.424 10*3/uL Normal 200-950 Communi [#/Vol] cells/uL [facility] (86627) Monocytes/100 WBC 8 % Normal % Communi (Bld) [facility] (11611) Morphology Shiv (Bld) Normal NORMAL Communi [Interp] [facility] (56549) Neutrophils (Bld) 2.12 10*3/uL Normal 3622-2117 Communi [#/Vol] cells/uL [facility] (92519) Neutrophils/100 WBC 40 % Normal % Commun i (Bld) [facility] (33321) Platelet mean volume 10.3 fL Normal 7.5-12.5 Commu ni (Bld) [Entitic vol] fL [facility] (16042) Platelets (Bld) 260 10*3/uL Normal 140-400 Communi [#/Vol] Thousand/u ty L [facility] (40411) Platelets LM Ql ADEQUATE Normal ADEQUATE Communi (Bld) ty [facility] (54592) Potassium 4.1 mmol/L Normal 3.5-5.3 Communi [Moles/Vol] mmol/L ty [facility] (94982) Protein [Mass/Vol] 6.9 g/dL Normal 6.1-8.1 Communi g/dL ty [facility] (96715) RBC (Bld) [#/Vol] 4.70 10*6/uL Normal 3.80-5.10 Communi Million/uL ty [facility] (33029) Sodium [Moles/Vol] 140 mmol/L Normal 135-146 Communi mmol/L ty [facility] (83498) Triglyceride 100 mg/dL Normal <150 mg/dL Communi [Mass/Vol] ty [facility] (90206) TSH Qn 1.42 m[IU]/L Normal 0.40-4.50 Communi mIU/L ty [facility] (64120) Urea nitrogen 14 mg/dL Normal 7-25 mg/dL Communi [Mass/Vol] ty [facility] (43069) Urea NOT APPLICABLE Invalid 6-22 Communi nitrogen/Creatinine Interpreta (calc) ty [Mass ratio] tion Code [facility] (82189) WBC (Bld) [#/Vol] 5.3 10*3/uL Normal 3.8-10.8 Communi Thousand/u ty L [facility] (73522) laboratory on 2019-04-16 Albumin [Mass/Vol] 4.2 g/dL Normal 3.6-5.1 Communi g/dL ty [facility] (24334) Albumin/Globulin 1.4 {ratio} Normal 1.0-2.5 Communi [Mass ratio] (calc) [facility] (56963) ALP [Catalytic 78 U/L Normal 33-130 U/L Communi activity/Vol] [facility] (87966) ALT [Catalytic 9 U/L Normal 6-29 U/L Communi activity/Vol] [facility] (34992) AST [Catalytic 22 U/L Normal 10-35 U/L Communi activity/Vol] [facility] (31193) Basophils (Bld) 0.207 10*3/uL High 0-200 Communi [#/Vol] cells/uL ty [facility] (25328) Basophils/100 WBC 3.0 % Normal % Communi (Bld) [facility] (13319) Bilirubin [Mass/Vol] 0.9 mg/dL Normal 0.2-1.2 Commu ni mg/dL [facility] (12145) Calcium [Mass/Vol] 9.6 mg/dL Normal 8.6-10.4 Communi mg/dL [facility] (45795) Chloride [Moles/Vol] 104 mmol/L Normal 98-110 Commu ni mmol/L [facility] (22495) Cholesterol 154 mg/dL Normal <200 mg/dL Communi [Mass/Vol] [facility] (99499) Cholesterol in HDL 58 mg/dL Normal >50 mg/dL Communi [Mass/Vol] [facility] (81330) Cholesterol in LDL 75 mg/dL Normal mg/dL Communi [Mass/Vol] (calc) [facility] (64126) Cholesterol non HDL 96 mg/dL Normal <130 mg/dL Commun i [Mass/Vol] (calc) [facility] (75991) Cholesterol.total/Ch 2.7 {ratio} Normal <5.0 Commu ni olesterol in HDL (calc) ty [Mass ratio] [facility] (77705) CO2 [Moles/Vol] 29 mmol/L Normal 20-32 Communi mmol/L [facility] (82592) Creatinine 0.83 mg/dL Normal 0.50-0.99 Communi [Mass/Vol] mg/dL ty [facility] (17766) Eosinophils (Bld) 0.421 10*3/uL Normal 15-500 Commun i [#/Vol] cells/uL ty [facility] (53714) Eosinophils/100 WBC 6.1 % Normal % Commun i (Bld) ty [facility] (23098) Erythrocyte 12.5 % Normal 11.0-15.0 Communi distribution width % ty (RBC) [Ratio] [facility] (62369) Free T4 [Mass/Vol] 1.4 ng/dL Normal 0.8-1.8 Communi ng/dL ty [facility] (03198) GFR/1.73 sq 85 mL/min/{1.73_m2} Normal > OR = 60 Commun i M.predicted among mL/min/1.7 ty blacks MDRD 3m2 Health (S/P/Bld) [Vol Center rate/Area] [facility] (83736) GFR/1.73 sq 73 mL/min/{1.73_m2} Normal > OR = 60 Commun i M.predicted MDRD mL/min/1.7 ty (S/P/Bld) [Vol 3m2 Health rate/Area] [facility] (29565) Globulin (S) 3.1 g/dL Normal 1.9-3.7 Communi [Mass/Vol] g/dL ty (calc) [facility] (76933) Glucose [Mass/Vol] 91 mg/dL Normal 65-99 Communi mg/dL ty [facility] (11305) Hematocrit (Bld) 43.2 % Normal 35.0-45.0 Communi [Volume fraction] % ty [facility] (33021) Hemoglobin (Bld) 14.1 g/dL Normal 11.7-15.5 Communi [Mass/Vol] g/dL ty [facility] (07715) Lymphocytes (Bld) 2.436 10*3/uL Normal 850-3900 Commun i [#/Vol] cells/uL ty [facility] (38474) Lymphocytes/100 WBC 35.3 % Normal % Commun i (Bld) [facility] (74258) MCH (RBC) [Entitic 29.6 pg Normal 27.0-33.0 Communi mass] pg [facility] (54581) MCHC (RBC) 32.6 g/dL Normal 32.0-36.0 Communi [Mass/Vol] g/dL [facility] (69813) MCV (RBC) [Entitic 90.6 fL Normal 80.0-100.0 Communi vol] fL [facility] (15667) Monocytes (Bld) 0.421 10*3/uL Normal 200-950 Communi [#/Vol] cells/uL [facility] (84824) Monocytes/100 WBC 6.1 % Normal % Communi (Bld) [facility] (92066) Neutrophils (Bld) 3.416 10*3/uL Normal 8414-4532 Commun i [#/Vol] cells/uL [facility] (24383) Neutrophils/100 WBC 49.5 % Normal % Commun i (Bld) [facility] (39290) Platelet mean volume 10.1 fL Normal 7.5-12.5 Commu ni (Bld) [Entitic vol] fL [facility] (39445) Platelets (Bld) 286 10*3/uL Normal 140-400 Communi [#/Vol] Thousand/u ty L [facility] (40766) Platelets LM Ql ADEQUATE Normal ADEQUATE Communi (Bld) [facility] (15114) Potassium 4.4 mmol/L Normal 3.5-5.3 Communi [Moles/Vol] mmol/L [facility] (84366) Protein [Mass/Vol] 7.3 g/dL Normal 6.1-8.1 Communi g/dL [facility] (84788) RBC (Bld) [#/Vol] 4.77 10*6/uL Normal 3.80-5.10 Communi Million/uL [facility] (86209) Sodium [Moles/Vol] 140 mmol/L Normal 135-146 Communi mmol/L ty [facility] (55656) Triglyceride 130 mg/dL Normal <150 mg/dL Communi [Mass/Vol] ty [facility] (79432) TSH Qn 1.56 m[IU]/L Normal 0.40-4.50 Communi mIU/L ty [facility] (67377) Urea nitrogen 17 mg/dL Normal 7-25 mg/dL Communi [Mass/Vol] ty [facility] (08894) Urea NOT APPLICABLE Invalid 6-22 Communi nitrogen/Creatinine Interpreta (calc) ty [Mass ratio] tion Code [facility] (92986) WBC (Bld) [#/Vol] 6.9 10*3/uL Normal 3.8-10.8 Communi Thousand/u ty L [facility] (18404) Social History Date Type Detail Facility Unknown if ever smoked [facility] (89118) Vital Signs No Information Functional Status No Information Mental Status No Information History general Narrative - Reported Note Date & Note Facility Type History general Narrative - Reported Type Medical Hypercholesteremia History Medical Hypothyroidism, unspecified History Medical Parkinson disease History Medical Nonrheumatic tricuspid (reena ve) stenosis History Medical History of DC (myocardial i nfarction) History Surgical hysterectomy History Surgical Hx upper endoscopy History Surgical Hx tonsillectomy History Surgical Hx coronary stent placement History Hospitalizatio see surgical n History [facility] (73371) Additional Source Comments This clinical document has been generated using [employer] software that has been certified by the Office of the National Coordinator for Health Information Technology (ONC 15.99.04.3023.Diam.31.00.0.914531) and the National Committee for Radar [employer]ist (NCQA, as an eMeasure certified technology). FOR RECORDS PERTAINING TO PATIENTS WHO ARE OR HAVE BEEN ENROLLED IN A CHEMICAL D EPENDENCY/SUBSTANCE ABUSE PROGRAM, SOME INFORMATION MAY BE OMITTED. This clinica l summary was aggregated from multiple sources. Caution should be exercised in using it in the provision of clinical care. This summary normalizes information from multiple sources, and as a consequence, information in this document may ma terially change the coding, format and clinical context of patient data. In cody tion, data may be omitted in some cases. CLINICAL DECISIONS SHOULD BE BASED ON T HE PRIMARY CLINICAL RECORDS. [facility]. provides no warranty or guara ntee of the accuracy or completeness of information in this document.The followi information is based on time limited clinical information UNRECOGNIZED CONTENT PROVIDED BELOW FOR UNRECOGNIZED SECTION REASON FOR VISIT Routine nurse call
== END 2020-05-17 13:50 | disposition home or self-care (01) ==
LOC: EDUNIT# 12:03 → ER FS 12:05
DX: G47.00 Insomnia, unspecified (principal); G20 Parkinson's disease; I25.10 Atherosclerotic heart disease of native coronary artery without angina pectoris; I25.2 Old myocardial infarction; Z88.2 Allergy status to sulfonamides; Z91.048 Other nonmedicinal substance allergy status; Z91.040 Latex allergy status; Z88.0 Allergy status to penicillin; Z88.8 Allergy status to other drugs, medicaments and biological substances; Z95.5 Presence of coronary angioplasty implant and graft
CPT/HCPCS: 36415; 80053; 81000; 84443; 84484; 85025; 87088

== ENCOUNTER → 2020-10-25 | Outpatient (CLI) | payer MEDICARE, BC ==
[~2020-10-25] MED LIST: ALPR0.5T PO
--- NOTE | 2020-10-25 11:29 | Diagnostic Imaging Report ---
INDICATION: Chronic left knee pain. COMPARISON: None. FINDINGS: 3 views of the left knee joint demonstrate no acute fracture or dislocation. No focal osseous lesions are seen. No significant joint effusion is seen. Mild osteoarthritic changes are noted and consistent slight medial compartment joint space narrowing with small osteophyte formation. The surrounding soft tissue structures are unremarkable. There are no radiopaque foreign bodies. IMPRESSION: 1. No acute fractures or dislocations of the left knee joint. 2. Mild osteoarthritic changes. Dictated by: Dictated on workstation # [id number]
== END ==
LOC: RAD FS 09:41
PROVIDERS: ATTEND Nurse Practitioner Family
DX: M17.12 Unilateral primary osteoarthritis, left knee (principal)
CPT/HCPCS: 73562

== ENCOUNTER → 2021-06-08 | Outpatient (CLI) | payer MEDICARE, BC ==
--- NOTE | 2021-06-09 17:01 | Diagnostic Imaging Report ---
INDICATION: Routine screening. COMPARISON is made with prior mammograms from 12/10/2019 and 01/09/2019. 2-D and 3-D bilateral screening mammography was performed with CAD. Scattered fibroglandular densities are identified bilaterally. A nodular density in the outer left breast appears stable. There are benign benign calcifications in both breasts which appears stable. No new mass or malignant-appearing microcalcifications are seen. Axillae are unremarkable. IMPRESSION: BI-RADS Category 2 No mammographic features suspicious for malignancy are identified. ACR BI-RADS Category 2: Benign findings. Result letter will be mailed to the patient. Note: At least 10% of breast cancer is not imaged by mammography. Dictated by: Dictated on workstation # [id number]
== END ==
LOC: RAD 09:52
PROVIDERS: ATTEND Obstetrics & Gynecology
DX: Z12.31 Encounter for screening mammogram for malignant neoplasm of breast (principal)
CPT/HCPCS: 77063; 77067

== ENCOUNTER → 2021-12-06 | Outpatient (CLI) | payer MEDICARE, BC | LOC: CARD 13:00 | DX: I51.7 Cardiomegaly (principal); I35.1 Nonrheumatic aortic (valve) insufficiency | CPT/HCPCS: 93306 ==

== ENCOUNTER 2021-12-16 03:08 | Emergency (ER) | payer MEDICARE, BC ==
[~2021-12-16] VITALS: Ht 170 cm; Wt 115.0 kg
[2021-12-16] MEDS ORDERED: LORazepam INJ 2 MG/ML (ATIVAN) VIAL IM STA (03:28)
[2021-12-16] MEDS ORDERED: OLANZapine 5 MG ODT (ZyPREXA ZYDIS) PO STA (03:28)
--- NOTE | 2021-12-16 03:36 | ED Psychosocial ---
General Chief Complaint: Psych/Social Disorder Stated Complaint: BILATERAL LEG SWELLING Source: patient, spouse History of Present Illness Date Seen by Provider: Dec 16, 2021 Time Seen by Provider: 03:11 Initial Comments 71 yo female presenting with over 3 months of leg swelling and increasing difficulty sleeping. She repeatedly states that she feels l gary she is going crazy or that she wants to get up and run out of the department. She denies fever, chills, cough, shortness of breath, abdominal pain, nausea, vomiting. She has had increase in urination with taking Lasix. She has not followed up with [facility] clinic about her trouble sleeping and anxiety. She has been taking left over xana pillls from Dr. Schmitt before he left in 2018. She had an echocardiogram done 12/07 but has not gotten results of that yet. Timing/Duration: constant Severity: moderate Associated Symptoms: anxiety Allergies and Home Medications Allergies Coded Allergies: Sulfa (Sulfonamide Antibiotics) (Verified Allergy, Unknown, 05/17/20) adhesive tape (Verified Allergy, Unknown, 05/17/20) clopidogrel (Verified Allergy, Unknown, 05/17/20) latex (Verified Allergy, Unknown, 05/17/20) niacin (Verified Allergy, Unknown, 05/17/20) paroxetine (Verified Allergy, Unknown, 05/17/20) Uncoded Allergies: penicillin (Allergy, Unknown, 05/17/20) Patient Home Medication List Home Medication List Reviewed: Yes Alprazolam (Alprazolam) 0.5 Mg Tablet, 0.5 MG PO BID PRN for ANXIETY Prescribed by: AIRAS TENA on 12/16/21 0354 Discontinued Medications Alprazolam (Xanax) 0.5 Mg Tablet, 0.5 MG PO DAILY PRN Prescribed by: XENA TEJADA on 05/17/20 1329 Review of Systems Constitutional: No chills, No fever; weight gain (with her edema) EENTM: no symptoms reported Respiratory: no symptoms reported Cardiovascular: no symptoms reported Gastrointestinal: no symptoms reported Genitourinary: frequency (taking diuretic) Musculoskeletal: muscle stiffness (from parkinsons) Skin: dryness Psychiatric/Neurological: Tremors Past Jidcmjr-Lfyyfh-Ixexit Hx Patient Social History Tobacco Use?: No Substance use?: No Alcohol Use?: No Seasonal Allergies Seasonal Allergies: No Past Medical History Surgery/Hospitalization HX: Parkinsons, Anxiety, Insomnia Surgeries: Yes (tumor on back) Coronary Stent, Tonsillectomy Respiratory: No Cardiac: Yes Coronary Artery Disease, Heart Attack Neurological: Yes Parkinson's Disease Genitourinary: No Gastrointestinal: No Musculoskeletal: No Endocrine: No HEENT: No Cancer: No Psychosocial: No Integumentary: No Physical Exam Vital Signs - First Documented 12/16/21 03:15 Temp 36.4 Pulse 88 Resp 20 B/P (MAP) 169/91 (117) Pulse Ox 98 O2 Delivery Room Air Capillary Refill : Height, Weight, BMI Height: '" Weight: lbs. oz. kg; 37.00 BMI Method: General Appearance: obese, other (anxious) Respiratory: chest non-tender, lungs clear, normal breath sounds, no respiratory distress, no accessory muscle use Cardiovascular: normal peripheral pulses, regular rate, rhythm Gastrointestinal: normal bowel sounds, non tender, soft, no pulsatile mass Extremities: pedal edema (2+ BLE edema) Neurologic/Psychiatric: alert, oriented x 3 Appearance/Memory: disheveled Behavior/Eye Contact: avoids eye contact, compulsive Thoughts/Hallucinations: no apparent hallucination Skin: normal color, warm/dry Progress/Results/Core Measures Results/Orders My Orders Orders - ARIAS TENA MD Lorazepam Injection (Ativan Injection) (12/16/21 03:28) Olanzapine Orally Dissolve Tab (Zyprexa (12/16/21 03:28) Vital Signs/I&O 12/16/21 03:15 Temp 36.4 Pulse 88 Resp 20 B/P (MAP) 169/91 (117) Pulse Ox 98 O2 Delivery Room Air Progress Progress Note : Progress Note Pt was getting more agitated and upset as I tried to ask questions to see what was going on better with her. states they just recently did labs so they did not want to do that again. Will try an IM dose of ativan 1 mg and ODT Zyprexa 5 mg to see if that helps to calm her down so she could rest. Could write a new prescription for xanax so she had something at home until she could check with clinic or [facility]. Will try to get her home before the medicine kicks in and makes it hard for her to get home with her 's assistance. Departure Impression Primary Impression: Anxiety Additional Impression: Bilateral lower extremity edema Disposition: HOME, SELF-CARE Condition: Stable Departure-Patient Inst. Decision time for Depature: 03:50 Referrals: REMINGTON ADAMS APRN (PCP/Family) Primary Care Physician Patient Instructions: Anxiety, Adult ED, Dependent Edema (DC) Add. Discharge Instructions: Try the Xanax (Alprazolam) to help with anxiety and stress. Check with clinic Saturday morning about results of testing and need for anxiety control so can sleep better. All discharge instructions reviewed with patient and/or family. Voiced understanding. Scripts Alprazolam (Alprazolam) 0.5 Mg Tablet 0.5 MG PO BID PRN for ANXIETY for 7 Days, #14 TAB 0 Refills Prov: ARIAS TENA MD 12/16/21 ARIAS TENA MD Dec 16, 2021 03:36
[2021-12-16] MEDS ORDERED: ALPR0.5T7 PO (03:53)
[2021-12-16 04:00] VITALS: BP 179/79
== END 2021-12-16 04:00 | disposition home or self-care (01) ==
LOC: EDUNIT# 03:08 → ER FS 03:12
DX: F41.9 Anxiety disorder, unspecified (principal); R60.0 Localized edema; I25.10 Atherosclerotic heart disease of native coronary artery without angina pectoris; I25.2 Old myocardial infarction; G20 Parkinson's disease; G47.00 Insomnia, unspecified; Z95.5 Presence of coronary angioplasty implant and graft; Z91.040 Latex allergy status; Z79.899 Other long term (current) drug therapy
CPT/HCPCS: 99284

== ENCOUNTER 2022-02-12 01:44 | Emergency (ER) | payer MEDICARE, BC ==
[~2022-02-12 01:44] MED LIST changes: +ALPR0.5T7 PO
[2022-02-12 02:02] VITALS: BP 157/61
[2022-02-12] MEDS ORDERED: ATEN25TA PO (02:05)
[2022-02-12] MEDS ORDERED: ATOR10TA66 PO (02:05)
[2022-02-12] MEDS ORDERED: morphine INJ 10 MG/ML 1ML (SYR OR VIAL) IVP STA (02:06)
[2022-02-12] MEDS ORDERED: LEVO13CA4 PO (02:07)
[2022-02-12 02:12] LABS: BASOPHILS # (AUTO) 0.1 10^3/uL (0.0-0.1); BASOPHILS % (AUTO) 2 % (0-10); EOSINOPHILS # (AUTO) 1.3 10^3/uL (0.0-0.3); EOSINOPHILS % (AUTO) 17 % (0-10); HEMATOCRIT 41 % (35-52); HEMOGLOBIN 12.9 g/dL (11.5-16.0); LYMPHOCYTES # (AUTO) 2.8 10^3/uL (1.0-4.0); LYMPHOCYTES % (AUTO) 38 % (12-44); MEAN CORPUSCULAR HEMOGLOBIN 29 pg (25-34); MEAN CORPUSCULAR HGB CONC 32 g/dL (32-36); MEAN CORPUSCULAR VOLUME 91 fL (80-99); MEAN PLATELET VOLUME 10.1 fL (9.0-12.2); MONOCYTES # (AUTO) 0.7 10^3/uL (0.0-1.0); MONOCYTES % (AUTO) 9 % (0-12); NEUTROPHILS # (AUTO) 2.5 10^3/uL (1.8-7.8); NEUTROPHILS % (AUTO) 34 % (42-75); PLATELET COUNT 218 10^3/uL (130-400); WHITE BLOOD COUNT 7.3 10^3/uL (4.3-11.0)
[2022-02-12] MEDS ORDERED: ONDANSETRON 4 MG/2 ML (SDV) Z0FRAN IVP ONE (02:15)
[2022-02-12] MEDS ORDERED: NS IV 1000 ML 1,000 ML IV SCH ×2 (02:15→04:00)
[2022-02-12] MEDS: fentaNYL INJ 100 MCG/2 ML AMP IVP PRN ×2 (02:20→04:07)
[2022-02-12 02:30] LABS: NEUTROPHILS % (MANUAL) 31 %
[2022-02-12 02:31] LABS: EOSINOPHILS % (MANUAL) 22 %; LYMPHOCYTES % (MANUAL) 38 %; MONOCYTES % (MANUAL) 9 %; POTASSIUM 3.9 MMOL/L (3.6-5.0)
[2022-02-12 02:32] LABS: BILIRUBIN,TOTAL 0.5 MG/DL (0.1-1.0); CALCIUM 9.6 MG/DL (8.5-10.1); CREATININE SERUM 0.82 MG/DL (0.60-1.30); TOTAL PROTEIN 7.2 GM/DL (6.4-8.2)
[2022-02-12] MEDS ORDERED: IOHEXOL 350 MG/ML 100 ML (OMNIPAQUE 350) VIAL IV ONE (02:45)
[2022-02-12] MEDS ORDERED: HOLD METFORMIN - RECEIVED CONTRAST 20 ML VIAL IV SCH (02:45)
[2022-02-12] MEDS ORDERED: CATHETER FLUSH 10 ML SYR IV PRN (02:45)
[2022-02-12] MEDS ORDERED: NS 100 ML (IVPB) BAG IV ONE (02:45)
[2022-02-12 03:48] LABS: BILIRUBIN,URINE NEGATIVE (NEGATIVE); COLOR,URINE YELLOW; GLUCOSE, URINE (UA) NEGATIVE (NEGATIVE); KETONES,URINE NEGATIVE (NEGATIVE); LEUKOCYTE ESTERASE ,URINE TRACE (NEGATIVE); NITRITE,URINE NEGATIVE (NEGATIVE); PH,URINE 5.5 (5-9); PROTEIN,URINE NEGATIVE (NEGATIVE)
[2022-02-12 03:54] LABS: CLARITY,URINE CLOUDY
[2022-02-12 03:55] LABS: BACTERIA,URINE MODERATE /HPF; CALCIUM OXALATE CRYSTALS,UR FEW /LPF; RBC,URINE TNTC /HPF; YEAST,URINE MODERATE /HPF
[2022-02-12] MEDS ORDERED: KETOROLAC 30 MG/ML VIAL IVP ONE (04:00)
[2022-02-12] MEDS ORDERED: cefTRIAXone 1 GM PRE-MIX 50 ML IV ONE (04:00)
[2022-02-12] MEDS ORDERED: ONDA4TAB11 PO (06:00)
[2022-02-12] MEDS ORDERED: CEPH500T PO (06:00)
[2022-02-12] MEDS ORDERED: ACHD5005 PO (06:00)
--- NOTE | 2022-02-12 06:01 | ED GU-Female ---
General Chief Complaint: Abdominal/GI Problems Stated Complaint: LOWER ABDOMINAL PAIN Nursing Triage Note: pt presents with right sided abd pain that wraps around into the right flank area. pt reports onset of 30mins prior to arrival. pt denies n/v/d. pt denies urinary symptoms Source: patient Exam Limitations: no limitations History of Present Illness Date Seen by Provider: Feb 12, 2022 Time Seen by Provider: 00:50 Initial Comments Patient is a 71-year-old female who presents with acute right flank pain radiating to right lower quadrant. Pain is moderate to severe and started just prior to ED arrival. Pain not worse with position change to relief with movement. Associate with nausea and vomiting. No fever chills or sweats. No urinary frequency urgency dysuria or hematuria. No history of kidney stones. No prior abdominal surgeries Timing/Duration: just prior to arrival Severity/Quality: severe Location: right flank Radiation: suprapubic Activities at Onset: rest Prior Genitourinary Problems: none Sexual [place] History: single partner Modifying Factors: Improves With Other Associated Symptoms: other Allergies and Home Medications Allergies Coded Allergies: Sulfa (Sulfonamide Antibiotics) (Verified Allergy, Unknown, 05/17/20) adhesive tape (Verified Allergy, Unknown, 05/17/20) clopidogrel (Verified Allergy, Unknown, 05/17/20) latex (Verified Allergy, Unknown, 05/17/20) niacin (Verified Allergy, Unknown, 05/17/20) paroxetine (Verified Allergy, Unknown, 05/17/20) Uncoded Allergies: penicillin (Allergy, Unknown, 05/17/20) Patient Home Medication List Home Medication List Reviewed: Yes Alprazolam (Alprazolam) 0.5 Mg Tablet, 0.5 MG PO BID PRN for ANXIETY Prescribed by: ARIAS TENA on 12/16/21 035 Atenolol (Atenolol) 25 Mg Tablet, 25 MG PO DAILY, (Reported) Entered as Reported by: LUCIA ARAUJO on 02/12/22204 Last Action: New Order Atorvastatin Calcium (Atorvastatin Calcium) 10 Mg Tablet, 10 MG PO HS, (Reported) Entered as Reported by: LUCIA ARAUJO on 02/12/22204 Last Action: New Order Cephalexin (Cephalexin) 500 Mg Tablet, 500 MG PO TID Prescribed by: GEORGE CEBALLOS on 02/12/22 0600 Hydrocodone/Acetaminophen (Hydrocodone-Acetamin 5-325 mg) 1 Each Tablet, 1 TAB PO Q4H PRN for PAIN-MODERATE (5-7) Prescribed by: GEORGE CEBALLOS on 02/12/22 06 Levothyroxine Sodium (Levothyroxine) Unknown Strength Capsule, Unknown Dose PO, (Reported) Entered as Reported by: Damari Webster on 02/12/22 0207 Last Action: New Order Ondansetron (Ondansetron Odt) 4 Mg Tab.rapdis, 4 MG PO Q6H Prescribed by: GEORGE CEBALLOS on 02/12/22 06 Review of Systems Review of Systems Constitutional: see HPI EENTM: see HPI Respiratory: see HPI Cardiovascular: see HPI Gastrointestinal: see HPI Genitourinary: see HPI Musculoskeletal: see HPI Skin: see HPI Psychiatric/Neurological: See HPI Endocrine: See HPI Hematologic/Lymphatic: See HPI All Other Systemes Reviewed Negative Unless Noted: Yes Past Dlfhenr-Eydtrj-Ifijyx Hx Patient Social History Tobacco Use?: Yes Substance use?: No Alcohol Use?: No Immunizations Up To Date First/Initial COVID19 Vaccinat: Moderna Second COVID19 Vaccination Keanu: Moderna Seasonal Allergies Seasonal Allergies: No Past Medical History Surgery/Hospitalization HX: Parkinsons, Anxiety, Insomnia Surgeries: Yes (tumor on back) Coronary Stent, Tonsillectomy Respiratory: No Cardiac: Yes Coronary Artery Disease, Heart Attack Neurological: Yes Parkinson's Disease Genitourinary: No Gastrointestinal: No Musculoskeletal: No Endocrine: No HEENT: No Cancer: No Psychosocial: No Integumentary: No Physical Exam Vital Signs Vital Signs - First Documented 02/12/22 02:02 Temp 34.8 Pulse 74 Resp 20 B/P (MAP) 157/61 (93) Pulse Ox 99 O2 Delivery Room Air Capillary Refill : Height, Weight, BMI Height: '" Weight: lbs. oz. kg; 39.00 BMI Method: General Appearance: moderate distress HEENT: PERRL/EOMI Neck: normal inspection Respiratory: chest non-tender Gastrointestinal: non tender, soft Genital/Rectal: normal genital exam Neurologic/Psychiatric: alert, oriented x 3 Focused Exam Sepsis Stage: Ruled Out Lactate Level 02/12/22 02:10: Lactic Acid Level 2.43*H Lactic Acid Level Laboratory Tests Test 02/12/22 02:10 Lactic Acid Level 2.43 MMOL/L (0.50-2.00) *H Progress/Results/Core Measures Suspected Sepsis SIRS Temperature: Pulse: 74 Respiratory Rate: 20 Laboratory Tests 02/12/22 01:56: White Blood Count 7.3 Blood Pressure 157 /61 Mean: 83 02/12/22 02:10: Lactic Acid Level 2.43*H Laboratory Tests 02/12/22 01:56: Creatinine 0.82, Platelet Count 218, Total Bilirubin 0.5 Results/Orders Lab Results Laboratory Tests Test 02/12/22 01:56 02/12/22 02:10 02/12/22 03:40 Range/Units White Blood Count 7.3 4.3-11.0 10^3/uL Red Blood Count 4.47 3.80-5.11 10^6/uL Hemoglobin 12.9 11.5-16.0 g/dL Hematocrit 41 35-52 % Mean Corpuscular Volume 91 80-99 fL Mean Corpuscular Hemoglobin 29 25-34 pg Mean Corpuscular Hemoglobin Concent 32 32-36 g/dL Red Cell Distribution Width 14.0 10.0-14.5 % Platelet Count 218 130-400 10^3/uL Mean Platelet Volume 10.1 9.0-12.2 fL Immature Granulocyte % (Auto) 0 % Neutrophils (%) (Auto) 34 L 42-75 % Lymphocytes (%) (Auto) 38 12-44 % Monocytes (%) (Auto) 9 0-12 % Eosinophils (%) (Auto) 17 H 0-10 % Basophils (%) (Auto) 2 0-10 % Neutrophils # (Auto) 2.5 1.8-7.8 10^3/uL Lymphocytes # (Auto) 2.8 1.0-4.0 10^3/uL Monocytes # (Auto) 0.7 0.0-1.0 10^3/uL Eosinophils # (Auto) 1.3 H 0.0-0.3 10^3/uL Basophils # (Auto) 0.1 0.0-0.1 10^3/uL Immature Granulocyte # (Auto) 0.0 0.0-0.1 10^3/uL Neutrophils % (Manual) 31 % Lymphocytes % (Manual) 38 % Monocytes % (Manual) 9 % Eosinophils % (Manual) 22 % Sodium Level 140 135-145 MMOL/L Potassium Level 3.9 3.6-5.0 MMOL/L Chloride Level 102 98-107 MMOL/L Carbon Dioxide Level 22 21-32 MMOL/L Anion Gap 16 H 5-14 MMOL/L Blood Urea Nitrogen 12 7-18 MG/DL Creatinine 0.82 0.60-1.30 MG/DL Estimat Glomerular Filtration Rate 77 BUN/Creatinine Ratio 15 Glucose Level 116 H 70-105 MG/DL Calcium Level 9.6 8.5-10.1 MG/DL Corrected Calcium 9.6 8.5-10.1 MG/DL Total Bilirubin 0.5 0.1-1.0 MG/DL Aspartate Amino Transf (AST/SGOT) 25 5-34 U/L Alanine Aminotransferase (ALT/SGPT) 14 0-55 U/L Alkaline Phosphatase 93 40-136 U/L Total Protein 7.2 6.4-8.2 GM/DL Albumin 4.0 3.2-4.5 GM/DL Amylase Level 36 25-125 U/L Lactic Acid Level 2.43 *H 0.50-2.00 MMOL/L Urine Color YELLOW Urine Clarity CLOUDY Urine pH 5.5 5-9 Urine Specific [place] 1.015 L 1.016-1.022 Urine Protein NEGATIVE NEGATIVE Urine Glucose (UA) NEGATIVE NEGATIVE Urine Ketones NEGATIVE NEGATIVE Urine Nitrite NEGATIVE NEGATIVE Urine Bilirubin NEGATIVE NEGATIVE Urine Urobilinogen 0.2 < = 1.0 MG/DL Urine Leukocyte Esterase TRACE H NEGATIVE Urine RBC (Auto) 3+ H NEGATIVE Urine RBC TNTC H /HPF Urine WBC 10-25 H /HPF Urine Squamous Epithelial Cells 5-10 /HPF Urine Crystals PRESENT H /LPF Urine Calcium Oxalate Crystals FEW H /LPF Urine Bacteria MODERATE H /HPF Urine Casts NONE /LPF Urine Mucus LARGE H /LPF Urine Yeast MODERATE H /HPF Urine Culture Indicated YES My Orders Orders - GOERGE CEBALLOS DO Cbc With Automated Diff (02/12/22 02:06) Comprehensive Metabolic Panel (02/12/22 02:06) Urinalysis (02/12/22 02:06) Amylase (02/12/22 02:06) Blood Culture (02/12/22 02:06) Lactic Acid Analyzer (02/12/22 02:06) Ns Iv 1000 Ml (Sodium Chloride 0.9%) (02/12/22 02:15) Morphine Injection (Morphine Injection (02/12/22 02:06) Ondansetron Injection (Zofran Injectio (02/12/22 02:15) Fentanyl Inj (Sublimaze Injection) (02/12/22 02:15) Ct Abdomen/Pelvis W (02/12/22 02:06) Manual Differential (02/12/22 01:56) Blood Culture (02/12/22 02:20) Iohexol Injection (Omnipaque 350 Mg/Ml 1 (02/12/22 02:45) Received Contrast (Hold Metformin- Contr (02/12/22 02:45) Sodium Chloride Flush (Catheter Flush Sy (02/12/22 02:45) Ns (Ivpb) (Sodium Chloride 0.9% Ivpb Bag (02/12/22 02:45) Urine Culture (02/12/22 03:40) Ketorolac Injection (Toradol Injection) (02/12/22 04:00) Ns Iv 1000 Ml (Sodium Chloride 0.9%) (02/12/22 04:00) Ceftriaxone 1 Gm Pre-Mix (Rocephin 1 Gm (02/12/22 04:00) Medications Given in ED Current Medications Medications Dose Ordered Sig/Candido Route Start Time Stop Time Status Last Admin Dose Admin Ceftriaxone Sodium/Dextrose 50 ml @ 100 mls/hr ONCE ONCE IV 02/12/22 04:00 02/12/22 04:29 DC 02/12/22 04:07 100 MLS/HR Fentanyl Citrate 25 mcg Q1H PRN IVP 02/12/22 02:15 02/12/22 04:07 25 MCG Iohexol 100 ml ONCE ONCE IV 02/12/22 02:45 02/12/22 02:46 DC 02/12/22 02:46 100 ML Ketorolac Tromethamine 30 mg ONCE ONCE IVP 02/12/22 04:00 02/12/22 04:03 DC 02/12/22 04:07 30 MG Ondansetron HCl 4 mg ONCE ONCE IVP 02/12/22 02:15 02/12/22 02:16 DC 02/12/22 02:20 4 MG Sodium Chloride 100 ml ONCE ONCE IV 02/12/22 02:45 02/12/22 02:46 DC 02/12/22 02:46 100 ML Vital Signs/I&O 02/12/22 02/12/22 02/12/2218/22 02:02 02:29 03:14 04:24 Temp 34.8 Pulse 74 82 85 83 Resp 20 20 20 18 B/P (MAP) 157/61 (93) 150/68 156/97 147/51 Pulse Ox 99 92 95 92 O2 Delivery Room Air Room Air Room Air Room Air Capillary Refill : Blood Pressure Mean: 83 Departure Communication (Admissions) CT abdomen pelvis with contrast: 2 mm distal R UVJ stone without Pain resolved in the emergency department. IV fluids, given. Patient resting comfortably prior to discharge. Return precautions reviewed. Patient pj balizes understanding agreement discharge instructions prior to departure Impression Primary Impression: Acute right flank pain Additional Impressions: Ureteral stone Urinary tract infection Disposition: HOME, SELF-CARE Condition: Stable Departure-Patient Inst. Decision time for Depature: 06:01 Referrals: REMINGTON ADAMS APRN (PCP/Family) Primary Care Physician Patient Instructions: Kidney Stone, Adult ED, Urinary Tract Infection, Adult ED Add. Discharge Instructions: All discharge instructions reviewed with patient and/or family. Voiced understanding. Scripts Cephalexin (Cephalexin) 500 Mg Tablet 500 MG PO TID, #9 TAB Prov: GEORGE CEBALLOS DO 02/12/22 Ondansetron (Ondansetron Odt) 4 Mg Tab.rapdis 4 MG PO Q6H, #10 TAB Prov: GEORGE CEBALLOS DO 02/12/22 Hydrocodone/Acetaminophen (Hydrocodone-Acetamin 5-325 mg) 1 Each Tablet 1 TAB PO Q4H PRN for PAIN-MODERATE (5-7), #10 TAB Prov: GEORGE CEBALLOS DO 02/12/22 GEORGE CEBALLOS DO Feb 12, 2022 06:01
--- NOTE | 2022-02-12 06:41 | Diagnostic Imaging Report ---
EXAMINATION: CT abdomen and pelvis with intravenous contrast. TECHNIQUE: Multiple contiguous axial images were obtained through the abdomen and pelvis after the uneventful administration of intravenous contrast. All CT scans use one or more of the following dose optimizing techniques: automated exposure control, MA and/or KvP adjustment based on patient size and exam type or iterative reconstruction. HISTORY: RUQ pain COMPARISON: None available. FINDINGS: Lung bases: Bibasilar dependent atelectasis. Solid organs: The liver is normal without focal lesion. The gallbladder is normal. There is no biliary ductal dilation. Pancreas is normal. Spleen is normal. Adrenal glands are normal. There may be a 0.2 cm stone within the distal right ureter at the ureterovesicular junction resulting in mild right hydronephrosis. The left kidney is unremarkable. Bowel: There is a moderate hiatal hernia. No bowel obstruction. The colon and appendix are normal. Peritoneum: There is no intraperitoneal free fluid or free air. No suspicious lymphadenopathy. Vasculature: Calcification of the aorta without aneurysm. Musculoskeletal: Degenerative changes of the spine without suspicious osseous lesion or compression fracture. Pelvis: The uterus is surgically absent. No adnexal mass. The urinary bladder is normal. IMPRESSION: 1. A 0.2 cm calculus within the distal right ureter at the ureterovesicular junction resulting in mild right hydronephrosis. Dictated by: Dictated on workstation # [id number]
== END 2022-02-12 06:17 | disposition home or self-care (01) ==
LOC: EDUNIT# 01:44 → ER FS 01:47
DX: N13.2 Hydronephrosis with renal and ureteral calculous obstruction (principal); N39.0 Urinary tract infection, site not specified; Z91.040 Latex allergy status
CPT/HCPCS: 36415; 74177; 80053; 81000; 82150; 83605; 85007; 85027; 87040; 87088; 96374; 96375; 96376

== ENCOUNTER → 2022-12-25 | Outpatient (CLI) | payer MEDICARE, BC ==
[~2022-12-25] MED LIST changes: +ACHD5005 PO; +ATEN25TA PO; +ATOR10TA66 PO; +CEPH500T PO; +LEVO13CA4 PO; +ONDA4TAB11 PO
--- NOTE | 2022-12-25 11:30 | Diagnostic Imaging Report ---
INDICATION: Postmenopausal state COMPARISON: None available FINDINGS: AP Spine L1-L4: [BMD (g/cm2): 1.090] [T-Score: -0.9] [Z-Score: -0.4] [BMD Previous: NA] [BMD % Change: NA] LT Hip Neck: [BMD (g/cm2): 0.900] [T-Score: -1.0] [Z-Score: -0.1] LT Hip Total: [BMD (g/cm2):0.980] [T-Score:-0.2] [Z-Score: 0.4] [BMD Previous: NA] [BMD % Change: NA] RT Hip Neck: [BMD (g/cm2):0.882] [T-Score:-1.1] [Z-Score:-0.2] RT Hip Total: [BMD (g/cm2):0.970] [T-score:-0.3] [Z-Score:0.3] [BMD Previous:NA] [BMD % Change:NA] *Indicates significant change from prior examination based on 95% confidence level. World Health Organization criteria for BMD interpretation classify patients as Normal (T-score at or above -1.0), Osteopenic (T-score between -1.0 and -2.5) or Osteoporotic (T-score at or below -2.5). LIMITATIONS AND MODIFICATION: None. FRACTURE RISK (FRAX SCORE): The ten year probability of (%): Major Osteoporotic Fracture: [8.1] Hip Fracture: [0.9] IMPRESSION: 1. Osteopenia (Low bone mass). 2. Baseline examination. 3. See below National Osteoporosis Foundation guidelines on when to potentially initiate pharmacologic therapy. Based on the National Osteoporosis Foundation Guidelines, pharmacologic treatment should be initiated in any of the following, unless clinical conditions suggest otherwise: * Any patient with prior fragility fracture of the hip or vertebrae. A spine fracture indicates 5X risk for subsequent spine fracture and 2X risk for subsequent hip fracture. * Osteoporosis (T-score <-2.5). * Postmenopausal women and men age 50 and older with low bone mass/osteopenia (T-score between -1.0 and -2.5) by DXA and 10-year major osteoporotic fracture greater than 20% or a 10-year probability of hip fracture greater than 3%. These fracture risks are supplied above in the FRAX score, if applicable. * Clinician judgement and/or patient preferences may indicate treatment for people with 10-year fracture probabilities above or below these levels. Dictated by: Dictated on workstation # [id number]
--- NOTE | 2022-12-25 15:41 | Diagnostic Imaging Report ---
INDICATION: Routine screening. Comparison is made with prior mammogram from 06/08/2021 and 12/10/2019. 2-D and 3-D bilateral screening mammography was performed with CAD. Scattered fibroglandular densities are identified bilaterally. Nodular densities in the outer left breast appears stable. There are scattered benign calcifications. No new mass or malignant-appearing microcalcifications are seen. Axillae are unremarkable. IMPRESSION: No mammographic features suspicious for malignancy are identified. ACR BI-RADS Category 2: Benign findings. Result letter will be mailed to the patient. Note: At least 10% of breast cancer is not imaged by mammography. BI-RADS Category 2 Dictated by: Dictated on workstation # [id number]
== END ==
LOC: RAD 10:22
PROVIDERS: ATTEND Obstetrics & Gynecology
DX: Z12.31 Encounter for screening mammogram for malignant neoplasm of breast (principal); M85.80 Other specified disorders of bone density and structure, unspecified site; Z78.0 Asymptomatic menopausal state
CPT/HCPCS: 77063; 77067; 77080